=== PATIENT | female | born 1955 | race Caucasian/White ===

== ENCOUNTER 2017-10-11 18:54 | Emergency (ER) | payer MEDICAID, SELFPAY ==
[2017-10-11 18:56] VITALS: BP 154/84; PULSE 72; RESP 18; TEMP 36.9; O2SAT 98; BMI 24.0
[2017-10-11 20:19] VITALS: BP 153/57; PULSE 54; RESP 16; O2SAT 99
[2017-10-11 20:20] VITALS: O2SAT 100
--- NOTE | 2017-10-11 20:36 | EKG12_ITS ---
Test Reason : COUGH Blood Pressure : / mmHG Vent. Rate : 055 BPM Atrial Rate : 055 BPM P-R Int : 180 ms QRS Dur : 072 ms QT Int : 418 ms P-R-T Axes : 082 024 048 degrees QTc Int : 399 ms Sinus bradycardia Otherwise normal ECG Confirmed by PASTOR ROMO, ARNOL ([id number]), material expeditor STACY MUNOZ ([id number] on 10/13/2017 1:36:49 PM Referred By: MINDI Confirmed By:ARNOL BAUMANN MD
[2017-10-11 20:53] LABS: Absolute Neutrophil Count 3.9 X10^3/uL (2.0-7.7); Basophil# 0.07 X10^3/uL; Basophil% 0.8 % (0-1); Eosinophil# 0.36 X10^3/uL; Eosinophils% 4.2 % (0-5); Hematocrit 38.3 % (37-47); Hemoglobin 12.5 g/dl (12.0-15.0); Lymphocyte % 40.1 % (19-41); Mean Corp Hgb Conc 32.6 g/gl (32-36); Mean Corpuscular Hgb 27.8 pg (27.0-32.0); Mean Corpuscular Volume 85.3 fL (81-99); Mean Platelet Vol. 9.2 fl (6.2-12.0); Monocyte# 0.79 X10^3/uL; Monocyte% 9.3 % (0-10); Neutrophil # 3.85 X10^3/uL (2.7-7.7); Neutrophil % 45.5 % (47-70); POSITIVE COUNT NO; POSITIVE DIFFERENTIAL NO; POSITIVE MORPHOLOGY NO; Platelet Count 229 K/mm3 (150-450); RBC Distribution Width CV 12.5 % (11.6-14.6); RBC Distribution Width SD 39.2 fl (35.1-43.9); Red Blood Count 4.49 M/mm3 (4.2-5.4); White Blood Count 8.5 K/mm3 (4.4-11.0)
[2017-10-11 21:10] LABS: Anion Gap 5 (5-15); BUN 22 mg/dL (7-18); BUN/Creat Ratio 16.7 RATIO (10-20); Calcium,Total 8.9 mg/dL (8.5-10.1); Chloride 101 mmol/L (98-107); Creatinine, Serum 1.32 mg/dL (0.55-1.02); EST Glomerular Filtration Rate 43 mL/min (>60); Est Glom Filt Rate - Afr Amer 52 mL/min (>60); Estimated Creatinine Clearance 39.76 ml/min; Glucose 95 mg/dL (74-106); Potassium 4.3 mmol/L (3.5-5.1); Sodium Level 135 mmol/L (136-145)
--- NOTE | 2017-10-11 21:11 | RAD_ITS ---
STUDY: X-RAY CHEST REASON FOR EXAM: Female, 62 years old. Cough, congestion, fever TECHNIQUE: Frontal and lateral views of the chest. COMPARISON: None. FINDINGS: The lungs are clear and hyper expanded. There is no demonstrated pleural abnormality. Normal size heart. Normal mediastinum and pratibha. Normal visualized pulmonary arteries. Normal visualized aortic arch and descending thoracic aorta. Normal visualized thoracic spine. Normal visualized ribs, clavicles, and shoulders. There is no demonstrated abnormality of the visualized soft tissue structures of the upper abdomen. RAD/Chest PA and Lateral IMPRESSION: Hyperinflation. No acute infiltrate. Electronically Signed: Jr Baugh DO at 21:53 EST , Service support ,
[2017-10-11] MEDS: Ketorolac 15 MG/ML Vial IV (21:39)
[2017-10-11 21:40] VITALS: BP 129/64; PULSE 56; RESP 17; O2SAT 99
--- NOTE | 2017-10-11 22:26 | ED.VISSUMM ---
- ER Visit Summary Date of Service: 10/11/17 Chief Complaint: Cough History of Present Illness: The patient is a 62 F with a history of COPD, not on home oxygen. Patient reports cough for the past 2 weeks and states she is bringing up green sputum. She has back pain over the past 5 days and believes she has pneumonia. She has noted a low-grade fever. She has had no nausea or vomiting. Physical Examination: Vital signs are gross unremarkable. Patient is afebrile here 98.4. Patient sitting upright in bed in no acute distress. She is nontoxic appearing. Head neck examination is unremarkable. Heart is regular rate and rhythm. Lung sounds are slightly diminished throughout. Abdomen is soft nontender. Test Results: EKG is sinus bradycardia at 55 bpm with no sign of acute ischemia. Two-view chest x-ray shows hyperinflation with no evidence of infiltrate. CBC is normal. Chemistry studies reveal BUN 22 and creatinine 1.32, which is consistent with her baseline renal function. Emergency Department Course and Treatment: Patient received 15 mg of Toradol for pain. At this time I believe she has a COPD exacerbation. She will be covered with Zithromax, first dose given here. She has aerosols at home to use as needed. Treatment Plan: [] Disposition: Discharge Impression: COPD exacerbation This note was generated with [employer] dictation software. It may contain incorrect words, spelling, and punctuation that were not noted in review of the chart prior to signing ED Disposition - Plan for ED Patient: Disposition: Home or Assisted Living Chief Complaint: Cough Instructions: ED COPD Flare Prescriptions: Azithromycin [Zithromax] 250 mg PO DAILY #4 tablet Referrals: Freedom Modi DO [Primary Care Provider] - 1 Week if not improving
[2017-10-11 22:27] VITALS: BP 123/105; BP 132/105; PULSE 57; RESP 13; O2SAT 98
[2017-10-11 22:42] VITALS: BP 141/68; PULSE 67; RESP 16; O2SAT 97
[2017-10-11] MEDS: Azithromycin 250 MG Tablet 500 MG PO (22:42)
== END 2017-10-11 22:43 | disposition home or self-care (01) ==
PROVIDERS: Emergency Provider Emergency Medicine; Family Provider Family Medicine; PCP Family Medicine
DX: J44.1 Chronic obstructive pulmonary disease with (acute) exacerbation (principal); I10 Essential (primary) hypertension; F41.9 Anxiety disorder, unspecified; Z72.0 Tobacco use
CPT/HCPCS: 71046; 80048; 85025; 93005; 99284; A4216

== ENCOUNTER → 2018-03-14 15:53 | Outpatient (CLI) | payer MEDICAID, SELFPAY | PROVIDERS: Family Provider Family Medicine; PCP Family Medicine; Visit Provider Family Medicine | DX: N39.0 Urinary tract infection, site not specified (principal) | CPT/HCPCS: 87077; 87086; 87088; 87186 ==

== ENCOUNTER 2018-03-24 19:22 | Emergency (ER) | payer MEDICAID, SELFPAY ==
[2018-03-24 19:23] VITALS: BP 143/60; PULSE 71; RESP 15; TEMP 36.7; O2SAT 100; BMI 26.9
[2018-03-24] MEDS: Fluconazole 100 MG Tablet 150 MG PO (20:08)
[2018-03-24 20:15] LABS: Bacteria 0 SEEN /hpf (None Seen); Mucous, Urine 0 SEEN /hpf (<or=2+); Red Blood Cells-Urine 0 SEEN /hpf (0-5); Squamous Epithelial Cells - UA 0 SEEN /hpf (5-10); White Blood Cells 0 SEEN /hpf (0-5)
[2018-03-24 20:16] LABS: Color, Urine Yellow (Yellow); Glucose, Dipstick Normal (Normal); Ketone-Dipstick Negative (Negative); Leukocyte Esterase-Dipstick Negative /ul (Negative); Nitrite-Dipstick Negative (Negative); Occult Blood-Urine Negative /ul (Negative); Protein-Dipstick Negative (Negative); Specific Gravity, Urine 1.015 (1.002-1.030); Urine Bilirubin Dipstick Negative (Negative); Urine Clarity Clear (Clear); Urine Urobilinogen Normal (Normal)
--- NOTE | 2018-03-24 20:18 | ED.DCSUM_ITS ---
- ER Visit Summary Date of Service: 03/24/18 Chief Complaint: Dysuria History of Present Illness: The patient is a 62 F presents to the emergency department with dysuria. Patient states she was diagnosed with urinary tract infection. She states that she finished 3 days of Bactrim on Wednesday. Since then, she has had persistent symptoms. She feels like she is having pain when she urinates. She is also had some vaginal itching. She denies back pain. She denies fevers or chills. She denies any other systemic symptoms. Physical Examination: Vital signs reviewed General: Well-nourished, well-developed Head: Normocephalic, atraumatic Eyes: Pupils equal and reactive, extraocular muscles intact Neck, supple, no lymphadenopathy Heart: Regular rate and rhythm Respiratory: No distress, clear bilaterally Abdomen: Soft, nontender, nondistended, no peritoneal signs Back: Nontender Extremities: Nontender, no edema, no cords Skin: Normal color no rash Neuro: Alert and oriented, no focal or lateralizing deficits Test Results: [] Emergency Department Course and Treatment: The patient does have symptoms of dysuria. External exam was done with female nurse risk prevention engineer. She does have evidence of yeast vaginitis. Patient had a urine obtained. There was no evidence of persistent infection. I do feel that her symptoms are secondary to yeast vaginitis. She will be treated with Diflucan and Pyridium. The patient will be discharged to follow-up with Dr. Modi. Treatment Plan: [] Disposition: To Impression: 1. Yeast vaginitis 2. Dysuria This note was generated with [email or web address] dictation software. It may contain incorrect words, spelling, and punctuation that were not noted in review of the chart prior to signing ED Disposition - Plan for ED Patient: Chief Complaint: Complaint Instructions: ED Urethritis Infec Vs Inflam Fem Prescriptions: Fluconazole [Diflucan] 150 mg PO X1 #1 tab Phenazopyridine HCl [Pyridium] 200 mg PO BID PRN PRN #10 tab PRN Reason: Pain Lactobacillus Acidophilus [Probiotic Acidophilus] 1 ea PO BID #60 tab Referrals: Freedom Modi DO [Primary Care Provider] -
[2018-03-24 20:46] VITALS: PULSE 72; RESP 15; O2SAT 98
== END 2018-03-24 20:47 | disposition home or self-care (01) ==
LOC: ED 19:59
PROVIDERS: Emergency Provider Emergency Medicine; Family Provider Family Medicine; PCP Family Medicine
DX: B37.3 Candidiasis of vulva and vagina (principal); R30.0 Dysuria; Z72.0 Tobacco use
CPT/HCPCS: 81001; 99283

== ENCOUNTER 2018-03-31 12:58 | Emergency (ER) | payer MEDICAID, SELFPAY ==
[2018-03-31 12:58] VITALS: BP 122/81; PULSE 61; RESP 18; TEMP 37; O2SAT 97; BMI 22.6
[2018-03-31 13:31] LABS: Bacteria 0 SEEN /hpf (None Seen); Mucous, Urine 0 SEEN /hpf (<or=2+); Red Blood Cells-Urine 0 SEEN /hpf (0-5)
[2018-03-31 13:34] LABS: Color, Urine Yellow (Yellow); Glucose, Dipstick Normal (Normal); Ketone-Dipstick Negative (Negative); Leukocyte Esterase-Dipstick Negative /ul (Negative); Nitrite-Dipstick Negative (Negative); Occult Blood-Urine Negative /ul (Negative); Protein-Dipstick Negative (Negative); Specific Gravity, Urine 1.005 (1.002-1.030); Urine Bilirubin Dipstick Negative (Negative); Urine Clarity Clear (Clear); Urine Urobilinogen Normal (Normal); Urine pH 6.5 (5.0 - 8.0)
[2018-03-31 13:40] LABS: Squamous Epithelial Cells - UA 0-5 SEEN /hpf (5-10); White Blood Cells 0-5 SEEN /hpf (0-5)
--- NOTE | 2018-03-31 14:25 | ED.VISSUMM ---
- ER Visit Summary Date of Service: 03/31/18 Chief Complaint: [dysuria, vaginal itching] History of Present Illness: The patient is a 62 F [that presents with UTI symptoms. She was seen 5 days ago for the same complaints. Urinalysis at time was not consistent with infection. Pelvic exam at that time was consistent with yeast vaginitis. Patient was treated with Diflucan and Pyridium. She states her symptoms have persisted. She has been referred to a truck technician but does not yet have an appointment. She presents for the same symptoms. She states the symptoms are no worse. She has no other complaints.] Physical Examination: [General: The patient appears well and in no apparent distress. Patient is resting comfortably on cart. Skin: Warm, dry, no pallor noted. No rash. Head: Normocephalic, atraumatic Neck: Supple, nontender. Cardiovascular: Regular Rate and Rhythm, no gallups or rubs Respiratory: Patient is in no distress, no accessory muscle use, lungs are clear to auscultation, no wheezing, rales or rhonchi Musculoskeletal: normal ROM, no deformity, no tenderness, no swelling. GI: No tenderness to palpation, no masses appreciated. No rebound, guarding, or rigidity noted. Neurological: A&O, normal strength and sensation. Psychiatric: Cooperative] Test Results: [UA not consistent with infection.] Emergency Department Course and Treatment: [Repeat urinalysis not consistent with infection. Urine culture will be sent. Patient refuses another pelvic exam as she states she had one several days ago. I will treat her with a topical Monistat type treatment and she will again be referred to FISH DRESSING MACHINE FEEDER for follow-up. She denies any abdominal or pelvic pain. She states her pain is just the itching and discomfort of the vaginal area. She denies any bleeding. Patient understands and is agreeable with this plan of care. Patient was discharged home in stable condition.] Treatment Plan: [See above] Disposition: [Discharged home, stable condition] Impression: [Vaginal pain] This note was generated with [employer] dictation software. It may contain incorrect words, spelling, and punctuation that were not noted in review of the chart prior to signing ED Disposition - Plan for ED Patient: Disposition: Home or Assisted Living Chief Complaint: Complaint Instructions: Vaginal Infection: Yeast (Candidiasis) Prescriptions: Miconazole Nitrate [Monistat 7] 1 applic VAGINAL QHS #1 tube Referrals: Freedom Modi DO [Primary Care Provider] - Reagan Collins MD [STAFF PHYSICIAN] -
--- NOTE | 2018-03-31 14:30 | ED.DCSUM_ITS ---
- ER Visit Summary Date of Service: 03/31/18 Chief Complaint: [dysuria, vaginal itching] History of Present Illness: The patient is a 62 F [that presents with UTI symptoms. She was seen 5 days ago for the same complaints. Urinalysis at time was not consistent with infection. Pelvic exam at that time was consistent with yeast vaginitis. Patient was treated with Diflucan and Pyridium. She states her symptoms have persisted. She has been referred to a legal administrative assistant but does not yet have an appointment. She presents for the same symptoms. She states the symptoms are no worse. She has no other complaints.] Physical Examination: [General: The patient appears well and in no apparent distress. Patient is resting comfortably on cart. Skin: Warm, dry, no pallor noted. No rash. Head: Normocephalic, atraumatic Neck: Supple, nontender. Cardiovascular: Regular Rate and Rhythm, no gallups or rubs Respiratory: Patient is in no distress, no accessory muscle use, lungs are clear to auscultation, no wheezing, rales or rhonchi Musculoskeletal: normal ROM, no deformity, no tenderness, no swelling. GI: No tenderness to palpation, no masses appreciated. No rebound, guarding, or rigidity noted. Neurological: A&O, normal strength and sensation. Psychiatric: Cooperative] Test Results: [UA not consistent with infection.] Emergency Department Course and Treatment: [Repeat urinalysis not consistent with infection. Urine culture will be sent. Patient refuses another pelvic exam as she states she had one several days ago. I will treat her with a topical Monistat type treatment and she will again be referred to PACU RN for follow -up. She denies any abdominal or pelvic pain. She states her pain is just the itching and discomfort of the vaginal area. She denies any bleeding. Patient understands and is agreeable with this plan of care. Patient was discharged home in stable condition.] Treatment Plan: [See above] Disposition: [Discharged home, stable condition] Impression: [Vaginal pain] This note was generated with [employer] dictation software. It may contain incorrect words, spelling, and punctuation that were not noted in review of the chart prior to signing ED Disposition - Plan for ED Patient: Disposition: Home or Assisted Living Chief Complaint: Complaint Instructions: Vaginal Infection: Yeast (Candidiasis) Prescriptions: Miconazole Nitrate [Monistat 7] 1 applic VAGINAL QHS #1 tube Referrals: Freedom Modi DO [Primary Care Provider] - Reagan Collins MD [STAFF PHYSICIAN] -
[2018-03-31] MEDS: Acetaminophen 500 MG Tablet 1000 MG PO (14:45)
== END 2018-03-31 14:49 | disposition home or self-care (01) ==
PROVIDERS: Emergency Provider Emergency Medicine; Family Provider Family Medicine; PCP Family Medicine
DX: R10.2 Pelvic and perineal pain (principal); R30.0 Dysuria; R35.0 Frequency of micturition
CPT/HCPCS: 81001; 87086; 87088; 99283

== ENCOUNTER → 2018-04-22 15:45 | Outpatient (CLI) | payer MEDICAID, SELFPAY | PROVIDERS: Family Provider Family Medicine; PCP Family Medicine; Visit Provider Obstetrics & Gynecology | DX: N39.0 Urinary tract infection, site not specified (principal) | CPT/HCPCS: 87086; 87088 ==

== ENCOUNTER → 2018-05-05 16:20 | Outpatient (CLI) | payer MEDICAID, SELFPAY ==
[2018-05-11 10:55] LABS: HPV Reflexed? NOT INDICATED
== END ==
PROVIDERS: Visit Provider Obstetrics & Gynecology
DX: Z12.4 Encounter for screening for malignant neoplasm of cervix (principal)
CPT/HCPCS: 88175; G0145

== ENCOUNTER → 2018-06-03 10:26 | Outpatient (CLI) | payer MEDICAID, SELFPAY ==
--- NOTE | 2018-06-03 10:28 | BI_ITS ---
MAMMOGRAPHY - BILATERAL SCREENING REASON FOR EXAM: Female, 62 years old. Routine annual screening examination. PERTINENT HISTORY: Mother with breast cancer. TECHNIQUE: Digital bilateral breast amanda (3D mammographic acquisition) in the CC and MLO projections. 2-D mediolateral oblique (MLO) and craniocaudad (CC) views of both breasts were obtained. CAD: Full Field Digital Mammography with Computer Added Detection was performed. COMPARISON: Comparison is made with prior study dated September 24, 2015 and February 28, 2014. FINDINGS: Breast Composition: The breasts are almost entirely fatty. There are no dominant masses or suspicious calcifications. Stable 3.7 mm x 2.7 mm well-defined nodule in the inferior medial retroareolar region of the right breast. This most likely represents a small cyst. Correlation with ultrasound is recommended. No other significant abnormalities are identified. There has been no significant change since the prior study. BI/SCREENING MAMM (CAD), BILAT IMPRESSION: Stable bilateral screening mammogram. 3.7 mm x 2.7 mm well-defined nodule in the inferior medial retroareolar region of the right breast. Correlation with ultrasound is recommended. ASSESSMENT CATEGORY: BIRADS Category 0: Incomplete. Need additional imaging evaluation. A letter regarding these results will be sent to the patient by the facility within 30 days. Approximately 10% of breast cancers are not detected by mammography. A normal mammogram should not delay biopsy of a clinically suspicious abnormality. [id number] Electronically Signed: Trey Chisholm MD at 13:58 EDT Tel [phone], Service support ,
== END ==
PROVIDERS: Family Provider Family Medicine; PCP Family Medicine; Referring Provider Obstetrics & Gynecology; Visit Provider Obstetrics & Gynecology
DX: Z12.31 Encounter for screening mammogram for malignant neoplasm of breast (principal)
CPT/HCPCS: 77063; 77067

== ENCOUNTER → 2018-06-13 12:26 | Outpatient (CLI) | payer MEDICAID, SELFPAY ==
--- NOTE | 2018-06-13 12:29 | US_ITS ---
STUDY: ULTRASOUND BREAST - RIGHT REASON FOR EXAM: Female, 62 years old. Abnormal screening mammogram. TECHNIQUE: Axial and longitudinal images of the RIGHT breast were performed with a high resolution ultrasound transducer. COMPARISON: Comparison is made with prior mammogram dated June 03, 2018. FINDINGS: RIGHT Breast: There is a 3 mm x 3 mm x 2 mm cyst with low level echoes within it. This is at the 6:00 position of the breast in the retroareolar region. US/Breast Limited Unilateral IMPRESSION: The mammographic abnormality corresponds to a 3 mm x 3 mm x 2 mm cyst with low-level echoes within it. This may represent an hemorrhagic cyst. ASSESSMENT CATEGORY: BIRADS Category 2: Benign. A letter regarding these results will be sent to the patient by the facility within 30 days. Electronically Signed: Trey Chisholm MD at 15:38 EDT Tel [phone], Service support ,
== END ==
PROVIDERS: Family Provider Family Medicine; PCP Family Medicine; Referring Provider Obstetrics & Gynecology; Visit Provider Obstetrics & Gynecology
DX: R92.8 Other abnormal and inconclusive findings on diagnostic imaging of breast (principal)
CPT/HCPCS: 76642

== ENCOUNTER → 2018-08-30 10:00 | Outpatient (CLI) | payer MEDICAID, SELFPAY ==
--- NOTE | 2018-08-31 07:26 | PFTCOMP ---
COMPLETE PULMONARY FUNCTION TEST INTERPRETATION Brief HPI: Patient is a 63 year old female, currently under the care of myself, who presents to [facility] for complete pulmonary function tests secondary to diagnosis of COPD. Respiratory therapist reports good effort and reproducible results. Interpretation: Forced expiration spirometry shows a moderate large airways obstructive ventilatory defect with an FEV1 of 71% predicted. There is a significant bronchodilator response in FEV1 by strict ATS criteria. Spirograms are of good quality and plateau slowly, indicating slowly emptying areas of the lungs. The respiratory flow volume loop shows decreased expiratory flow rates at all lung volumes consistent with airway obstruction. Lung volumes by body plethysmography show an elevated total lung capacity at 6 L, 118% predicted. There is a trend towards air trapping, but this does not reach clinical significance by strict ATS criteria. Diffusion capacity by carbon monoxide is normal at 81% predicted. The airway resistance is elevated. Compared to previous pulmonary function tests from 02/20/2016, there has been a significant worsening in FEV1 by 21%. Impression: Partially reversible moderate large airways obstructive ventilatory defect with worsening compared to previous testing, in a pattern consistent with COPD/asthma overlap syndrome.
== END ==
PROVIDERS: Family Provider Family Medicine; PCP Family Medicine; Referring Provider Nurse Practitioner Acute Care; Visit Provider Nurse Practitioner Acute Care
DX: J44.9 Chronic obstructive pulmonary disease, unspecified (principal)
CPT/HCPCS: 94060; 94726; 94729

== ENCOUNTER → 2018-09-01 10:41 | Outpatient (CLI) | payer MEDICAID, SELFPAY ==
[2018-09-01 11:09] VITALS: PULSE 100; PULSE 102; PULSE 105; PULSE 111; PULSE 75; PULSE 81; PULSE 94; O2SAT 97; O2SAT 98
--- NOTE | 2018-09-01 14:10 | WT_ITS ---
PSN 6 Minute Walk Test - 6 Minute Walk Test 6 Minute Walk Test: 6 Minute Walk Test PSN:6-Minute Walk Test Start: 09/01/18 11:09 Freq: Status: Active Protocol: RESP.6MINW Document 09/01/18 11:09 [facility] (Rec: 09/01/18 11:16 [facility] [id number]) 6 Minute Walk Test Date Performed 09/01/18 Time Performed 10:50 Height 5 ft 5 in Weight: 58.967 kg Weight in Pounds 130.[address]: Adrianne Sargent Assistive device used: None Pre-test Oxygen Delivery Method Room Air Pulse Ox (%) 98 Pulse Rate (60-100 beats/min) 75 Dyspnea Mary Beth Scale (0-10) 0.5 Exertion Mary Beth Scale (6-20) 11 1st minute Oxygen Delivery Method Room Air Pulse Ox (%) 97 Pulse Rate (60-100 beats/min) 102 H 2nd minute Oxygen Delivery Method Room Air Pulse Ox (%) 97 Pulse Rate (60-100 beats/min) 100 3rd minute Oxygen Delivery Method Room Air Pulse Ox (%) 98 Pulse Rate (60-100 beats/min) 81 4th minute Oxygen Delivery Method Room Air Pulse Ox (%) 98 Pulse Rate (60-100 beats/min) 105 H 5th minute Oxygen Delivery Method Room Air Pulse Ox (%) 98 Pulse Rate (60-100 beats/min) 105 H 6th minute Oxygen Delivery Method Room Air Pulse Ox (%) 98 Pulse Rate (60-100 beats/min) 111 H Post-test Oxygen Delivery Method Room Air Pulse Ox (%) 98 Pulse Rate (60-100 beats/min) 94 Dyspnea Mary Beth Scale (0-10) 2 Exertion Mary Beth Scale (6-20) 13 Full Laps Walked 22 Partial Lap, Number of Tiles Walked 7 Total Distance Walked (ft) 1305 - Interpretation Interpretation: The patient was able to ambulate 1305 feet over the course of 6 minutes on room air with no assistive devices or breaks. There was no significant desaturation, but mild tachycardia with a peak heart rate of 111 bpm. These findings are consistent with deconditioning. - Recommendations Recommendations: No supplemental oxygen is indicated at this time.
== END ==
PROVIDERS: Family Provider Family Medicine; PCP Family Medicine; Referring Provider Nurse Practitioner Acute Care; Visit Provider Nurse Practitioner Acute Care
DX: J44.9 Chronic obstructive pulmonary disease, unspecified (principal)
CPT/HCPCS: 94618

== ENCOUNTER → 2018-10-03 13:36 | Outpatient (CLI) | payer MEDICAID, SELFPAY ==
[2018-09-07 08:54] VITALS: BMI 21.1
--- NOTE | 2018-10-03 13:38 | CT_ITS ---
STUDY: LOW DOSE CT LUNG CANCER SCREENING REASON FOR EXAM: Female, 63 years old. Smoker x48 years, 2 packs per day RADIATION DOSAGE (If Supplied By Facility): CTDIvol = ( 2.01 ) mGy, DLP = ( 73.49 ) mGycm TECHNIQUE: No contrast was administered. Low dose technique was utilized (average mAS-38 and kVp 120). 1.25 mm axial source images with a slice interval of 1.25-mm were reconstructed in lung windows. 2.5 mm axial source images with a slice interval of 2.5-mm were reconstructed in lung windows. 5.0 mm axial source images with a slice interval of 5.0-mm were reconstructed in soft tissue windows. Nodule measured using lung windows on PACS and/or independent workstation with automated measurement of minimum and maximum diameter. Nodule measurement reported as average diameter rounded to the nearest whole number. Growth is defined as an increase ins size of greater than 1.5 mm. COMPARISON: None. NODULES: Lung windows show underlying emphysema with bleb formation but no superimposed infiltrate, effusion, suspicious noncalcified mass or nodule. No demonstrated axillary or mediastinal adenopathy. Degenerative bony changes with stable compression fracture at L1. CT/Low Dose CT Lung Screening IMPRESSION: Lung-RADS category 2 - Continue annual screening with LDCT in 12 months. IMPORTANT NOTES FOR USE: ACR Lung-RADS Version 1.0 Assessment Categories Release Date: December 18, 2013 Category: Coded 0-4 bases on nodule(s) with highest degree of suspicion. Negative screen is defined as categories 1 and 2; a positive screen is defined as categories 3 and 4. Category 3 and 4A nodules that are unchanged on interval CT should be coded as category 2, and individuals returned to screening in 12 months. Category 4X: Category 3 or 4 nodules with additional imaging findings that increase the suspicion of lung cancer, such as spiculation, GGN that doubles in size in 1 year, enlarged lymph notes, etc. Category Modifiers: S (significant finding unrelated to lung cancer) and C (prior history of treated lung cancer) may be added to the 0-4 Lung-RADS Electronically Signed: Ángel Cline MD at 14:52 EST , Service support ,
== END ==
PROVIDERS: Family Provider Family Medicine; PCP Family Medicine; Referring Provider Family Medicine; Visit Provider Family Medicine
DX: Z12.2 Encounter for screening for malignant neoplasm of respiratory organs (principal); Z72.0 Tobacco use
CPT/HCPCS: G0297

== ENCOUNTER 2018-10-30 23:50 | Emergency (ER) | payer MEDICAID, SELFPAY ==
[2018-09-07 08:54] VITALS: BMI 21.1
[2018-10-30 23:51] VITALS: BP 112/69; PULSE 66; RESP 16; TEMP 36.6; O2SAT 100; BMI 20.7
--- NOTE | 2018-10-31 00:30 | RAD_ITS ---
STUDY: X-RAY - RIGHT HIP REASON FOR EXAM: Female, 63 years old. Trauma TECHNIQUE: 2 views of the hip. COMPARISON: None. FINDINGS: Degenerative changes of the visualized lumbar spine. Degenerative changes of the hips. Evaluation the sacrum is limited due to overlying stool and bowel gas. Clips are noted within the bilateral adnexa. Phleboliths within the pelvis. Fracture involving the right femoral neck. The femoral head remains seated within the acetabulum. There is lucency overlying the left sacrum. RAD/HIP, UNI W/ Pelvis 2-3 Views IMPRESSION: There is a right femoral neck fracture which appears slightly superiorly displaced. Lucency overlies the left sacrum. This could represent bowel gas however nondisplaced fracture cannot be totally excluded. Electronically Signed: Jose Alfredo Soriano, at 1:56 EDT Tel , Service support ,
--- NOTE | 2018-10-31 00:30 | RAD_ITS ---
STUDY: X-RAY CHEST REASON FOR EXAM: Female, 63 years old. Fall TECHNIQUE: Single AP portable view of the chest. COMPARISON: None. FINDINGS: There is hyperinflation of the lungs consistent with chronic obstructive lung disease (COPD). There is no demonstrated pleural abnormality. Normal size heart. Normal mediastinum and pratibha. Normal visualized pulmonary arteries. Normal visualized aortic arch and descending thoracic aorta. Normal visualized thoracic spine. There is an old healed fracture of the left sixth rib. There is no demonstrated abnormality of the visualized soft tissue structures of the upper abdomen. RAD/Chest 1 View (Portable) IMPRESSION: There is hyperinflation of the lungs consistent with chronic obstructive lung disease (COPD). There is no evidence of pneumothorax. Electronically Signed: Fannie Hartley, at 3:28 EDT Tel , Service support ,
--- NOTE | 2018-10-31 00:30 | EKG12_ITS ---
Test Reason : PRE-OP Blood Pressure : / mmHG Vent. Rate : 065 BPM Atrial Rate : 065 BPM P-R Int : 140 ms QRS Dur : 078 ms QT Int : 458 ms P-R-T Axes : 081 024 066 degrees QTc Int : 476 ms Normal sinus rhythm Normal ECG Confirmed by ILIANA ROMO, CHRISTIAN ([id number]), editor in chief newspaper REBECA MORAES ([id number]) on 11/04/2018 9:20:45 AM Referred By: ZAMZAM Confirmed By:CHRISTIAN BARRIENTOS MD
--- NOTE | 2018-10-31 00:33 | ED.DCSUM_ITS ---
- ER Visit Summary Date of Service: 10/31/18 Chief Complaint: Right hip pain History of Present Illness: The patient is a 63 F who presents with right hip pain that began after a fall today. Patient slipped on her floor and fell. Patient landed on her right hip. Patient describes the pain as stabbing. P atient states the pain is worse with movement. Patient denies any paresthesias or weakness. Patient denies any head injury or loss of consciousness. Patient denies any other injuries. Physical Examination: Vital signs are stable. Patient is afebrile. Patient is in no acute distress. Oral mucosa is pink and moist. Heart was regular rate and rhythm. Lungs are clear and equal bilateral. Abdomen is soft nontender. Musculoskeletal exam reveals tenderness over the right hip. There is shortening and external rotation of the right lower extremity. There is pain with internal and external rotation of the right lower extremity. Range of motion of the right hip was limited in all motion secondary to pain. Pedal pulses are equal bilaterally. There are no sensory deficits noted. Cranial nerves II through XII are intact. There are no focal deficits noted. Test Results: X-rays of the right hip show a basicervical fracture. There is a questionable sacral fracture but this may be overlying bowel gas. Chest x-ray does not show any acute cardiopulmonary process. These were interpreted by the radiologist and reviewed by myself. EKG showed normal sinus rhythm. There are no acute ST or T wave changes noted. Emergency Department Course and Treatment: Patient was given 2 doses of morphine here in the emergency department. Since there is no orthopedist quality assurance monitor body for unassigned orthopedic patients, patient will need to be transferred. Patient requested transfer to [facility]. Case was discussed with Dr. Macias. He accepted the patient in transfer. Patient understood and was agreeable with the plan. All questions were answered. Disposition: Transfer to [facility] Impression: Basicervical fracture right hip This note was generated with [employer] dictation software. It may contain incorrect words, spelling, and punctuation that were not noted in review of the chart prior to signing ED Disposition - Plan for ED Patient: Disposition: [facility] Diagnosis: Fracture of hip, right, closed Referrals: Freedom Modi DO [Primary Care Provider] -
[2018-10-31] MEDS: Morphine 4 MG/ML Syringe IV ×3 (00:35→03:22)
[2018-10-31 02:08] VITALS: BP 140/69; PULSE 71; RESP 16; O2SAT 97
[2018-10-31 03:01] VITALS: BP 140/71; PULSE 69; RESP 14; O2SAT 97
== END 2018-10-31 03:31 | disposition short-term general hospital (02) ==
PROVIDERS: Emergency Provider Emergency Medicine; Family Provider Family Medicine; PCP Family Medicine
DX: S72.041A Displaced fracture of base of neck of right femur, initial encounter for closed fracture (principal); W01.0XXA Fall on same level from slipping, tripping and stumbling without subsequent striking against object, initial encounter; Y93.9 Activity, unspecified; Y92.89 Other specified places as the place of occurrence of the external cause; Y99.9 Unspecified external cause status; I10 Essential (primary) hypertension; F17.210 Nicotine dependence, cigarettes, uncomplicated
CPT/HCPCS: 71045; 73502; 93005; 96374; 96376; 99285; A4216

== ENCOUNTER → 2018-12-12 10:37 | Outpatient (CLI) | payer MEDICAID, SELFPAY ==
[2018-11-28 10:50] VITALS: BMI 20.7
[2018-12-12 11:00] VITALS: PULSE 101; PULSE 77; PULSE 79; PULSE 88; PULSE 90; PULSE 93; PULSE 95; PULSE 99; O2SAT 100; O2SAT 97; O2SAT 98; O2SAT 99
--- NOTE | 2018-12-12 13:01 | PCM.PSN.6M ---
PSN 6 Minute Walk Test - 6 Minute Walk Test 6 Minute Walk Test: 6 Minute Walk Test PSN:6-Minute Walk Test Start: 12/12/18 11:27 Freq: Status: Active Protocol: [id number] Document 12/12/18 11:00 JOAQUÍN (Rec: 12/12/18 11:29 JLA [id number]) 6 Minute Walk Test Date Performed 12/12/18 Time Performed 11:00 Height 5 ft 5 in Weight: 122 lb Weight in Pounds 122.[address]: Chauncey Faulkner Assistive device used: Walker Pre-test Oxygen Delivery Method Room Air Pulse Ox (%) 100 Pulse Rate (60-100 beats/min) 79 Dyspnea Mary Beth Scale (0-10) 0 Exertion Mary Beth Scale (6-20) 6 1st minute Oxygen Delivery Method Room Air Pulse Ox (%) 98 Pulse Rate (60-100 beats/min) 77 2nd minute Oxygen Delivery Method Room Air Pulse Ox (%) 99 Pulse Rate (60-100 beats/min) 90 3rd minute Oxygen Delivery Method Room Air Pulse Ox (%) 98 Pulse Rate (60-100 beats/min) 93 4th minute Oxygen Delivery Method Room Air Pulse Ox (%) 97 Pulse Rate (60-100 beats/min) 95 5th minute Oxygen Delivery Method Room Air Pulse Ox (%) 98 Pulse Rate (60-100 beats/min) 99 6th minute Oxygen Delivery Method Room Air Pulse Ox (%) 98 Pulse Rate (60-100 beats/min) 101 H Dyspnea Mary Beth Scale (0-10) 0.5 Exertion Mary Beth Scale (6-20) 13 Post-test Oxygen Delivery Method Room Air Pulse Ox (%) 99 Pulse Rate (60-100 beats/min) 88 Full Laps Walked 16 Partial Lap, Number of Tiles Walked 0 Total Distance Walked (ft) 944 - Interpretation Interpretation: The patient ambulated 944 feet over the course of 6 minutes beginning on room air with the use of a walker. Pretesting oxygen saturation was noted to be 100% on room air. With ambulation, the cem oxygen saturation was 97%. There was no significant exertional oxygen desaturation. - Recommendations Recommendations: There is no indication for the use of supplemental oxygen at this time.
== END ==
PROVIDERS: Family Provider Family Medicine; PCP Family Medicine; Referring Provider Nurse Practitioner Acute Care; Visit Provider Nurse Practitioner Acute Care
DX: J44.9 Chronic obstructive pulmonary disease, unspecified (principal)
CPT/HCPCS: 94618

== ENCOUNTER → 2018-12-13 14:43 | Outpatient (CLI) | payer MEDICAID, SELFPAY ==
[2018-12-13 14:36] VITALS: BMI 20.7
--- NOTE | 2018-12-13 14:45 | RAD_ITS ---
STUDY: X-RAY - PELVIS AND RIGHT HIP REASON FOR EXAM: Postsurgical follow-up. TECHNIQUE: 2 views of the pelvis and hip. COMPARISON: Radiographs 10/31/2018. FINDINGS: There is vascular calcification. There are surgical clips in the pelvis. Normal bilateral iliac wings, sacroiliac joints and visualized sacrum. Normal bilateral superior and inferior pubic rami. Normal pubic symphysis. Normal bilateral ischial tuberosities. There is a right hip arthroplasty without evidence of complication. RAD/HIP, UNI W/ Pelvis 2-3 Views IMPRESSION: Uncomplicated right hip arthroplasty. Electronically Signed: Enrique Martinez MD at 15:41 EDT Tel , Service support ,
== END ==
PROVIDERS: Family Provider Family Medicine; PCP Family Medicine; Referring Provider Orthopaedic Surgery; Visit Provider Orthopaedic Surgery
DX: Z96.641 Presence of right artificial hip joint (principal)
CPT/HCPCS: 73502

== ENCOUNTER → 2018-12-20 12:56 | Outpatient (CLI) | payer MEDICAID, SELFPAY ==
[2018-12-13 14:36] VITALS: BMI 20.7
[2018-12-20 15:27] LABS: Anion Gap 10 (5-15); BUN 9 mg/dL (7-18); BUN/Creat Ratio 9.7 RATIO (10-20); Calcium,Total 9.1 mg/dL (8.5-10.1); Chloride 95 mmol/L (98-107); Creatinine, Serum 0.93 mg/dL (0.55-1.02); EST Glomerular Filtration Rate 65 mL/min (>60); Est Glom Filt Rate - Afr Amer 79 mL/min (>60); Glucose 92 mg/dL (74-106); Potassium 4.2 mmol/L (3.5-5.1); Sodium Level 130 mmol/L (136-145)
[2018-12-24 08:45] LABS: Rubeola IgM Ab < 0.80 AU (0.00-0.79)
== END ==
PROVIDERS: Family Provider Family Medicine; PCP Family Medicine; Visit Provider Family Medicine
DX: N18.9 Chronic kidney disease, unspecified (principal); Z23 Encounter for immunization
CPT/HCPCS: 36415; 80048; 86765

== ENCOUNTER → 2019-02-07 | Outpatient (CLI) | payer MEDICAID, SELFPAY ==
[2018-11-28 10:50] VITALS: BMI 20.7
[2018-12-13 14:36] VITALS: BMI 20.7
--- NOTE | 2019-02-09 07:57 | PFT ---
INTRODUCTION: The patient is a 63-year-old female that presents for pulmonary function studies secondary to a diagnosis of COPD. Respiratory therapy reports good patient effort. Bronchodilators were used during testing. INTERPRETATION: Forced expiration spirometry demonstrates the presence of a moderate large airways obstructive ventilatory defect. There was a significant response to aerosolized bronchodilators noted, based upon change in FEV1. Spirograms are of good quality and do not plateau indicating slow emptying of the lungs. Body plethysmography was performed and reveals an elevated TLC and RV, indicative of underlying hyperinflation and air-trapping. Diffusing capacity by single breath CO is within normal limits. IMPRESSION: Partially reversible moderate large airways obstructive ventilatory defect with associated hyperinflation and air-trapping.
== END | disposition home or self-care (01) ==
LOC: PSN 10:50
PROVIDERS: Family Provider Family Medicine; PCP Family Medicine; Referring Provider Nurse Practitioner Acute Care; Visit Provider Nurse Practitioner Acute Care
DX: J44.9 Chronic obstructive pulmonary disease, unspecified (principal)
CPT/HCPCS: 94060; 94726; 94729

== ENCOUNTER → 2019-06-13 10:53 | Outpatient (CLI) | payer MEDICAID, SELFPAY ==
[2019-03-30 10:33] VITALS: BMI 20.7
[2019-06-13 12:50] LABS: Absolute Lymphocyte Count 1.63 X10^3/uL (0.83-4.51); Absolute Neutrophil Count 3.5 X10^3/uL (2.0-7.7); Basophil# 0.07 X10^3/uL; Basophil% 1.1 % (0-1); Eosinophil# 0.46 X10^3/uL; Eosinophils% 7.3 % (0-5); Hematocrit 38.5 % (37-47); Hemoglobin 12.7 g/dL (12.0-15.0); Lymphocyte # 1.63 X10^3/ul (4.0); Lymphocyte % 25.7 % (19-41); Mean Corpuscular Hgb 28.4 pg (27.0-32.0); Mean Corpuscular Volume 86.1 fL (81-99); Mean Platelet Vol. 9.1 fl (6.2-12.0); Monocyte# 0.71 X10^3/uL; Monocyte% 11.2 % (0-10); NRBC Flagged by Analyzer 0 % (0-5); Neutrophil # 3.46 X10^3/uL (2.7-7.7); Neutrophil % 54.5 % (47-70); Platelet Count 287 K/mm3 (150-450); RBC Distribution Width CV 12.5 % (11.6-14.6); RBC Distribution Width SD 39.3 fl (35.1-43.9); Red Blood Count 4.47 M/mm3 (4.2-5.4); White Blood Count 6.3 K/mm3 (4.4-11.0)
[2019-06-13 15:50] LABS: Vitamin B12 317 pg/mL (211-911)
[2019-06-13 15:57] LABS: ALB/GLOB Ratio 1.2 RATIO (0.9-2.4); AST(SGOT) 27 U/L (15-37); Alanine Aminotransfer ALT/SGPT 26 U/L (13-56); Alkaline Phosphatase 50 U/L (45-117); Anion Gap 9 (5-15); BUN 12 mg/dL (7-18); BUN/Creat Ratio 11.7 RATIO (10-20); Calcium,Total 8.9 mg/dL (8.5-10.1); Chloride 97 mmol/L (98-107); Cholesterol 254 mg/dL (200); Creatinine, Serum 1.03 mg/dL (0.55-1.02); EST Glomerular Filtration Rate 57 mL/min (>60); Est Glom Filt Rate - Afr Amer 69 mL/min (>60); Globulin 3.4 g/dL (2.2-4.2); Glucose 97 mg/dL (74-106); High Density Lipoprotein 142 mg/dL; Potassium 4.1 mmol/L (3.5-5.1); Protein, Total 7.4 g/dL (6.4-8.2); Sodium Level 132 mmol/L (136-145); Triglycerides 64 mg/dL; Very Low Density Lipoprotein 13 mg/dL (5-40)
== END ==
PROVIDERS: Family Provider Family Medicine; PCP Family Medicine; Visit Provider Family Medicine
DX: Z00.00 Encounter for general adult medical examination without abnormal findings (principal); I10 Essential (primary) hypertension; Z72.89 Other problems related to lifestyle
CPT/HCPCS: 36415; 80053; 80061; 82607; 85025

== ENCOUNTER → 2019-10-09 14:07 | Outpatient (CLI) | payer MEDICAID, SELFPAY ==
[2019-09-28 12:39] VITALS: BMI 20.7
--- NOTE | 2019-10-09 14:08 | CT_ITS ---
STUDY: LOW DOSE CT LUNG CANCER SCREENING REASON FOR EXAM: Female, 64 years old. FORMER SMOKER 2 PPD X 50 YEARS QUIT 1 YEAR AGO. RADIATION DOSAGE (If Supplied By Facility): CTDIvol = ( 1.70 ) mGy, DLP = ( 62.31 ) mGycm TECHNIQUE: No contrast was administered. Low dose technique was utilized (average mAS-38 and kVp 120). 1.25 mm axial source images with a slice interval of 1.25-mm were reconstructed in lung windows. 2.5 mm axial source images with a slice interval of 2.5-mm were reconstructed in lung windows. 5.0 mm axial source images with a slice interval of 5.0-mm were reconstructed in soft tissue windows. Nodule measured using lung windows on PACS and/or independent workstation with automated measurement of minimum and maximum diameter. Nodule measurement reported as average diameter rounded to the nearest whole number. Growth is defined as an increase ins size of greater than 1.5 mm. COMPARISON: Comparison is made with prior examination dated October 03, 2018. NODULES: No suspicious nodules are seen. Emphysema: Emphysematous changes with small cystic spaces more prominent in the upper lobes. Minimal increased markings in the usual aspect of the right middle lobe as well as the lingular segment of the left upper lobe suggestive of a scarring. This is unchanged. Aorta: Atherosclerotic calcification. Coronary arteries: Coronary artery calcification. Mediastinal nodes: Small benign-appearing mediastinal lymph nodes. Other chest and abdominal findings: Stable 50% compression fracture of the L1 vertebrae. CT/Low Dose CT Lung Screening IMPRESSION: Lung-RADS category 2 - Continue annual screening with LDCT in 12 months. IMPORTANT NOTES FOR USE: ACR Lung-RADS Version 1.0 Assessment Categories Release Date: December 18, 2013 Category: Coded 0-4 bases on nodule(s) with highest degree of suspicion. Negative screen is defined as categories 1 and 2; a positive screen is defined as categories 3 and 4. Category 3 and 4A nodules that are unchanged on interval CT should be coded as category 2, and individuals returned to screening in 12 months. Category 4X: Category 3 or 4 nodules with additional imaging findings that increase the suspicion of lung cancer, such as spiculation, GGN that doubles in size in 1 year, enlarged lymph notes, etc. Category Modifiers: S (significant finding unrelated to lung cancer) and C (prior history of treated lung cancer) may be added to the 0-4 Lung-RADS Electronically Signed: Trey Chisholm, at 12:14 EST , Service support ,
== END ==
PROVIDERS: PCP Family Medicine; Referring Provider Nurse Practitioner Acute Care; Visit Provider Nurse Practitioner Acute Care
DX: F17.210 Nicotine dependence, cigarettes, uncomplicated (principal)
CPT/HCPCS: G0297

== ENCOUNTER 2020-09-12 06:03 | Inpatient (IN) | payer MEDICARE, MEDICAID, SELFPAY ==
[2020-09-12] VITALS (8 sets, daily range): BP systolic 123–160; BP diastolic 64–87; PULSE 67–97; RESP 15–20; TEMP 36.1–37.2; O2SAT 95–99; BMI 20.7; BMI 22.6; BMI 21.3
--- NOTE | 2020-09-12 06:13 | CT_ITS ---
HISTORY: Fell yesterday from standing onto bottom. Complains of back pain, prior lumbar fracture (1978). Hx hypertension, COPD. ADDITIONAL HISTORY: None provided COMPARISON: Lumbar radiographs 06/22/2017 TECHNIQUE: Axial, coronal and sagittal noncontrast CT images of the lumbar spine. 2D reconstructions were reviewed to aid in evaluation of the lumbar spine. A radiation dose optimization technique was utilized for this scan. Number of images including paperwork: 376 FINDINGS: BONES: No acute fracture of the lumbar spine. Chronic appearing compression deformity of L1 with moderate loss of height, similar to previous. Nondisplaced to minimally displaced U-shaped fracture of the sacrum involving the sacral ala bilaterally and extending across the midline in the inferior aspect of the S2 vertebral body. No suspicious bone lesion. Mineralization appears decreased. VERTEBRAL ALIGNMENT: No traumatic subluxation. DISCS AND JOINTS: Mild multilevel discogenic degenerative changes with disc bulging most pronounced at L4-5 and L5-S1. Facet and ligamentous hypertrophy. SPINAL CANAL AND FORAMINA: Moderate central canal stenosis L4-5. SOFT TISSUES: No paraspinous soft tissue swelling. Vascular calcifications. VISUALIZED ABDOMEN: Unremarkable. CT/Spine Lumbar without Contrast IMPRESSION: No acute osseous abnormality of the lumbar spine. Chronic L1 compression deformity. Sacral fracture. Lumbar spondylosis. Individualized dose optimization techniques were used for this CT. at 0701 Reported and signed by: Bethany Parks MD Electronically Signed: Bethany Parks MD at 7:01 EST Tel , Service support ,
--- NOTE | 2020-09-12 06:14 | ED.DCSUM_ITS ---
History of Present Illness Chief Complaint: Fall Informant: Patient Onset: Yesterday Current Severity: Moderate Maximum Severity: Moderate Narrative: Patient present secondary low back pain after a fall. She states was in her kitchen last evening when her legs gave out on her and she fell landing on her buttocks. She was able to get herself up and go to bed but this morning had too much pain when she tried to move to get a bed. She was brought in by EMS. On arrival she did have to urinate and was able to lift her hips to get onto the bedpan. Patient denies paresthesias. Patient does report a history of an L4 fracture in the late 1970s. She denies any history of surgeries or injections in her back. - Past Medical History (1) Anxiety Status: Chronic (2) Asthma with COPD (chronic obstructive pulmonary disease) Status: Chronic Comment: FEV1 62% (3) CKD (chronic kidney disease) stage 3, GFR 30-59 ml/min Status: Chronic (4) DDD (degenerative disc disease), cervical Status: Chronic (5) DDD (degenerative disc disease), lumbar Status: Chronic (6) GERD (gastroesophageal reflux disease) Status: Chronic (7) HTN (hypertension) Status: Chronic (8) Osteoarthritis Status: Chronic (9) Osteoporosis Status: Chronic Past Medical History - Allergies and Home Meds Allergies/Adverse Reactions: Allergies nicotine [From Nicoderm CQ] Allergy (Unknown, Verified 09/12/20 06:07) Rash Penicillins Allergy (Verified 09/12/20 06:07) Angioedema Primary Care Physician: Freedom Modi DO [Primary Care Provider] - Prior records reviewed: Yes Surgical History: - Smoking Status: Former smoker Review of Systems General: Denies: Chills, Fever Eyes: Denies: Visual changes - bilaterally ENT: Denies: Bilateral ear pain Cardiovascular: Denies: Chest pain Respiratory: Denies: Dyspnea, Cough Gastrointestinal: Denies: Abdominal pain, Vomiting, Diarrhea Musculoskeletal: Reports: Back pain Neurological: Denies: Parasthesia Hematologic: Denies: Easy bruising, Easy bleeding Allergy: Denies: Uticaria Physical Exam Vital Signs/Narrative: Vital Signs Temp Pulse Resp BP Pulse Ox 09/12/20 06:03 97 F L 78 18 145/87 H 97 Inital Vital Signs reviewed: Yes General: Well nourished, Well developed Head: Normocephalic Neck: Supple Cardiovascular: Regular rate, Regular rhythm Respiratory: No distress, CTA bilaterally Abdomen: Soft, Nontender, Normal bowel sounds Back: - - Midline tenderness in the lower lumbar region. Skin: - - Psoriasis to anterior right tib-fib. Neurological: Alert, Oriented x3, Normal Strength, Normal Sensation, - - 1+ bilateral patellar reflexes. Straight leg raise negative. Psychological: Normal affect Diagnostic/Tx/Re-eval Impressions Lumbar Spine CT 09/12/20 06:13 IMPRESSION: No acute osseous abnormality of the lumbar spine. Chronic L1 compression deformity. Sacral fracture. Lumbar spondylosis. Individualized dose optimization techniques were used for this CT. at 0701 Reported and signed by: Bethany Parks MD Electronically Signed: Bethany Parks MD at 7:01 EST Tel , Service support , 09/12/20 06:13 CT Lumbar [Spine Lumbar without Contrast] [CT] Stat - Medical Decision Making Patient was given oxycodone and Flexeril. CT scan of the lumbar spine is obtai patsy. There is an old L1 compression fracture. There is a U-shaped nondisplaced sacral fracture. I did discuss the case with Jeffery uDran, orthopedics operator receptionist. He discussed the case with Dr. Alexander and reassured that there was nothing else to do emergently. Patient can follow-up in the office to ensure appropriate healing. Patient at this time does not feel she is able to go home and care for herself, she believes she will need to be placed in a long-term. We will attempt to have physical therapy come evaluate her in the emergency room and have social services technician place her directly from the ER as she did present early in the morning. Patient has been updated with this plan and is in agreement. ED Disposition - Plan for ED Patient: Referrals: Freedom Modi DO [Primary Care Provider] -
[2020-09-12] MEDS: cycloBENZAPRine HCl 10 MG Tablet PO (06:18)
[2020-09-12] MEDS: oxyCODONE 5 MG Tablet PO ×2 (06:18→10:31)
--- NOTE | 2020-09-12 10:30 | CM.ED ---
Addendum entered by Iesha Cortes 09/12/20 12:30: [facility] Treatment Navigator updated on patient's admission to [facility]. Original Note: SOCIAL WORK Informant: Nursing Reason for Consult: Discharge Planning Notified by nursing patient needing fdc placement due to frequent falls at home and unable to stand. Met with patient in room. Introduced role and reason for referral. Patient reports lives home with . Patient states does not currently use an assistive device for assistance with ambulation. Patient states is in pain and has a hard time standing. Patient admits to frequent falls in the home. Patient admits to depression due to the pandemic and not having transportation. Patient admits to daily alcohol use. Patient reports drinks 6-9 beers/day. Patient states drinks to cope. While discussing alcohol use patient verbalized concerns for DT's and desire to stop drinking. Emotional support and encouragement provided. Patient states will need fdc placement after detox and requests [facility] as first choice and [facility] as second choice. Dr. Barragan updated on the above. Hospitalist to be paged to discuss admission to [facility]. SW to follow and assist with fdc placement after detox. Plan: Admit to [facility] DAREN Bruce, YENI
[2020-09-12 11:15] LABS: Absolute Neutrophil Count 6.1 X10^3/uL (2.0-7.7); Basophil# 0.04 X10^3/uL; Basophil% 0.5 % (0-1); Eosinophil# 0.04 X10^3/uL; Eosinophils% 0.5 % (0-5); Hematocrit 38.2 % (37-47); Hemoglobin 12.9 g/dL (12.0-15.0); Lymphocyte % 11.5 % (19-41); Mean Corp Hgb Conc 33.8 g/dL (32-36); Mean Corpuscular Hgb 28.4 pg (27.0-32.0); Mean Platelet Vol. 8.1 fl (6.2-12.0); Monocyte# 0.69 X10^3/uL; Monocyte% 8.8 % (0-10); NRBC Flagged by Analyzer 0 % (0-5); Neutrophil # 6.13 X10^3/uL (2.7-7.7); Neutrophil % 78.2 % (47-70); Platelet Count 283 K/mm3 (150-450); RBC Distribution Width CV 12.5 % (11.6-14.6); RBC Distribution Width SD 38.1 fl (35.1-43.9); Red Blood Count 4.55 M/mm3 (4.2-5.4); White Blood Count 7.8 K/mm3 (4.4-11.0)
[2020-09-12 11:27] LABS: Anion Gap 6 (5-15); BUN 6 mg/dL (7-18); BUN/Creat Ratio 6.6 RATIO (10-20); Chloride 97 mmol/L (98-107); Creatinine, Serum 0.91 mg/dL (0.55-1.02); EST Glomerular Filtration Rate 66 mL/min (>60); Est Glom Filt Rate - Afr Amer 79 mL/min (>60); Estimated Creatinine Clearance 53.22 ml/min; Glucose 96 mg/dL (74-106); Potassium 4.1 mmol/L (3.5-5.1); Sodium Level 129 mmol/L (136-145)
[2020-09-12 11:49] LABS: Lipase 112 U/L (73-393)
--- NOTE | 2020-09-12 11:58 | PCM.HP.STD ---
Problem List (1) Sacral fracture Status: Acute (2) Acute alcohol withdrawal Status: Acute (3) Depression Status: Chronic (4) Gastric ulcer Status: Chronic (5) GERD (gastroesophageal reflux disease) Status: Chronic (6) Stage 1 mild COPD by GOLD classification Status: Chronic (7) HTN (hypertension) Status: Chronic (8) Anxiety Status: Chronic (9) Alcohol abuse Status: Chronic History of Present Illness Date of Admission: 09/12/20 Chief Complaint: Fall. The patient is a 65 year old F with past medical history as mentioned above presented to the emergency room because of fall. This happened last night around 10:30 PM, her legs gave out and she fell landing on her buttocks. Few hours later, she started having pain on both buttocks, sharp pain, aggravated by movement and without aggravating or relieving factors. She denied any prodromal symptoms such as chest pain, shortness of breath, dizziness or lightheadedness. She mentioned that she has been drinking every day, last drink was last night around 10 PM and when she had that fall, she was drunk. Today in the emergency department, initial plan was to have patient go to residential facility because of intractable pelvic pain and difficulty ambulating. Patient history of alcohol abuse, has been drinking every day, last drink was last night and there was a concern that patient may go into acute alcohol withdrawal at the SNF. She will history of hypertension which has been under control with lisinopril. She will history of COPD and she has been on albuterol and mometasone/formoterol inhaler, not on home oxygen. In the emergency department, her vital signs were stable. Her routine blood work was remarkable for sodium of 129, otherwise normal. LFT is pending at this time. Lipase was normal. Blood alcohol level was 3. CT scan lumbar spine revealed sacral fracture and chronic L1 compression deformity. She is being admitted for acute alcohol withdrawal, acute traumatic bilateral nondisplaced sacral fractures and patient will need placement to residential facility. Past Medical History Past Medical History (Chronic Problems): Chronic Problems Depression (Chronic) Allergic rhinitis (Chronic) Osteoporosis (Chronic) Gastric ulcer (Chronic) Overactive bladder (Chronic) GERD (gastroesophageal reflux disease) (Chronic) Osteoarthritis (Chronic) CKD (chronic kidney disease) stage 3, GFR 30-59 ml/min (Chronic) Stage 1 mild COPD by GOLD classification (Chronic) HTN (hypertension) (Chronic) Anxiety (Chronic) Alcohol abuse (Chronic) Medical History: Medical History (Last Updated 09/12/20 @ 11:[address] Marie Alba MD) Depression (Chronic) F32.9 Allergic rhinitis (Chronic) J30.9 Osteoporosis (Chronic) M81.0 Gastric ulcer (Chronic) K25.9 Overactive bladder (Chronic) N32.81 GERD (gastroesophageal reflux disease) (Chronic) K21.9 Osteoarthritis (Chronic) M19.90 CKD (chronic kidney disease) stage 3, GFR 30-59 ml/min (Chronic) N18.3 Stage 1 mild COPD by GOLD classification (Chronic) J44.9 HTN (hypertension) (Chronic) I10 Anxiety (Chronic) F41.9 Alcohol abuse (Chronic) F10.10 DDD (degenerative disc disease), cervical (Inactive) M50.30 DDD (degenerative disc disease), lumbar (Inactive) M51.36 Duodenal perforation (Inactive) K63.1 Tobacco abuse (Inactive) Z72.0 Quit November 30, 2018 [facility] Allergy (Unknown, Verified 09/12/20 06:07) Rash Penicillins Allergy (Verified 09/12/20 06:07) Angioedema Home Medications: Ambulatory Orders Medication Instructions Recorded Alendronate Sodium [Fosamax] 70 mg PO QWEEK 07/08/14 Calcium Carb/Vitamin D 1 tab PO DAILY@0800 07/08/14 [Caltrate-600 With Vit D Tab] Loratadine [Claritin] 10 mg PO DAILY PRN 07/08/14 traZODone [Desyrel] 100 mg PO QHS 07/08/14 traMADol [Ultram (G)] 50 mg PO Q6H PRN PRN 10/04/16 Docusate Sodium [Colace] 100 mg PO DAILY PRN PRN 10/11/17 Lisinopril 10 mg PO DAILY 10/11/17 Oxybutynin Chloride [Ditropan Xl] 5 mg PO QHS 10/11/17 hydrocodone 5 mg-acetaminophen 325 1 tab PO Q4H PRN tab 11/28/18 mg tablet albuterol sulfate 90 mcg/actuation 2 puff INHALATION Q4H PRN #18 g 07/19/19 aerosol inhaler vitamin B complex 1 tab PO DAILY 09/28/19 mometasone-formoterol HFA 200 2 puff INHALATION BID #13 g 01/10/20 mcg-5 mcg/actuation aerosol inhaler Surgical History: Surgical History (Last Updated 09/12/20 @ 11:[address] Marie Alba MD) H/O right knee surgery (Inactive) Z98.890 History of appendectomy (Inactive) Z90.49 cataract surgery (Inactive) Surgical History: cataract, total hip arthroplasty, tonsillectomy, - Psychiatric History: Depression T[employer] MECH[employer]IC History: No pertinent TANK [employer] MECH[employer]IC history Lives: Spouse/ Significant Other Smoking Status: Former smoker Alcohol: Heavy Drugs: None - *Family History Maternal Family History: Family History (Last Reviewed 09/28/19 @ 12:50 by Adrianne Sargent CATEGORY DEVELOPMENT ANALYST, CATEGORY DEVELOPMENT ANALYST-C) Mother Cancer Hypertension Heart disease Alcohol abuse Anxiety Father Arthritis Kidney disease Cancer Aunt Alcohol abuse COPD (chronic obstructive pulmonary disease) Uncle Alcohol abuse Colon cancer Grandfather Cancer Grandmother Breast cancer Review of Systems Constitutional: Denies: Anorexia, Chills, Fever, Weakness, Fatigue Eyes: Denies: Blurred vision, Double vision, Drainage, Redness HEENT: Denies: Difficulty Hearing, Dysphasia, Ear Pain, Eye Pain, Nasal Congestion, Sore Throat Cardiovascular: Denies: Chest Pain, Chest Pressure, Chest Tightness, Edema, Palpitations, Syncope Respiratory: Denies: Cough, Hemoptysis, Pleuritic Pain, Shortness of Breath, Sputum production, Wheezing Gastrointestinal: Denies: Abdominal Pain, Constipation, Diarrhea, Nausea, Vomiting Genitourinary: Denies: Dysuria, Frequency, Hematuria Musculoskeletal: Reports: Back Pain. Denies: Arm Pain, Foot Pain Skin: Denies: Dryness, Rash Neurological: Denies: Balance problems, Blurred vision, Double vision, Change in Speech, Slurred speech, Headaches, Incoordination, Numbness Psychiatric: Reports: Depression. Denies: Anxiety Endocrine: Denies: Change in Body Habitus, Polydipsia, Polyuria VTE Information - Inpt Only VTE Present on Admission: No VTE Mechan Device Prophylaxis: None VTE Pharm Prophylaxis ordered?: Yes - Physical Exam Vitals/I&O's: Vital Signs Temp Pulse Resp BP Pulse Ox 97.8 F 82 17 141/76 H 96 09/12/20 11:10 09/12/20 11:10 09/12/20 11:10 09/12/20 11:10 09/12/20 11:10 Oxygen Delivery Method Room Air Weight: 132 lb 0.91 oz Body Mass Index (BMI) 22.6 General: Alert, Oriented x3, Cooperative, No apparent distress HEENT: Atraumatic, PERRLA, EOMI, Normocephalic Oral: Moist Mucosa, No Gingival or Mucosal Lesions/ Ulcerations Neck: Supple, No JVD, Negative Carotid Bruits, Trachea Midline, Thyroid Normal Size and Texture Lungs: Clear to auscultation, Normal air movement, No rhonchi, No wheeze, No rales Cardiovascular: Regular rate, Regular Rhythm, Normal S1, Normal S2, PMI Normal Abdomen: Bowel Sounds Present, Soft, Non Tender, Non-Distended, No Hepato-splenomegaly, - - Umbilical hernia. Extremities: No clubbing, No cyanosis, No edema Skin: No breakdown, Rash Present - Psoriatic plaque on the lateral aspect of the right leg extending from the just below right knee down to the right ankle. Lymphatic: No Cervical, Supraclavicular, or Inguinal Adenopathy Neurological: Cranial nerves II-XII grossly intact, Motor Exam 5/5 strength throughout Psych/Mental Status: Normal Affect, Appropriate, Alert and oriented to time, place, person, mood and affect Laboratory Results 09/12/20 11:05: WBC 7.8, RBC 4.55, Hgb 12.9, Hct 38.2, MCV 84.0, MCH 28.4, MCHC 33.8, RDW Std Deviation 38.1, RDW Coeff of Beatriz 12.5, Plt Count 283, MPV 8.1, Immature Gran % (Auto) 0.500, Neut % (Auto) 78.2 H, Lymph % (Auto) 11.5 L, Turner % (Auto) 8.8, Eos % (Auto) 0.5, Baso % (Auto) 0.5, Absolute Neuts (auto) 6.1, Absolute Lymphs (auto) 0.90, Nucleated RBC % 0 09/12/20 11:05: Sodium 129 L, Potassium 4.1, Chloride 97 L, Carbon Dioxide 26.0, Anion Gap 6, BUN 6 L, Creatinine 0.91, Estim Creat Clear Calc 53.22, Est GFR (MDRD) Af Amer 79, Est GFR (MDRD) Non-Af 66, BUN/Creatinine Ratio 6.6 L, Glucose 96, Calcium 9.0 09/12/20 11:05: Ethyl Alcohol 3.0 09/12/20 11:05: Lipase 112 09/12/20 11:05: Total Bilirubin Pending, Direct Bilirubin Pending, AST Pending, ALT Pending, Alkaline Phosphatase Pending, Total Protein Pending, Albumin Pending Clinical Impression(s) from Imaging Studies Lumbar Spine CT 09/12/20 06:13 IMPRESSION: No acute osseous abnormality of the lumbar spine. Chronic L1 compression deformity. Sacral fracture. Lumbar spondylosis. Individualized dose optimization techniques were used for this CT. at 0701 Reported and signed by: Bethany Parks MD Electronically Signed: Bethany Parks MD at 7:01 EST Tel , Service support , Current Medications Acetaminophen (Acetaminophen 500 Mg Tablet) 500 mg PO Q4H PRN PRN PRN Reason: Temp > 100.4 F Hydrocodone Bitart/Acetaminophen (Hydrocodone Bitartrate/Apap 5/325 Tablet) tablet PO Q4H PRN PRN Reason: Pain 1-10 or Fever Albuterol Sulfate (Albuterol 2.5 Mg/3 Ml Vial.Neb.) 2.5 mg INHALATION Q4H PRN PRN PRN Reason: Shortness of breath, wheezing Albuterol/Ipratropium (Ipratropium/Albuterol Sulfate 3 Ml Ampul.Neb) 3 ml INHALATION Q6H.RT KATIA Dicyclomine HCl (Dicyclomine 10 Mg Capsule) 20 mg PO Q6H PRN PRN PRN Reason: abdominal discomfort Docusate Sodium (Docusate Sodium 100 Mg Capsule) 100 mg PO DAILY PRN PRN PRN Reason: COSTIPATION Enoxaparin Sodium (Enoxaparin 40 Mg/0.4 Ml Syringe) 40 mg SC DAILY KATIA Folic Acid (Folic Acid 1 Mg Tablet) 1 mg PO DAILY@0800 KATIA Gabapentin (Gabapentin 300 Mg Capsule) 300 mg PO Q8H PRN PRN PRN Reason: moderate to severe anxiety Hydroxyzine Pamoate (Hydroxyzine Sheila 25 Mg Capsule) 50 mg PO Q4H PRN PRN PRN Reason: mild anxiety Lisinopril (Lisinopril 20 Mg Tablet) 10 mg PO DAILY KATIA Loperamide HCl (Loperamide 2 Mg Capsule) 2 mg PO Q4H PRN PRN PRN Reason: LOOSE STOOLS Loratadine (Loratadine 10 Mg Tablet) 10 mg PO DAILY PRN PRN Reason: SINUSES Non-Formulary Medication (Oxybutynin Chloride [Ditropan Xl]) 5 mg PO QHS KATIA Ondansetron HCl (Ondansetron 8 Mg Tablet) 8 mg PO Q8H PRN PRN PRN Reason: NAUSEA Phenobarbital (Phenobarbital 32.4 Mg Tablet) 0 mg PO UD KATIA; Taper Stop: 09/16/20 19:37 Sodium Chloride (0.9% Saline Lock 10 Ml Syringe) 10 - 40 ml IV UD PRN PRN Reason: SALINE FLUSH Thiamine HCl (Thiamine Hydrochloride 100 Mg Tablet) 100 mg PO DAILYCM KATIA Tramadol HCl (Tramadol 50 Mg Tablet) 50 mg PO Q6H PRN PRN PRN Reason: Pain Score 1-10 Trazodone HCl (Trazodone 100 Mg Tablet) 100 mg PO QHS PRN PRN Reason: INSOMNIA Trazodone HCl (Trazodone 50 Mg Tablet) 100 mg PO QHS KATIA Assessment/Plan All Active Problems (Last Updated 09/12/20 @ 11:[address] Marie Alba MD) Sacral fracture (Acute) Acute alcohol withdrawal (Acute) This is a 65 years old female patient presented to the emergency room because of fall and buttock pain, found to have acute bilateral nondisplaced sacral fractures, complaint of alcohol abuse and she expressed desire for medical stabilization. #1 acute alcohol withdrawal: Patient has been drinking alcohol every day for long time, she drinks at least 6 beers daily. Last drink was last night. She expressed desire for detox and quitting drinking alcohol. Blood alcohol level is 3. Lipase was normal. Currently, her vital signs are stable. Plan: Admit to [facility] floor, check LFT, start alcohol withdrawal protocol with tapering phenobarbital, thiamine and folic acid supplements, as needed Bentyl, Neurontin, Vistaril, Imodium, Zofran, trazodone, consult 180 program. #2 acute traumatic nondisplaced bilateral sacral fracture: With intractable pain and difficulty ambulating. CT scan lumbar spine reviewed, revealed chronic L1 compression deformity, bilateral sacral fractures, nondisplaced. No indication for surgical repair. Plan for pain control, continue [place] that she has been taking at home, tramadol as needed, PT OT evaluation and treatment. #3 COPD: Stable, on room air. Plan for DuoNeb every 6 hours, albuterol as needed.. #4 hypertension: Blood pressure stable, continue lisinopril. #5 GERD/history of perforated duodenal ulcer: Stable, currently, she is not on PPI. #6 depression: Continue trazodone. #7 DVT prophylaxis: Subcu Lovenox. This note was generated with [employer] dictation software. It may contain incorrect words, spelling, and punctuation that were not noted in checking the note before signing. Inpatient E&M: 78542 Init Hosp L2
[2020-09-12 12:27] LABS: AST(SGOT) 34 U/L (15-37); Alanine Aminotransfer ALT/SGPT 33 U/L (13-56); Alkaline Phosphatase 59 U/L (45-117); Bilirubin, Direct 0.19 mg/dL (0.00-0.30); Globulin 3.7 g/dL (2.2-4.2); Protein, Total 7.7 g/dL (6.4-8.2)
[2020-09-12] MEDS: Ipratropium/Albuterol Sulfate 3 ML AMPUL.NEB INHALATION (13:41)
[2020-09-12] MEDS: Phenobarbital 32.4 MG Tablet PO ×3 (14:19→21:16)
[2020-09-12 15:31] LABS: Amphetamine Urine VISTA NEGATIVE (<1000 ng/mL); Barbiturate Urine VISTA NEGATIVE (< 200 ng/mL); Benzodiazepine Urine VISTA NEGATIVE (< 200 ng/mL); Cocaine Urine VISTA NEGATIVE (< 300 ng/mL); Ecstacy Urine VISTA NEGATIVE (< 500 ng/mL); Methadone Urine VISTA NEGATIVE (< 300 ng/mL); PCP Urine VISTA NEGATIVE (< 25 ng/mL); THC Urine VISTA NEGATIVE (< 50 ng/mL); Vista UDS pH Range 6
[2020-09-12] MEDS: Dicyclomine 10 MG Capsule 20 MG PO (17:53)
[2020-09-12] MEDS: HYDROcodone Bitartrate/Apap 5/325 Tablet PO (17:54)
[2020-09-12] MEDS: Tolterodine Tartrate 2 MG CAP.SA PO (21:16)
[2020-09-12] MEDS: traZODone 100 MG Tablet PO (21:16)
[2020-09-12] MEDS: 0.9% Saline Lock 10 ML Syringe IV (21:17)
[2020-09-12] MEDS: traMADol 50 MG Tablet PO (21:21)
[2020-09-13 00:33] VITALS: BP 143/71; PULSE 87; RESP 18; TEMP 37.1; O2SAT 92
[2020-09-13] MEDS: Phenobarbital 32.4 MG Tablet PO ×6 (00:36→21:26)
[2020-09-13] MEDS: HYDROcodone Bitartrate/Apap 5/325 Tablet PO ×4 (00:40→19:55)
[2020-09-13] MEDS: traMADol 50 MG Tablet PO ×2 (05:08→11:00)
[2020-09-13 05:11] VITALS: BP 148/73; PULSE 90; RESP 18; TEMP 36.8; O2SAT 92
[2020-09-13] MEDS: Lisinopril 10 MG Tablet PO (08:13)
[2020-09-13] MEDS: Folic Acid 1 MG Tablet PO (08:13)
[2020-09-13] MEDS: Thiamine Hydrochloride 100 MG Tablet PO (08:13)
[2020-09-13] MEDS: Enoxaparin 40 MG/0.4 ML Syringe SC (08:13)
--- NOTE | 2020-09-13 08:17 | PN_ITS ---
Patient Problems: Active and Suspected Problems (Last Updated 09/12/20 @ 11:[address] Marie Alba MD) Sacral fracture (Acute) Acute alcohol withdrawal (Acute) Subjective: Chief complaint: Follow-up after admission for acute alcohol withdrawal and sacral fracture. Patient seen and examined. No acute events overnight. She still complaining of pelvic pain intermittently, manageable. Denies any significant withdrawal symptoms at this time. Her vital signs are stable. - Physical Exam Vitals/I&O's: Vital Signs Temp Pulse Resp BP Pulse Ox 98.3 F 90 18 148/73 H 92 09/13/20 05:11 09/13/20 05:11 09/13/20 05:11 09/13/20 05:11 09/13/20 05:11 Oxygen Delivery Method Room Air Weight: 124 lb 6.016 oz Body Mass Index (BMI) 21.3 Intake and Output for Last 24 Hours 09/11/20 09/12/20 09/13/20 23:59 23:59 23:59 Intake Total 420 / 620 300 / 300 Output Total 600 / 750 350 / 350 Balance -180 / -130 -50 / -50 General: Alert, Oriented x3, Cooperative, No apparent distress HEENT: Atraumatic, PERRLA, EOMI, Normocephalic Oral: Moist Mucosa, No Gingival or Mucosal Lesions/ Ulcerations Neck: Supple, No JVD, Negative Carotid Bruits, Trachea Midline, Thyroid Normal Size and Texture Lungs: Clear to auscultation, Normal air movement, No rhonchi, No wheeze, No rales, Diminished Cardiovascular: Regular rate, Regular Rhythm, Normal S1, Normal S2, PMI Normal Abdomen: Bowel Sounds Present, Soft, Non Tender, Non-Distended, No Hepato- splenomegaly Extremities: No clubbing, No cyanosis, No edema Skin: No rashes, No breakdown Lymphatic: No Cervical, Supraclavicular, or Inguinal Adenopathy Neurological: Cranial nerves II-XII grossly intact, Motor Exam 5/5 strength throughout Psych/Mental Status: Normal Affect, Appropriate Laboratory Results 09/12/20 11:05: WBC 7.8, RBC 4.55, Hgb 12.9, Hct 38.2, MCV 84.0, MCH 28.4, MCHC 33.8, RDW Std Deviation 38.1, RDW Coeff of Beatriz 12.5, Plt Count 283, MPV 8.1, Immature Gran % (Auto) 0.500, Neut % (Auto) 78.2 H, Lymph % (Auto) 11.5 L, [place] % (Auto) 8.8, Eos % (Auto) 0.5, Baso % (Auto) 0.5, Absolute Neuts (auto) 6.1, Absolute Lymphs (auto) 0.90, Nucleated RBC % 0 09/12/20 11:05: Sodium 129 L, Potassium 4.1, Chloride 97 L, Carbon Dioxide 26.0, Anion Gap 6, BUN 6 L, Creatinine 0.91, Estim Creat Clear Calc 53.22, Est GFR (MDRD) Af Amer 79, Est GFR (MDRD) Non-Af 66, BUN/Creatinine Ratio 6.6 L, Glucose 96, Calcium 9.0 09/12/20 11:05: Ethyl Alcohol 3.0 09/12/20 11:05: Lipase 112 09/12/20 11:05: Total Bilirubin 0.70, Direct Bilirubin 0.19, AST 34, ALT 33, Alkaline Phosphatase 59, Total Protein 7.7, Albumin 4.0, Globulin 3.7 09/12/20 15:09: Urine Opiates Screen NEGATIVE, Urine Methadone Screen NEGATIVE, Ur Barbiturates Screen NEGATIVE, Ur Phencyclidine Scrn NEGATIVE, Ur Amphetamines Screen NEGATIVE, U Methamphetamin-MDMA NEGATIVE, U Benzodiazepines Scrn NEGATIVE, Urine Cocaine Screen NEGATIVE, U Cannabinoids Screen NEGATIVE, Ur Drug Screen Comment Current Medications Acetaminophen (Acetaminophen 500 Mg Tablet) 500 mg PO Q4H PRN PRN PRN Reason: Temp > 100.4 F Hydrocodone Bitart/Acetaminophen (Hydrocodone Bitartrate/Apap 5/325 Tablet) 1 tablet PO Q4H PRN PRN Reason: Pain 4-10 or Fever Last Admin: 09/13/20 00:40 Dose: 1 tablet Documented by: Albuterol Sulfate (Albuterol 2.5 Mg/3 Ml Vial.Neb.) 2.5 mg INHALATION Q4H PRN PRN PRN Reason: Shortness of breath, wheezing Albuterol/Ipratropium (Ipratropium/Albuterol Sulfate 3 Ml Ampul.Neb) 3 ml INHALATION Q6H.RT KATIA Last Admin: 09/12/20 13:41 Dose: 3 ml Documented by: Dicyclomine HCl (Dicyclomine 10 Mg Capsule) 20 mg PO Q6H PRN PRN PRN Reason: abdominal discomfort Last Admin: 09/12/20 17:53 Dose: 20 mg Documented by: Docusate Sodium (Docusate Sodium 100 Mg Capsule) 100 mg PO DAILY PRN PRN PRN Reason: COSTIPATION Enoxaparin Sodium (Enoxaparin 40 Mg/0.4 Ml Syringe) 40 mg SC DAILY [facility] Last Admin: 09/13/20 08:13 Dose: 40 mg Documented by: Folic Acid (Folic Acid 1 Mg Tablet) 1 mg PO DAILY@0800 [facility] Last Admin: 09/13/20 08:13 Dose: 1 mg Documented by: Gabapentin (Gabapentin 300 Mg Capsule) 300 mg PO Q8H PRN PRN PRN Reason: moderate to severe anxiety Hydroxyzine Pamoate (Hydroxyzine Sheila 25 Mg Capsule) 50 mg PO Q4H PRN PRN PRN Reason: mild anxiety Lisinopril (Lisinopril 10 Mg Tablet) 10 mg PO DAILY [facility] Last Admin: 09/13/20 08:13 Dose: 10 mg Documented by: Loperamide HCl (Loperamide 2 Mg Capsule) 2 mg PO Q4H PRN PRN PRN Reason: LOOSE STOOLS Loratadine (Loratadine 10 Mg Tablet) 10 mg PO DAILY PRN PRN PRN Reason: SINUSES Ondansetron HCl (Ondansetron 8 Mg Tablet) 8 mg PO Q8H PRN PRN PRN Reason: NAUSEA Phenobarbital (Phenobarbital 32.4 Mg Tablet) 97.2 mg PO Q4H [facility]; Taper Stop: 09/16/20 20:29 Last Admin: 09/13/20 08:15 Dose: 97.2 mg Documented by: Sodium Chloride (0.9% Saline Lock 10 Ml Syringe) 10 - 40 ml IV UD PRN PRN Reason: SALINE FLUSH Last Admin: 09/12/20 21:17 Dose: 10 ml Documented by: Thiamine HCl ([facility] Hydrochloride 100 Mg Tablet) [facility] Last Admin: 09/13/20 08:13 Dose: 100 mg Documented by: Tolterodine Tartrate (Tolterodine Tartrate 2 Mg Cap.Sa) 2 mg PO QHS [facility] Last Admin: 09/12/20 21:16 Dose: 2 mg Documented by: Tramadol HCl (Tramadol 50 Mg Tablet) 50 mg PO Q6H PRN PRN PRN Reason: Pain Score 1-3 Last Admin: 09/13/20 05:08 Dose: 50 mg Documented by: Trazodone HCl (Trazodone 100 Mg Tablet) 100 mg PO QHS KATIA Last Admin: 09/12/20 21:16 Dose: 100 mg Documented by: Medical Necessity - Tobacco Use Smoking Status: Former smoker Assessment/Plan All Active Problems (Last Updated 09/12/20 @ 11:[address] Marie Alba MD) Sacral fracture (Acute) Acute alcohol withdrawal (Acute) This is a 65 years old female patient presented to the emergency room because of fall and buttock pain, found to have acute bilateral nondisplaced sacral fractures, complaint of alcohol abuse and she expressed desire for medical stabilization. #1 acute alcohol withdrawal: She is on tapering phenobarbital, thiamine and folic acid supplement, as needed Bentyl, Neurontin, Vistaril, Imodium, Zofran, trazodone. Currently, her vital signs are stable, no significant withdrawal symptoms. LFT was unremarkable. Urine drug screen was negative. Blood alcohol level was 3. Plan to continue same treatment, consult 180 program. #2 acute traumatic nondisplaced bilateral sacral fracture: With intractable pain and difficulty ambulating. CT scan lumbar spine reviewed, revealed chronic L1 compression deformity, bilateral sacral fractures, nondisplaced. No indication for surgical repair. She is on OxyIR as needed for pain. Pain is manageable at this time. Plan for PT OT evaluation and treatment, patient will need placement to nursing home facility. 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 #4 COPD: Stable, on room air. Continue DuoNeb every 6 hours, albuterol as needed.. #5 hypertension: Blood pressure stable, continue lisinopril. #6 GERD/history of perforated duodenal ulcer: Stable, currently, she is not on PPI. #7 depression: Continue trazodone. #8 DVT prophylaxis: Subcu Lovenox. This note was generated with [employer] dictation software. It may contain incorrect words, spelling, and punctuation that were not noted in checking the note before signing. Inpatient E&M: 21101 Subs Hosp L2
--- NOTE | 2020-09-13 09:31 | CASEMGMT ---
Addendum entered by Karlee Julian 09/13/20 11:37: SW spoke w/pt at the bedside, let her know a referral was made to [facility], and is waiting for a call back in regard to whether or not they can take pt, SW explained will let her know as soon as this SW knows. Pt states understanding. JAMIL Taylor Original Note: SW sent initial referral to [facility]. SW called Albina at [facility] and left a message. JAMIL Taylor
[2020-09-13 11:00] VITALS: BP 107/56; PULSE 61; RESP 18; TEMP 36.5; O2SAT 93
--- NOTE | 2020-09-13 11:02 | ADDICTION ---
This ad copy writer met with PT in her room to complete ASAM, AUDIT, MSE assessments and to provide d/c planning. PT was A/Ox4 and participated actively. PT plans to d/c to a nursing facility as she has a broken tail bone. She declined coordination for ongoing AoD related services but was willing to accept this ad copy writer's direct contact information to utilize if she changes her mind. All completed documentation faxed to [facility] and placed in PT chart. [facility] notified of plan.
--- NOTE | 2020-09-13 14:01 | CASEMGMT ---
Addendum entered by Karlee Julian 09/13/20 14:23: SW spoke w/Albina from [facility], they can take pt on the weekend if she is ready. SW completed the hospital exemption and put it on the chart along with the COVID transfer form, transportation forms, and green sheet for staff to follow should pt be ready for discharge prior to Wednesday. JAMIL Taylor Original Note: SW spoke w/Albina from [facility], she states they can take pt. SW did fax PT/OT to [facility]. SW spoke w/pt, let her know that [facility] can take pt when ready. As per physician, pt will not be ready until Wednesday. ISMAEL did call [facility] back to inquire should pt be ready prior to Wednesday can they take her. Message left, awaiting call back. JAMIL Taylor
[2020-09-13 15:00] VITALS: BP 100/53; PULSE 85; RESP 18; TEMP 37.2; O2SAT 97
--- NOTE | 2020-09-13 15:09 | NURSING ---
PT HAD ONLY APPROX 25ML OUT IN [employer] CANISTER, HOWEVER PT ATTEND SATURATED. BLADDER SCAN = 318ML. ASSISTED PT UP TO BSC, PT UNABLE TO VOID. DENIES ANY DISCOMFORT, PRESSURE @ THIS TIME. PT ASSISTED BACK INTO BED. ENCOURAGED TO INCREASE ORAL INTAKE. WILL CONTINUE TO MONITOR.
[2020-09-13 19:27] VITALS: PULSE 81; RESP 18; O2SAT 96
[2020-09-13] MEDS: Ipratropium/Albuterol Sulfate 3 ML AMPUL.NEB INHALATION (19:27)
[2020-09-13 20:40] VITALS: BP 102/46; PULSE 86; RESP 18; TEMP 37.2; O2SAT 98
[2020-09-13] MEDS: Tolterodine Tartrate 2 MG CAP.SA PO (20:54)
[2020-09-13] MEDS: traZODone 100 MG Tablet PO (20:54)
[2020-09-14] VITALS (9 sets, daily range): BP systolic 96–124; BP diastolic 46–67; PULSE 79–100; RESP 16–20; TEMP 36.7–37.1; O2SAT 93–97
[2020-09-14] MEDS: traMADol 50 MG Tablet PO ×3 (00:58→20:48)
[2020-09-14] MEDS: Phenobarbital 32.4 MG Tablet PO ×6 (00:59→20:49)
[2020-09-14] MEDS: Ipratropium/Albuterol Sulfate 3 ML AMPUL.NEB INHALATION ×3 (07:15→20:18)
--- NOTE | 2020-09-14 08:03 | PN_ITS ---
Patient Problems: Active and Suspected Problems (Last Updated 09/12/20 @ 11:[address] Marie Alba MD) Sacral fracture (Acute) Acute alcohol withdrawal (Acute) Subjective: Chief complaint: Follow-up after admission for acute alcohol withdrawal and sacral fracture. Patient seen and examined. No acute events overnight. Pelvic pain still there but pain medicine has been working. No significant withdrawal symptoms. Her vital signs are stable. - Physical Exam Vitals/I&O's: Vital Signs Temp Pulse Resp BP Pulse Ox 98.7 F 81 20 H 124/67 H 93 09/14/20 04:55 09/14/20 07:17 09/14/20 07:17 09/14/20 04:55 09/14/20 07:17 Oxygen Delivery Method Room Air Weight: 124 lb 6.016 oz Body Mass Index (BMI) 21.3 Intake and Output for Last 24 Hours 09/12/20 09/13/20 09/14/20 23:59 23:59 23:59 Intake Total 420 / 620 1170 / 1170 Output Total 600 / 750 575 / 775 425 / 425 Balance -180 / -130 595 / 395 -425 / -425 General: Alert, Oriented x3, Cooperative, No apparent distress HEENT: Atraumatic, PERRLA, EOMI, Normocephalic Oral: Moist Mucosa, No Gingival or Mucosal Lesions/ Ulcerations Neck: Supple, No JVD, Negative Carotid Bruits, Trachea Midline, Thyroid Normal Size and Texture Lungs: Clear to auscultation, Normal air movement, No rhonchi, No wheeze, No rales Cardiovascular: Regular rate, Regular Rhythm, Normal S1, Normal S2, PMI Normal Abdomen: Bowel Sounds Present, Soft, Non Tender, Non-Distended, No Hepato- splenomegaly Extremities: No clubbing, No cyanosis, No edema Skin: No rashes, No breakdown Lymphatic: No Cervical, Supraclavicular, or Inguinal Adenopathy Neurological: Cranial nerves II-XII grossly intact, Neuro grossly intact Psych/Mental Status: Normal Affect, Appropriate, Alert and oriented to time, place, person, mood and affect Current Medications Acetaminophen (Acetaminophen 500 Mg Tablet) 500 mg PO Q4H PRN PRN PRN Reason: Temp > 100.4 F Hydrocodone Bitart/Acetaminophen (Hydrocodone Bitartrate/Apap 5/325 Tablet) 1 tablet PO Q4H PRN PRN Reason: Pain 4-10 or Fever Last Admin: 09/13/20 19:55 Dose: 1 tablet Documented by: Albuterol Sulfate (Albuterol 2.5 Mg/3 Ml Vial.Neb.) 2.5 mg INHALATION Q4H PRN PRN PRN Reason: Shortness of breath, wheezing Albuterol/Ipratropium (Ipratropium/Albuterol Sulfate 3 Ml Ampul.Neb) 3 ml INHALATION Q6H.RT [facility] Last Admin: 09/14/20 07:15 Dose: 3 ml Documented by: Dicyclomine HCl (Dicyclomine 10 Mg Capsule) 20 mg PO Q6H PRN PRN PRN Reason: abdominal discomfort Last Admin: 09/12/20 17:53 Dose: 20 mg Documented by: Docusate Sodium (Docusate Sodium 100 Mg Capsule) 100 mg PO DAILY PRN PRN PRN Reason: COSTIPATION Enoxaparin Sodium (Enoxaparin 40 Mg/0.4 Ml Syringe) 40 mg SC DAILY [facility] Last Admin: 09/13/20 08:13 Dose: 40 mg Documented by: Folic Acid (Folic Acid 1 Mg Tablet) 1 mg PO DAILY@0800 [facility] Last Admin: 09/13/20 08:13 Dose: 1 mg Documented by: Gabapentin (Gabapentin 300 Mg Capsule) 300 mg PO Q8H PRN PRN PRN Reason: moderate to severe anxiety Hydroxyzine Pamoate (Hydroxyzine Sheila 25 Mg Capsule) 50 mg PO Q4H PRN PRN PRN Reason: mild anxiety Lisinopril (Lisinopril 10 Mg Tablet) 10 mg PO DAILY [facility] Last Admin: 09/13/20 08:13 Dose: 10 mg Documented by: Loperamide HCl (Loperamide 2 Mg Capsule) 2 mg PO Q4H PRN PRN PRN Reason: LOOSE STOOLS Loratadine (Loratadine 10 Mg Tablet) 10 mg PO DAILY PRN PRN PRN Reason: SINUSES Ondansetron HCl (Ondansetron 8 Mg Tablet) 8 mg PO Q8H PRN PRN PRN Reason: NAUSEA Phenobarbital (Phenobarbital 32.4 Mg Tablet) 64.8 mg PO Q4H [facility]; Taper Stop: 09/16/20 20:29 Last Admin: 09/14/20 04:50 Dose: 64.8 mg Documented by: Sodium Chloride (0.9% Saline Lock 10 Ml Syringe) 10 - 40 ml IV UD PRN PRN Reason: SALINE FLUSH Last Admin: 09/12/20 21:17 Dose: 10 ml Documented by: Thiamine HCl ([facility] Mg Tablet) [facility] Last Admin: 09/13/20 08:13 Dose: 100 mg Documented by: Tolterodine Tartrate (Tolterodine Tartrate 2 Mg Cap.Sa) 2 mg PO QHS [facility] Last Admin: 09/13/20 20:54 Dose: 2 mg Documented by: Tramadol HCl (Tramadol 50 Mg Tablet) 50 mg PO Q6H PRN PRN PRN Reason: Pain Score 1-3 Last Admin: 09/14/20 00:58 Dose: 50 mg Documented by: Trazodone HCl (Trazodone 100 Mg Tablet) 100 mg PO QHS [facility] Last Admin: 09/13/20 20:54 Dose: 100 mg Documented by: Medical Necessity - Tobacco Use Smoking Status: Former smoker Assessment/Plan All Active Problems (Last Updated 09/12/20 @ 11:[address] Marie Alba MD) Sacral fracture (Acute) Acute alcohol withdrawal (Acute) This is a 65 years old female patient presented to the emergency room because of fall and buttock pain, found to have acute bilateral nondisplaced sacral fractures, complaint of alcohol abuse and she expressed desire for medical stabilization. #1 acute alcohol withdrawal: Remained on tapering phenobarbital, thiamine and folic acid supplement, as needed Bentyl, Neurontin, Vistaril, Imodium, Zofran, trazodone. Her vital signs are stable, no significant withdrawal symptoms. LFT was unremarkable. Urine drug screen was negative. Blood alcohol level was 3. Plan to continue same treatment, need placement to a group home facility, to be seen by [facility]. #2 acute traumatic nondisplaced bilateral sacral fracture: She is on Toradol and Tylenol as needed. Pain is manageable. CT scan lumbar spine reviewed, revealed chronic L1 compression deformity, bilateral sacral fractures, nondisplaced. No indication for surgical repair. Plan for placement to group home facility. 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 #4 COPD: Stable, on room air. Continue DuoNeb every 6 hours, albuterol as needed.. #5 hypertension: Blood pressure stable, continue lisinopril. #6 GERD/history of perforated duodenal ulcer: Stable, currently, she is not on PPI. #7 depression: Continue trazodone. #8 DVT prophylaxis: Subcu Lovenox. This note was generated with [employer] dictation software. It may contain incorrect words, spelling, and punctuation that were not noted in checking the note before signing. Inpatient E&M: 64232 Subs Hosp L2
[2020-09-14] MEDS: HYDROcodone Bitartrate/Apap 5/325 Tablet PO ×2 (09:03→16:12)
[2020-09-14] MEDS: Lisinopril 10 MG Tablet PO (09:04)
[2020-09-14] MEDS: Folic Acid 1 MG Tablet PO (09:04)
[2020-09-14] MEDS: Thiamine Hydrochloride 100 MG Tablet PO (09:04)
[2020-09-14] MEDS: Enoxaparin 40 MG/0.4 ML Syringe SC (09:05)
[2020-09-14] MEDS: Docusate Sodium 100 MG Capsule PO (16:14)
[2020-09-14] MEDS: traZODone 100 MG Tablet PO (21:30)
[2020-09-14] MEDS: Tolterodine Tartrate 2 MG CAP.SA PO (21:30)
[2020-09-15] VITALS (9 sets, daily range): BP systolic 104–156; BP diastolic 54–79; PULSE 73–100; RESP 16–18; TEMP 36.6–36.9; O2SAT 95–99
[2020-09-15] MEDS: Phenobarbital 32.4 MG Tablet PO ×4 (02:37→20:29)
[2020-09-15] MEDS: HYDROcodone Bitartrate/Apap 5/325 Tablet PO ×5 (02:37→22:28)
[2020-09-15] MEDS: Ipratropium/Albuterol Sulfate 3 ML AMPUL.NEB INHALATION ×3 (07:15→20:12)
--- NOTE | 2020-09-15 07:30 | PCM.PROGNOTE ---
Patient Problems: Active and Suspected Problems (Last Updated 09/12/20 @ 11:[address] Marie Alba MD) Sacral fracture (Acute) Acute alcohol withdrawal (Acute) Subjective: Chief complaint: Follow-up after admission for acute alcohol withdrawal and sacral fracture. Patient seen and examined. No acute events overnight. She is still complaining of pelvic pain upon ambulation, pain medication is effective. No other complaints. Her vital signs are stable. - Physical Exam Vitals/I&O's: Vital Signs Temp Pulse Resp BP Pulse Ox 98.1 F 92 18 156/79 H 97 09/15/20 02:32 09/15/20 02:32 09/15/20 02:32 09/15/20 02:32 09/15/20 02:32 Oxygen Delivery Method Room Air Weight: 124 lb 6.016 oz Body Mass Index (BMI) 21.3 Intake and Output for Last 24 Hours 09/13/20 09/14/20 09/15/20 23:59 23:59 23:59 Intake Total 1170 / 1170 900 / 900 500 / 500 Output Total 575 / 775 425 / 425 Balance 595 / 395 475 / 475 500 / 500 General: Alert, Oriented x3, Cooperative, No apparent distress HEENT: Atraumatic, PERRLA, EOMI, Normocephalic Oral: Moist Mucosa, No Gingival or Mucosal Lesions/ Ulcerations Neck: Supple, No JVD, Negative Carotid Bruits, Trachea Midline, Thyroid Normal Size and Texture Lungs: Clear to auscultation, Normal air movement, No rhonchi, No wheeze, No rales Cardiovascular: Regular rate, Regular Rhythm, Normal S1, Normal S2, PMI Normal Abdomen: Bowel Sounds Present, Soft, Non Tender, Non-Distended, No Hepato-splenomegaly Extremities: No clubbing, No cyanosis, No edema Skin: No rashes, No breakdown Lymphatic: No Cervical, Supraclavicular, or Inguinal Adenopathy Neurological: Cranial nerves II-XII grossly intact, Neuro grossly intact Psych/Mental Status: Normal Affect, Appropriate, Alert and oriented to time, place, person, mood and affect Current Medications Acetaminophen (Acetaminophen 500 Mg Tablet) 500 mg PO Q4H PRN PRN PRN Reason: Temp > 100.4 F Hydrocodone Bitart/Acetaminophen (Hydrocodone Bitartrate/Apap 5/325 Tablet) 1 tablet PO Q4H PRN PRN Reason: Pain 4-10 or Fever Last Admin: 09/15/20 02:37 Dose: 1 tablet Documented by: Albuterol Sulfate (Albuterol 2.5 Mg/3 Ml Vial.Neb.) 2.5 mg INHALATION Q4H PRN PRN PRN Reason: Shortness of breath, wheezing Albuterol/Ipratropium (Ipratropium/Albuterol Sulfate 3 Ml Ampul.Neb) 3 ml INHALATION Q6H.RT [facility] Last Admin: 09/15/20 07:15 Dose: 3 ml Documented by: Dicyclomine HCl (Dicyclomine 10 Mg Capsule) 20 mg PO Q6H PRN PRN PRN Reason: abdominal discomfort Last Admin: 09/12/20 17:53 Dose: 20 mg Documented by: Docusate Sodium (Docusate Sodium 100 Mg Capsule) 100 mg PO DAILY PRN PRN PRN Reason: COSTIPATION Last Admin: 09/14/20 16:14 Dose: 100 mg Documented by: Enoxaparin Sodium (Enoxaparin 40 Mg/0.4 Ml Syringe) 40 mg SC DAILY [facility] Last Admin: 09/14/20 09:05 Dose: 40 mg Documented by: Folic Acid (Folic Acid 1 Mg Tablet) 1 mg PO DAILY@0800 [facility] Last Admin: 09/14/20 09:04 Dose: 1 mg Documented by: Gabapentin (Gabapentin 300 Mg Capsule) 300 mg PO Q8H PRN PRN PRN Reason: moderate to severe anxiety Hydroxyzine Pamoate (Hydroxyzine Sheila 25 Mg Capsule) 50 mg PO Q4H PRN PRN PRN Reason: mild anxiety Lisinopril (Lisinopril 10 Mg Tablet) 10 mg PO DAILY [facility] Last Admin: 09/14/20 09:04 Dose: 10 mg Documented by: Loperamide HCl (Loperamide 2 Mg Capsule) 2 mg PO Q4H PRN PRN PRN Reason: LOOSE STOOLS Loratadine (Loratadine 10 Mg Tablet) 10 mg PO DAILY PRN PRN PRN Reason: SINUSES Ondansetron HCl (Ondansetron 8 Mg Tablet) 8 mg PO Q8H PRN PRN PRN Reason: NAUSEA Phenobarbital (Phenobarbital 32.4 Mg Tablet) 64.8 mg PO Q6H [facility]; Taper Stop: 09/16/20 20:29 Last Admin: 09/15/20 02:37 Dose: 64.8 mg Documented by: Sodium Chloride (0.9% Saline Lock 10 Ml Syringe) 10 - 40 ml IV UD PRN PRN Reason: SALINE FLUSH Last Admin: 09/12/20 21:17 Dose: 10 ml Documented by: Thiamine HCl ([facility]amine Hydrochloride 100 Mg Tablet) [facility] Admin: 09/14/20 09:04 Dose: 100 mg Documented by: Tolterodine Tartrate (Tolterodine Tartrate 2 Mg Cap.Sa) 2 mg PO QHS [facility] Last Admin: 09/14/20 21:30 Dose: 2 mg Documented by: Tramadol HCl (Tramadol 50 Mg Tablet) 50 mg PO Q6H PRN PRN PRN Reason: Pain Score 1-3 Last Admin: 09/14/20 20:48 Dose: 50 mg Documented by: Trazodone HCl (Trazodone 100 Mg Tablet) 100 mg PO QHS [facility] Last Admin: 09/14/20 21:30 Dose: 100 mg Documented by: Medical Necessity - Tobacco Use Smoking Status: Former smoker Assessment/Plan All Active Problems (Last Updated 09/12/20 @ 11:[address] Marie Alba MD) Sacral fracture (Acute) Acute alcohol withdrawal (Acute) This is a 65 years old female patient presented to the emergency room because of fall and buttock pain, found to have acute bilateral nondisplaced sacral fractures, complaint of alcohol abuse and she expressed desire for medical stabilization. #1 acute alcohol withdrawal: Remained on tapering phenobarbital, thiamine and folic acid supplement, as needed Bentyl, Neurontin, Vistaril, Imodium, Zofran, trazodone. Withdrawal symptoms are very well controlled. Her vital signs are stable. LFT was unremarkable. Urine drug screen was negative. Blood alcohol level was 3. Plan to continue same treatment, [facility]. #2 acute traumatic nondisplaced bilateral sacral fracture: She is on Toradol and Tylenol as needed. Pain is manageable. CT scan lumbar spine reviewed, revealed chronic L1 compression deformity, bilateral sacral fractures, nondisplaced. No indication for surgical repair. Plan as above. 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 #4 COPD: Stable, on room air. Continue DuoNeb every 6 hours, albuterol as needed.. #5 hypertension: Blood pressure stable, continue lisinopril. #6 GERD/history of perforated duodenal ulcer: Stable, currently, she is not on PPI. #7 depression: Continue trazodone. #8 DVT prophylaxis: Subcu Lovenox. This note was generated with [employer] dictation software. It may contain incorrect words, spelling, and punctuation that were not noted in checking the note before signing. Inpatient E&M: 13319 Subs Hosp L2
[2020-09-15] MEDS: Thiamine Hydrochloride 100 MG Tablet PO (08:25)
[2020-09-15] MEDS: traMADol 50 MG Tablet PO (08:25)
[2020-09-15] MEDS: Folic Acid 1 MG Tablet PO (08:25)
[2020-09-15] MEDS: Docusate Sodium 100 MG Capsule PO (10:20)
[2020-09-15] MEDS: Enoxaparin 40 MG/0.4 ML Syringe SC (10:20)
[2020-09-15] MEDS: Lisinopril 10 MG Tablet PO (10:20)
[2020-09-15] MEDS: Gabapentin 300 MG Capsule PO ×2 (10:20→18:15)
[2020-09-15] MEDS: traZODone 100 MG Tablet PO (22:28)
[2020-09-15] MEDS: Tolterodine Tartrate 2 MG CAP.SA PO (22:28)
[2020-09-16 02:25] VITALS: BP 128/60; PULSE 60; RESP 18; TEMP 36.8; O2SAT 95
[2020-09-16] MEDS: Phenobarbital 32.4 MG Tablet PO ×3 (02:29→15:53)
[2020-09-16] MEDS: traMADol 50 MG Tablet PO (02:29)
[2020-09-16 06:54] VITALS: PULSE 80; RESP 16; O2SAT 97
[2020-09-16] MEDS: Ipratropium/Albuterol Sulfate 3 ML AMPUL.NEB INHALATION ×2 (06:54→13:34)
--- NOTE | 2020-09-16 07:49 | PCM.PN.HOSP ---
Patient Problems: Active and Suspected Problems (Last Updated 09/12/20 @ 11:[address] Marie Alba MD) Sacral fracture (Acute) Acute alcohol withdrawal (Acute) Reason for Visit: Alcohol withdrawal Subjective: Pain is a 65-year-old lady admitted following a fall found to have acute bilateral nondisplaced sacral fractures. Patient was also found to be intoxicated admitted to regular nursing floor for further management Objective: GENERAL: cooperative HEENT: Atraumatic; EYES; Anicteric, Normal Conjunctiva NECK; supple, normal thyroid, RESPIRATORY: Diminished to auscultation CARDIOVASCULAR: Regular S1 S2, GI: soft, normoactive bowel sounds, : No Renal angle tenderness; EXTREMITIES: No edema, no clubbing, MUSCULOSKELETAL: no muscle waisting NEURO: Awake; no lateralizing signs. SKIN: No Rash PSYCH; Flat affect Vitals/I&O's: Vital Signs Temp Pulse Resp BP Pulse Ox 98.2 F 80 16 128/60 H 97 09/16/20 02:25 09/16/20 06:54 09/16/20 06:54 09/16/20 02:25 09/16/20 06:54 Oxygen Delivery Method Room Air Weight: 56.416 kg Body Mass Index (BMI) 21.3 Intake and Output for Last 24 Hours 09/14/20 09/15/20 09/16/20 23:59 23:59 23:59 Intake Total 900 / 900 1950 / 1950 200 / 200 Output Total 425 / 425 Balance 475 / 475 1950 / 1950 200 / 200 Current Medications Acetaminophen (Acetaminophen 500 Mg Tablet) 500 mg PO Q4H PRN PRN PRN Reason: Temp > 100.4 F Hydrocodone Bitart/Acetaminophen (Hydrocodone Bitartrate/Apap 5/325 Tablet) 1 tablet PO Q4H PRN PRN Reason: Pain 4-10 or Fever Last Admin: 09/15/20 22:28 Dose: 1 tablet Documented by: Albuterol Sulfate (Albuterol 2.5 Mg/3 Ml Vial.Neb.) 2.5 mg INHALATION Q4H PRN PRN PRN Reason: Shortness of breath, wheezing Albuterol/Ipratropium (Ipratropium/Albuterol Sulfate 3 Ml Ampul.Neb) 3 ml INHALATION Q6H.RT [facility] Last Admin: 09/16/20 06:54 Dose: 3 ml Documented by: Dicyclomine HCl (Dicyclomine 10 Mg Capsule) 20 mg PO Q6H PRN PRN PRN Reason: abdominal discomfort Last Admin: 09/12/20 17:53 Dose: 20 mg Documented by: Docusate Sodium (Docusate Sodium 100 Mg Capsule) 100 mg PO DAILY PRN PRN PRN Reason: COSTIPATION Last Admin: 09/15/20 10:20 Dose: 100 mg Documented by: Enoxaparin Sodium (Enoxaparin 40 Mg/0.4 Ml Syringe) 40 mg SC DAILY [facility] Last Admin: 09/15/20 10:20 Dose: 40 mg Documented by: Folic Acid (Folic Acid 1 Mg Tablet) 1 mg PO DAILY@0800 [facility] Last Admin: 09/15/20 08:25 Dose: 1 mg Documented by: Gabapentin (Gabapentin 300 Mg Capsule) 300 mg PO Q8H PRN PRN PRN Reason: moderate to severe anxiety Last Admin: 09/15/20 18:15 Dose: 300 mg Documented by: Hydroxyzine Pamoate (Hydroxyzine Sheila 25 Mg Capsule) 50 mg PO Q4H PRN PRN PRN Reason: mild anxiety Lisinopril (Lisinopril 10 Mg Tablet) 10 mg PO DAILY [facility] Last Admin: 09/15/20 10:20 Dose: 10 mg Documented by: Loperamide HCl (Loperamide 2 Mg Capsule) 2 mg PO Q4H PRN PRN PRN Reason: LOOSE STOOLS Loratadine (Loratadine 10 Mg Tablet) 10 mg PO DAILY PRN PRN PRN Reason: SINUSES Ondansetron HCl (Ondansetron 8 Mg Tablet) 8 mg PO Q8H PRN PRN PRN Reason: NAUSEA Phenobarbital (Phenobarbital 32.4 Mg Tablet) 32.4 mg PO Q6H [facility]; Taper Stop: 09/16/20 20:29 Last Admin: 09/16/20 02:29 Dose: 32.4 mg Documented by: Sodium Chloride (0.9% Saline Lock 10 Ml Syringe) 10 - 40 ml IV UD PRN PRN Reason: SALINE FLUSH Last Admin: 09/12/20 21:17 Dose: 10 ml Documented by: Thiamine HCl ([facility]amine Hydrochloride 100 Mg Tablet) [facility] Last Admin: 09/15/20 08:25 Dose: 100 mg Documented by: Tolterodine Tartrate (Tolterodine Tartrate 2 Mg Cap.Sa) 2 mg PO QHS [facility] Last Admin: 09/15/20 22:28 Dose: 2 mg Documented by: Tramadol HCl (Tramadol 50 Mg Tablet) 50 mg PO Q6H PRN PRN PRN Reason: Pain Score 1-3 Last Admin: 09/16/20 02:29 Dose: 50 mg Documented by: Trazodone HCl (Trazodone 100 Mg Tablet) 100 mg PO QHS [facility] Last Admin: 09/15/20 22:28 Dose: 100 mg Documented by: STROKE Vital Signs/Narrative: Vital Signs Pulse Resp Pulse Ox 09/16/20 06:54 80 16 97 Medical Necessity - Tobacco Use Smoking Status: Former smoker Assessment/Plan All Active Problems (Last Updated 09/12/20 @ 11:[address] Marie Alba MD) Sacral fracture (Acute) Acute alcohol withdrawal (Acute) Pain is a 65-year-old lady admitted following a fall found to have acute bilateral nondisplaced sacral fractures. Patient was also found to be intoxicated admitted to regular nursing floor for further management 1. Acute alcohol withdrawal ?Admitted to regular nursing floor where patient is currently being managed with phenobarb taper for medical stabilization 2. fall ?Imaging studies obtained on admission nondisplaced bilateral sacral fractures. CT of the lumbar spine revealed L1 compression fracture. Patient currently being managed conservatively. 3. Physical deconditioning - Requested for PT OT eval and social studies department chair to assist with discharge planning 4. Hyponatremia ?Secondary to beer portal wang 5. COPD ?Aerosol treatment as needed 6. Hypertension - Blood pressure controlled, home medications continued with dose adjustment as needed 7. GERD ?Currently not on PPI 8. History of perforated duodenal ulcer 9. Depression ?Patient is on trazodone 10. DVT prophylaxis -[place] Lovenox Inpatient E&M: 30146 Subs Hosp L2
[2020-09-16] MEDS: HYDROcodone Bitartrate/Apap 5/325 Tablet PO ×2 (08:12→15:53)
[2020-09-16] MEDS: Folic Acid 1 MG Tablet PO (08:51)
[2020-09-16] MEDS: Thiamine Hydrochloride 100 MG Tablet PO (08:51)
[2020-09-16] MEDS: Enoxaparin 40 MG/0.4 ML Syringe SC (08:55)
[2020-09-16] MEDS: Lisinopril 10 MG Tablet PO (08:55)
--- NOTE | 2020-09-16 09:31 | PCM.TXEXTCAR ---
- Diet 09/12/20 14:23 Diet: Regular - No Added Salt Is pt able to select menu?: Yes Diet Comments: chocolate milkshake w/ dinner made w/ ice cream & whole milk - Routine Orders/Code Status Code Status: Full Code - Therapies Physical Therapy: Eval and Treat Occupational Therapy: Eval and Treat - Allergies/Procedures Done in Hospital Allergies/Adverse Reactions: Allergies nicotine [From Nicoderm CQ] Allergy (Unknown, Verified 09/12/20 06:07) Rash Penicillins Allergy (Verified 09/12/20 06:07) Angioedema - Type of Care/Length of Stay Estimated LOS: Convalescent Care Less Than 30 days Type of Care Needed: Skilled Rehab Potential: Good Prognosis: Good - Additional Orders/Day of Discharge H&P will serve as current which was dated: 09/16/20 Day of Discharge: 09/16/20 - Dietary and Speech Recommendations Dietitian Recommendations/Changes: Will change diet to regular, no added salt d/t risk of malnutrition. Will provide milkshake w/ dinner for additional protein/calories if consumed. Declines other ONS at this time. - Follow Up Care Primary Care Physician: Freedom Modi DO [Primary Care Provider] - Please follow up with your Primary Care Physician in: in 2-4 weeks
--- NOTE | 2020-09-16 09:33 | PCM.DC.SUM ---
Discharge Date and Diagnosis - Problem List Patient Problems: Active and Suspected Problems (Last Updated 09/12/20 @ 11:[address] Marie Alba MD) Sacral fracture (Acute) Acute alcohol withdrawal (Acute) Date of Admission: 09/12/20 Date of Discharge: 09/16/20 - Primary Discharge Diagnosis Acute Problems: Active Problems (Last Updated 09/12/20 @ 11:[address] Marie Alba MD) Sacral fracture (Acute) Acute alcohol withdrawal (Acute) - Secondary Discharge Diagnosis Chronic Problems: Chronic Problems Depression (Chronic) Allergic rhinitis (Chronic) Osteoporosis (Chronic) Gastric ulcer (Chronic) Overactive bladder (Chronic) GERD (gastroesophageal reflux disease) (Chronic) Osteoarthritis (Chronic) CKD (chronic kidney disease) stage 3, GFR 30-59 ml/min (Chronic) Stage 1 mild COPD by GOLD classification (Chronic) HTN (hypertension) (Chronic) Anxiety (Chronic) Alcohol abuse (Chronic) Hospital Course and Treatment Operations: - Summary of Care Provided: Patient is a 65-year-old lady admitted following a fall found to have acute bilateral nondisplaced sacral fractures. Patient was also found to be intoxicated admitted to regular nursing floor for further management 1. Acute alcohol withdrawal ?Admitted to regular nursing floor where patient is currently being managed with phenobarb taper for medical stabilization 2. fall ?Imaging studies obtained on admission nondisplaced bilateral sacral fractures. CT of the lumbar spine revealed L1 compression fracture. Patient currently being managed conservatively. 3. Physical deconditioning - Requested for PT OT eval and administrator social welfare to assist with discharge planning 4. Hyponatremia ?Secondary to beer portal wang 5. COPD ?Aerosol treatment as needed 6. Hypertension - Blood pressure controlled, home medications continued with dose adjustment as needed 7. GERD ?Currently not on PPI 8. History of perforated duodenal ulcer 9. Depression ?Patient is on trazodone 10. DVT prophylaxis -SC Lovenox Patient Problems: Active and Suspected Problems (Last Updated 09/12/20 @ 11:[address] Marie Alba MD) Sacral fracture (Acute) Acute alcohol withdrawal (Acute) - Physical Exam Vitals/I&O's: Vital Signs Temp Pulse Resp BP Pulse Ox 98.2 F 80 16 128/60 H 97 09/16/20 02:25 09/16/20 06:54 09/16/20 06:54 09/16/20 02:25 09/16/20 06:54 Oxygen Delivery Method Room Air Weight: 56.416 kg Body Mass Index (BMI) 21.3 Intake and Output for Last 24 Hours 09/14/20 09/15/20 09/16/20 23:59 23:59 23:59 Intake Total 900 / 900 1949 / 1949 200 / 200 Output Total 425 / 425 Balance 475 / 475 1949 / 1949 200 / 200 General: Alert HEENT: Atraumatic Cardiovascular: Regular rate, Regular Rhythm Current Medications Acetaminophen (Acetaminophen 500 Mg Tablet) 500 mg PO Q4H PRN PRN PRN Reason: Temp > 100.4 F Hydrocodone Bitart/Acetaminophen (Hydrocodone Bitartrate/Apap 5/325 Tablet) 1 tablet PO Q4H PRN PRN Reason: Pain 4-10 or Fever Last Admin: 09/16/20 08:12 Dose: 1 tablet Documented by: Albuterol Sulfate (Albuterol 2.5 Mg/3 Ml Vial.Neb.) 2.5 mg INHALATION Q4H PRN PRN PRN Reason: Shortness of breath, wheezing Albuterol/Ipratropium (Ipratropium/Albuterol Sulfate 3 Ml Ampul.Neb) 3 ml INHALATION Q6H.RT [facility] Last Admin: 09/16/20 06:54 Dose: 3 ml Documented by: Dicyclomine HCl (Dicyclomine 10 Mg Capsule) 20 mg PO Q6H PRN PRN PRN Reason: abdominal discomfort Last Admin: 09/12/20 17:53 Dose: 20 mg Documented by: Docusate Sodium (Docusate Sodium 100 Mg Capsule) 100 mg PO DAILY PRN PRN PRN Reason: COSTIPATION Last Admin: 09/15/20 10:20 Dose: 100 mg Documented by: Enoxaparin Sodium (Enoxaparin 40 Mg/0.4 Ml Syringe) 40 mg SC DAILY [facility] Last Admin: 09/16/20 08:55 Dose: 40 mg Documented by: Folic Acid (Folic Acid 1 Mg Tablet) 1 mg PO DAILY@0800 [facility] Last Admin: 09/16/20 08:51 Dose: 1 mg Documented by: Gabapentin (Gabapentin 300 Mg Capsule) 300 mg PO Q8H PRN PRN PRN Reason: moderate to severe anxiety Last Admin: 09/15/20 18:15 Dose: 300 mg Documented by: Hydroxyzine Pamoate (Hydroxyzine Sheila 25 Mg Capsule) 50 mg PO Q4H PRN PRN PRN Reason: mild anxiety Lisinopril (Lisinopril 10 Mg Tablet) 10 mg PO DAILY [facility] Last Admin: 09/16/20 08:55 Dose: 10 mg Documented by: Loperamide HCl (Loperamide 2 Mg Capsule) 2 mg PO Q4H PRN PRN PRN Reason: LOOSE STOOLS Loratadine (Loratadine 10 Mg Tablet) 10 mg PO DAILY PRN PRN PRN Reason: SINUSES Ondansetron HCl (Ondansetron 8 Mg Tablet) 8 mg PO Q8H PRN PRN PRN Reason: NAUSEA Phenobarbital (Phenobarbital 32.4 Mg Tablet) 32.4 mg PO Q6H [facility]; Taper Stop: 09/16/20 20:29 Last Admin: 09/16/20 08:53 Dose: 32.4 mg Documented by: Sodium Chloride (0.9% Saline Lock 10 Ml Syringe) 10 - 40 ml IV UD PRN PRN Reason: SALINE FLUSH Last Admin: 09/12/20 21:17 Dose: 10 ml Documented by: Thiamine HCl ([facility] Hydrochloride 100 Mg Tablet) [facility] Last Admin: 09/16/20 08:51 Dose: 100 mg Documented by: Tolterodine Tartrate (Tolterodine Tartrate 2 Mg Cap.Sa) [facility] Last Admin: 09/15/20 22:28 Dose: 2 mg Documented by: Tramadol HCl (Tramadol 50 Mg Tablet) 50 mg PO Q6H PRN PRN PRN Reason: Pain Score 1-3 Last Admin: 09/16/20 02:29 Dose: 50 mg Documented by: Trazodone HCl (Trazodone 100 Mg Tablet) 100 mg PO QHS [facility] Last Admin: 09/15/20 22:28 Dose: 100 mg Documented by: Discharge Diet: No Restrictions Discharge Activity: May not drive while taking narcotic pain medications. Home Medications: Medications to take at Discharge Alendronate Sodium [Fosamax] 70 mg PO QWEEK 07/08/14 Calcium Carb/Vitamin D [Caltrate-600 With Vit D Tab] 1 tab PO DAILY@0800 07/08/14 Loratadine [Claritin] 10 mg PO DAILY PRN 07/08/14 traZODone [Desyrel] 100 mg PO QHS 07/08/14 Docusate Sodium [Colace] 100 mg PO DAILY PRN PRN 10/11/17 Lisinopril 10 mg PO DAILY 10/11/17 Oxybutynin Chloride [Ditropan Xl] 5 mg PO QHS 10/11/17 albuterol sulfate 90 mcg/actuation aerosol inhaler 2 puff INHALATION Q4H PRN #18 g 07/19/19 vitamin B complex 1 tab PO DAILY 09/28/19 mometasone-formoterol HFA 200 mcg-5 mcg/actuation aerosol inhaler 2 puff INHALATION BID #13 g 01/10/20 Acetaminophen [Tylenol] 500 mg PO Q4H PRN PRN tablet 09/16/20 Folic Acid 1 mg PO DAILY@0800 tablet 09/16/20 Hydrocodone/Acetaminophen [Hydrocodone-Acetamin 5-325 mg] 1 tab PO Q4H PRN 3 Days #14 tab 09/16/20 Thiamine Hydrochloride [Vitamin B1] 100 mg PO DAILYCM tablet 09/16/20 hydrOXYzine pamoate capsule [Vistaril pamoate capsule] 50 mg PO Q4H PRN PRN capsule 09/16/20 Following Prescriptions Were Given to Patient: Hydrocodone/Acetaminophen [Hydrocodone-Acetamin 5-325 mg] 1 tab PO Q4H PRN 3 Days #14 tab PRN Reason: Pain 1-10 Or Fever Prescription Printed Primary Care Physician: Freedom Modi DO [Primary Care Provider] - Please follow up with your Primary Care Physician in: in 2-4 weeks Disposition: Care Home facility Minutes spent on discharge:: 35 Patient Condition:: Stable Medical Necessity - Tobacco Use Smoking Status: Former smoker Meaningful Use Info Meaningful Use Diagnoses (Choose all that apply): None applicable Inpatient E&M: 83630 Disch Hosp
[2020-09-16 10:00] VITALS: BP 130/88; PULSE 74; RESP 18; TEMP 37.2; O2SAT 95
--- NOTE | 2020-09-16 10:18 | PHA.DC.MR ---
Pharmacy Service has performed discharge medication reconciliation for this patient upon transfer to [facility]. Home Medications Alendronate Sodium [Fosamax] 70 mg PO QWEEK 07/08/14 Calcium Carb/Vitamin D [Caltrate-600 With Vit D Tab] 1 tab PO DAILY@0800 07/08/14 Loratadine [Claritin] 10 mg PO DAILY PRN 07/08/14 traZODone [Desyrel] 100 mg PO QHS 07/08/14 Docusate Sodium [Colace] 100 mg PO DAILY PRN PRN 10/11/17 Lisinopril 10 mg PO DAILY 10/11/17 Oxybutynin Chloride [Ditropan Xl] 5 mg PO QHS 10/11/17 albuterol sulfate 90 mcg/actuation aerosol inhaler 2 puff INHALATION Q4H PRN #18 g 07/19/19 vitamin B complex 1 tab PO DAILY 09/28/19 mometasone-formoterol HFA 200 mcg-5 mcg/actuation aerosol inhaler 2 puff INHALATION BID #13 g 01/10/20 Acetaminophen [Tylenol] 500 mg PO Q4H PRN PRN tab 09/16/20 Folic Acid 1 mg PO DAILY@0800 tab 09/16/20 Hydrocodone/Acetaminophen [Hydrocodone-Acetamin 5-325 mg] 1 tab PO Q4H PRN 3 Days #14 tab 09/16/20 Thiamine Hydrochloride [Vitamin B1] 100 mg PO DAILYCM tab 09/16/20 hydrOXYzine pamoate capsule [Vistaril pamoate capsule] 50 mg PO Q4H PRN PRN cap 09/16/20 The patient's discharge medication list was reviewed for discrepancies and discrepancies were resolved.
--- NOTE | 2020-09-16 13:15 | CASEMGMT ---
Social Work Note Pt is discharging to [facility] today. COVID test is needed. Charge Nurse aware, ordered test. ISMAEL faxed discharge paperwork to [facility] including transfer to extended care facility, signed medication list, any scripts, negative COVID test, COVID screening tool. Original in SNF folder and copy on pt's chart. SW spoke with, Pt can transport via cot. SW accessed trip assist and earliest physician's can transport pt is 3:30pm. Transportation form completed and placed on SNF folder and copy on pt's chart. [facility] was completed, original in SNF folder and copy on pt's chart. SW in to speak with pt. SW introduced self and role at [facility]. Pt is alert and orientated. SW updated pt that pt will be discharged to [facility] today at 3:30pm. Pt states understanding, agreeable to plan. SW updated RN on transportation time. ISMAEL placed a call to Albina at [facility] and updated her on discharge and transportation time. Plan: [facility] skilled today with physician's ambulance transporting pt at 3:30pm Linn Villagran MSW, [employer]
[2020-09-16 13:34] VITALS: PULSE 71; RESP 16; O2SAT 98
[2020-09-16 15:00] VITALS: BP 122/58; PULSE 80; RESP 18; TEMP 37.2; O2SAT 95
== END 2020-09-16 15:45 | disposition skilled nursing facility (03) | DRG 897 ==
LOC: ED 06:35 → MS3 11:10
PROVIDERS: Student in an Organized Health Care Education/Training Program; Admitting Provider Hospitalist; Emergency Provider Emergency Medicine; PCP Family Medicine; Visit Provider Internal Medicine
DX: F10.239 Alcohol dependence with withdrawal, unspecified (principal); S32.10XA Unspecified fracture of sacrum, initial encounter for closed fracture; E87.1 Hypo-osmolality and hyponatremia; W19.XXXA Unspecified fall, initial encounter; Y92.000 Kitchen of unspecified non-institutional (private) residence as the place of occurrence of the external cause; F41.9 Anxiety disorder, unspecified; I12.9 Hypertensive chronic kidney disease with stage 1 through stage 4 chronic kidney disease, or unspecified chronic kidney disease; N18.30 Chronic kidney disease, stage 3 unspecified; K21.9 Gastro-esophageal reflux disease without esophagitis; M81.0 Age-related osteoporosis without current pathological fracture; Z87.891 Personal history of nicotine dependence; F32.9 Major depressive disorder, single episode, unspecified; J44.9 Chronic obstructive pulmonary disease, unspecified; Y90.0 Blood alcohol level of less than 20 mg/100 ml; Z79.83 Long term (current) use of bisphosphonates; Z79.899 Other long term (current) drug therapy; Z80.0 Family history of malignant neoplasm of digestive organs; Z80.3 Family history of malignant neoplasm of breast; Z82.49 Family history of ischemic heart disease and other diseases of the circulatory system; Z82.5 Family history of asthma and other chronic lower respiratory diseases; Z87.11 Personal history of peptic ulcer disease; Z96.649 Presence of unspecified artificial hip joint; N32.81 Overactive bladder; J30.9 Allergic rhinitis, unspecified; M19.90 Unspecified osteoarthritis, unspecified site
CPT/HCPCS: 72131; 80048; 80076; 80307; 82077; 83690; 85025; 87426; 94640; 97110; 97116; 97162; 97166; 97530; 97535; 97802; 99285; A4216

== ENCOUNTER 2022-06-20 09:12 | Inpatient (IN) | payer MEDICARE, MEDICAID, SELFPAY ==
[2022-06-20] VITALS (14 sets, daily range): BP systolic 126–170; BP diastolic 16–89; PULSE 67–97; RESP 14–18; TEMP 36.5–37.2; O2SAT 94–100; BMI 25.7; BMI 25.9
--- NOTE | 2022-06-20 09:32 | CT_ITS ---
INDICATION: Left lower quadrant pain, rectal bleeding, nausea and vomiting. EXAMINATION: CT ABDOMEN AND PELVIS WITH CONTRAST - CT Abdomen And Pelvis W/ Contrast Injection TECHNIQUE: Helically acquired images were obtained of the abdomen and pelvis following IV contrast. A radiation dose optimization technique was used for this scan. IV Contrast dosage and agent: Oral contrast: None. COMPARISON: 07/08/2014 FINDINGS: LOWER CHEST: Lung bases are clear. No cardiomegaly or pericardial effusion. LIVER: Homogeneous. No focal mass. GALLBLADDER AND BILIARY TREE: No calcified gallstones. No gallbladder distension or wall edema. No intra- or extrahepatic biliary ductal dilation. PANCREAS: No focal cystic or solid mass. SPLEEN: Normal size without focal cystic or solid mass. ADRENAL GLANDS: No nodules. KIDNEYS AND URETERS: Normal renal size and position. No hydronephrosis. PERITONEUM: No ascites or free air. No other fluid collection. BOWEL: Normal caliber small bowel loops. Diverticulosis sigmoid colon. Thickening of the distal descending and proximal sigmoid colon with pericolonic stranding. Thickening of the descending colon as well. No evidence of drainable abscess. The appendix is not identified. LYMPH NODES: No enlarged mesenteric or retroperitoneal lymph nodes. VESSELS: Atherosclerotic excretion of the abdominal aorta without evidence of aneurysm. URINARY BLADDER: The bladder is not well distended and is somewhat obscured by artifacts from hip prosthesis. REPRODUCTIVE ORGANS: No pelvic masses. ABDOMINAL WALL: Moderate size ventral hernia containing fat. BONES: Moderately severe compression fracture of L1 vertebra with retropulsion unchanged since prior exam. Degenerative changes. CT/Abdomen/Pelvis W IV Cont ONLY IMPRESSION: Diverticulosis of sigmoid colon with thickening of the proximal sigmoid and distal descending colon consistent with acute diverticulitis. Possible colitis extending to the descending colon. Electronically Signed: Julio Fernando MD at 11:03 EDT ,
--- NOTE | 2022-06-20 09:34 | EDS_ITS ---
HPI HPI - GI History of Present Illness Chief Complaint: GI Bleed Informant: patient and EMS Abdominal Pain/Flank Pain Onset: Yesterday Context: Gradual Onset Timing: Continuous Quality: Aching Location: - (lower abd) Current Severity: Severe Maximum Severity: Severe Worsened by: Nothing Relieved by: Nothing Nausea/Vomiting/Emesis GI Symptom: Positive for Nausea and Vomiting Onset: Yesterday Quality: Positive for Blood streaks (pink) Episodes: 1 Diarrhea/Melena/Hematochezia GI Symptom: Positive for Hematochezia Onset: Today (overnight multiple times) Stool Quality: Positive for - (unsure; I didn't check, but blood when I wiped, and in the toilet) Associated Symptoms Associated Symptoms: Negative for Dysuria, Frequency, Hematuria or Urgency Narrative Narrative: 66-year-old female had lower abdominal pain and rectal bleeding that started last night, she had multiple episodes overnight and presents this morning with EMS. She states she noticed some stools that were dark within the past week or 2. She has a history of a stomach ulcer that she required surgery for. This was remote. She only vomited once yesterday, she states it was pink. She takes no antiplatelet or anticoagulant medications. Her medication list does not appear to include any GERD medications. [facility] Medical History Alcohol abuse Allergic rhinitis Anxiety CKD (chronic kidney disease) stage 3, GFR 30-59 ml/min DDD (degenerative disc disease), cervical DDD (degenerative disc disease), lumbar Depression Duodenal perforation Gastric ulcer GERD (gastroesophageal reflux disease) HTN (hypertension) Osteoarthritis Osteoporosis Overactive bladder Stage 1 mild COPD by GOLD classification Tobacco abuse Home Medications alendronate 5 mg tablet 70 mg PO QWEEK 07/08/14 [History Last Taken 10/10/17 09:00] calcium carbonate 600 mg-vitamin D3 20 mcg (800 unit) tablet 1 tab PO DAILY@0800 07/08/14 [History Last Taken Unknown] loratadine 10 mg tablet 10 mg PO DAILY PRN SINUSES 07/08/14 [History Last Taken Unknown] trazodone 50 mg tablet 100 mg PO QHS 07/08/14 [History Last Taken Unknown] docusate sodium 100 mg capsule 100 mg PO DAILY PRN PRN COSTIPATION 10/11/17 [History Last Taken Unknown] lisinopril 20 mg tablet 10 mg PO DAILY 10/11/17 [History Last Taken Unknown] oxybutynin chloride 5 mg tablet,extended release 24 hr 5 mg PO QHS 10/11/17 [History Last Taken Unknown] albuterol sulfate 90 mcg/actuation aerosol inhaler (Ventolin HFA) 2 puff inhalation Q4H PRN shortness of breath or wheezing #18 grams 07/19/19 [Rx Last Taken Unknown] vitamin B complex (B Complex-Vitamin B12 tablet) 1 tab PO DAILY 09/28/19 [History Last Taken Unknown] mometasone-formoterol HFA 200 mcg-5 mcg/actuation aerosol inhaler (Dulera) 2 puff inhalation BID #13 grams 01/10/20 [Rx Last Taken Unknown] acetaminophen 500 mg tablet 500 mg PO Q4H PRN PRN Temp > 100.4 F 09/16/20 [Rx Last Taken Unknown] folic acid 1 mg tablet 1 mg PO DAILY@0800 09/16/20 [Rx Last Taken Unknown] hydrocodone-acetaminophen 5-325mg 5mg-325mg 1 tab PO Q4H PRN Pain 1-10 Or Fever 3 days #14 tabs 09/16/20 [Rx Last Taken Unknown] hydroxyzine pamoate 25 mg capsule 50 mg PO Q4H PRN PRN mild anxiety 09/16/20 [Rx Last Taken Unknown] thiamine HCl (vitamin B1) 100 mg tablet 100 mg PO DAILYCM 09/16/20 [Rx Last Taken Unknown] Allergy/AdvReac Type Severity Reaction Status Date / Time nicotine [From [facility]] Allergy Unknown Rash Verified 06/20/22 09:14 Penicillins Allergy Angioedema Verified 06/20/22 09:14 Family History Mother Cancer lung Hypertension Heart disease Alcohol abuse Anxiety Father Arthritis Kidney disease Cancer skin Aunt Alcohol abuse COPD (chronic obstructive pulmonary disease) Uncle Alcohol abuse Colon cancer Grandfather Cancer skin Grandmother Breast cancer Surgical History (Updated 09/12/20 @ 11:[address] Marie Alba MD) cataract surgery H/O right knee surgery History of appendectomy Social History Smoking Status: Former smoker second hand exposure: Yes alcohol intake: current alcohol intake frequency: 0-2 drinks per day Alcohol type: beer substance use type: does not use ROS ROS ED Constitutional Constitutional ED: Reports weakness; Denies chills or fever(s) Eyes Eyes: Denies change in vision or diplopia ENT ENT ED: Denies rhinorrhea or sore throat Cardiovascular Cardiovascular: Denies chest pain, lightheadedness, palpitations or syncope Respiratory/Chest Respiratory/Chest: Denies cough or dyspnea Gastrointestinal Gastrointestinal: Reports as per HPI, abdominal pain, diarrhea, hematochezia, nausea and vomiting; Denies hemorrhoids Genitourinary Genitourinary ED: Denies dysuria or hematuria Musculoskeletal Musculoskeletal: Denies back pain or neck pain Integumentary Denies abscess or rash Neurologic Neurologic: Denies headache(s), paresthesias or weakness Psychiatric Psychiatric: Denies anxiety or suicidal thoughts EXAM Physical Exam Const Vital Signs: 06/20/22 09:12 06/20/22 10:05 06/20/22 11:20 Temperature 97.7 F L Temperature Source Temporal Pulse Rate 94 93 Pulse Rate [Lying] 93 Pulse Rate [Sitting (for 1 minute prior to obtaining)] 97 Respiratory Rate 14 18 Blood Pressure 159/89 H 126/62 H Blood Pressure [Lying] 163/88 H Blood Pressure [Sitting (for 1 minute prior to obtaining)] 170/16 H Blood Pressure [Standing (for 1 minute prior to obtaining)] 139/68 H Blood Pressure Mean 112 83 Blood Pressure Mean [Lying] 113 Blood Pressure Mean [Sitting (for 1 minute prior to obtaining)] 67 Blood Pressure Mean [Standing (for 1 minute prior to obtaining)] 91 Pulse Ox 99 97 Oxygen Delivery Method Room Air Room Air Positive well nourished and well developed General Appearance ED: well developed and NAD HEENT Reports moist mucous membranes normocephalic and atraumatic Eyes PERRL and EOMs intact bilaterally Neck full ROM and supple Resp normal respiratory effort and clear to auscultation bilaterally Cardio regular rate, regular rhythm and no murmurs Rate: Negative for tachycardic GI non-distended GI Narrative: Left lower quadrant tenderness, no guarding or rebound. No pulsatile mass. No other areas of tenderness. On rectal exam, there is a trace amount of blood on JOLANTA, but no tenderness, no pooling or actively bleeding. No visible or palpable hemorrhoids. Auscultation: normoactive bowel sounds Palpation: soft Back/Spine no CVA tenderness General Back: other FROM Extremity normal to inspection General Extremety ED: Negative for edema, pulses abnormal or tenderness General Extremity: Negative for edema or pulses abnormal Neuro oriented x3, CN's II-XII intact bilaterally and no sensory deficits noted Sensorium / Orientation: awake and alert Motor Exam: strength 5/5 throughout Skin no rashes or lesions noted and no wounds MDM MDM MDM Narrative Medical decision making narrative: Orthostatics are borderline positive so she was given a liter of fluid while awaiting work-up, which is consistent with acute diverticulitis. Given the bleeding she has been having along with positive orthostatics, I think treating her with antibiotics and observing her in the hospital is most reasonable. Her blood counts are stable right now. She does have newly elevated BUN and creatinine, however her last labs were almost 2 years ago that I have to compare with, and her symptoms are more consistent with lower GI bleeding than upper, although I am not able to rule that out so I did give her Protonix 80 mg IV. No one from gastroenterology available today, discussed with surgery Dr. Marquez, who will be available to consult if needed on this patient while in the hospital this weekend. Lab Data Attestation: I reviewed the patient's lab results. Labs: Laboratory Results - last 24 hr 06/20/22 06/20/22 09:20 09:20 WBC 17.1 H RBC 4.93 Hgb 13.7 Hct 41.4 MCV 84.0 MCH 27.8 MCHC 33.1 RDW Std Deviation 39.0 RDW Coeff of Beatriz 12.8 Plt Count 355 MPV 9.6 Immature Gran % (Auto) 0.300 Neut % (Auto) 83.8 H Lymph % (Auto) 7.9 L [place] % (Auto) 7.7 Eos % (Auto) 0.1 Baso % (Auto) 0.2 Absolute Neuts (auto) 14.3 H Absolute Lymphs (auto) 1.36 Nucleated RBC % 0 Sodium 136 Potassium 4.3 Chloride 104 Carbon Dioxide 24.0 Anion Gap 8 BUN 28 H Creatinine 1.49 H Estim Creat Clear Calc 33.42 Est GFR (MDRD) Af Amer 45 L Est GFR (MDRD) Non-Af 37 L BUN/Creatinine Ratio 18.8 Glucose 129 H Calcium 8.9 Radiography Diagnostic Testing: Clinical Impression(s) from Imaging Studies Abdomen/Pelvis CT 06/20/22 09:32 IMPRESSION: Diverticulosis of sigmoid colon with thickening of the proximal sigmoid and distal descending colon consistent with acute diverticulitis. Possible colitis extending to the descending colon. Electronically Signed: Julio Fernando MD at 11:03 EDT , Discharge Plan Dx/Rx/DC Orders Clinical Impression: Acute diverticulitis, Acute lower gastrointestinal bleeding, Orthostasis, ASHLEY (acute kidney injury) Disposition Disposition: Acute Care Hospital [facility]
[2022-06-20 09:54] LABS: Absolute Lymphocyte Count 1.36 X10^3/uL (0.83-4.51); Absolute Neutrophil Count 14.3 X10^3/uL (2.0-7.7); Basophil# 0.04 X10^3/uL; Basophil% 0.2 % (0-1); Eosinophil# 0.02 X10^3/uL; Eosinophils% 0.1 % (0-5); Hematocrit 41.4 % (37-47); Hemoglobin 13.7 g/dL (12.0-15.0); Lymphocyte # 1.36 X10^3/ul (0.83-4.51); Lymphocyte % 7.9 % (19-41); Mean Corp Hgb Conc 33.1 g/dL (32-36); Mean Corpuscular Hgb 27.8 pg (27.0-32.0); Mean Platelet Vol. 9.6 fl (6.2-12.0); Monocyte# 1.32 X10^3/uL; Monocyte% 7.7 % (0-10); NRBC Flagged by Analyzer 0 % (0-5); Neutrophil # 14.33 X10^3/uL (2.7-7.7); Neutrophil % 83.8 % (47-70); Platelet Count 355 K/mm3 (150-450); RBC Distribution Width CV 12.8 % (11.6-14.6); Red Blood Count 4.93 M/mm3 (4.2-5.4); White Blood Count 17.1 K/mm3 (4.4-11.0)
[2022-06-20 09:58] LABS: Anion Gap 8 (5-15); BUN 28 mg/dL (7-18); BUN/Creat Ratio 18.8 RATIO (10-20); Calcium,Total 8.9 mg/dL (8.5-10.1); Chloride 104 mmol/L (98-107); Creatinine, Serum 1.49 mg/dL (0.55-1.02); EST Glomerular Filtration Rate 37 mL/min (>60); Est Glom Filt Rate - Afr Amer 45 mL/min (>60); Estimated Creatinine Clearance 33.42 ml/min; Glucose 129 mg/dL (74-106); Potassium 4.3 mmol/L (3.5-5.1); Sodium Level 136 mmol/L (136-145)
[2022-06-20] MEDS: Morphine 4 MG/ML Syringe IV (10:24)
[2022-06-20] MEDS: Ondansetron 4 MG/2 ML Vial IV (10:24)
[2022-06-20] MEDS: 0.9% Normal Saline 1,000 ML 999 ML IV (10:29)
[2022-06-20] MEDS: Ciprofloxacin 400 MG/200 ML BAG 200 MG IV (11:38)
--- NOTE | 2022-06-20 12:18 | PCM.HP.STD ---
HPI - General General Date of Admission: 06/20/22 Date of Service: 06/20/22 Chief Complaint: Bloody stools - 1 day HPI Narrative JOSE MIGUEL STEVEN, is a 66 F who presents with the above that started at 11:30pm the night prior to her morning admission. Patient is a chronic smoker, denies any history of GI bleed, not on blood thinners who comes in with abdominal discomfort, it is mostly left-sided, crampy. She has had several episodes of bloody bowel movement. She describes the bowel movements as bright red, completely mixed with stool. She has associated dizziness but no palpitations or chest pain. She denies any fever or chills or recent travel or recent new food. She had an episode of hematemesis that was pink in color. Vitals in the ED showed blood pressure 159/89, heart rate 94, respiratory 14, temperature 97.7 F. Patient BC count is 17.1, hemoglobin 13.7, platelet count 355, sodium 136, potassium 4.3, chloride 104, bicarbonate 24, BUN 28, creatinine 1.49, previous level a year ago was 0.91. CT of the abdomen and pelvis shows diverticulosis of the sigmoid colon, thickening of the distal descending and proximal sigmoid colon with pericolic stranding. Thickening of the ascending colon as well no evidence of drainable abscess. [facility] Medical History Alcohol abuse Allergic rhinitis Anxiety CKD (chronic kidney disease) stage 3, GFR 30-59 ml/min DDD (degenerative disc disease), cervical DDD (degenerative disc disease), lumbar Depression Duodenal perforation Gastric ulcer GERD (gastroesophageal reflux disease) HTN (hypertension) Osteoarthritis Osteoporosis Overactive bladder Stage 1 mild COPD by GOLD classification Tobacco abuse Home Medications alendronate 5 mg tablet 70 mg PO QWEEK 07/08/14 [History Last Taken 06/15/22] calcium carbonate 600 mg-vitamin D3 20 mcg (800 unit) tablet 1 tab PO DAILY@0800 07/08/14 [History Last Taken Unknown] loratadine 10 mg tablet 10 mg PO DAILY PRN SINUSES 07/08/14 [History Last Taken Unknown] trazodone 50 mg tablet 100 mg PO QHS 07/08/14 [History Last Taken Unknown] lisinopril 20 mg tablet 10 mg PO DAILY 10/11/17 [History Last Taken Unknown] oxybutynin chloride 5 mg tablet,extended release 24 hr 5 mg PO QHS 10/11/17 [History Last Taken Unknown] vitamin B complex (B Complex-Vitamin B12 tablet) 1 tab PO DAILY 09/28/19 [History Last Taken Unknown] thiamine HCl (vitamin B1) 100 mg tablet 100 mg PO DAILYCM 09/16/20 [Rx Last Taken Unknown] fluticasone propionate 230 mcg-salmeterol 21 mcg/actuation HFA inhaler (Advair HFA) 2 puff inhalation BID 06/20/22 [History Last Taken Unknown] tramadol 50 mg tablet 100 mg PO DAILY 06/20/22 [History Last Taken Unknown] Allergy/AdvReac Type Severity Reaction Status Date / Time [facility] Allergy Unknown Rash Verified 06/20/22 09:14 Penicillins Allergy Angioedema Verified 06/20/22 09:14 Family History Mother Cancer lung Hypertension Heart disease Alcohol abuse Anxiety Father Arthritis Kidney disease Cancer skin Aunt Alcohol abuse COPD (chronic obstructive pulmonary disease) Uncle Alcohol abuse Colon cancer Grandfather Cancer skin Grandmother Breast cancer Surgical History cataract surgery H/O right knee surgery History of appendectomy Social History Smoking Status: Former smoker second hand exposure: Yes alcohol intake: current alcohol intake frequency: 0-2 drinks per day Alcohol type: beer substance use type: does not use ROS ROS Narrative Constitutional: Denies: Anorexia, Chills, Fever, Night Sweats, Weight Change Eyes: Denies: Blurred vision, Cataracts, Conjunctivae Inflammation, Pain, Redness, Vision Change HEENT: Denies: Difficulty Hearing, Difficulty Swallowing, Head Aches, Hearing Changes, Sinus Congestion, Sinus Drainage Cardiovascular: Denies: Chest Pain, Orthopnea, Palpitations Respiratory: Denies: Cough, Shortness of breath at rest, Sputum production Gastrointestinal: See HPI Genitourinary: Denies: Dysuria Musculoskeletal: Denies: Joint Pain, Joint stiffness, Joint swelling, Joint Tenderness Skin: Denies: Rash, Wounds Neurological: Denies: Numbness, Tingling, Focal weakness Vital Signs Vital Signs Vital Signs: 06/20/22 09:12 06/20/22 10:05 06/20/22 11:20 Temperature 97.7 F L Temperature Source Temporal Pulse Rate 94 93 Pulse Rate [Lying] 93 Pulse Rate [Sitting (for 1 minute prior to obtaining)] 97 Respiratory Rate 14 18 Blood Pressure 159/89 H 126/62 H Blood Pressure [Lying] 163/88 H Blood Pressure [Sitting (for 1 minute prior to obtaining)] 170/16 H Blood Pressure [Standing (for 1 minute prior to obtaining)] 139/68 H Blood Pressure Mean 112 83 Blood Pressure Mean [Lying] 113 Blood Pressure Mean [Sitting (for 1 minute prior to obtaining)] 67 Blood Pressure Mean [Standing (for 1 minute prior to obtaining)] 91 Pulse Ox 99 97 Oxygen Delivery Method Room Air Room Air 06/20/22 11:59 Temperature 98.6 F Temperature Source Temporal Pulse Rate 90 Pulse Rate [Lying] Pulse Rate [Sitting (for 1 minute prior to obtaining)] Respiratory Rate 16 Blood Pressure 161/54 H Blood Pressure [Lying] Blood Pressure [Sitting (for 1 minute prior to obtaining)] Blood Pressure [Standing (for 1 minute prior to obtaining)] Blood Pressure Mean 89 Blood Pressure Mean [Lying] Blood Pressure Mean [Sitting (for 1 minute prior to obtaining)] Blood Pressure Mean [Standing (for 1 minute prior to obtaining)] Pulse Ox 97 Oxygen Delivery Method Room Air Weight Weight: 70.2 kg Body Mass Index (BMI) 25.7 Physical Exam Narrative Physical exam: Alert oriented x3, pale looking especially on her face HEENT: Atraumatic Oral: Moist Mucosa Neck: Supple Lungs: Clear to auscultation Cardiovascular: HS I+II, regular, no murmurs Abdomen: Bowel Sounds Present, Soft, Non Tender Extremities: No edema Skin: No rashes, No breakdown Neurological: Grossly intact Psych/Mental Status: Appropriate Results Lab / Micro Data Result Diagrams: 06/20/22 09:20 06/20/22 09:20 Labs: Laboratory Results - last 24 hr 06/20/22 09:20: WBC 17.1 H, RBC 4.93, Hgb 13.7, Hct 41.4, MCV 84.0, MCH 27.8, MCHC 33.1, RDW Std Deviation 39.0, RDW Coeff of Beatriz 12.8, Plt Count 355, MPV 9.6, Immature Gran % (Auto) 0.300, Neut % (Auto) 83.8 H, Lymph % (Auto) 7.9 L, [place] % (Auto) 7.7, Eos % (Auto) 0.1, Baso % (Auto) 0.2, Absolute Neuts (auto) 14.3 H, Absolute Lymphs (auto) 1.36, Nucleated RBC % 0 06/20/22 09:20: Sodium 136, Potassium 4.3, Chloride 104, Carbon Dioxide 24.0, Anion Gap 8, BUN 28 H, Creatinine 1.49 H, Estim Creat Clear Calc 33.42, Est GFR (MDRD) Af Amer 45 L, Est GFR (MDRD) Non-Af 37 L, BUN/Creatinine Ratio 18.8, Glucose 129 H, Calcium 8.9 Radiology Impression Abdomen/Pelvis CT 06/20/22 09:32 IMPRESSION: Diverticulosis of sigmoid colon with thickening of the proximal sigmoid and distal descending colon consistent with acute diverticulitis. Possible colitis extending to the descending colon. Electronically Signed: Julio Fernando MD at 11:03 EDT , Assessment & Plan Assessment/Plan (1) Acute lower gastrointestinal bleeding: PLAN: Plan 1. Acute GI bleed, likely secondary to ischemic colitis/diverticulosis Patient is a chronic smoker, presents with left-sided abdominal discomfort Rectal exam done in the ED showed blood on the examining finger Hemoglobin however appears stable at 13.7 CT of the abdomen/pelvis shows yung colitis, more in the ascending colon, descending colon Diverticulosis seen in the sigmoid, diverticulitis also seen Continue on IV Flagyl and metronidazole General surgery consult, trend H&H, IV PPI twice daily 2. Leukocytosis, likely reactive, will trend 3. ASHLEY, prerenal likely secondary to #1, Hold lisinopril, continue IV fluid Repeat blood work in a.m. 4. Hypertension, fairly uncontrolled for now, lisinopril on hold on account of #3 We will continue on hydralazine as needed for now 5. Osteoporosis with recurrent fractures, continue on weekly alendronate, calcium/vitamin D 6. COPD/allergies, not on oxygen, continue Advair, loratadine 7. Depression, continue on trazodone 8. Nicotine dependence, continue replacement 9. DVT prophylaxis?SCDs Charges/Coding Visit Charges Inpatient E&M: 86968 Init Hosp L3
--- NOTE | 2022-06-20 12:32 | EKG12_ITS ---
Test Reason : Blood Pressure : / mmHG Vent. Rate : 084 BPM Atrial Rate : 084 BPM P-R Int : 162 ms QRS Dur : 070 ms QT Int : 356 ms P-R-T Axes : 081 009 038 degrees QTc Int : 420 ms Sinus rhythm with Premature atrial complexes Low voltage QRS (Limb Leads) Confirmed by PASTOR ROMO, ARNOL ([id number]), non linear editor REBECA MORAES ([id number]) on 06/24/2022 9:42:55 AM Referred By: ANGEL Confirmed By:ARNOL BAUMANN MD
[2022-06-20] MEDS: 0.9% Normal Saline 1,000 ML 100 ML IV (12:45)
[2022-06-20 12:54] LABS: Hemoglobin 12.7 g/dL (12.0-15.0)
[2022-06-20] MEDS: Albuterol 2.5 MG/3 ML VIAL.NEB. INHALATION ×2 (13:33→19:33)
[2022-06-20] MEDS: Morphine 2 MG/ML Syringe 1 MG IV ×2 (13:58→18:49)
[2022-06-20] MEDS: metroNIDAZOLE 500 MG/100 ML BAG 100 MG IV ×2 (13:58→22:18)
--- NOTE | 2022-06-20 14:32 | EX.PCM.CON.S ---
Assessment & Plan Assessment/Plan (1) Acute diverticulitis: (2) Acute lower gastrointestinal bleeding: PLAN: Plan Personally reviewed the CT of the pelvis agree with acute sigmoid diverticulitis. Discussed with patient plan to treat conservatively with Cipro and Flagyl IV. Would expect patient's bleeding to improve, if it does not would plan to do a colonoscopy sooner. Current hemoglobin 12.7 from 13.7 however patient was likely dehydrated when she came into the ER. Discussed with patient that the plan would be to have a colonoscopy in the future ideally when the inflammation has resolved. Patient expressed understanding and no further question at this time. Aimee Marquez M.D. Pager: [phone] [facility] [address] [place] [address], [facility], [address] [place] [address] Office: [phone] HPI Consult Data Date of Consult: 06/20/22 HPI Narrative HPI Narrative: JOSE MIGUEL STEVEN, is a 66 F who presents to the ER due to blood per rectum and abdominal pain. Patient states this started about 1130 last night she had an increase lower abdominal pain and then had bright red blood per rectum with stool multiple times. Patient states that the pain is more in the left lower quadrant currently states she did have a 1 episode of vomiting vomiting due to the pain. Patient states about 2 weeks ago she did have diarrhea which was dark brown denies any blood at that time. Patient denies any history of blood per rectum. Patient's never had a previous scope. denies any immediate family history of colon cancer, inflammatory bowel disease?patient's paternal uncle did have colon cancer in his late 50s. Patient states normally she had bowel moods about every 2 days and she states she has issues with constipation due to her tramadol she will occasionally take a laxative. Patient denies any chronic abdominal pain/nausea/vomiting/reflux. CT abdomen pelvis was done in the ER which showed sigmoid diverticulitis. Patient white blood count was 17. Patient did get Cipro/Flagyl in the ER and is on scheduled antibiotics on the floor. [facility] Medical History Alcohol abuse Allergic rhinitis Anxiety CKD (chronic kidney disease) stage 3, GFR 30-59 ml/min DDD (degenerative disc disease), cervical DDD (degenerative disc disease), lumbar Depression Duodenal perforation Gastric ulcer GERD (gastroesophageal reflux disease) HTN (hypertension) Osteoarthritis Osteoporosis Overactive bladder Stage 1 mild COPD by GOLD classification Tobacco abuse Home Medications alendronate 5 mg tablet 70 mg PO QWEEK 07/08/14 [History Last Taken 06/15/22] calcium carbonate 600 mg-vitamin D3 20 mcg (800 unit) tablet 1 tab PO DAILY@0800 07/08/14 [History Last Taken Unknown] loratadine 10 mg tablet 10 mg PO DAILY PRN SINUSES 07/08/14 [History Last Taken Unknown] trazodone 50 mg tablet 100 mg PO QHS 07/08/14 [History Last Taken Unknown] lisinopril 20 mg tablet 10 mg PO DAILY 10/11/17 [History Last Taken Unknown] oxybutynin chloride 5 mg tablet,extended release 24 hr 5 mg PO QHS 10/11/17 [History Last Taken Unknown] vitamin B complex (B Complex-Vitamin B12 tablet) 1 tab PO DAILY 09/28/19 [History Last Taken Unknown] thiamine HCl (vitamin B1) 100 mg tablet 100 mg PO DAILYCM 09/16/20 [Rx Last Taken Unknown] fluticasone propionate 230 mcg-salmeterol 21 mcg/actuation HFA inhaler (Advair HFA) 2 puff inhalation BID 06/20/22 [History Last Taken Unknown] tramadol 50 mg tablet 100 mg PO DAILY 06/20/22 [History Last Taken Unknown] Allergy/AdvReac Type Severity Reaction Status Date / Time nicotine [From Nicoderm CQ] Allergy Unknown Rash Verified 06/20/22 09:14 Penicillins Allergy Angioedema Verified 06/20/22 09:14 Family History Mother Cancer lung Hypertension Heart disease Alcohol abuse Anxiety Father Arthritis Kidney disease Cancer skin Aunt Alcohol abuse COPD (chronic obstructive pulmonary disease) Uncle Alcohol abuse Colon cancer Grandfather Cancer skin Grandmother Breast cancer Surgical History (Updated 06/20/22 @ 14:[address] Aimee Marquez MD) cataract surgery H/O right knee surgery History of appendectomy S/P exploratory laparotomy Social History Smoking Status: Current some day smoker tobacco type: cigarettes second hand exposure: Yes alcohol intake: current alcohol intake frequency: 0-2 drinks per day Alcohol type: beer substance use type: does not use ROS Constitutional Constitutional: Denies anorexia or chills ENT HEENT: Denies dizziness Cardiovascular Cardiovascular: Denies chest pain Respiratory/Chest Respiratory/Chest: Denies shortness of breath at rest Gastrointestinal Gastrointestinal: Reports abdominal pain, constipation, hematochezia, rectal bleeding and vomiting; Denies diarrhea, heartburn, hematemesis or melena Genitourinary Genitourinary: Denies burning urination Musculoskeletal Musculoskeletal: Denies joint pain Integumentary Integumentary: Denies rash Neurologic Neurologic: Denies focal weakness or sensory deficit Endocrine Endocrinology: Denies palpitations Hematologic/Lymphatic Hematologic/Lymphatic: Denies easy bleeding Physical Exam Const alert, oriented x3 and no apparent distress HEENT normocephalic and head/scalp atraumatic Resp normal respiratory effort Cardio regular rate GI soft to palpation; Negative for non-distended Palpation: tender LLQ and hernia other (Incisional near umbilicus, reducible); Negative for guarding Extremity no clubbing, cyanosis or edema Neuro CN's II-XII intact bilaterally Psych mental status grossly normal Lab / Micro Data Result Diagrams: 06/20/22 12:43 06/20/22 09:20 Labs: Laboratory Results - last 24 hr 06/20/22 09:20: WBC 17.1 H, RBC 4.93, Hgb 13.7, Hct 41.4, MCV 84.0, MCH 27.8, MCHC 33.1, RDW Std Deviation 39.0, RDW Coeff of Beatriz 12.8, Plt Count 355, MPV 9.6, Immature Gran % (Auto) 0.300, Neut % (Auto) 83.8 H, Lymph % (Auto) 7.9 L, [place] % (Auto) 7.7, Eos % (Auto) 0.1, Baso % (Auto) 0.2, Absolute Neuts (auto) 14.3 H, Absolute Lymphs (auto) 1.36, Nucleated RBC % 0 06/20/22 09:20: Sodium 136, Potassium 4.3, Chloride 104, Carbon Dioxide 24.0, Anion Gap 8, BUN 28 H, Creatinine 1.49 H, Estim Creat Clear Calc 33.42, Est GFR (MDRD) Af Amer 45 L, Est GFR (MDRD) Non-Af 37 L, BUN/Creatinine Ratio 18.8, Glucose 129 H, Calcium 8.9 06/20/22 12:22: Blood Type O POSITIVE, Antibody Screen NEGATIVE 06/20/22 12:43: Hgb 12.7, Hct 39.0 Radiology Impression Abdomen/Pelvis CT 06/20/22 09:32 IMPRESSION: Diverticulosis of sigmoid colon with thickening of the proximal sigmoid and distal descending colon consistent with acute diverticulitis. Possible colitis extending to the descending colon. Electronically Signed: Julio Fernando MD at 11:03 EDT , Charges/Coding Visit Charges Inpatient E&M: 84182 Init Hosp L3
[2022-06-20 16:37] LABS: Hematocrit 36.5 % (37-47); Hemoglobin 11.9 g/dL (12.0-15.0)
[2022-06-20] MEDS: 0.9% Saline Lock 10 ML Syringe IV (18:49)
[2022-06-20] MEDS: Budesonide Respules 0.5 MG/2 ML AMPUL.NEB. INHALATION (19:33)
[2022-06-20 20:10] LABS: Hematocrit 35.9 % (37-47); Hemoglobin 11.6 g/dL (12.0-15.0)
[2022-06-20] MEDS: Oxybutynin 5 MG Tablet PO (21:48)
[2022-06-20] MEDS: traZODone 100 MG Tablet PO (21:48)
[2022-06-21] VITALS (15 sets, daily range): BP systolic 118–148; BP diastolic 54–75; PULSE 72–108; RESP 18–20; TEMP 36.8–37.2; O2SAT 93–98
[2022-06-21] MEDS: 0.9% Normal Saline 1,000 ML 100 ML IV ×2 (00:30→13:39)
[2022-06-21] MEDS: Ciprofloxacin 400 MG/200 ML BAG 200 MG IV ×3 (00:30→21:58)
[2022-06-21] MEDS: Morphine 2 MG/ML Syringe 1 MG IV ×4 (02:07→18:45)
[2022-06-21 05:16] LABS: Absolute Lymphocyte Count 1.51 X10^3/uL (0.83-4.51); Absolute Neutrophil Count 10.3 X10^3/uL (2.0-7.7); Basophil# 0.04 X10^3/uL; Basophil% 0.3 % (0-1); Eosinophil# 0.08 X10^3/uL; Eosinophils% 0.6 % (0-5); Hematocrit 35.5 % (37-47); Hemoglobin 11.5 g/dL (12.0-15.0); Lymphocyte # 1.51 X10^3/ul (0.83-4.51); Lymphocyte % 11.5 % (19-41); Mean Corp Hgb Conc 32.4 g/dL (32-36); Mean Corpuscular Volume 86.4 fL (81-99); Mean Platelet Vol. 9.3 fl (6.2-12.0); Monocyte# 1.19 X10^3/uL; Monocyte% 9.1 % (0-10); NRBC Flagged by Analyzer 0 % (0-5); Neutrophil # 10.25 X10^3/uL (2.7-7.7); Neutrophil % 78.1 % (47-70); Platelet Count 260 K/mm3 (150-450); RBC Distribution Width CV 13.2 % (11.6-14.6); Red Blood Count 4.11 M/mm3 (4.2-5.4); White Blood Count 13.1 K/mm3 (4.4-11.0)
[2022-06-21 05:36] LABS: ALB/GLOB Ratio 0.9 RATIO (0.9-2.4); AST(SGOT) 16 U/L (15-37); Alanine Aminotransfer ALT/SGPT 16 U/L (13-56); Albumin, Serum 2.8 g/dL (3.2-5.0); Alkaline Phosphatase 49 U/L (45-117); Anion Gap 5 (5-15); BUN 10 mg/dL (7-18); BUN/Creat Ratio 10.1 RATIO (10-20); Calcium,Total 8.1 mg/dL (8.5-10.1); Chloride 112 mmol/L (98-107); Creatinine, Serum 0.99 mg/dL (0.55-1.02); EST Glomerular Filtration Rate 59 mL/min (>60); Est Glom Filt Rate - Afr Amer 72 mL/min (>60); Globulin 3.2 g/dL (2.2-4.2); Glucose 125 mg/dL (74-106); Potassium 4.5 mmol/L (3.5-5.1); Sodium Level 139 mmol/L (136-145)
[2022-06-21] MEDS: metroNIDAZOLE 500 MG/100 ML BAG 100 MG IV ×3 (06:34→23:09)
[2022-06-21] MEDS: Budesonide Respules 0.5 MG/2 ML AMPUL.NEB. INHALATION ×2 (07:11→19:25)
[2022-06-21] MEDS: Albuterol 2.5 MG/3 ML VIAL.NEB. INHALATION ×3 (07:11→19:25)
[2022-06-21] MEDS: 0.9% Saline Lock 10 ML Syringe IV ×2 (07:39→15:54)
[2022-06-21] MEDS: Ondansetron 4 MG/2 ML Vial IV ×2 (07:39→15:54)
--- NOTE | 2022-06-21 09:05 | PCM.PN.SRG ---
Subjective Subjective Patient tolerating clears, left lower quadrant pain slightly improved per patient. No further bloody bowel movements only flatus. Hemoglobin slightly down at 11.5 Objective Data Objective Data Vital Signs: Vital Signs Temp Pulse Resp BP Pulse Ox O2 Del Method 98.9 F 108 H 20 H 147/55 H 93 Room Air 06/21/22 03:40 06/21/22 07:11 06/21/22 07:11 06/21/22 03:40 06/21/22 03:40 06/21/22 07:32 Oxygen Delivery Method Room Air Weight: 155 lb 13.869 oz Body Mass Index (BMI) 25.9 Intake & Output: Intake and Output for Last 24 Hours 06/19/22 06/20/22 06/21/22 23:59 23:59 23:59 Intake Total 2700 / 2700 400 / 400 Balance 2700 / 2700 400 / 400 Lab / Micro Data Result Diagrams: 06/21/22 05:00 06/21/22 05:00 Labs: Laboratory Results - last 24 hr 06/20/22 09:20: WBC 17.1 H, RBC 4.93, Hgb 13.7, Hct 41.4, MCV 84.0, MCH 27.8, MCHC 33.1, RDW Std Deviation 39.0, RDW Coeff of Beatriz 12.8, Plt Count 355, MPV 9.6, Immature Gran % (Auto) 0.300, Neut % (Auto) 83.8 H, Lymph % (Auto) 7.9 L, [place] % (Auto) 7.7, Eos % (Auto) 0.1, Baso % (Auto) 0.2, Absolute Neuts (auto) 14.3 H, Absolute Lymphs (auto) 1.36, Nucleated RBC % 0 06/20/22 09:20: Sodium 136, Potassium 4.3, Chloride 104, Carbon Dioxide 24.0, Anion Gap 8, BUN 28 H, Creatinine 1.49 H, Estim Creat Clear Calc 33.42, Est GFR (MDRD) Af Amer 45 L, Est GFR (MDRD) Non-Af 37 L, BUN/Creatinine Ratio 18.8, Glucose 129 H, Calcium 8.9 06/20/22 12:22: Blood Type O POSITIVE, Antibody Screen NEGATIVE 06/20/22 12:43: Hgb 12.7, Hct 39.0 06/20/22 16:25: Hgb 11.9 L, Hct 36.5 L 06/20/22 20:05: Hgb 11.6 L, Hct 35.9 L 06/21/22 05:00: WBC 13.1 H, RBC 4.11 L, Hgb 11.5 L, Hct 35.5 L, MCV 86.4, MCH 28.0, MCHC 32.4, RDW Std Deviation 41.0, RDW Coeff of Beatriz 13.2, Plt Count 260, MPV 9.3, Immature Gran % (Auto) 0.400, Neut % (Auto) 78.1 H, Lymph % (Auto) 11.5 L, [place] % (Auto) 9.1, Eos % (Auto) 0.6, Baso % (Auto) 0.3, Absolute Neuts (auto) 10.3 H, Absolute Lymphs (auto) 1.51, Nucleated RBC % 0 06/21/22 05:00: Sodium 139, Potassium 4.5, Chloride 112 H, Carbon Dioxide 22.0, Anion Gap 5, BUN 10, Creatinine 0.99, Estim Creat Clear Calc 50.30, Est GFR (MDRD) Af Amer 72, Est GFR (MDRD) Non-Af 59 L, BUN/Creatinine Ratio 10.1, Glucose 125 H, Calcium 8.1 L, Total Bilirubin 0.40, AST 16, ALT 16, Alkaline Phosphatase 49, Total Protein 6.0 L, Albumin 2.8 L, Globulin 3.2, Albumin/Globulin Ratio 0.9 Radiography Diagnostic Testing: Radiology Impression Abdomen/Pelvis CT 06/20/22 09:32 IMPRESSION: Diverticulosis of sigmoid colon with thickening of the proximal sigmoid and distal descending colon consistent with acute diverticulitis. Possible colitis extending to the descending colon. Electronically Signed: Julio Fernando MD at 11:03 EDT , Physical Exam Const alert, oriented x3 and no apparent distress GI soft to palpation; Negative for non-distended Palpation: tender LLQ and hernia other (Incisional near umbilicus, reducible); Negative for guarding Assessment & Plan Assessment/Plan (1) Acute diverticulitis: (2) Acute lower gastrointestinal bleeding: PLAN: Plan Patient has had no further bloody bowel movements while she is here only flatus. Patient states her left lower quadrant. Slightly better. Continue conservative management with IV antibiotics. Patient is currently on clears do not advance until pain has resolved. Aimee Marquez M.D. Pager: [phone] [facility] [address] [place] [address], [facility], [address] [place] [address] Office: [phone]
[2022-06-21] MEDS: Thiamine Hydrochloride 100 MG Tablet PO (09:24)
[2022-06-21] MEDS: traMADol 50 MG Tablet 100 MG PO (09:29)
[2022-06-21] MEDS: FLU VACC QS2022-23(6MOS UP)/PF 60 MCG/0.5 ML SYRINGE IM (09:30)
--- NOTE | 2022-06-21 12:56 | PCM.PN.HOSP ---
Subjective Subjective Follow-up on Acute GI bleed/ASHLEY: Patient seen and examined. She feels slightly improved. Still has abdominal discomfort. No hematochezia or melena. She is able to tolerate clear liquid diet. Objective Data Objective Data Vital Signs: Vital Signs Temp Pulse Resp BP Pulse Ox O2 Del Method 98.3 F 98 18 148/75 H 94 Room Air 06/21/22 09:22 06/21/22 09:22 06/21/22 09:22 06/21/22 09:22 06/21/22 09:22 06/21/22 09:22 Oxygen Delivery Method Room Air Weight: 70.7 kg Body Mass Index (BMI) 25.9 Intake & Output: Intake and Output for Last 24 Hours 06/19/22 06/20/22 06/21/22 23:59 23:59 23:59 Intake Total 2700 / 2700 1616.67 / 1616.67 Balance 2700 / 2700 1616.67 / 1616.67 Lab / Micro Data Result Diagrams: 06/21/22 05:00 06/21/22 05:00 Labs: Laboratory Results - last 24 hr 06/20/22 12:22: Blood Type O POSITIVE, Antibody Screen NEGATIVE 06/20/22 16:25: Hgb 11.9 L, Hct 36.5 L 06/20/22 20:05: Hgb 11.6 L, Hct 35.9 L 06/21/22 05:00: WBC 13.1 H, RBC 4.11 L, Hgb 11.5 L, Hct 35.5 L, MCV 86.4, MCH 28.0, MCHC 32.4, RDW Std Deviation 41.0, RDW Coeff of Beatriz 13.2, Plt Count 260, MPV 9.3, Immature Gran % (Auto) 0.400, Neut % (Auto) 78.1 H, Lymph % (Auto) 11.5 L, [place] % (Auto) 9.1, Eos % (Auto) 0.6, Baso % (Auto) 0.3, Absolute Neuts (auto) 10.3 H, Absolute Lymphs (auto) 1.51, Nucleated RBC % 0 06/21/22 05:00: Sodium 139, Potassium 4.5, Chloride 112 H, Carbon Dioxide 22.0, Anion Gap 5, BUN 10, Creatinine 0.99, Estim Creat Clear Calc 50.30, Est GFR (MDRD) Af Amer 72, Est GFR (MDRD) Non-Af 59 L, BUN/Creatinine Ratio 10.1, Glucose 125 H, Calcium 8.1 L, Total Bilirubin 0.40, AST 16, ALT 16, Alkaline Phosphatase 49, Total Protein 6.0 L, Albumin 2.8 L, Globulin 3.2, Albumin/Globulin Ratio 0.9 Physical Exam Narrative Physical exam: Alert oriented x3, not pale, not jaundiced HEENT: Atraumatic Oral: Moist Mucosa Neck: Supple Lungs: Clear to auscultation Cardiovascular: HS I+II, regular, no murmurs Abdomen: Bowel Sounds Present, Soft, slight left-sided tenderness, especially in the left lower quadrant with guarding, no rebound tenderness Extremities: No edema Skin: No rashes, No breakdown Neurological: Grossly intact Psych/Mental Status: Appropriate Assessment & Plan Assessment/Plan (1) Acute lower gastrointestinal bleeding: PLAN: Plan 1. Acute diverticulitis/colitis, seen on CT of the abdomen/pelvis CT of the abdomen/pelvis shows yung colitis, more in the ascending colon, descending colon as well as diverticulosis Patient with slight improvement in abdominal pain Will continue on IV Cipro and Flagyl, PPI twice daily General surgery following We will advance diet and monitor for exacerbation of abdominal pain 2. Acute GI bleed likely secondary to ischemic colitis/diverticulosis No more bleeding seen here Hemoglobin is remained stable at 11.5 3. ASHLEY, prerenal likely secondary to #1, improved Cr is 0.99 from 1.49 Continue to hold Lisinopril Continue IV fluid Repeat blood work in a.m. 4. Hypertension, fairly uncontrolled for now, Continue to hold lisinopril on hold on account of #3 Continue on hydralazine prn 5. Osteoporosis with recurrent fractures, continue on weekly alendronate, calcium/vitamin D 6. COPD/allergies, not on oxygen, continue Advair, loratadine 7. Depression, continue on trazodone 8. Nicotine dependence, continue replacement 9. DVT prophylaxis?SCDs Charges/Coding Visit Charges Inpatient E&M: 36740 Subs Hosp L2
[2022-06-21] MEDS: Oxybutynin 5 MG Tablet PO (21:36)
[2022-06-21] MEDS: traZODone 100 MG Tablet PO (21:36)
[2022-06-22] MEDS: Morphine 2 MG/ML Syringe 1 MG IV ×2 (01:20→08:25)
[2022-06-22] MEDS: 0.9% Normal Saline 1,000 ML 100 ML IV (01:21)
[2022-06-22 02:30] VITALS: BP 128/63; PULSE 77; RESP 16; TEMP 36.5; O2SAT 98
[2022-06-22 03:13] VITALS: PULSE 98
[2022-06-22] MEDS: metroNIDAZOLE 500 MG/100 ML BAG 100 MG IV (05:44)
[2022-06-22 06:17] LABS: Absolute Lymphocyte Count 1.31 X10^3/uL (0.83-4.51); Absolute Neutrophil Count 10.3 X10^3/uL (2.0-7.7); Basophil# 0.06 X10^3/uL; Basophil% 0.5 % (0-1); Eosinophil# 0.14 X10^3/uL; Eosinophils% 1.1 % (0-5); Hematocrit 33.6 % (37-47); Hemoglobin 10.8 g/dL (12.0-15.0); Lymphocyte # 1.31 X10^3/ul (0.83-4.51); Lymphocyte % 9.9 % (19-41); Mean Corp Hgb Conc 32.1 g/dL (32-36); Mean Corpuscular Hgb 28.1 pg (27.0-32.0); Mean Corpuscular Volume 87.5 fL (81-99); Mean Platelet Vol. 9.3 fl (6.2-12.0); Monocyte# 1.33 X10^3/uL; NRBC Flagged by Analyzer 0 % (0-5); Neutrophil # 10.34 X10^3/uL (2.7-7.7); Platelet Count 247 K/mm3 (150-450); RBC Distribution Width CV 13.2 % (11.6-14.6); RBC Distribution Width SD 42.3 fl (35.1-43.9); Red Blood Count 3.84 M/mm3 (4.2-5.4); White Blood Count 13.2 K/mm3 (4.4-11.0)
[2022-06-22 06:29] LABS: ALB/GLOB Ratio 0.8 RATIO (0.9-2.4); AST(SGOT) 21 U/L (15-37); Alanine Aminotransfer ALT/SGPT 18 U/L (13-56); Albumin, Serum 2.7 g/dL (3.2-5.0); Alkaline Phosphatase 47 U/L (45-117); Anion Gap 3 (5-15); BUN 5 mg/dL (7-18); BUN/Creat Ratio 5.5 RATIO (10-20); Calcium,Total 8.1 mg/dL (8.5-10.1); Chloride 112 mmol/L (98-107); Creatinine, Serum 0.91 mg/dL (0.55-1.02); EST Glomerular Filtration Rate 66 mL/min (>60); Est Glom Filt Rate - Afr Amer 79 mL/min (>60); Estimated Creatinine Clearance 54.72 ml/min; Globulin 3.2 g/dL (2.2-4.2); Glucose 133 mg/dL (74-106); Potassium 4.9 mmol/L (3.5-5.1); Protein, Total 5.9 g/dL (6.4-8.2); Sodium Level 141 mmol/L (136-145)
[2022-06-22 07:30] VITALS: PULSE 97
[2022-06-22 08:14] VITALS: BP 127/87; PULSE 94; RESP 18; TEMP 37.4; O2SAT 92
[2022-06-22 09:00] VITALS: BP 127/87; PULSE 94; RESP 18; TEMP 37.4; O2SAT 92
--- NOTE | 2022-06-22 09:25 | DS.PCM_ITS ---
Providers Date of Admission: 06/20/22 Date of Discharge: 06/22/22 Primary Care Physician: Dr. Freedom Modi, DO Consultations 06/20/22 12:32 Consult: General Surgery Routine Consulting Provider: Aimee Marquez Reason for Consult: GI bleed EMERGENT Consult: No MD Notified: Yes Date Notified: 06/20/22 Time Notified: 13:28 Method of Notification: Text Method of Consult:: In-Person Reason For Visit: ACUTE GI BLEED Diagnosis Discharge Diagnosis (1) Acute lower gastrointestinal bleeding: Status: Acute Code(s): K92.2 - Gastrointestinal hemorrhage, unspecified Plan Patient is a 66-year-old lady who presented with bloody diarrhea and assessment of acute diverticulitis/colitis made admitted to monitored bed for further management 1. Acute diverticulitis with colitis ? Patient admitted to a monitored bed CT of the abdomen did show pancolitis involving the ascending descending as well as diverticulosis. Consult was placed to general surgery General surgery recommended conservative management with Flagyl and Cipro 2. Acute lower GI bleed ? Secondary to ischemic colitis management as discussed above 3. Anemia ? Secondary to acute blood loss anemia from #2 ? Did monitor H&H patient did not meet criteria for blood transfusion 4. Acute kidney injury ? From prerenal ? Managed with IV fluid patient was on lisinopril discontinued 5. Hypertension - Blood pressure controlled, home medications continued with dose adjustment as needed 6. COPD ? Currently not in exacerbation did continue patient bronchodilator regimen 7. Allergic rhinitis ? Patient is on loratadine did continue 8. Osteoporosis ? Patient is on weekly alendronate as well as calcium with vitamin D did continue 9. Tobacco dependence - Counseled on cessation, offered nicotine patch for tobacco cravings 10. Depression ? Patient is on trazodone 11. History of gastric ulcer ? Patient is on PPI did continue 12. DVT prophylaxis ? Bilateral SCDs Medications at Discharge Home Medications alendronate 5 mg tablet 70 mg PO QWEEK 07/08/14 calcium carbonate 600 mg-vitamin D3 20 mcg (800 unit) tablet 1 tab PO DAILY@0800 07/08/14 loratadine 10 mg tablet 10 mg PO DAILY PRN SINUSES 07/08/14 trazodone 50 mg tablet 100 mg PO QHS 07/08/14 oxybutynin chloride 5 mg tablet,extended release 24 hr 5 mg PO QHS 10/11/17 vitamin B complex (B Complex-Vitamin B12 tablet) 1 tab PO DAILY 09/28/19 thiamine HCl (vitamin B1) 100 mg tablet 100 mg PO DAILYCM 09/16/20 fluticasone propionate 230 mcg-salmeterol 21 mcg/actuation HFA inhaler (Advair HFA) 2 puff inhalation BID 06/20/22 tramadol 50 mg tablet 100 mg PO DAILY 06/20/22 ciprofloxacin HCl 500 mg tablet (Cipro) 500 mg PO BID #14 tabs 06/22/22 metronidazole 500 mg tablet 500 mg PO TID #21 tabs 06/22/22 Hospital Course Summary of Care Provided Minutes Spent on Discharge: 35 Physical Exam Narrative GENERAL: cooperative HEENT: Atraumatic; normocephalic EYES; Anicteric, Normal Conjunctiva NECK; supple, normal thyroid, RESPIRATORY: Diminished to auscultation CARDIOVASCULAR: Regular S1 S2, GI: soft, normoactive bowel sounds, : No Renal angle tenderness; EXTREMITIES: No edema, no clubbing, MUSCULOSKELETAL: no muscle wasting NEURO: Awake; no lateralizing signs. SKIN: No Rash PSYCH; Flat affect Weight / BMI Weight Weight: 70.7 kg Body Mass Index (BMI) 25.9 ABG / Lab / Microbiology Data Result Diagrams: 06/22/22 05:17 06/22/22 05:17 Laboratory: Laboratory Results - last 24 hr 06/22/22 05:17: WBC 13.2 H, RBC 3.84 L, Hgb 10.8 L, Hct 33.6 L, MCV 87.5, MCH 28.1, MCHC 32.1, RDW Std Deviation 42.3, RDW Coeff of Beatriz 13.2, Plt Count 247, MPV 9.3, Immature Gran % (Auto) 0.500, Neut % (Auto) 78.0 H, Lymph % (Auto) 9.9 L, [place] % (Auto) 10.0, Eos % (Auto) 1.1, Baso % (Auto) 0.5, Absolute Neuts (auto) 10.3 H, Absolute Lymphs (auto) 1.31, Nucleated RBC % 0 06/22/22 05:17: Sodium 141, Potassium 4.9, Chloride 112 H, Carbon Dioxide 26.0, Anion Gap 3 L, BUN 5 L, Creatinine 0.91, Estim Creat Clear Calc 54.72, Est GFR (MDRD) Af Amer 79, Est GFR (MDRD) Non-Af 66, BUN/Creatinine Ratio 5.5 L, Glucose 133 H, Calcium 8.1 L, Total Bilirubin 0.40, AST 21, ALT 18, Alkaline Phosphatase 47, Total Protein 5.9 L, Albumin 2.7 L, Globulin 3.2, Albumin/Globulin Ratio 0.8 L D/C Instructions Discharge Diet: No restrictions Discharge Activity: Return to Normal Activity Call your doctor if you observe: Fever of 101 or Higher, Shortness of breath, Fainting spells and Chest pain Meaningful Use Info Meaningful Use Diagnoses (Choose all that apply): None applicable Discharge Plan Admission Admit Date/Time: 06/20/22 11:42 Attending Provider: Reagan Anton Primary Care Provider: Freedom Modi Consulting Providers: Aimee Marquez ; Machelle Biswas Discharge Orders/Prescriptions Prescriptions: New metronidazole 500 mg tablet 500 mg PO TID Qty: 21 0RF ciprofloxacin HCl [Cipro] 500 mg tablet 500 mg PO BID Qty: 14 0RF Continued vitamin B complex [B Complex-Vitamin B12] Tablet 1 tab PO DAILY trazodone 50 MG tablet 100 mg PO QHS Label Comments: depression/sleep alendronate 5 MG tablet 70 mg PO QWEEK Label Comments: osteoporosis Rx Instructions: Take ever wednesday loratadine 10 MG tablet 10 mg PO DAILY PRN (Reason: SINUSES) Label Comments: allergies calcium carbonate-vitamin D3 1 TAB tablet 1 tab PO DAILY@0800 Label Comments: supplement oxybutynin chloride 5 MG tablet 5 mg PO QHS thiamine HCl (vitamin B1) 100 MG tablet 100 mg PO DAILYCM 0RF tramadol 50 mg tablet 100 mg PO DAILY Label Comments: TAKE 1 TO 2 TABLETS BY MOUTH DAILY NEEDED FOR PAIN Advair HFA 230-21 mcg/actuation HFA aerosol inhaler 2 puff INHALATION BID Label Comments: INHALE 2 (TWO) puffs orally every 12 hours] Discontinued lisinopril 20 MG tablet 10 mg PO DAILY Referrals / Follow Up: Freedom Modi DO [Primary Care Provider] - Within 1 Week Aimee Marquez MD [Med Staff - Active Staff] - Within 2 Weeks Disposition Disposition (needs filled in before D/C Order can be placed): Home, Self Care Charges/Coding Visit Charges Inpatient E&M: 50712 Disch Hosp
--- NOTE | 2022-06-22 09:50 | CASEMGMT ---
RN PACO Face to Face with patient for initial transition planning/care coordination assessment. RN CM introduced self and role at [facility]. Patient lying in bed, alert and oriented. Patient willing to participate in assessment and is able to answer all questions appropriately. Care providers, pharmacy, and demographics verified. Patient wishes to discharge home, denies need for home health at this time. Patient states he has no further needs or concerns at this time. CM to follow for discharge planning needs that may arise. PCP: Rian Specialists: Kaushik scoreboard operator Preferred Pharmacy: [facility] Insurance: [facility] Prescription Benefit: yes Living Will/HPOA: none LNOK: Living Arrangements: Patient lives with in a 4th floor apartment with elevator to enter. Patient states she is independent at home. Transportation: neighbor DME/HHC: Patient states she has shower chair, walker, rollator at home. Patient has had [facility] in the past. Patient has previously been to [facility]. Disposition Plan: Patient to discharge home with family support and follow-up plans in place. Linn GARCIA, RN, CM
[2022-06-22] MEDS: Thiamine Hydrochloride 100 MG Tablet PO (09:57)
[2022-06-22] MEDS: traMADol 50 MG Tablet 100 MG PO (10:23)
[2022-06-22] MEDS: Ciprofloxacin 400 MG/200 ML BAG 200 MG IV (10:27)
[2022-06-22 11:18] VITALS: PULSE 90; RESP 18; O2SAT 93
--- NOTE | 2022-06-22 11:22 | PCM.PN.SRG ---
Subjective Subjective Patient states her pain is improved to 4/10 patient is tolerating a full diet. Objective Data Objective Data Vital Signs: Vital Signs Temp Pulse Resp BP Pulse Ox O2 Del Method 99.4 F H 94 18 127/87 H 92 Room Air 06/22/22 09:00 06/22/22 09:00 06/22/22 09:00 06/22/22 09:00 06/22/22 09:00 06/22/22 09:00 Oxygen Delivery Method Room Air Weight: 155 lb 13.869 oz Body Mass Index (BMI) 25.9 Intake & Output: Intake and Output for Last 24 Hours 06/20/22 06/21/22 06/22/22 23:59 23:59 23:59 Intake Total 2700 / 2700 3816.67 / 3816.67 1223.33 / 1223.33 Balance 2700 / 2700 3816.67 / 3816.67 1223.33 / 1223.33 Lab / Micro Data Result Diagrams: 06/22/22 05:17 06/22/22 05:17 Labs: Laboratory Results - last 24 hr 06/22/22 05:17: WBC 13.2 H, RBC 3.84 L, Hgb 10.8 L, Hct 33.6 L, MCV 87.5, MCH 28.1, MCHC 32.1, RDW Std Deviation 42.3, RDW Coeff of Beatriz 13.2, Plt Count 247, MPV 9.3, Immature Gran % (Auto) 0.500, Neut % (Auto) 78.0 H, Lymph % (Auto) 9.9 L, [place] % (Auto) 10.0, Eos % (Auto) 1.1, Baso % (Auto) 0.5, Absolute Neuts (auto) 10.3 H, Absolute Lymphs (auto) 1.31, Nucleated RBC % 0 06/22/22 05:17: Sodium 141, Potassium 4.9, Chloride 112 H, Carbon Dioxide 26.0, Anion Gap 3 L, BUN 5 L, Creatinine 0.91, Estim Creat Clear Calc 54.72, Est GFR (MDRD) Af Amer 79, Est GFR (MDRD) Non-Af 66, BUN/Creatinine Ratio 5.5 L, Glucose 133 H, Calcium 8.1 L, Total Bilirubin 0.40, AST 21, ALT 18, Alkaline Phosphatase 47, Total Protein 5.9 L, Albumin 2.7 L, Globulin 3.2, Albumin/Globulin Ratio 0.8 L Physical Exam Const alert, oriented x3 and no apparent distress GI soft to palpation; Negative for non-distended Palpation: tender LLQ (mild, no PS) and hernia other (Incisional near umbilicus, reducible); Negative for guarding Assessment & Plan Assessment/Plan (1) Acute diverticulitis: (2) Acute lower gastrointestinal bleeding: PLAN: Plan Patient has had no further bloody bowel movements. Will stay on full liquid diet until pain completely resolves. Also get CBC tomorrow morning. Patient will be discharged on Cipro/Flagyl p.o. antibiotics. Patient was also agreeable that if she has increased pain she will come back to the ER. Aimee Marquez M.D. Pager: [phone] [facility] [address] [place] [address], [facility], [address] [place] [address] Office: [phone] Charges/Coding Visit Charges Inpatient E&M: 48991 Subs Hosp L2
--- NOTE | 2022-06-22 12:23 | PN.HOSP_ITS ---
Subjective Subjective Patient is a 66-year-old lady who presented with bloody diarrhea and assessment of acute diverticulitis/colitis made admitted to monitored bed for further management Objective Data Objective Data Vital Signs: Vital Signs Temp Pulse Resp BP Pulse Ox O2 Del Method 99.4 F H 90 18 127/87 H 93 Room Air 06/22/22 09:00 06/22/22 11:18 06/22/22 11:18 06/22/22 09:00 06/22/22 11:18 06/22/22 11:18 Oxygen Delivery Method Room Air Weight: 70.7 kg Body Mass Index (BMI) 25.9 Intake & Output: Intake and Output for Last 24 Hours 06/20/22 06/21/22 06/22/22 23:59 23:59 23:59 Intake Total 2700 / 2700 3816.67 / 3816.67 1423.33 / 1423.33 Balance 2700 / 2700 3816.67 / 3816.67 1423.33 / 1423.33 Lab / Micro Data Result Diagrams: 06/22/22 05:17 06/22/22 05:17 Labs: Laboratory Results - last 24 hr 06/22/22 05:17: WBC 13.2 H, RBC 3.84 L, Hgb 10.8 L, Hct 33.6 L, MCV 87.5, MCH 28.1, MCHC 32.1, RDW Std Deviation 42.3, RDW Coeff of Beatriz 13.2, Plt Count 247, MPV 9.3, Immature Gran % (Auto) 0.500, Neut % (Auto) 78.0 H, Lymph % (Auto) 9.9 L, [place] % (Auto) 10.0, Eos % (Auto) 1.1, Baso % (Auto) 0.5, Absolute Neuts (auto) 10.3 H, Absolute Lymphs (auto) 1.31, Nucleated RBC % 0 06/22/22 05:17: Sodium 141, Potassium 4.9, Chloride 112 H, Carbon Dioxide 26.0, Anion Gap 3 L, BUN 5 L, Creatinine 0.91, Estim Creat Clear Calc 54.72, Est GFR (MDRD) Af Amer 79, Est GFR (MDRD) Non-Af 66, BUN/Creatinine Ratio 5.5 L, Glucose 133 H, Calcium 8.1 L, Total Bilirubin 0.40, AST 21, ALT 18, Alkaline Phosphatase 47, Total Protein 5.9 L, Albumin 2.7 L, Globulin 3.2, Albumin/Globulin Ratio 0.8 L Physical Exam Narrative GENERAL: cooperative HEENT: Atraumatic; normocephalic EYES; Anicteric, Normal Conjunctiva NECK; supple, normal thyroid, RESPIRATORY: Diminished to auscultation CARDIOVASCULAR: Regular S1 S2, GI: soft, normoactive bowel sounds, : No Renal angle tenderness; EXTREMITIES: No edema, no clubbing, MUSCULOSKELETAL: no muscle wasting NEURO: Awake; no lateralizing signs. SKIN: No Rash PSYCH; Flat affect Assessment & Plan Assessment/Plan (1) Acute lower gastrointestinal bleeding: PLAN: Plan Patient is a 66-year-old lady who presented with bloody diarrhea and assessment of acute diverticulitis/colitis made admitted to monitored bed for further management 1. Acute diverticulitis with colitis ? Patient admitted to a monitored bed CT of the abdomen did show pancolitis involving the ascending descending as well as diverticulosis. Consult was placed to general surgery General surgery recommended conservative management with Flagyl and Cipro 2. Acute lower GI bleed ? Secondary to ischemic colitis management as discussed above 3. Anemia ? Secondary to acute blood loss anemia from #2 ? Did monitor H&H patient did not meet criteria for blood transfusion 4. Acute kidney injury ? From prerenal ? Managed with IV fluid patient was on lisinopril discontinued 5. Hypertension - Blood pressure controlled, home medications continued with dose adjustment as needed 6. COPD ? Currently not in exacerbation did continue patient bronchodilator regimen 7. Allergic rhinitis ? Patient is on loratadine did continue 8. Osteoporosis ? Patient is on weekly alendronate as well as calcium with vitamin D did continue 9. Tobacco dependence - Counseled on cessation, offered nicotine patch for tobacco cravings 10. Depression ? Patient is on trazodone 11. History of gastric ulcer ? Patient is on PPI did continue 12. DVT prophylaxis ? Bilateral SCDs Charges/Coding Visit Charges Inpatient E&M: 60707 Subs Hosp L2
== END 2022-06-22 12:39 | disposition home or self-care (01) | DRG 391 ==
LOC: ED 11:26 → PCU 12:01
PROVIDERS: Admitting Provider Internal Medicine; Emergency Provider Emergency Medicine; PCP Family Medicine; Visit Provider Internal Medicine
DX: K57.92 Diverticulitis of intestine, part unspecified, without perforation or abscess without bleeding (principal); K57.91 Diverticulosis of intestine, part unspecified, without perforation or abscess with bleeding; K55.9 Vascular disorder of intestine, unspecified; N17.9 Acute kidney failure, unspecified; D62 Acute posthemorrhagic anemia; K51.00 Ulcerative (chronic) pancolitis without complications; J44.9 Chronic obstructive pulmonary disease, unspecified; N18.30 Chronic kidney disease, stage 3 unspecified; K21.9 Gastro-esophageal reflux disease without esophagitis; I12.9 Hypertensive chronic kidney disease with stage 1 through stage 4 chronic kidney disease, or unspecified chronic kidney disease; J30.9 Allergic rhinitis, unspecified; K52.9 Noninfective gastroenteritis and colitis, unspecified; Z80.0 Family history of malignant neoplasm of digestive organs; Z77.22 Contact with and (suspected) exposure to environmental tobacco smoke (acute) (chronic); M81.0 Age-related osteoporosis without current pathological fracture; Z87.891 Personal history of nicotine dependence; F32.A Depression, unspecified; Z23 Encounter for immunization
CPT/HCPCS: 36415; 74177; 80048; 80053; 85014; 85018; 85025; 86850; 86900; 86901; 93005; 94640; 99285; G0008; J7030; Q9967; 90686; A4216; J0744; J2405; J3490

== ENCOUNTER → 2022-06-23 | Outpatient (CLI) | payer MEDICARE, MEDICAID, SELFPAY ==
[2022-06-23 15:12] LABS: Absolute Lymphocyte Count 1.47 X10^3/uL (0.83-4.51); Absolute Neutrophil Count 8.6 X10^3/uL (2.0-7.7); Basophil# 0.07 X10^3/uL; Basophil% 0.6 % (0-1); Eosinophil# 0.28 X10^3/uL; Eosinophils% 2.4 % (0-5); Lymphocyte # 1.47 X10^3/ul (0.83-4.51); Lymphocyte % 12.5 % (19-41); Mean Corp Hgb Conc 32.4 g/dL (32-36); Mean Corpuscular Hgb 27.9 pg (27.0-32.0); Mean Platelet Vol. 9.6 fl (6.2-12.0); Monocyte# 1.39 X10^3/uL; Monocyte% 11.8 % (0-10); NRBC Flagged by Analyzer 0 % (0-5); Neutrophil # 8.55 X10^3/uL (2.7-7.7); Neutrophil % 72.4 % (47-70); Platelet Count 280 K/mm3 (150-450); RBC Distribution Width SD 40.3 fl (35.1-43.9); White Blood Count 11.8 K/mm3 (4.4-11.0)
== END | disposition home or self-care (01) ==
LOC: LAB 13:44
PROVIDERS: PCP Family Medicine; Referring Provider Surgery; Visit Provider Surgery
DX: K57.92 Diverticulitis of intestine, part unspecified, without perforation or abscess without bleeding (principal)
CPT/HCPCS: 36415; 85025

== ENCOUNTER 2022-07-23 13:01 | Emergency (ER) | payer MEDICARE, MEDICAID, SELFPAY ==
[2022-07-23 13:02] VITALS: BP 139/86; PULSE 91; RESP 14; TEMP 37.1; O2SAT 95; BMI 25.0
--- NOTE | 2022-07-23 13:45 | RAD_ITS ---
INDICATION: COUGH EXAMINATION/TECHNIQUE: X-RAY - XR Chest 1 View COMPARISON: October 31, 2018 FINDINGS: LINES/DEVICES: None. LUNGS: No consolidation, edema or effusion. No pneumothorax. MEDIASTINUM AND CARDIOVASCULAR STRUCTURES: Cardiac silhouette not enlarged. Central airways and mediastinal contour are unremarkable. BONES AND SOFT TISSUES: Unremarkable. RAD/Chest 1 View (Portable) IMPRESSION: No radiographic evidence of acute cardiopulmonary disease. Electronically Signed: Haleigh Estrada MD at 14:24 EST ,
[2022-07-23 15:01] VITALS: BP 178/85; PULSE 76; RESP 22; TEMP 37.1; O2SAT 100
[2022-07-23] MEDS: Ipratropium/Albuterol Sulfate 3 ML AMPUL.NEB INHALATION (16:01)
[2022-07-23 16:03] VITALS: O2SAT 96
[2022-07-23 16:12] VITALS: PULSE 78; RESP 22
[2022-07-23] MEDS: Albuterol 2.5 MG/3 ML VIAL.NEB. INHALATION ×3 (16:12)
[2022-07-23] MEDS: predniSONE 20 MG Tablet 60 MG PO (16:29)
--- NOTE | 2022-07-23 16:39 | EDS_ITS ---
HPI HPI - URI History of Present Illness Chief Complaint: Cold Sx Detail of Chief Complaint: Congestion, cough and wheezing. Informant: patient Onset/Context/Timing Onset: Days Context: Gradual Onset Timing: Continuous and Waxes and wanes Quality: Upper respiratory symptoms with productive light brown sputum Location: Respiratory Current Severity: Mild Maximum Severity: Moderate Worsened by: - (Activity); Not Worsened By Swallowing, Eating Solids or Drinking Liquids Relieved by: Not Relieved By Tylenol or NSAIDs Associated Symptoms Associated Symptoms: Positive for Nasal Congestion, Shortness of Breath and Productive Cough; Negative for Headache, Sinus Pressure, Myalgias, Nausea, Vomiting, Diarrhea, Chest Pain, Nonproductive cough or Hemoptysis Narrative Narrative: Patient is 66-year-old woman with history of COPD stage I by Gold classification who presents with mild congestion, wheezing productive cough of light brown sputum for the past couple of days. She stopped smoking 2 to 3 years ago. She denies history of VTE. Denies leg pain, swelling discoloration. She denies fever, chills night sweats. She denies headache, visual, ocular auditory symptoms. She denies GI or symptoms. She is not hypoxic. Prior similar symptoms: Yes Recent Illness/Hospitalization: No ROS ROS ED Constitutional Constitutional ED: Denies chills, fever(s), subjective, sweats or weight loss Eyes Eyes: Denies blurry vision, change in vision or diplopia ENT ENT ED: Denies ear pain, rhinorrhea or sore throat Cardiovascular Cardiovascular: Denies chest pain, orthopnea, palpitations, paroxysmal nocturnal dyspnea or racing heartbeat Respiratory/Chest Respiratory/Chest: Reports cough, dyspnea and dyspnea on exertion; Denies orthopnea or paroxysmal nocturnal dyspnea Gastrointestinal Gastrointestinal: Denies abdominal pain, constipation, diarrhea, melena, nausea or vomiting Genitourinary Genitourinary ED: Denies dysuria, hematuria or urinary frequency Musculoskeletal Musculoskeletal: Denies arthralgias, back pain or myalgias Integumentary Denies abscess, Abrasions or rash Neurologic Neurologic: Denies headache(s), paresthesias or weakness Hematologic/Lymphatic Hematologic/Lymphatic: Denies easy bleeding or easy bruising [facility] Medical History Alcohol abuse Allergic rhinitis Anxiety CKD (chronic kidney disease) stage 3, GFR 30-59 ml/min DDD (degenerative disc disease), cervical DDD (degenerative disc disease), lumbar Depression Duodenal perforation Gastric ulcer GERD (gastroesophageal reflux disease) HTN (hypertension) Osteoarthritis Osteoporosis Overactive bladder Stage 1 mild COPD by GOLD classification Tobacco abuse Home Medications alendronate 5 mg tablet 70 mg PO QWEEK bone health 07/08/14 [History Last Taken 06/15/22] calcium carbonate 600 mg-vitamin D3 20 mcg (800 unit) tablet 1 tab PO DAILY@0800 supplement 07/08/14 [History Last Taken Unknown] loratadine 10 mg tablet 10 mg PO DAILY PRN SINUSES 07/08/14 [History Last Taken Unknown] trazodone 50 mg tablet 100 mg PO QHS sleep 07/08/14 [History Last Taken Unknown] oxybutynin chloride 5 mg tablet,extended release 24 hr 5 mg PO QHS bladder 10/11/17 [History Last Taken Unknown] vitamin B complex (B Complex-Vitamin B12 tablet) 1 tab PO DAILY vitamin 09/28/19 [History Last Taken Unknown] thiamine HCl (vitamin B1) 100 mg tablet 100 mg PO DAILYCM 09/16/20 [Rx Last Taken Unknown] fluticasone propionate 230 mcg-salmeterol 21 mcg/actuation HFA inhaler (Advair HFA) 2 puff inhalation BID breathing 06/20/22 [History Last Taken Unknown] tramadol 50 mg tablet 100 mg PO DAILY pain 06/20/22 [History Last Taken Unknown] doxycycline monohydrate 100 mg capsule 100 mg PO BID #14 CAPSULES 07/23/22 [Rx Last Taken Unknown] prednisone 20 mg tablet 60 mg PO DAILY #15 TABLETS 07/23/22 [Rx Last Taken Unknown] Allergy/AdvReac Type Severity Reaction Status Date / Time nicotine [From [facility]] Allergy Unknown Rash Verified 07/23/22 13:03 Penicillins Allergy Angioedema Verified 07/23/22 13:03 Family History Mother Cancer lung Hypertension Heart disease Alcohol abuse Anxiety Father Arthritis Kidney disease Cancer skin Aunt Alcohol abuse COPD (chronic obstructive pulmonary disease) Uncle Alcohol abuse Colon cancer Grandfather Cancer skin Grandmother Breast cancer Surgical History cataract surgery H/O right knee surgery History of appendectomy S/P exploratory laparotomy Social History (Updated 07/23/22 @ 16:[address] Jason Tellez MD) household members: none Smoking Status: Former smoker second hand exposure: Yes alcohol intake: current alcohol intake frequency: 0-2 drinks per day Alcohol type: beer substance use type: does not use EXAM Physical Exam Const Vital Signs: 07/23/22 13:02 07/23/22 16:03 07/23/22 15:01 Temperature 98.8 F 98.7 F Temperature Source Temporal Temporal Pulse Rate 91 76 Respiratory Rate 14 22 H Respiratory Effort Short of Breath Labored Accessory Muscle Use Respiratory Depth Normal Respiratory Pattern Tachypnea Blood Pressure 139/86 H 178/85 H Blood Pressure Mean 103 116 Pulse Ox 95 100 Oxygen Delivery Method Room Air Room Air Room Air 07/23/22 16:12 Temperature Temperature Source Pulse Rate 78 Respiratory Rate 22 H Respiratory Effort Respiratory Depth Respiratory Pattern Tachypnea Blood Pressure Blood Pressure Mean Pulse Ox Oxygen Delivery Method Positive well nourished and well developed General Appearance ED: well developed and NAD; Negative for cyanotic, diaphoretic or pallor HEENT Reports moist mucous membranes normocephalic and atraumatic Face and Sinus: Negative for sinus tenderness or maxillary instability Throat: posterior oropharynx normal Eyes PERRL and EOMs intact bilaterally General Eye ED: Negative for pale conjunctiva or scleral icterus Neck no lymphadenopathy, supple and no meningeal signs Resp normal respiratory effort Auscultation: wheezes expiratory wheezes and throughout (Expiratory phase is increased.) Cardio S1 normal heart sound, S2 normal heart sound and no murmurs Rate: regular rate Rhythm: regular rhythm GI non-tender, non-distended and no masses Back/Spine no CVA tenderness Extremity normal to inspection and full ROM General Extremety ED: Negative for cyanosis or other findings General Extremity: Negative for cyanosis or other findings Neuro oriented x3, CN's II-XII intact bilaterally and no sensory deficits noted Sensorium / Orientation: alert Motor Exam: strength 5/5 throughout Psych mental status grossly normal Skin General Skin Exam: Negative for jaundice or pallor Lesions: no lesions Rashes: no rashes MDM MDM MDM Narrative Medical decision making narrative: Concern patient may have exacerbated COPD versus pneumonia. Chest x-ray was ordered appropriate laboratory studies. Patient was treated with DuoNeb, albuterol and prednisone. She was reexamined at 1635. She has slight wheezing. Will discharge with burst of prednisone and since she has brown-colored sputum will discharge with prescription for doxycycline. She received her first dose in the emergency department. Lab Data Attestation: I reviewed the patient's lab results. Lab results narrative: Rapid test for COVID and influenza were both negative. Radiography Diagnostic Testing: Clinical Impression(s) from Imaging Studies Chest X-Ray 07/23/22 13:45 IMPRESSION: No radiographic evidence of acute cardiopulmonary disease. Electronically Signed: Haleigh Estrada MD at 14:24 EST , Reviewed dust x-ray per nurse protocol reveals no acute pulmonary disease. There is mild chronic changes. Cardiac silhouette and size unremarkable. Perihilar region unremarkable. Osseous trucks unremarkable. Treatment and Re-Evaluation Narrative: Improved with treatment. Discharge Plan Triage Chief Complaint: Cold Sx ED Provider: Jason Tellez Dx/Rx/DC Orders Clinical Impression: Acute exacerbation of chronic bronchitis, Acute exacerbation of COPD with asthma Instructions: ED Bronchitis with Wheezing (Adult) Prescriptions: New prednisone 20 mg tablet 60 mg PO DAILY Qty: 15 0RF doxycycline monohydrate 100 mg capsule 100 mg PO BID Qty: 14 0RF No Action vitamin B complex [B Complex-Vitamin B12] Tablet 1 tab PO DAILY trazodone 50 MG tablet 100 mg PO QHS Label Comments: depression/sleep alendronate 5 MG tablet 70 mg PO QWEEK Label Comments: osteoporosis Rx Instructions: Take ever wednesday loratadine 10 MG tablet 10 mg PO DAILY PRN (Reason: SINUSES) Label Comments: allergies calcium carbonate-vitamin D3 1 TAB tablet 1 tab PO DAILY@0800 Label Comments: supplement oxybutynin chloride 5 MG tablet 5 mg PO QHS thiamine HCl (vitamin B1) 100 MG tablet 100 mg PO DAILYCM 0RF tramadol 50 mg tablet 100 mg PO DAILY Label Comments: TAKE 1 TO 2 TABLETS BY MOUTH DAILY NEEDED FOR PAIN Advair HFA 230-21 mcg/actuation HFA aerosol inhaler 2 puff INHALATION BID Label Comments: INHALE 2 (TWO) puffs orally every 12 hours] Primary Care Provider: Freedom Modi Referrals: Freedom Modi, [Primary Care Provider] - Disposition Disposition: Home, Self Care
[2022-07-23] MEDS: Doxycycline 100 MG CAPSULE PO (17:01)
== END 2022-07-23 17:04 | disposition home or self-care (01) ==
PROVIDERS: Emergency Provider Emergency Medicine; PCP Family Medicine; Visit Provider Emergency Medicine
DX: J44.1 Chronic obstructive pulmonary disease with (acute) exacerbation (principal); N18.30 Chronic kidney disease, stage 3 unspecified; R09.3 Abnormal sputum; I12.9 Hypertensive chronic kidney disease with stage 1 through stage 4 chronic kidney disease, or unspecified chronic kidney disease; Z79.52 Long term (current) use of systemic steroids; Z87.891 Personal history of nicotine dependence
CPT/HCPCS: 71045; 87804; 94640; 99283

== ENCOUNTER 2022-09-21 07:56 | Day surgery (SDC) | payer MEDICARE, MEDICAID, SELFPAY ==
[2022-09-21] VITALS (7 sets, daily range): BP systolic 120–150; BP diastolic 46–66; PULSE 75–97; RESP 16; TEMP 36.1–37.4; O2SAT 98–100; BMI 25.7
--- NOTE | 2022-09-21 08:20 | HP.PCM.SX_ITS ---
HPI - General General Date of Admission: 09/21/22 HPI Narrative JOSE MIGUEL STEVEN, is a 67 F who presents for colonoscopy. Patient was previously diagnosed with diverticulitis back in May. Patient denies any recent episodes with abdominal pain or blood per rectum. Patient's never had previous colonoscopy. Denies any family history of colon cancer. from 06/20/22- hosp consult note JOSE MIGUEL STEVEN, is a 66 F who presents to the ER due to blood per rectum and abdominal pain.? Patient states this started about 1130 last night she had an increase lower abdominal pain and then had bright red blood per rectum with stool multiple times.? Patient states that the pain is more in the left lower quadrant currently states she did have a 1 episode of vomiting vomiting due to the pain.? Patient states about 2 weeks ago she did have diarrhea which was dark brown denies any blood at that time.? Patient denies any history of blood per rectum.? Patient's never had a previous scope. denies any immediate family history of colon cancer, inflammatory bowel disease?patient's paternal uncle did have colon cancer in his late 50s.? Patient states normally she had bowel moods about every 2 days and she states she has issues with constipation due to her tramadol she will occasionally take a laxative.? Patient denies any chronic abdominal pain/nausea/vomiting/reflux.? CT abdomen pelvis was done in the ER which showed sigmoid diverticulitis.? Patient white blood count was 17.? Patient did get Cipro/Flagyl in the ER and is on scheduled antibiotics on the floor. [facility] Medical History (Updated 09/16/22 @ 13:46 by Shelley Duarte) Alcohol abuse Allergic rhinitis Anxiety Arthritis Asthma Chronic cough CKD (chronic kidney disease) stage 3, GFR 30-59 ml/min COPD (chronic obstructive pulmonary disease) DDD (degenerative disc disease), cervical DDD (degenerative disc disease), lumbar Depression Duodenal perforation Former smoker Gastric ulcer GERD (gastroesophageal reflux disease) History of irregular heartbeat History of steroid therapy History of ulceration HTN (hypertension) Osteoarthritis Osteoporosis Overactive bladder Shortness of breath on exertion Stage 1 mild COPD by GOLD classification Tobacco abuse Walker as ambulation aid Wears dentures Wears glasses Home Medications alendronate 5 mg tablet 70 mg PO QWEEK bone health 07/08/14 [History Last Taken 06/15/22] calcium carbonate 600 mg-vitamin D3 20 mcg (800 unit) tablet 1 tab PO DAILY@0800 supplement 07/08/14 [History Last Taken Unknown] trazodone 50 mg tablet 100 mg PO QHS sleep 07/08/14 [History Last Taken Unknown] oxybutynin chloride 5 mg tablet,extended release 24 hr 5 mg PO QHS bladder 10/11/17 [History Last Taken Unknown] vitamin B complex (B Complex-Vitamin B12 tablet) 1 tab PO DAILY vitamin 09/28/19 [History Last Taken Unknown] thiamine HCl (vitamin B1) 100 mg tablet 100 mg PO DAILYCM 09/16/20 [Rx Last Taken Unknown] fluticasone propionate 230 mcg-salmeterol 21 mcg/actuation HFA inhaler (Advair HFA) 2 puff inhalation BID breathing 06/20/22 [History Last Taken Unknown] tramadol 50 mg tablet 100 mg PO DAILY pain 06/20/22 [History Last Taken Unknown] lisinopril 10 mg tablet 10 mg PO DAILY 09/16/22 [History Last Taken 09/21/22] Allergy/AdvReac Type Severity Reaction Status Date / Time nicotine [From [facility]] Allergy Unknown Rash Verified 09/21/22 08:30 Penicillins Allergy Angioedema Verified 09/21/22 08:30 Family History Mother Cancer lung Hypertension Heart disease Alcohol abuse Anxiety Father Arthritis Kidney disease Cancer skin Aunt Alcohol abuse COPD (chronic obstructive pulmonary disease) Uncle Alcohol abuse Colon cancer Grandfather Cancer skin Grandmother Breast cancer Surgical History (Updated 09/16/22 @ 13:46 by Shelley Duarte) cataract surgery H/O right knee surgery History of appendectomy History of hip replacement S/P exploratory laparotomy Social History (Updated 07/23/22 @ 16:[address] Jason Tellez MD) household members: none Smoking Status: Former smoker second hand exposure: Yes alcohol intake: current alcohol intake frequency: 0-2 drinks per day Alcohol type: beer substance use type: does not use Physical Exam Const alert, oriented x3 and no apparent distress HEENT normocephalic and head/scalp atraumatic Resp normal respiratory effort Cardio regular rate GI soft to palpation and non-tender; Negative for non-distended Palpation: Negative for guarding Extremity no clubbing, cyanosis or edema Neuro CN's II-XII intact bilaterally Psych mental status grossly normal Assessment & Plan Assessment/Plan (1) Acute diverticulitis: PLAN: I have discussed the above with the patient. I have offered the patient colonoscopy for evaluation. I have explained the risks/benefits of the procedure and described the procedure. I have discussed the risks with the patient, including but not limited to: infection, bleeding, perforation of the GI tract requiring emergency surgery, inability to complete the procedure, injury to any internal organs, complications of anesthesia, etc. - the patient understands and agrees to proceed. I have answered all the patient's questions to the patient's satisfaction and the patient has no further questions. Aimee Marquez M.D. Pager: [phone] [facility] [address] [place] [address] [address] [place] [address] Office: [phone]
[2022-09-21] MEDS: Lactated Ringers 1,000 ML 15 ML IV (08:41)
--- NOTE | 2022-09-21 10:57 | OP.COLON_ITS ---
Patient Name: Claudette Espitia Procedure Date: 09/21/2022 10:12 AM Date of : 1955 Age: 67 Procedure: Colonoscopy Indications: Follow-up of diverticulitis Providers: Aimee Marquez MD Referring MD: Aimee Marquez MD Medicines: Monitored Anesthesia Care Patient Profile: This is a 67 year old female. Last Colonoscopy: none. The patient's first colonoscopy is today. Complications: No immediate complications. Procedure: Pre-Anesthesia Assessment: - Prior to the procedure, a History and Physical was performed, and patient medications and allergies were reviewed. The patient's tolerance of previous anesthesia was also reviewed. The risks and benefits of the procedure and the sedation options and risks were discussed with the patient. All questions were answered, and informed consent was obtained. Prior Anticoagulants: The patient has taken no previous anticoagulant or antiplatelet agents. ASA Grade Assessment: Per anesthesia. After reviewing the risks and benefits, the patient was deemed in satisfactory condition to undergo the procedure. After I obtained informed consent, the scope was passed under direct vision. Throughout the procedure, the patient's blood pressure, pulse, and oxygen saturations were monitored continuously. The Colonoscope was introduced through the anus and advanced to the cecum, identified by the appendiceal orifice, ileocecal valve and palpation. The colonoscopy was somewhat difficult due to a tortuous colon. Successful completion of the procedure was aided by applying abdominal pressure. The patient tolerated the procedure well. The quality of the bowel preparation was good. Scope In: 10:23:21 AM Scope Withdrawal Time 0 hours 10 minutes 10 seconds Scope Out: 10:50:52 AM Total Procedure Duration Time 0 hours 27 minutes 31 seconds Findings: The perianal and digital rectal examinations were normal. Many diverticula were found in the entire colon. The exam was otherwise without abnormality on direct and retroflexion views. Impression: - Diverticulosis in the entire examined colon. - The examination was otherwise normal on direct and retroflexion views. - No specimens collected. Recommendation: - Discharge patient to home. - High fiber diet. - Continue present medications. - Repeat colonoscopy in 10 years for screening purposes. Procedure Code(s): --- Professional --- 19201, Colonoscopy, flexible; diagnostic, including collection of specimen(s) by brushing or washing, when performed (separate procedure) Diagnosis Code(s): --- Professional --- K57.32, Diverticulitis of large intestine without perforation or abscess without bleeding K57.30, Diverticulosis of large intestine without perforation or abscess without bleeding CPT copyright 2017 [employer]. All rights reserved. The codes documented in this report are preliminary and upon milling operator review may be revised to meet current compliance requirements. MD Aimee Motta MD 09/21/2022 10:56:38 AM This report has been signed electronically. Number of Addenda: 0 Note Initiated On: 09/21/2022 10:12 AM
--- NOTE | 2022-09-21 10:58 | OP.CCLET_ITS ---
09/21/2022 Freedom Modi [address] [place] [address] Re : Colonoscopy procedure for Claudette Espitia Dear Dr. Modi This procedure was performed on Wednesday, September 21, 2022. My impressions and recommendations are as follows: Impressions : - Diverticulosis in the entire examined colon. - The examination was otherwise normal on direct and retroflexion views. - No specimens collected. Recommendations : - Discharge patient to home. - High fiber diet. - Continue present medications. - Repeat colonoscopy in 10 years for screening purposes. My findings are described in the full procedure note, which is enclosed. If I can be of further assistance, please feel free to contact me at Doctor phone number(s): , Work: . Sincerely, MD Aimee Motta MD 09/21/2022 10:56:38 AM This report has been signed electronically.
== END 2022-09-21 11:55 | disposition home or self-care (01) ==
LOC: EN 07:57 → AC 07:58
PROVIDERS: PCP Family Medicine; Referring Provider Surgery; Visit Provider Surgery
PROC: 0DJD8ZZ Inspection of Lower Intestinal Tract, Via Natural or Artificial Opening Endoscopic (ICD-10-PCS; CPT 45378; principal; 2022-09-21 08:55)
DX: K57.32 Diverticulitis of large intestine without perforation or abscess without bleeding (principal); J44.9 Chronic obstructive pulmonary disease, unspecified; N18.30 Chronic kidney disease, stage 3 unspecified; Z79.83 Long term (current) use of bisphosphonates; K57.30 Diverticulosis of large intestine without perforation or abscess without bleeding; I12.9 Hypertensive chronic kidney disease with stage 1 through stage 4 chronic kidney disease, or unspecified chronic kidney disease; Z80.0 Family history of malignant neoplasm of digestive organs; Z87.891 Personal history of nicotine dependence
CPT/HCPCS: 45378; J7120; J2405

== ENCOUNTER → 2023-06-24 | Outpatient (CLI) | payer MEDICARE, MEDICAID, SELFPAY ==
--- NOTE | 2023-06-24 | TISS_PTH ---
PATIENT: JOSE MIGUEL STEVEN LOC: [facility] U#:[id number] AGE/SX: 67/F ROOM: RE06/24/[address]: Dr. Gui Fung MD : 1955 BED: DIS: 06/24/2023 SPEC #: [id number] RECD: 06/24/23 02:30 STATUS: TYREE RIVERAJannet #: [id number] JAYLEN: 06/24/23 00:[address]: Gui Fung DEPT: SURGICAL PATHOLOGY RECD BY: Fabiana Lay ENTERED: 06/25/23 08:12 SP TYPE: Tissue Bx OTHR DR: Dr. 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 See comment. SJ: 06/29/23 COMMENT Immunohistochemistry ([id number]) for surrogate HPV marker (p16) is performed and results will be reported separately. Correlation with clinical findings and appropriate follow up are necessary. MICROSCOPIC DESCRIPTION Slides are reviewed. GROSS DESCRIPTION Received in fixative is one container labeled with the patient's name and designated sublingual mass. The specimen consists of a piece of castillo soft tissue measuring 0.5 x 0.5 x 0.2 cm. The specimen is totally submitted in one cassette. / JONAS:khalif 06/25/2023 TC:0 CPT: 84748 ADDENDUM ADDENDUM ADDENDUM ADDENDUM ADDENDUM ADDENDUM ADDENDUM ADDENDUM ADDENDUM ADDENDUM 10/29/2023 09:22 ADDENDUM 10/29/2023 09:22 ADDENDUM 10/29/2023 09:22 ADDENDUM 10/29/2023 09:22 ADDENDUM 10/29/2023 09:22 This addendum is added to incorporate an outside pathology consultation report. The case was examined at [facility] (#[id number]) and the following diagnosis was rendered. 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 Please see complete above mentioned consultation report in EMR
--- NOTE | 2023-06-24 | IMM_PTH ---
PATIENT: JOSE MIGUEL STEVEN LOC: [facility] U#:[id number] AGE/SX: 67/F ROOM: RE06/24/[address]: Dr. Gui Fung MD : 1955 BED: DIS: 06/24/2023 SPEC #: [id number] RECD: 06/28/23 10:40 STATUS: TYREE REQ #: [id number] JAYLEN: 06/24/23 00:[address]: Gui Fung DEPT: IMMUNOHISTOCHEMISTRY RECD BY: Celia Shepherd ENTERED: 06/28/23 10:41 SP TYPE: IMMUNO OTHR DR: Dr. Freedom Modi DO Tissues: Sublingual gland, NOS Procedures: p16 (initial) KI-67 (add) PHYSICIAN & INSTITUTION [place] [id number] SPECIMEN INFORMATION: Tissue Source: Sublingual mass Clinical Info: Sublingual mass Specimen Number: [id number] CPT code: 52732, 35391 METHODOLOGY: Deparaffinized sections of prefer/formalin-fixed tissue or PAP/DQ stained slides are incubated with monoclonal/polyclonal antibodies/oligonucleotide probes. Localization is made via biotin free immunoperoxidase method. Appropriate controls are performed and reacted as expected. Results on target cell population are indicated in the following table: RESULTS: ANTIBODY / CLONE RESULT P16 (E6H4) negative * Ki-67 (30-9) positive, low to moderate * Focal patchy staining in the uninvolved epithelium These tests were developed and their performance characteristics determined by [facility]. They may not have been cleared or approved by the U.S. Food and Drug Administration. The FDA has determined that such clearance or approval is not necessary. The above immunohistochemical/dualISH markers are ordered and reviewed by the Pathologist. INTERPRETATION: Sublingual mass, biopsy: Squamous cell carcinoma in situ with focal area of invasive carcinoma SJ:gerardo 06/29/23
== END | disposition home or self-care (01) ==
LOC: LABSPEC 15:08
PROVIDERS: PCP Family Medicine; Referring Provider Otolaryngology; Visit Provider Otolaryngology
DX: R22.0 Localized swelling, mass and lump, head (principal)
CPT/HCPCS: 88305; 88341; 88342

== ENCOUNTER → 2023-07-01 | Outpatient (CLI) | payer MEDICARE, SELFPAY ==
--- NOTE | 2023-07-01 13:01 | CT_ITS ---
STUDY: CT SOFT TISSUE NECK WITH CONTRAST REASON FOR EXAM: Female, 67 years old. R NECK MASS RADIATION DOSAGE (If Supplied By Facility): CTDIvol = ( 14.85 ) mGy, DLP = ( 467.55 ) mGycm TECHNIQUE: The patient was scanned in a multi-detector CT scanner. High resolution transaxial imaging was performed following intravenous administration of IV 75mL Isovue-370. Sagittal and coronal images were reconstructed. Individualized dose optimization techniques were used for this CT. COMPARISON: None. FINDINGS: Normal bilateral parotid glands. Normal bilateral sky cap spaces. Normal bilateral parapharyngeal spaces. Normal bilateral carotid spaces. Normal bilateral sublingual and submandibular glands and spaces. Normal visualized nasopharynx. Normal retropharyngeal space. Normal perivertebral space. Normal visualized bilateral faucial tonsils. The visualized tongue, tongue base and oropharynx are normal. The visualized cervical lymph nodes (levels I-) are within normal size limits, and maintain normal morphology. There is no demonstrated solid or cystic mass lesion. There is no abnormal contrast enhancement. Normal epiglottis, bilateral vallecula and hypopharynx. The pre-epiglottic and paraglottic adipose spaces are normal. Normal visualized bilateral piriform sinuses, aryepiglottic folds, vocal cords, and arytenoid-cricoid articulations. Normal subglottic trachea. Thyroid gland is of normal size, there are low-density nodules within both lobes of the thyroid. Consider a dedicated thyroid ultrasound for more thorough evaluation. Pulmonary apices show significant underlying emphysema. Normal visualized paranasal sinuses. There is multilevel degenerative changes of the cervical spine. CT/Soft Tissue Neck WITH Contrast IMPRESSION: No suspicious enhancing lesion, no airway narrowing or deviation. No suspicious bulky adenopathy, there are scattered physiologic subcentimeter in short axis dimension jugular chain lymph nodes. Degenerative bony changes Emphysematous changes in the lung apices Electronically Signed: Ángel Cline MD at 15:29 EST ,
== END | disposition home or self-care (01) ==
PROVIDERS: PCP Family Medicine; Referring Provider Family Medicine; Visit Provider Family Medicine
DX: R59.0 Localized enlarged lymph nodes (principal); K13.79 Other lesions of oral mucosa
CPT/HCPCS: 70491; Q9967

== ENCOUNTER → 2023-07-27 | Outpatient (CLI) | payer MEDICARE, SELFPAY ==
--- NOTE | 2023-07-27 09:00 | PET_ITS ---
EXAMINATION: FDG PET/CT ? INDICATIONS: 67-year-old female with a history of cutaneous squamous cell carcinoma, presenting for presumed restaging examination. ? COMPARISON EXAMINATION: None available. ? INDEX LESION SIZE SUV INTERPRETATION Right anterior neck, level IV and 12.3 mm 16.8 Fulfills quantitative criteria for viable neoplasm ? Right upper lung field, right upper lobe 9.9 mm 8.0 Fulfills quantitative criteria for viable neoplasm ? TECHNIQUE: Following the intravenous administration of 13.02 mCi of F-18 deoxyglucose via the right antecubital fossa, multiplanar image acquisitions of the head, neck, chest, abdomen and pelvis to the level of the midthigh, obtained at one-hour post radiopharmaceutical administration contemporaneously interpreted with the current CT of the chest, abdomen and pelvis dated 07/27/2023 via coregistration reveal: SERUM GLUCOSE LEVEL:? 79 mg/dL? HEIGHT:?? 65 inches WEIGHT:?? 150 pounds ? FINDINGS: ? HEAD/NECK:? Facilitated uptake is noted in both the right anterior neck involving level IV and . The calculated maximum standard uptake value is 16.8. The maximum axial diameter of the metabolic, morphologic abnormality is 12.3 mm.? ? The visualized portion of the cerebral cortical-subcortical structures demonstrate symmetric and preserved glucose metabolism. ? CHEST:? Facilitated uptake is noted in the right upper anterior lung zone, right upper lobe, generating a calculated standard uptake value of 8.0. The maximum axial diameter of the parenchyma density is 9.9 mm. There is visualized radiopharmaceutical concentration noted in the left ventricular myocardium, consistent with the [place]. ? CT of the chest demonstrates the following anatomic characteristics: Atherosclerotic calcification is defined in the thoracic aorta without evidence of dilatation, aneurysm formation. Coronary arterial calcification is observed. Bilateral axillary soft tissue densities with fatty hilus are ametabolic. Scattered mediastinal soft tissue reveals no evidence of increased tracer uptake. There are no parenchymal densities-nodules defined in the right and left hemithorax with quantitatively significant increased FDG concentration. ? ABDOMEN/PELVIS:? Normal physiologic distribution of the radiopharmaceutical is identified in the hepatic (3.7) and splenic parenchyma, both renal units, urinary bladder, and visualized intestinal tract. Diffuse intestinal tract is identified in all four quadrants of the abdomen and pelvis. ? CT of the abdomen and pelvis is remarkable for the following: Atherosclerotic calcification is defined in the abdominal aorta without evidence of dilatation, aneurysm formation. Pelvic arterial calcification is observed. Colonic diverticulosis is encountered without evidence of diverticulitis. Beam-hardening artifact, attributed to a right hip arthroplasty, produces compromise of interpretation in the lower pelvic CT acquisitions. Right and left inguinal soft tissue densities are ametabolic. Post-surgical changes are defined in the right posterior pelvic mesentery. Calcified phlebolith formation is demonstrated throughout the pelvic mesentery. ? SKELETAL:? A compression deformity is noted in the first lumbar vertebra. ? Degenerative changes defined in the thoracic and lumbar spine demonstrate no evidence of increased glucose metabolism. There are no sclerotic, mixed sclerotic-lytic, or primarily lytic changes defined in the axial skeletal structures with evidence of increased FDG uptake. ? PET/PET/CT Tumor Base -Thigh Init IMPRESSION: 1. ABNORMAL EXAMINATION INDICATIVE OF MALIGNANT-VIABLE NEOPLASM. 2. Enhanced radiopharmaceutical concentration defined in the right anterior neck fulfill quantitative criteria for malignant transformation. 3. The increase in labelled glucose metabolism noted in the right upper lung field, right upper lobe, fulfills quantitative criteria for viable neoplasia. Histopathologic analysis is recommended. Electronic Signature Palomo Lockett D.O. Accurate Quantification of SUVs for this report are calculated using the exclusive [employer]. ([place].S. Patent No. [phone] [phone] B2 [phone] [place] patent [phone]). Standardization and correction of the FDG SUV metric via [employer] technology allow for vendor non-specific objective quantitative examination comparison and optimization of the sensitivity and specificity of the FDG PET-CT examination. . [email or web address] Electronically Signed: Palomo Lockett DO at 8:40 EST ,
== END | disposition home or self-care (01) ==
PROVIDERS: PCP Family Medicine; Referring Provider Otolaryngology; Visit Provider Otolaryngology
DX: C06.9 Malignant neoplasm of mouth, unspecified (principal); C44.399 Other specified malignant neoplasm of skin of other parts of face
CPT/HCPCS: 78815; A9552

== ENCOUNTER → 2023-10-13 | Outpatient (CLI) | payer MEDICARE, SELFPAY ==
[2023-10-13 09:55] LABS: Hematocrit 37.6 % (37-47); Hemoglobin 11.6 g/dL (12.0-15.0); Mean Corp Hgb Conc 30.9 g/dL (32-36); Mean Corpuscular Hgb 26.1 pg (27.0-32.0); Mean Corpuscular Volume 84.5 fL (81-99); Platelet Count 407 K/mm3 (150-450); RBC Distribution Width CV 13.9 % (11.6-14.6); RBC Distribution Width SD 42.8 fl (35.1-43.9); Red Blood Count 4.45 M/mm3 (4.2-5.4); White Blood Count 9.1 K/mm3 (4.4-11.0)
[2023-10-13 10:09] LABS: Partial Thromboplast Time 29.1 Seconds (24.1-36.2); Prothrombin Time (Protime)PT. 13.6 SECONDS (11.7-14.9)
--- OUTSIDE RECORDS SUMMARY | 2023-10-13 10:19 | XMS RPT_ITS | CCD ---
Author Name Unknown Address [address] [place] [address] Organization [facility] Care Team Providers Care Nature Photographer Name Role Phone Danielle Arevalo Unavailable Unavailable Danielle Arevalo Unavailable Unavailable CASS MODI Primary Care Unavailable JOURDAN LOMELI Admitting Unavailab JOURDAN Taylor Attending Unavailab MARGO Howe Consulting Unavailable BHANU JACQUES Consulting Unavailable KALYAN DAMON Consulting Unavailable MARGO SCHWARTZ Attending Unavailable CASS MODI Primary Care Unavailable Cass Modi DO Unavailable [phone] Gui Fung MD Unavailable [phone] Francisco Javier Jackson MD Unavailable Cass Modi DO Primary Care Provider Martha Ware RN Unavailable Unavailable Allergies Allergy Classification Reported Allergen(s) Allergy Type Date of Onset Reaction(s) Facility (7 sources) Nicotine Drug Allergy 09-16-2020 [facility] (2 sources) Penicillin Drug Allergy 09-16-2020 [facility] Work Phone: (6 sources) Penicillins Drug Allergy 09-28-2019 [facility] Medications Current Medications Medication Drug Class(es) Dates Sig (Normalized) Sig (Original) Acetaminophen (1 source) Start: 09-20-2023 acetaminophen (Tylenol) tablet 975 mg albuterol 0.833 mg/ml / ipratropium bromide 0.167 mg/ml inhalation solution (1 source) Anticholinergic, beta2-Adrenergic Agonist Start: 09-21-2023 take 3 mL by inhalation every six hours as needed ipratropium-albute roL (Duo-Neb) 0.5-2.5 mg/3 mL nebulizer solution 3 mL chlorhexidine gluconate 1.2 mg/ml mouthwash (3 sources) Start: 09-20-2023 End: 10-22-2023 take 15 mL by mouth three times daily after mealtime chlorhexidine (Peridex) 0.12 % solution Indications: Cancer of oral cavity (CMS/HCC) Swish and spit 15 mL in the mouth or throat 3 times a day after meals. 1275 mL 0 09/22/2023 10/22/2023 Active clindamycin 150 mg oral capsule (3 sources) Lincosamide Antibacterial Start: 09-23-2023 End: 10-01-2023 take 4 capsules by mouth every eight hours clindamycin (Cleocin) 150 mg capsule Indications: Cancer of oral cavity (CMS/HCC) Take 4 capsules (600 mg) by mouth every 8 hours for 8 days. 96 capsule 0 09/23/2023 10/01/2023 Active Completed/Discontinued Medications Medication Drug Class(es) Dates Sig (Normalized) Sig (Original) acetaminophen 325 mg / HYDROcodone bitartrate 5 mg oral tablet (6 sources) Opioid Agonist Start: 07-15-2015 End: 01-22-2016 HYDROCODONE-ACETAMI NOPHEN 5-325 MG TABS One tablet every six hours as needed for pain HYDROCODONE-ACETAMI NOPHEN [id number] Cass Modi DO Problems Active Problems Problem Classification Problem Date Documented Date Episodic/Chronic Alcohol-related disorders (2 sources) Alcohol abuse; Translations: [Alcohol abuse, uncomplicated] Onset: 03-18-2015 03-18-2015 Chronic Anxiety disorders (9 sources) Mixed anxiety and depressive disorder; Translations: [Other specified anxiety disorders] Onset: 08-23-2009 02-26-2014 Chronic Cancer of head and neck (13 sources) Malignant tumor of oral cavity ; Translations: [Malignant neoplasm of mouth, unspecified] Onset: 09-03-2023 09-03-2023 Chronic Cancer; other and unspecified primary (1 source) Carcinoma in situ; Translations: [Carcinoma in situ of other specified sites] 01-12-2024 Chronic Chronic kidney disease (7 sources) Chronic kidney disease stage 3; Translations: [Stage 3 chronic kidney disease] Onset: 03-20-2016 03-20-2016 Chronic Chronic obstructive pulmonary disease and bronchiectasis (11 sources) Chronic obstructive lung disease; Translations: [Mild chronic obstructive pulmonary disease] Onset: 08-23-2009 02-26-2014 Chronic Diverticulosis and diverticulitis (5 sources) Diverticulitis of intestine; Translations: [Diverticulitis of intestine, part unspecified, without perforation or abscess without bleeding] Onset: 10-20-2022 09-14-2023 Chronic Esophageal disorders (7 sources) Gastroesophageal reflux disease; Translations: [Gastro-esophageal reflux disease without esophagitis] Onset: 02-19-2016 02-19-2016 Chronic Essential hypertension (11 sources) Hypertensive disorder; Translations: [Essential (primary) hypertension] Onset: 08-23-2009 02-12-2014 Chronic Fracture of neck of femur (hip) (2 sources) Fracture of unspecified part of neck of unspecified femur, initial encounter for closed fracture; Translations: [Fracture of unspecified part of neck of unspecified femur, initial encounter for closed fracture] Onset: 10-31-2018 Episodic Gastroduodenal ulcer (except hemorrhage) (2 sources) Gastric ulcer; Translations: [Gastric ulcer, unspecified as acute or chronic, without hemorrhage or perforation] Onset: 10-17-2014 10-17-2014 Chronic Osteoarthritis (11 sources) Osteoarthritis; Translations: [Osteoarthritis of knee] Onset: 08-23-1959 02-12-2014 Chronic Osteoporosis (7 sources) Osteoporosis; Translations: [Age-related osteoporosis without current pathological fracture] Onset: 04-04-2014 04-04-2014 Chronic Other diseases of bladder and urethra (2 sources) Bladder muscle dysfunction - overactive; Translations: [Overactive bladder] Onset: 07-15-2015 07-15-2015 Chronic Other diseases of bladder and urethra (5 sources) Overactive bladder; Translations: [Overactive bladder] Onset: 09-14-2023 09-14-2023 Chronic Other lower respiratory disease (11 sources) Nodule of lung; Translations: [Solitary pulmonary nodule] Onset: 09-03-2023 09-03-2023 Episodic Other upper respiratory disease (9 sources) Allergic rhinitis; Translations: [Allergic rhinitis, unspecified] Onset: 02-12-2014 02-26-2014 Chronic Screening and history of mental health and substance abuse codes (1 source) Ex-smoker; Translations: [Personal history of nicotine dependence] 09-15-2023 Episodic Spondylosis; intervertebral disc disorders; other back problems (4 sources) Degeneration of lumbar intervertebral disc; Translations: [Degeneration of cervical intervertebral disc] Onset: 10-15-2015 10-15-2015 Chronic Substance-related disorders (6 sources) Tobacco dependence syndrome; Translations: [Nicotine dependence, unspecified, uncomplicated] Onset: 02-26-2014 Resolved: 03-18-2015 02-26-2014 Chronic Unclassified (2 sources) Screening mammography ; Translations: [Encounter for screening mammogram for malignant neoplasm of breast] Onset: 02-12-2014 02-26-2014 Unclassified (2 sources) General examination of patient ; Translations: [Encounter for other general examination] Onset: 02-12-2014 02-12-2014 Past or Other Problems Problem Classification Problem Date Documented Date Episodic/Chronic Acute bronchitis (2 sources) Acute bronchitis, unspecified; Translations: [Acute bronchitis, unspecified] Onset: 01-22-2016 Resolved: 02-21-2016 01-22-2016 Episodic Neoplasms of unspecified nature or uncertain behavior (6 sources) Neoplasm of uncertain behavior of skin; Translations: [Neoplasm of uncertain behavior of skin] Onset: 04-04-2014 Resolved: 10-17-2014 04-04-2014 Episodic Other connective tissue disease (2 sources) Trochanteric bursitis; Translations: [Trochanteric bursitis, left hip] Onset: 06-17-2015 Resolved: 07-02-2015 06-17-2015 Episodic Other non-traumatic joint disorders (2 sources) Hip pain; Translations: [Pain in left hip] Onset: 10-15-2015 10-15-2015 Episodic Other skin disorders (4 sources) Disorder of skin; Translations: [Disorder of the skin and subcutaneous tissue, unspecified] Onset: 05-25-2014 Resolved: 10-17-2014 10-17-2014 Episodic Other upper respiratory infections (4 sources) Acute sinusitis; Translations: [Acute sinusitis, unspecified] Onset: 10-17-2014 Resolved: 03-18-2015 10-17-2014 Episodic Pneumonia (except that caused by tuberculosis or sexually transmitted disease) (2 sources) Pneumonia; Translations: [Pneumonia, unspecified organism] Onset: 02-12-2016 02-12-2016 Episodic Residual codes; unclassified (3 sources) Insomnia; Translations: [Postmenopausal state] Onset: 02-26-2014 04-19-2014 Episodic Residual codes; unclassified (1 source) Postmenopausal state; Translations: [Asymptomatic menopausal state] Onset: 02-26-2014 02-26-2014 Episodic Spondylosis; intervertebral disc disorders; other back problems (2 sources) Thoracic back pain; Translations: [Pain in thoracic spine] Onset: 02-19-2016 02-19-2016 Episodic Unclassified (4 sources) Procedure needed; Translations: [Need for prophylactic vaccination against Streptococcus pneumoniae [pneumococcus]] Onset: 02-26-2014 Resolved: 03-18-2015 03-18-2015 Unclassified (2 sources) Screening for malignant neoplasm of colon ; Translations: [Encounter for screening for malignant neoplasm of colon] Onset: 02-26-2014 Resolved: 03-18-2015 02-26-2014 Unclassified (7 sources) Onset: 09-03-2023 Resolved: 10-01-2023 09-03-2023 Results Test Name Value Interpretation Reference Range Facil ity Vital Signs Date Time Vital Sign Value Performing Clinician Facility 10-01-2023 11:14-0500 Body height 165.1 cm Shan Rojo MD Work Phone: [facility] 10-01-2023 11:14-0500 Body mass index (BMI) [Ratio] 23.73 kg/m2 Shan Rojo MD Work Phone: [facility] 10-01-2023 11:14-0500 Body temperature 97.5 [degF] Shan Rojo MD Work Phone: [facility] 10-01-2023 11:14-0500 Body weight 64.67 kg Shan Rojo MD Work Phone: [facility] 09-23-2023 13:19-0500 Body temperature 98.01 [degF] Shan Rojo MD Work Phone: [facility] 09-23-2023 13:19-0500 Diastolic blood pressure 68 mm[Hg] Shan Rojo MD Work Phone: [facility] 09-23-2023 13:19-0500 Heart rate 85 /min Shan Rojo MD Work Phone: [facility] 09-23-2023 13:19-0500 Respiratory rate 16 /min Shan Rojo MD Work Phone: [facility] 09-23-2023 13:19-0500 SaO2% (BldA) [Mass fraction] 93 % Shan Rojo MD Work Phone: [facility] 09-23-2023 13:19-0500 Systolic blood pressure 133 mm[Hg] Shan Rojo MD Work Phone: [facility] 09-20-2023 10:29-0500 Body height 165.1 cm Shan Rojo MD Work Phone: [facility] 09-20-2023 10:29-0500 Body mass index (BMI) [Ratio] 24.51 kg/m2 Shan Rojo MD Work Phone: [facility] 09-20-2023 10:29-0500 Body weight 66.8 kg Shan Rojo MD Work Phone: [facility] 09-14-2023 14:08-0500 Body height 165.1 cm Francisco Javier Jackson MD Work Phone: [facility] 09-14-2023 14:08-0500 Body mass index (BMI) [Ratio] 24.46 kg/m2 Francisco Javier Jackson MD Work Phone: [facility] 09-14-2023 14:08-0500 Body weight 66.68 kg Francisco Javier Jackson MD Work Phone: [facility] 09-14-2023 14:08-0500 Diastolic blood pressure 50 mm[Hg] Francisco Javier Jackson MD Work Phone: [facility] 09-14-2023 14:08-0500 Heart rate 68 /min Francisco Javier Jackson MD Work Phone: [facility] 09-14-2023 14:08-0500 SaO2% (BldA) [Mass fraction] 97 % Francisco Javier Jackson MD Work Phone: [facility] 09-14-2023 14:08-0500 Systolic blood pressure 132 mm[Hg] Francisco Javier Jackson MD Work Phone: [facility] 09-03-2023 08:49-0500 Body height 165.1 cm Shan Rojo MD Work Phone: [facility] 09-03-2023 08:49-0500 Body mass index (BMI) [Ratio] 24.58 kg/m2 Shan Rojo MD Work Phone: [facility] 09-03-2023 08:49-0500 Body temperature 97.3 [degF] Shan Rojo MD Work Phone: [facility] 09-03-2023 08:49-0500 Body weight 67 kg Shan Rojo MD Work Phone: [facility] 06-14-2017 07:02-0400 BMI (Body Mass Index) 23.96 kg/m2 Danielle Arevalo [facility] Work Phone: 06-14-2017 07:02-0400 Body Temperature 97.5 [degF] Danielle Arevalo [facility] Work Phone: 06-14-2017 07:02-0400 BP Diastolic 84 mm[Hg] Danielle Arevalo [facility] Work Phone: 06-14-2017 07:02-0400 BP Systolic 140 mm[Hg] Danielle Arevalo [facility] Work Phone: 06-14-2017 07:02-0400 Height 165.1 cm Danielle Arevalo [facility] Work Phone: 06-14-2017 07:02-0400 Pulse (Heart Rate) 60 /min [facility]le [facility] Work Phone: 06-14-2017 07:02-0400 Respiratory Rate 18 /min Danielle Mickey [facility] Work Phone: 06-14-2017 07:02-0400 Weight 65.32 kg Danielle [facility] [place] Work Phone: 05-18-2016 09:12-0400 Body Temperature 96.26 [degF] Danielle [facility] Work Phone: 05-18-2016 09:12-0400 BSA (Body Surface Area) 1.71 m2 [facility] Work Phone: 05-18-2016 09:12-0400 Height 165.1 cm Danielle [facility] [place] Work Phone: 05-18-2016 09:12-0400 Weight 64.09 kg Danielle [facility] [place] Work Phone: 02-07-2016 19:43-0400 Body surface area Derived from formula 33.74 mL/min Danielle [facility] Work Phone: 11-16-2014 13:56-0400 BP Diastolic 74 mm[Hg] Danielle Mickey [facility] Work Phone: 11-16-2014 13:56-0400 BP Systolic 128 mm[Hg] [facility] [place] Work Phone: Encounters Encounter Date Encounter Type Care Provider Facility Start: 10-01-2023 End: 10-01-2023 Postop follow up visit related to original px Shan Rojo MD Work Phone: [facility] Procedures Date Procedure Procedure Detail Performing Clinician Start: 09-23-2023 Renal function panel Cris Galindo MD Work Phone: Start: 09-22-2023 Renal function panel Cris Galindo MD Work Phone: Start: 09-21-2023 Renal function panel Cris Galindo MD Work Phone: Start: 09-20-2023 Glucose quantitative blood xcpt reagent strip Shan Rojo MD Work Phone: Start: 09-20-2023 Radiologic exam abdomen 1 view Cris Galindo MD Work Phone: Start: 09-20-2023 PULSE OXIMETRY, CONTINUOUS Corey rivera MD Work Phone: Start: 09-20-2023 End: 09-20-2023 Bronchoscopy Flexible Shan Rojo MD Work Phone: Start: 09-20-2023 End: 09-20-2023 Cervical lymphadec modified radical neck dsj Shan Rojo MD Work Phone: Start: 09-20-2023 End: 09-20-2023 Esophagogastroduodenoscopy Shan yoon MD Work Phone: Start: 09-20-2023 End: 09-20-2023 Exc lesion mucosa & sbmcsl vestibule cplx rpr Shan Rojo MD Work Phone: Start: 09-20-2023 End: 09-20-2023 Split agrft f/s/n/h/f/g/m/d gt 1st 100 cm/1 % Shan Rojo MD Work Phone: Start: 09-14-2023 History of appendectomy History of appendectomy [facility] Start: 09-14-2023 Ecg routine ecg w/least 12 lds trcg only w/o i&r Love Saravia [employer]SP[employer] CLERK[employer] Work Phone: Start: 09-13-2023 Ct thorax w/o contrast material Shan godoy MD Work Phone: Start: 09-21-2022 Colonoscopy Shan Rojo MD Work Phone: Start: 06-14-2017 End: 06-14-2017 Cciiv4 vaccine preservative free 0.5 ml im use Chauncey Faulkner Work Phone: Start: 11-12-2016 End: 11-12-2016 Demo&/eval of pt utiliz aersl gen/neb/inhlr/ip Adrianne Sargent CNP Work Phone: Start: 05-18-2016 End: 05-18-2016 Demo&/eval of pt utiliz aersl gen/neb/inhlr/ip Chauncey Faulkner Work Phone: Start: 04-23-2016 End: 11-09-2016 Ct thorax w/o contrast material Chauncey Faulkner Work Phone: Start: 02-12-2016 End: 11-09-2016 Follow Up Appt 3 months Chauncey Faulkner Work Phone: Start: 02-12-2016 End: 11-09-2016 Pulmonary Function Test - complete Chauncey Faulkner Work Phone: Start: 02-12-2016 End: 11-09-2016 Pulmonary stress test/simple Chauncey pretty Work Phone: Start: 04-12-2014 End: 07-09-2014 Exc b9 lesion mrgn xcp sk tg t/a/l 0.6-1.0 cm Nilsa Shafer MD Start: 02-26-2014 End: 03-19-2014 Bone density scan Nilsa Shafer MD Start: 02-26-2014 End: 03-18-2015 Screening for malignant neoplasm of colon Screening for malignant neoplasm, colon Danielle Arevalo Start: 02-26-2014 End: 04-13-2014 Surgery Referral Nilsa Shafer MD Start: 02-12-2014 End: 02-20-2014 *CMP Complete Metabolic Panel Nilsa torres MD Start: 02-12-2014 End: 02-20-2014 *UA - Urinalysis w/o Micro Nilsa Shafer MD Start: 02-12-2014 End: 02-20-2014 C reactive protein [Mass/volume] in Serum or Plasma by High sensitivity method Nilsa Shafer MD Start: 02-12-2014 End: 02-20-2014 CBC W Auto Differential panel - Blood Nilsa Shafer MD Start: 02-12-2014 End: 02-26-2014 Cyclic citrullinated peptide IgG Ab [Units/volume] in Serum or Plasma Nilsa Shafer MD Start: 02-12-2014 End: 02-20-2014 Erythrocyte sedimentation rate Nilsa Shafer MD Start: 02-12-2014 General examination of patient Health maintenance exam Danielle Arevalo Start: 02-12-2014 End: 03-05-2014 Mammogram, Screening, both breasts Jesus Shafer MD Start: 02-12-2014 End: 02-20-2014 Rheumatoid factor qualitative Nilsa torres MD Start: 02-12-2014 Screening mammography Screening mammogram [facility] Danielle Arevalo Start: 02-12-2014 End: 02-20-2014 Lipid 1996 panel - Serum or Plasma Jesus Shafer MD H/O: surgery Other specified procedure converted to open procedure Shan Rojo MD Work Phone: Plan of Treatment Date Care Activity Detail Author Start: 09-21-2032 Screening for malignant neoplasm of colon [facility] Start: 11-19-2023 End: 11-19-2023 Patient encounter procedure 11/19/2023 10:30 AM EDT Office Visit [facility] [address] [place] [address] [place] [address] [place] [address] [facility] Start: 10-01-2023 End: 10-01-2023 Patient encounter procedure 10/01/2023 11:15 AM EST Office Visit [facility] [address] [place] [id number] [place] [address] [place] [address] [facility] Start: 09-20-2023 End: 09-20-2023 Admission to same day surgery center 09/20/2023 12:45 PM EST - 09/20/2023 6:45 PM EST Surgery [facility] [place] [address] [place] [phone] [place] [address] [place], [place] [id number] Dissection Neck [20708 (CPT )] [facility] [place] Immunizations Immunization Date Immunization Notes Care Provider Fa cility 06-21-2022 influenza virus vacc ine, unspecified formulation Shan Rojo MD Work Phone: [facility] Work Phone: 06-14-2017 [id number] Danielle [facility]valo [facility] Work Phone: 02-26-2014 pneumococcal polysaccharide vaccine, 23 valent Danielle rAevalo [facility] Work Phone: Payers Date Payer Category Payer Medicare [employer] MEDICARE A ETNA MEDICARE VALUE PLAN [id number] 2022-Present [address] [place] [address] [id number] 2021 Medicaid MEDICAID MEDICAI D [id number] 2021-Present [address] [place] [address] [id number] 2018 Self-pay 2018 Unknown [id number] 1955 Unknown [id number] 1955 Unknown [id number] Social History Date Type Detail Facility Start: 09-03-2023 End: 09-13-2023 Tobacco smoking status NHIS Ex-smoker [facility] Work Phone: End: 08-23-2022 History of tobacco use Current smoker [facility] Work Phone: End: 08-23-2022 History of tobacco use Cigarette Smoker [facility] Work Phone: Start: 09-03-2023 End: 09-21-2023 Cigarettes smoked current (pack per day) - Reported 2 [facility] Work Phone: Start: 09-03-2023 End: 09-13-2023 Tobacco use and exposure Smokeless tobacco non-user [facility] Work Phone: Start: 09-03-2023 End: 09-21-2023 Tobacco use panel [facility] Work Phone: Start: 1955 Sex Assigned At Not on file [facility] Work Phone: Start: 08-24-2023 End: 10-01-2023 Exposure to SARS-CoV-2 (event) Not sure [facility] Start: 09-13-2023 End: 10-01-2023 Alcohol intake Lifetime non-drinker (finding) [facility] Work Phone: Start: 1955 Sex Assigned At Female [facility] Start: 09-03-2023 Gender identity Identifies as female gender (finding) [facility] Work Phone: How often to you hav e a drink containing alcohol? Never [facility] How many standard drinks containing alcohol do you have on a typical day? Patient does not drink [facility] Work Phone: In the past 12 month s, was there a time when you were not able to pay the mortgage or rent on time? No [facility] Work Phone: Clinical Notes 09-03-2023 to 10-01-2023 Shan Rojo MD - 10/01/2023 11:15 AM Amira Bashir RN - 09/23/2023 1:53 PM Amira Bashir RN - 09/23/2023 1:53 PM Day Moreno RN - 09/21/2023 6:00 PM ESTPatient Instructions Note Date & Type Note Facility 10-01-2023 History of Present illness Narrative History of Present Illness Claudette Espitia was seen in August 2023 at the request of a local colleague. The patient had noticed something in her mouth. She could not move her tongue as well as previously. 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 She had a CT scan that showed this lesion and also showed at least 1 suspicious node on the right side. This was completed by a PET scan which showed this lesion as well as 2 areas of uptake in the right neck as well as an uptake in the right upper lung. This uptake in the lung corresponds to a somewhat spiculated mass that we see on the lower aspect of the CT of the neck. On September 20, 2023 she underwent surgery. The pathology report is not available. The patient seems to be fairly comfortable. She has been able to swallow by mouth. She still has a bolster in place and she still has a drain. Physical Exam Examination of the oral cavity shows the bolster which is about 2 follow out. This was removed with small instruments. Approximately 80% of the skin graft has taken. The Dobbhoff for feeding tube is also removed. The drain from the right neck was also removed. A small dressing was applied. Assessment and Plan Status post surgery for an oral cavity cancer. The final pathology report is not available. She may require further management. She has that she be referred closer to home. The patient is to start eating by mouth. She also needed some refill on her oxycodone. Right pulmonary nodule which is spiculated on CT scan and uptakes on the PET scan. A CT scan of her chest will be obtained. This will most likely need to be biopsied or removed at some point. I will see her in 1 month. documented in this encounter [facility] Work Phone: 09-23-2023 Nurse Note Patient was educated on Draining the WALTER drain and to monitor output. A handout was given to her with regards to tube feeding. For her and her to use as a reference. I sat with patient at length to explain tube feeds and management. I also wrote notes on her discharge papers for reminders catered to her needs. I offered to video phone patients but the patient refused. Patient felt confident and had no further questions. [facility] 09-23-2023 Nurse Note Patient was educated on Draining the WALTER drain and to monitor output. A handout was given to her with regards to tube feeding. For her and her to use as a reference. I sat with patient at length to explain tube feeds and management. I also wrote notes on her discharge papers for reminders catered to her needs. I offered to video phone patients but the patient refused. Patient felt confident and had no further questions. [employer]osource increased to 20ml/hr at this time. Pt goal rate is 50ml/hr. Denies pain, nausea. Resting in bed. documented in this encounter [facility] Work Phone: 09-23-2023 Hospital course Narrative Discharge Diagnosis Cancer of oral cavity (CMS/HCC) Issues Requiring Follow-Up Post op visit with drain and bolster removal Test Results Pending At Discharge Pending Labs Order Current Status Surgical Pathology Exam In process Hospital Course Claudette Espitia is a 68 y.o. female with floor of mouth squamous cell carcinoma, who presented for resection of FOM cancer by Dr Rojo on 09/20. Patient had an uncomplicated surgical course. Patient recovered in PACU and was transferred to [facility] for post-operative care. Patient post-operative course was uncomplicated. On day of discharge, one drain was removed and one drain remained in place. The patient will also be going home with a nasogastric feeding tube. post-operative pain was well controlled with enteral pain medication, breathing on room air, voiding spontaneously ambulating well, and was tolerating a clear liquid diet and bolus feeds. Follow-up arranged. Pertinent Physical Exam At Time of Discharge Physical Exam Vitals reviewed in EMR Gen: NAD, AOx3, resting comfortably in bed Eyes: EOMI, sclera clear, PERRL Ears: Normal external ears bilaterally Nose: No rhinorrhea; anterior nares clear Oral Cavity: Moist mucus membranes, Bolster in place with red rubber catheters sutured in place Head: normocephalic, atraumatic Neck: Incisions well approximated, C/D/I/, no active bleeding or oozing, no signs of fluid collection or hematoma. Resp: Non-labored breathing on room air Cards: Well perfused; No clubbing/Cyanosis/Edema in hands Gastro: Soft, non-distended, DHT in place : Voiding MSK: Moves all extremities Psych: Appropriate mood and affect Drains: All drains in place and holding suction with serosanguinous drainage (stripped) Home Medications Medication List START taking these medications chlorhexidine 0.12 % solution; Commonly known as: Peridex; Swish and spit 15 mL in the mouth or throat 3 times a day after meals. clindamycin 150 mg capsule; Commonly known as: Cleocin; Take 4 capsules (600 mg) by mouth every 8 hours for 8 days. white petrolatum 41 % ointment ointment; Commonly known as: Aquaphor; Apply 1 Application topically 3 times a day. CONTINUE taking these medications Advair HFA 230-21 mcg/actuation inhaler; Generic drug: fluticasone propion-salmeteroL alendronate 70 mg tablet; Commonly known as: Fosamax cyanocobalamin 1,000 mcg tablet; Commonly known as: Vitamin B-12 lisinopril 10 mg tablet oxybutynin 5 mg tablet; Commonly known as: Ditropan traMADol 50 mg tablet; Commonly known as: Ultram traZODone 100 mg tablet; Commonly known as: Desyrel Outpatient Follow-Up Future Appointments Date Time Provider Department Center 10/01/2023 11:15 AM Shan Rojo MD [id number] Academic Olivia Bocanegra APRN, CNP Certified Family Nurse Practitioner Nurse Practitioner III Department of Otolaryngology: Head & Neck Surgery Personal Pager [phone] ENT Team Head and Neck Phone: [phone] documented in this encounter [facility] Work Phone: 09-23-2023 History of Present illness Narrative Claudette Espitia is a 68 y.o. female on day 3 of admission presenting with Cancer of oral cavity (CMS/HCC). SW met with pt to check in. Pt reported that at discharge, she will need assistance with transport home. SW let pt know that SW would continue to stop by and see if she had any other needs; pt denies SW needs at this time. SW will follow and assist as needed. YENI Davies. 09/23/2023 0750 Pt is discharging today. SW met with pt briefly to check in and to discuss transport home. Pt will discharge with a drain and the Dobhoff. SW requested transport for 1300. SW will notify and pt when transport time is confirmed. SW will follow and assist as needed. YENI Davies. Claudette Espitia is a 68 y.o. female on day 2 of admission presenting with Cancer of oral cavity (CMS/HCC). SW met with pt to check in. Pt reported that at discharge, she will need assistance with transport home. SW let pt know that SW would continue to stop by and see if she had any other needs; pt denies SW needs at this time. SW will follow and assist as needed. YENI Davies. Claudette Espitia is a 68 y.o. female on day 2 of admission presenting with Cancer of oral cavity (CMS/HCC). Subjective Patient did well overnight. Pain is being well controlled on current regimen. Objective Physical Exam Vitals reviewed in EMR Gen: NAD, AOx3, resting comfortably in bed Eyes: EOMI, sclera clear, PERRL Ears: Normal external ears bilaterally Nose: No rhinorrhea; anterior nares clear Oral Cavity: Moist mucus membranes, Bolster in place with red rubber catheters sutured in place Head: normocephalic, atraumatic Neck: Incisions well approximated, C/D/I/, no active bleeding or oozing, no signs of fluid collection or hematoma. Resp: Non-labored breathing on room air Cards: Well perfused; No clubbing/Cyanosis/Edema in hands Gastro: Soft, non-distended, DHT in place : Voiding MSK: Moves all extremities Psych: Appropriate mood and affect Drains: All drains in place and holding suction with serosanguinous drainage (stripped) Last Recorded Vitals Blood pressure 152/64, pulse 91, temperature 37.7 C (99.9 F), temperature source Temporal, resp. rate 15, height 1.651 m (5' 5 ), weight 66.8 kg (147 lb 4.3 oz), SpO2 94 %. Intake/Output last 3 Shifts: I/O last 3 completed shifts: In: 2477.2 (37.1 mL/kg) [P.O.:75; I.V.:1919.2 (28.7 mL/kg); NG/GT:433; IV Piggyback:50] Out: 1167.5 (17.5 mL/kg) [Urine:950 (0.4 mL/kg/hr); Drains:217.5] Weight: 66.8 kg Relevant Results No results found for this or any previous visit (from the past 24 hour(s)). Scheduled medications acetaminophen, 975 mg, nasogastric tube, q8h KATIA Or acetaminophen, 1,000 mg, nasogastric tube, q8h KATIA Or acetaminophen, 1,000 mg, nasogastric tube, q8h KATIA bacitracin, , Topical, TID chlorhexidine, 15 mL, Mouth/Throat, TID after meals clindamycin, 600 mg, intravenous, q8h enoxaparin, 40 mg, subcutaneous, q24h esomeprazole, 40 mg, nasogastric tube, Daily before breakfast hydrogen peroxide, 1 Application, Topical, TID polyethylene glycol, 17 g, nasogastric tube, Daily white petrolatum, 1 Application, Topical, TID Continuous medications sodium chloride 0.9%, 75 mL/hr, Last Rate: 75 mL/hr (09/21/23 180) PRN medications PRN medications: ipratropium-albuteroL, naloxone, ondansetron ODT OR ondansetron, oxybutynin, oxyCODONE OR oxyCODONE OR oxyCODONE, oxyCODONE, oxygen, traZODone Assessment/Plan Principal Problem: Cancer of oral cavity (CMS/HCC) Active Problems: Pulmonary nodule Assessment: 68 year old female with a 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 Rojo. 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 OA Asthma CKD stage III (Cr 1.17) COPD Degenerative Disc disease of the lumbar and cervical region Depression GERD HTN Osteoporosis managed on alendronate Pulmonary nodule Acute Blood Loss Anemia Plan: -Drains: Monitor output -Analgesia: PRN Oxycodone Scheduled Acetaminophen -FEN: mIVFs, CLD, bolus TF when at goal; monitor and replete electrolytes as needed -Pulm: wean oxygen to room air, Incentive Spirometer 10x/hr while awake -ID: Clindamycin 600mg IV Q8hrs while bolster in place -Cardiac: Vitals Q4hr -Endo: No Current Intervention -GI: Bowel regimen, PPI, and PRN anti-emetic -: voiding; continue home Oxybutynin -Steroids/Special: Incision and oral care per ENT order set -Embolic PPx: SQH, SCDs while in bed -Dispo: Discharge planning for POD 2 vs 3 home with home care vs [facility] facility. Patient to follow up with Dr. Rojo to remove bolster. All plans discussed with attendings after morning rounds. Pierre Land MD - PGY1 Otolaryngology - Head & Neck Surgery [facility] ENT Consult pager: [phone] ENT Peds pager: [phone] ENT Head & Neck Surgery Phone: [phone] ENT subspecialty team: Rickie individual resident who wrote today's note ENT Outpatient scheduling number: [phone] 09/21/23 1100 Discharge Planning Living Arrangements Spouse/significant other Support Systems Spouse/significant other Assistance Needed walker prn Type of Residence Private residence Number of Stairs to Enter Residence 0 (elevator) Number of Stairs Within Residence 0 Do you have animals or pets at home? No Who is requesting discharge planning? Provider Home or Post Acute Services Other (Comment) (pending pt/ot recs) Patient expects to be discharged to: home Does the patient need discharge transport arranged? Yes RoundTrip coordination needed? Yes Has discharge transport been arranged? No What day is the transport expected? 09/23/23 Financial Resource Strain How hard is it for you to pay for the very basics like food, housing, medical care, and heating? Not hard Housing Stability In the last 12 months, was there a time when you were not able to pay the mortgage or rent on time? N In the last 12 months, how many places have you lived? 1 In the last 12 months, was there a time when you did not have a steady place to sleep or slept in a halfway (including now)? N Transportation Needs In the past 12 months, has lack of transportation kept you from medical appointments or from getting medications? no In the past 12 months, has lack of transportation kept you from meetings, work, or from getting things needed for daily living? 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 Rojo. Status: inpatient Payor Source: [employer] Medicare Discharge disposition: pending Pt/Ot recs Expected date of discharge: 09/24 Barriers: none at this time PCP: Dr. Cass Modi TCC met with patient bedside to discuss anticipated discharge needs. Demographics and insurance verifed with patient. Patient states she was independent with ADLs prior to admission. Patient states her support person is her Kyle Espitia. Patient states she uses [facility] [id number] [id number] and that the pharmacy delivers to patients home. Patient states she does not have transportation and will need help getting a ride home. Will continue to follow patient for any discharge needs. 09/21/23 at 11:25 AM - MICHELLE AC RN Claudette Espitia is a 68 y.o. female on day 1 of admission presenting with Cancer of oral cavity (CMS/HCC). Subjective Patient did well overnight. Pain is being well controlled on current regimen. Objective Physical Exam Vitals reviewed in EMR Gen: NAD, AOx3, resting comfortably in bed Eyes: EOMI, sclera clear, PERRL Ears: Normal external ears bilaterally Nose: No rhinorrhea; anterior nares clear Oral Cavity: Moist mucus membranes, Bolster in place with red rubber catheters sutured in place Head: normocephalic, atraumatic Neck: Incisions well approximated, C/D/I/, no active bleeding or oozing, no signs of fluid collection or hematoma. Resp: Non-labored breathing on room air Cards: Well perfused; No clubbing/Cyanosis/Edema in hands Gastro: Soft, non-distended, DHT in place : Voiding MSK: Moves all extremities Psych: Appropriate mood and affect Drains: All drains in place and holding suction with serosanguinous drainage (stripped) Last Recorded Vitals Blood pressure (!) 92/47, pulse 72, temperature 36.8 C (98.2 F), temperature source Temporal, resp. rate 16, height 1.651 m (5' 5 ), weight 66.8 kg (147 lb 4.3 oz), SpO2 93 %. Intake/Output last 3 Shifts: I/O last 3 completed shifts: In: 2417.9 (36.2 mL/kg) [I.V.:2237.9 (33.5 mL/kg); NG/GT:180] Out: 720 (10.8 mL/kg) [Urine:565 (0.2 mL/kg/hr); Drains:145; Blood:10] Weight: 66.8 kg Relevant Results Results for orders placed or performed during the hospital encounter of 09/20/23 (from the past 24 hour(s)) POCT GLUCOSE Result Value Ref Range POCT Glucose 145 (H) 74 - 99 mg/dL Renal Function Panel Result Value Ref Range Glucose 126 (H) 74 - 99 mg/dL Sodium 134 (L) 136 - 145 mmol/L Potassium 4.5 3.5 - 5.3 mmol/L Chloride 100 98 - 107 mmol/L Bicarbonate 26 21 - 32 mmol/L Anion Gap 13 10 - 20 mmol/L Urea Nitrogen 20 6 - 23 mg/dL Creatinine 1.00 0.50 - 1.05 mg/dL eGFR 61 >60 mL/min/1.73m*2 Calcium 8.7 8.6 - 10.6 mg/dL Phosphorus 3.1 2.5 - 4.9 mg/dL Albumin 3.3 (L) 3.4 - 5.0 g/dL CBC Result Value Ref Range WBC 12.0 (H) 4.4 - 11.3 x10*3/uL nRBC 0.0 0.0 - 0.0 /100 WBCs RBC 4.34 4.00 - 5.20 x10*6/uL Hemoglobin 11.6 (L) 12.0 - 16.0 g/dL Hematocrit 36.0 36.0 - 46.0 % MCV 83 80 - 100 fL MCH 26.7 26.0 - 34.0 pg MCHC 32.2 32.0 - 36.0 g/dL RDW 12.6 11.5 - 14.5 % Platelets 343 150 - 450 x10*3/uL Magnesium Result Value Ref Range Magnesium 2.08 1.60 - 2.40 mg/dL Scheduled medications acetaminophen, 975 mg, nasogastric tube, q8h KATIA Or acetaminophen, 1,000 mg, nasogastric tube, q8h KATIA Or acetaminophen, 1,000 mg, nasogastric tube, q8h KATIA bacitracin, , Topical, TID chlorhexidine, 15 mL, Mouth/Throat, TID after meals clindamycin, 600 mg, intravenous, q8h enoxaparin, 40 mg, subcutaneous, q24h esomeprazole, 40 mg, nasogastric tube, Daily before breakfast hydrogen peroxide, 1 Application, Topical, TID ipratropium-albuteroL, 3 mL, nebulization, q6h polyethylene glycol, 17 g, nasogastric tube, Daily [START ON 09/22/2023] white petrolatum, 1 Application, Topical, TID Continuous medications sodium chloride 0.9%, 75 mL/hr, Last Rate: 75 mL/hr (09/21/23 0928) PRN medications PRN medications: naloxone, ondansetron ODT OR ondansetron, oxybutynin, oxyCODONE OR oxyCODONE OR oxyCODONE, oxyCODONE, oxygen, traZODone Assessment/Plan Principal Problem: Cancer of oral cavity (CMS/HCC) Active Problems: Pulmonary nodule Assessment: 68 year old female with a 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 Rojo. 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 OA Asthma CKD stage III (Cr 1.17) COPD Degenerative Disc disease of the lumbar and cervical region Depression GERD HTN Osteoporosis managed on alendronate Pulmonary nodule Acute Blood Loss Anemia Plan: -Drains: Monitor output -Analgesia: PRN Oxycodone Scheduled Acetaminophen -FEN: mIVFs, may have sips of water, trickle TF; monitor and replete electrolytes as needed -Pulm: wean oxygen to room air, Incentive Spirometer 10x/hr while awake -ID: Clindamycin 600mg IV Q8hrs while bolster in place -Cardiac: Vitals Q4hr -Endo: No Current Intervention -GI: Bowel regimen, PPI, and PRN anti-emetic -: voiding; continue home Oxybutynin -Steroids/Special: Incision and oral care per ENT order set -Embolic PPx: SQH, SCDs while in bed -Dispo: Discharge planning for POD 2 vs 3 home with home care vs [facility] facility All plans discussed with attendings after morning rounds. I spent 35 minutes in the professional and overall care of this patient. Olivia Bocanegra APRN, TRAVEL PT Certified Family Nurse Practitioner Nurse Practitioner III Department of Otolaryngology: Head & Neck Surgery Personal Pager [phone] ENT Team Head and Neck Phone: [phone] Pharmacy Medication History Review Claudette Espitia is a 68 y.o. female admitted for No Principal Problem: There is no principal problem currently on the Problem List. Please update the Problem List and refresh.. Pharmacy reviewed the patient's [id number] medications and allergies for accuracy. The list below reflects the updated BMET list. Comments regarding how patient may be taking medications differently can be found in the Admit Orders Activity Prior to Admission Medications Prescriptions Last Dose Informant Patient Reported? Advair HFA 230-21 mcg/actuation inhaler 09/20/2023 at 0800 Self Yes Sig: INHALE TWO PUFFS BY MOUTH EVERY TWELVE HOURS alendronate (Fosamax) 70 mg tablet Past Month Self Yes Sig: Take 1 tablet (70 mg) by mouth 1 (one) time per week. cyanocobalamin (Vitamin B-12) 1,000 mcg tablet Not Taking Self Yes Sig: Take 1 tablet (1,000 mcg) by mouth once daily. lisinopril 10 mg tablet 09/20/2023 at 0800 Self Yes Sig: Take 1 tablet (10 mg) by mouth once daily. oxybutynin (Ditropan) 5 mg tablet Past Week Self Yes Sig: Take 1 tablet (5 mg) by mouth as needed at bedtime. traMADol (Ultram) 50 mg tablet 09/19/2023 Self Yes Sig: TAKE 1 OR 2 TABLETS BY MOUTH EVERY DAY NEEDED FOR PAIN traZODone (Desyrel) 100 mg tablet 09/19/2023 Self Yes Sig: TAKE ONE TABLET BY MOUTH AT BEDTIME FOR insomnia Facility-Administered Medications: None The list below reflects the updated allergy list. Please review each documented allergy for additional clarification and justification. Allergies Reviewed by Fabiana Moreno RN on 09/20/2023 Severity Reactions Comments Penicillins Medium Swelling Nicotine Low Rash From nicotine patch Patient declines M2B at discharge. Sources used to complete the med history include out patient fill history, OARRS, and patient interview along with pre admission testing note from 09/13/23. Below are additional concerns with the patient's BMET list. Aureliano Wilson [facility] Transitions of Care Clinical Pharmacist Please reach out via [employer]pp[employer] Chat for questions, if no response call [facility] or [facility] documented in this encounter [facility] Work Phone: 09-22-2023 Hospital Note Formatting of t his note might be different from the original. Claudette Espitia is a 68 y.o. female with floor of mouth squamous cell carcinoma, who presented for resection of FOM cancer by Dr Rojo on 09/20. Patient had an uncomplicated surgical course. Patient recovered in PACU and was transferred to [facility] for post-operative care. Patient post-operative course was uncomplicated. On day of discharge, one drain was removed and one drain remained in place. The patient will also be going home with a nasogastric feeding tube. post-operative pain was well controlled with enteral pain medication, breathing on room air, voiding spontaneously ambulating well, and was tolerating a clear liquid diet and bolus feeds. Follow-up arranged. [facility] Work Phone: 09-22-2023 Miscellaneous Notes Claudette Espitia is a 68 y.o. female with floor of mouth squamous cell carcinoma, who presented for resection of FOM cancer by Dr Rojo on 09/20. Patient had an uncomplicated surgical course. Patient recovered in PACU and was transferred to [facility] for post-operative care. Patient post-operative course was uncomplicated. On day of discharge, one drain was removed and one drain remained in place. The patient will also be going home with a nasogastric feeding tube. post-operative pain was well controlled with enteral pain medication, breathing on room air, voiding spontaneously ambulating well, and was tolerating a clear liquid diet and bolus feeds. Follow-up arranged. The patient's goals for the shift include The clinical goals for the shift include pt will tolerate the advancement of tube feed. r/t nausea. Problem: Pain Goal: My pain/discomfort is manageable Outcome: Progressing Problem: Daily Care Goal: Daily care needs are met Outcome: Progressing Problem: Psychosocial Needs Goal: Demonstrates ability to cope with hospitalization/illness Outcome: Progressing The patient's goals for the shift include start TPN The clinical goals for the shift include Pain managed during shift Over the shift, the patient did not make progress toward the following goals. Barriers to progression include incisional pain. Recommendations to address these barriers include administer pain medication per order, reposition, rest. [facility] - Operative Report Name: Claudette Espitia Date of Procedure: 09/20/23 Location: [facility] Attending Surgeon: Shan Rojo MD Resident/Fellow: Venita Galindo Preoperative Diagnosis: Anterior floor of mouth cancer, neck metastasis, dysphagia Postoperative Diagnosis: Same Operative indications: This is a patient presents with a fairly small lesion of the anterior floor of the mouth. At the same time she does have bilateral a positive PET scan in her right neck in 2 separate areas. She is here today to have this addressed surgically. She understands the surgery and the possible complications and wishes to proceed. Procedure: Direct laryngoscopy, flexible bronchoscopy, flexible esophagoscopy, excision of a floor of mouth lesion, right selective neck dissection (levels 1A through 4), left sialodochoplasty of submandibular duct, and insertion of a Dobbhoff feeding tube. Operative procedure: Under general anesthesia the patient was properly positioned. The Dedo laryngoscope was introduced. Careful examination of the oral cavity oropharynx hypopharynx and larynx is carried out. Besides the known lesion in the anterior floor the mouth no other lesion could be identified. The laryngoscope was then suspended over the larynx. The bronchoscope was inserted through the laryngoscope into the tracheobronchial tree. All the different bronchial segments are visualized and are felt to be within normal limits. The bronchoscope was then pulled. The gastroscope was introduced all the way down into the stomach. The esophagus is visualized on the way out and found to be normal. The patient was then prepped and draped in the usual sterile fashion. Working intraorally the area of interest on the floor the mouth more so on the right than the left was excised with margin of approximately 5 mm. The submandibular duct on the right was sacrificed. The 1 on the right was tagged and opened up for future repair. The specimen was then sent to pathology for frozen section. In the meantime a right selective neck dissection was carried out. Levels 1A between the anterior bellies of the digastric, level 1B in the submandibular area, level 2 through 4 were dissected. The limits of the dissection were superiorly the posterior belly of the digastric and inferiorly the supraclavicular area. The anterior margin was the carotid sheath, of the posterior limit was the junction between the cervical plexus and the sternocleidomastoid muscle, and the deep was the prevertebral fascia. The spinal accessory nerve was dissected and preserved and level 2B was also dissected. The frozen section showed a positive margin submucosally on the right side. This area was reexcised and turned out to be negative. The submandibular duct on the left side was then again opened up and sutured to the adjacent mucosa with 4-0 Vicryl. A skin graft was obtained from the neck. The patient had a lot of redundant tissue and therefore another incision was outlined below the incision that are bigger than used for the dissection and a skin graft full-thickness was harvested. The soft tissue were discarded. The skin graft was then applied to the defect in the floor of the mouth it was sutured in place with 4-0 Vicryl sutures. A bolster dressing was applied over the area with Xeroform. This was maintained in place with 2-0 silk. 210 mm drains were placed in the neck and sutured to the skin with 2-0 Prolene. The wound was closed in 2 planes a subcutaneous plane with inverting 3-0 Vicryl suture and the skin with a running 5-0 fast. Antibiotic ointment was applied to the incision. A Dobbhoff feeding tube was placed through the left nostril the position was verified with the Dedo laryngoscope. It was felt to be adequate. The procedure was terminated. The estimated blood loss was 80 cc. The patient was sent back to recovery room in fair condition. This is dictated on September 20, 2023. I was present for the entire procedure Shan Rojo MD Date: 09/20/2023 OR Location: [facility] OR Name: Claudette Espitia, : 1955, Age: 68 y.o., , Sex: female Diagnosis Pre-op Diagnosis * Cancer of oral cavity (CMS/HCC) [C06.9] * Pulmonary nodule [R91.1] Post-op Diagnosis * Cancer of oral cavity (CMS/HCC) [C06.9] * Pulmonary nodule [R91.1] Procedures Dissection Neck 27498 - AK CERVICAL LYMPHADEC MODIFIED RADICAL NECK DSJ Removal oral cavity cancer 16998 - AK EXC LESION MUCOSA & SBMCSL VESTIBULE CPLX RPR right neck skin graft to floor of mouth 14295 - AK SPLIT AGRFT F/S/N/H/F/G/M/D GT 1ST 100 CM/</1 % Bronchoscopy Flexible Esophagogastroduodenoscopy AK LARYNGOSCOPY W/WO TRACHEOSCOPY DX EXCEPT [64868] AK BRNCHSC INCL FLUOR GDNCE DX W/CELL WASHG SPX [00374] AK ESOPHAGOSCOPY FLEXIBLE TRANSORAL DIAGNOSTIC [66966] AK NASO/GALINA-GASTRIC TUBE PLMT REQ PHYS&FLUOR GDNCE [76926] Surgeons * Shan Rojo - Primary Resident/Fellow/Other Casino Floor Walker: Surgeon(s) and Role: * Cris Galindo MD - Resident - Assisting Procedure Summary Anesthesia: General ASA: III Anesthesia Staff: Anesthesiologist: Corey Lopez MD EVENT COORDINATOR: Augustina Valencia APRN-EVENT COORDINATOR C-AA: MYLES Greenwood Estimated Blood Loss: 10mL Intra-op Medications: Administrations occurring from 1200 to 1800 on 09/20/23: Medication Name Total Dose bacitracin ointment 1 Application sodium chloride 0.9 % irrigation solution 1,000 mL HYDROmorphone (Dilaudid) injection 0.4 mg 2.4 mg Anesthesia Record Intraprocedure I/O Totals Intake Phenylephrine Drip 0.00 mL The total shown is the total volume documented since Anesthesia Start was filed. lactated Ringer's 1000.00 mL Total Intake 1000 mL Output Urine 165 mL Est. Blood Loss 10 mL Total Output 175 mL Net Net Volume 825 mL Specimen: ID Type Source Tests Collected by Time 1 : FLOOR OF MOUTH LESION (STITCH AT POSTERIOR MIDLINE) Tissue FLOOR OF MOUTH ANTERIOR RESECTION SURGICAL PATHOLOGY EXAM Shan Rojo MD 09/20/2023 1310 2 : LEVEL 3 Tissue LYMPH NODE BIOPSY SURGICAL PATHOLOGY EXAM Shan Rojo MD 09/20/2023 1353 3 : RIGHT NECK DISSECTION LEVELS 1-4 (LONG STITCH ON 2 AND SHORT STITCH ON 4) Tissue NECK DISSECTION RIGHT (SPECIFY LEVELS) SURGICAL PATHOLOGY EXAM Shan Rojo MD 09/20/2023 1413 4 : RIGHT FLOOR OF MOUTH Tissue FLOOR OF MOUTH RIGHT BIOPSY SURGICAL PATHOLOGY EXAM Shan Rojo MD 09/20/2023 1423 Staff: Veterinary Technology Instructor: Sindhu Nichols RN Relief Scrub: Mel Ortiz RN; Talon Coto Scrub Person: Fina Ly; Perry Box Findings: Right floor of mouth lesion, crossing over to the left, Left homer's duct sialodochoplasty. Right selective neck dissection (levels 1-4). Full thickness skin graft from right neck bolstered in place in floor of mouth with red rubber catheters. DHT placed under direct visualization. Complications: None; patient tolerated the procedure well. Disposition: PACU - hemodynamically stable. Condition: stable Specimens Collected: ID Type Source Tests Collected by Time 1 : FLOOR OF MOUTH LESION (STITCH AT POSTERIOR MIDLINE) Tissue FLOOR OF MOUTH ANTERIOR RESECTION SURGICAL PATHOLOGY EXAM Shan Rojo MD 09/20/2023 1310 2 : LEVEL 3 Tissue LYMPH NODE BIOPSY SURGICAL PATHOLOGY EXAM Shan Rojo MD 09/20/2023 1353 3 : RIGHT NECK DISSECTION LEVELS 1-4 (LONG STITCH ON 2 AND SHORT STITCH ON 4) Tissue NECK DISSECTION RIGHT (SPECIFY LEVELS) SURGICAL PATHOLOGY EXAM Shan Rojo MD 09/20/2023 1413 4 : RIGHT FLOOR OF MOUTH Tissue FLOOR OF MOUTH RIGHT BIOPSY SURGICAL PATHOLOGY EXAM Shan Rojo MD 09/20/2023 1423 documented in this encounter [facility] Work Phone: 09-22-2023 Plan of care note The patient's goals for the shift include The clinical goals for the shift include pt will tolerate the advancement of tube feed. r/t nausea. Problem: Pain Goal: My pain/discomfort is manageable Outcome: Progressing Problem: Daily Care Goal: Daily care needs are met Outcome: Progressing Problem: Psychosocial Needs Goal: Demonstrates ability to cope with hospitalization/illness Outcome: Progressing [facility] 09-21-2023 Nurse Note Isosource increased to 20ml/hr at this time. Pt goal rate is 50ml/hr. Denies pain, nausea. Resting in bed. 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 Taken to OR (09/20) now s/p triple endoscopy, DHT placement, resection of floor of mouth, dental extractions, reconstruction with a full thickness skin graft, and right neck dissection levels I-IV. Trickle feeds of Isosource 1.5 ordered @ 10mL/hr by team this AM. Pt denies any intolerance at time of visit. Nutrition History: Energy Intake: Good > 75 % Food and Nutrient History: Pt resting in bed at time of visit w/ Isosource 1.5 running @ 10mL/hr. Reports that prior to admission she continued to consume her usual 3 meals/day at home. Breakfast is typically something small like toast & lunch/dinner are larger. Pt reports good appetite & no decline in portions at meals. Denies use of oral nutritional supplements. RDN briefly dicussed plan for gradual TF advancement w/ need to purchase Boost VHC over the counter at discharge. Pt denies questions at this time. Vitamin/Herbal Supplement Use: Vitamin B12 Food Allergies/Intolerances: None GI Symptoms: Constipation and Reflux Oral Problems: Chewing difficulty (notes bad teeth ) Anthropometrics: Height: 165.1 cm (5' 5 ) Weight: 66.8 kg (147 lb 4.3 oz) BMI (Calculated): 24.51 IBW/kg (Dietitian Calculated): 56.8 kg Percent of IBW: 118 % Weight History: Wt Readings from Last 30 Encounters: 09/20/23 66.8 kg (147 lb 4.3 oz) --> Admit wt 09/14/23 66.7 kg (147 lb) 09/13/23 67.2 kg (148 lb 3.2 oz) 09/03/23 67 kg (147 lb 11.2 oz) Pt notes weight has been stable w/ no notable changes. Weight Change %: Weight History / % Weight Change: Pt with stable weight over the past year. Significant Weight Loss: No Nutrition Focused Physical Exam Findings: Subcutaneous Fat Loss: Orbital Fat Pads: Mild-Moderate (slight dark circles and slight hollowing) Buccal Fat Pads: Mild-Moderate (flat cheeks, minimal bounce) Triceps: Well nourished (ample fat tissue) Muscle Wasting: Temporalis: Well nourished (well-defined muscle) Pectoralis (Clavicular Region): Well nourished (clavicle not visible) Deltoid/Trapezius: Well nourished (rounded appearance at arm, shoulder, neck) Interosseous: Mild-Moderate (slightly depressed area between thumb and forefinger) Gastrocnemius: Mild-Moderate (not well developed muscle) Edema: Edema: none Physical Findings: Hair: Negative Eyes: Negative Mouth: Negative Nails: Negative Skin: Positive (Mouth & R throat incisions) Nutrition Significant Labs: BMP Trend: Results from last 7 days Lab Units 09/21/23 0648 GLUCOSE mg/dL 126* CALCIUM mg/dL 8.7 SODIUM mmol/L 134* POTASSIUM mmol/L 4.5 CO2 mmol/L 26 CHLORIDE mmol/L 100 BUN mg/dL 20 CREATININE mg/dL 1.00 Nutrition Specific Medications: Scheduled medications clindamycin, 600 mg, intravenous, q8h esomeprazole, 40 mg, nasogastric tube, Daily before breakfast polyethylene glycol, 17 g, nasogastric tube, Daily Continuous medications sodium chloride 0.9%, 75 mL/hr, Last Rate: 75 mL/hr (09/21/23 1249) I/O: No recorded BM since admission. Dietary Orders (From admission, onward) Start Ordered 09/21/23 0825 Enteral feeding with NPO Isosource 1.5; 10 Diet effective now Comments: May have sips of Water Question Answer Comment Tube feeding formula: Isosource 1.5 Tube feeding continuous rate (mL/hr): 10 09/21/23 0824 Estimated Needs: Total Energy Estimated Needs (kCal): 8421-5076 kCal Method for Estimating Needs: MSJ (REE: 1204) x 1.3-1.5 Total Protein Estimated Needs (g): 75-85 g Method for Estimating Needs: 1.3-1.5 g/kg x IBW Total Fluid Estimated Needs (mL): 4284-9291 mL Method for Estimating Needs: 1mL/kcal or per team Nutrition Diagnosis Malnutrition Diagnosis Patient has Malnutrition Diagnosis: No Nutrition Diagnosis Patient has Nutrition Diagnosis: Yes Diagnosis Status (1): New Nutrition Diagnosis 1: Increased nutrient needs Related to (1): increased metabolic demand As Evidenced by (1): oral cavity SCC now s/p surgical intervention Nutrition Interventions/Recommendations Nutrition Prescription: Continue Isosource 1.5 @ 10mL/hr. When ready, advance by 10mL q 6-8hrs to goal rate of 50mL/hr FWF: 200mL 4x/day or per MD Provides: 1800 kcals, 82g protein, 1717mL water After pt tolerates continuous goal volume, transition to bolus feeds Isosource 1.5 bolus @ 285mL 4x/day FWF: 60mL pre/post feed with additional 175mL BID Prior to discharge, transition to homegoing boluses Boost VHC bolus @ 200mL 4x/day (~3.5 cans per day) FWF: 60mL pre/post feed with additional 230mL TID Provides: 800mL, 1784 kcals, 74g pro, 1706mL free water Time Spent/Follow-up Reminder: Time Spent (min): 90 minutes Last Date of Nutrition Visit: 09/21/23 Nutrition Follow-Up Needed?: Dietitian to reassess per policy [facility] 09-21-2023 Consult note Associated Order (s): IP CONSULT TO NUTRITION SERVICES Nutrition Initial Assessment: Nutrition Assessment Reason for Assessment: Tube feeding recommendations 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 Taken to OR (09/20) now s/p triple endoscopy, DHT placement, resection of floor of mouth, dental extractions, reconstruction with a full thickness skin graft, and right neck dissection levels I-IV. Trickle feeds of Isosource 1.5 ordered @ 10mL/hr by team this AM. Pt denies any intolerance at time of visit. Nutrition History: Energy Intake: Good > 75 % Food and Nutrient History: Pt resting in bed at time of visit w/ Isosource 1.5 running @ 10mL/hr. Reports that prior to admission she continued to consume her usual 3 meals/day at home. Breakfast is typically something small like toast & lunch/dinner are larger. Pt reports good appetite & no decline in portions at meals. Denies use of oral nutritional supplements. RDN briefly dicussed plan for gradual TF advancement w/ need to purchase Boost VHC over the counter at discharge. Pt denies questions at this time. Vitamin/Herbal Supplement Use: Vitamin B12 Food Allergies/Intolerances: None GI Symptoms: Constipation and Reflux Oral Problems: Chewing difficulty (notes bad teeth ) Anthropometrics: Height: 165.1 cm (5' 5 ) Weight: 66.8 kg (147 lb 4.3 oz) BMI (Calculated): 24.51 IBW/kg (Dietitian Calculated): 56.8 kg Percent of IBW: 118 % Weight History: Wt Readings from Last 30 Encounters: 09/20/23 66.8 kg (147 lb 4.3 oz) --> Admit wt 09/14/23 66.7 kg (147 lb) 09/13/23 67.2 kg (148 lb 3.2 oz) 09/03/23 67 kg (147 lb 11.2 oz) Pt notes weight has been stable w/ no notable changes. Weight Change %: Weight History / % Weight Change: Pt with stable weight over the past year. Significant Weight Loss: No Nutrition Focused Physical Exam Findings: Subcutaneous Fat Loss: Orbital Fat Pads: Mild-Moderate (slight dark circles and slight hollowing) Buccal Fat Pads: Mild-Moderate (flat cheeks, minimal bounce) Triceps: Well nourished (ample fat tissue) Muscle Wasting: Temporalis: Well nourished (well-defined muscle) Pectoralis (Clavicular Region): Well nourished (clavicle not visible) Deltoid/Trapezius: Well nourished (rounded appearance at arm, shoulder, neck) Interosseous: Mild-Moderate (slightly depressed area between thumb and forefinger) Gastrocnemius: Mild-Moderate (not well developed muscle) Edema: Edema: none Physical Findings: Hair: Negative Eyes: Negative Mouth: Negative Nails: Negative Skin: Positive (Mouth & R throat incisions) Nutrition Significant Labs: BMP Trend: Results from last 7 days Lab Units 09/21/23 0648 GLUCOSE mg/dL 126* CALCIUM mg/dL 8.7 SODIUM mmol/L 134* POTASSIUM mmol/L 4.5 CO2 mmol/L 26 CHLORIDE mmol/L 100 BUN mg/dL 20 CREATININE mg/dL 1.00 Nutrition Specific Medications: Scheduled medications clindamycin, 600 mg, intravenous, q8h esomeprazole, 40 mg, nasogastric tube, Daily before breakfast polyethylene glycol, 17 g, nasogastric tube, Daily Continuous medications sodium chloride 0.9%, 75 mL/hr, Last Rate: 75 mL/hr (09/21/23 1249) I/O: No recorded BM since admission. Dietary Orders (From admission, onward) Start Ordered 09/21/23 0825 Enteral feeding with NPO Isosource 1.5; 10 Diet effective now Comments: May have sips of Water Question Answer Comment Tube feeding formula: Isosource 1.5 Tube feeding continuous rate (mL/hr): 10 09/21/23 0824 Estimated Needs: Total Energy Estimated Needs (kCal): 7306-7462 kCal Method for Estimating Needs: MSJ (REE: 1204) x 1.3-1.5 Total Protein Estimated Needs (g): 75-85 g Method for Estimating Needs: 1.3-1.5 g/kg x IBW Total Fluid Estimated Needs (mL): 3771-2513 mL Method for Estimating Needs: 1mL/kcal or per team Nutrition Diagnosis Malnutrition Diagnosis Patient has Malnutrition Diagnosis: No Nutrition Diagnosis Patient has Nutrition Diagnosis: Yes Diagnosis Status (1): New Nutrition Diagnosis 1: Increased nutrient needs Related to (1): increased metabolic demand As Evidenced by (1): oral cavity SCC now s/p surgical intervention Nutrition Interventions/Recommendations Nutrition Prescription: Continue Isosource 1.5 @ 10mL/hr. When ready, advance by 10mL q 6-8hrs to goal rate of 50mL/hr FWF: 200mL 4x/day or per MD Provides: 1800 kcals, 82g protein, 1717mL water After pt tolerates continuous goal volume, transition to bolus feeds Isosource 1.5 bolus @ 285mL 4x/day FWF: 60mL pre/post feed with additional 175mL BID Prior to discharge, transition to homegoing boluses Boost VHC bolus @ 200mL 4x/day (~3.5 cans per day) FWF: 60mL pre/post feed with additional 230mL TID Provides: 800mL, 1784 kcals, 74g pro, 1706mL free water Time Spent/Follow-up Reminder: Time Spent (min): 90 minutes Last Date of Nutrition Visit: 09/21/23 Nutrition Follow-Up Needed?: Dietitian to reassess per policy documented in this encounter [facility] Work Phone: 09-21-2023 Plan of care note The patient's goals for the shift include start TPN The clinical goals for the shift include Pain managed during shift Over the shift, the patient did not make progress toward the following goals. Barriers to progression include incisional pain. Recommendations to address these barriers include administer pain medication per order, reposition, rest. [facility] Work Phone: 09-20-2023 Note Formatting of this n ote might be different from the original. 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 At the same time she does have bilateral a positive PET scan in her right neck in 2 separate areas. She is here today to have this addressed surgically. She understands the surgery and the possible complications and wishes to proceed. Procedure: Direct laryngoscopy, flexible bronchoscopy, flexible esophagoscopy, excision of a floor of mouth lesion, right selective neck dissection (levels 1A through 4), left sialodochoplasty of submandibular duct, and insertion of a Dobbhoff feeding tube. Operative procedure: Under general anesthesia the patient was properly positioned. The Dedo laryngoscope was introduced. Careful examination of the oral cavity oropharynx hypopharynx and larynx is carried out. Besides the known lesion in the anterior floor the mouth no other lesion could be identified. The laryngoscope was then suspended over the larynx. The bronchoscope was inserted through the laryngoscope into the tracheobronchial tree. All the different bronchial segments are visualized and are felt to be within normal limits. The bronchoscope was then pulled. The gastroscope was introduced all the way down into the stomach. The esophagus is visualized on the way out and found to be normal. The patient was then prepped and draped in the usual sterile fashion. Working intraorally the area of interest on the floor the mouth more so on the right than the left was excised with margin of approximately 5 mm. The submandibular duct on the right was sacrificed. The 1 on the right was tagged and opened up for future repair. The specimen was then sent to pathology for frozen section. In the meantime a right selective neck dissection was carried out. Levels 1A between the anterior bellies of the digastric, level 1B in the submandibular area, level 2 through 4 were dissected. The limits of the dissection were superiorly the posterior belly of the digastric and inferiorly the supraclavicular area. The anterior margin was the carotid sheath, of the posterior limit was the junction between the cervical plexus and the sternocleidomastoid muscle, and the deep was the prevertebral fascia. The spinal accessory nerve was dissected and preserved and level 2B was also dissected. The frozen section showed a positive margin submucosally on the right side. This area was reexcised and turned out to be negative. The submandibular duct on the left side was then again opened up and sutured to the adjacent mucosa with 4-0 Vicryl. A skin graft was obtained from the neck. The patient had a lot of redundant tissue and therefore another incision was outlined below the incision that are bigger than used for the dissection and a skin graft full-thickness was harvested. The soft tissue were discarded. The skin graft was then applied to the defect in the floor of the mouth it was sutured in place with 4-0 Vicryl sutures. A bolster dressing was applied over the area with Xeroform. This was maintained in place with 2-0 silk. 210 mm drains were placed in the neck and sutured to the skin with 2-0 Prolene. The wound was closed in 2 planes a subcutaneous plane with inverting 3-0 Vicryl suture and the skin with a running 5-0 fast. Antibiotic ointment was applied to the incision. A Dobbhoff feeding tube was placed through the left nostril the position was verified with the Dedo laryngoscope. It was felt to be adequate. The procedure was terminated. The estimated blood loss was 80 cc. The patient was sent back to recovery room in fair condition. This is dictated on September 20, 2023. I was present for the entire procedure Shan Rojo MD [facility] Work Phone: 09-20-2023 Note Formatting of this n ote is different from the original. Date: 09/20/2023 OR Location: [facility] OR Name: Claudette Espitia, : 1955, Age: 68 y.o., , Sex: female Diagnosis Pre-op Diagnosis * Cancer of oral cavity (CMS/HCC) [C06.9] * Pulmonary nodule [R91.1] Post-op Diagnosis * Cancer of oral cavity (CMS/HCC) [C06.9] * Pulmonary nodule [R91.1] Procedures Dissection Neck 22659 - AK CERVICAL LYMPHADEC MODIFIED RADICAL NECK DSJ Removal oral cavity cancer 94865 - AK EXC LESION MUCOSA & SBMCSL VESTIBULE CPLX RPR right neck skin graft to floor of mouth 37275 - AK SPLIT AGRFT F/S/N/H/F/G/M/D GT 1ST 100 CM/ Bronchoscopy Flexible Esophagogastroduodenoscopy AK LARYNGOSCOPY W/WO TRACHEOSCOPY DX EXCEPT [21014] AK BRNCHSC INCL FLUOR GDNCE DX W/CELL WASHG SPX [91202] AK ESOPHAGOSCOPY FLEXIBLE TRANSORAL DIAGNOSTIC [71941] AK NASO/GALINA-GASTRIC TUBE PLMT REQ PHYS&FLUOR GDNCE [39113] Surgeons * Shan Rojo - Primary Resident/Fellow/Other Casino Floor Walker: Surgeon(s) and Role: * Cris Galindo MD - Resident - Assisting Procedure Summary Anesthesia: General ASA: III Anesthesia Staff: Anesthesiologist: Corey Lopez MD EVENT COORDINATOR: Augustina Valencia APRN-EVENT COORDINATOR C-AA: MYLES Greenwood Estimated Blood Loss: 10mL Intra-op Medications: Administrations occurring from 1200 to 1800 on 09/20/23: Medication Name Total Dose bacitracin ointment 1 Application sodium chloride 0.9 % irrigation solution 1,000 mL HYDROmorphone (Dilaudid) injection 0.4 mg 2.4 mg Anesthesia Record Intraprocedure I/O Totals Intake Phenylephrine Drip 0.00 mL The total shown is the total volume documented since Anesthesia Start was filed. lactated Ringer's 1000.00 mL Total Intake 1000 mL Output Urine 165 mL Est. Blood Loss 10 mL Total Output 175 mL Net Net Volume 825 mL Specimen: ID Type Source Tests Collected by Time 1 : FLOOR OF MOUTH LESION (STITCH AT POSTERIOR MIDLINE) Tissue FLOOR OF MOUTH ANTERIOR RESECTION SURGICAL PATHOLOGY EXAM Shan Rojo MD 09/20/2023 1310 2 : LEVEL 3 Tissue LYMPH NODE BIOPSY SURGICAL PATHOLOGY EXAM Shan Rojo MD 09/20/2023 1353 3 : RIGHT NECK DISSECTION LEVELS 1-4 (LONG STITCH ON 2 AND SHORT STITCH ON 4) Tissue NECK DISSECTION RIGHT (SPECIFY LEVELS) SURGICAL PATHOLOGY EXAM Shan Rojo MD 09/20/2023 1413 4 : RIGHT FLOOR OF MOUTH Tissue FLOOR OF MOUTH RIGHT BIOPSY SURGICAL PATHOLOGY EXAM Shan Rojo MD 09/20/2023 1423 Staff: Veterinary Technology Instructor: Sindhu Nichols RN Relief Scrub: Mel Ortiz RN; Talon Coto Scrub Person: Fina Ly; Perry Box Findings: Right floor of mouth lesion, crossing over to the left, Left homer's duct sialodochoplasty. Right selective neck dissection (levels 1-4). Full thickness skin graft from right neck bolstered in place in floor of mouth with red rubber catheters. DHT placed under direct visualization. Complications: None; patient tolerated the procedure well. Disposition: PACU - hemodynamically stable. Condition: stable Specimens Collected: ID Type Source Tests Collected by Time 1 : FLOOR OF MOUTH LESION (STITCH AT POSTERIOR MIDLINE) Tissue FLOOR OF MOUTH ANTERIOR RESECTION SURGICAL PATHOLOGY EXAM Shan Rojo MD 09/20/2023 1310 2 : LEVEL 3 Tissue LYMPH NODE BIOPSY SURGICAL PATHOLOGY EXAM Shan Rojo MD 09/20/2023 1353 3 : RIGHT NECK DISSECTION LEVELS 1-4 (LONG STITCH ON 2 AND SHORT STITCH ON 4) Tissue NECK DISSECTION RIGHT (SPECIFY LEVELS) SURGICAL PATHOLOGY EXAM Shan Rojo MD 09/20/2023 1413 4 : RIGHT FLOOR OF MOUTH Tissue FLOOR OF MOUTH RIGHT BIOPSY SURGICAL PATHOLOGY EXAM Shan Rojo MD 09/20/2023 1423 [facility] Work Phone: 09-20-2023 Attending History and physical note H&P reviewed. The patient was examined and there are no changes to the H&P. Source Note - Shan Rojo MD - 09/03/2023 9:00 AM EST History of Present Illness Claudette Espitia is a 68 y.o. female who is seen at the request of a local colleague. The patient had noticed something in her mouth. She could not move her tongue as well as previously. 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 She had a CT scan that shows this lesion and also shows at least 1 suspicious node on the right side. This was completed by a PET scan which shows this lesion as well as 2 areas of uptake in the right neck as well as an uptake in the right upper lung. This uptake in the lung corresponds to a somewhat spiculated mass that we see on the lower aspect of the CT of the neck. Past Medical History The past medical history and review of the systems does show COPD, high blood pressure, cardiovascular issues. Her medications are documented in the chart. She does have allergy to penicillin. She is a former smoker. She stopped smoking back in 2022 when she was diagnosed with a COPD. She is here today with her . Physical Exam The patient is alert and oriented. Examination of the external ears, ear canals, and eardrums, is within normal limits. Examination of the anterior and external nose is negative. Examination of the oral cavity and oropharynx is negative except for this exophytic lesion involving the anterior floor the mouth more so on the right but overlapping on the left. There is good mobility of the tongue and palate. There is good mandibular excursion. Palpation of the parotid, neck, and thyroid field fails to show any worrisome masses or adenopathies. More specifically I cannot appreciate what we see on the scans. A flexible laryngoscopy was carried out. Under topical Xylocaine and Jason-Synephrine the scope was introduced through the nostril. The nasopharynx, base of tongue, hypopharynx, and larynx are visualized. The vocal cords are normally mobile. There is no pooling of secretions in the piriform sinuses. There is no evidence of any mucosal lesions. Assessment and Plan Oral cavity cancer with neck metastasis. The patient will be set up for surgical excision. She will have a transoral approach to the oral cavity cancer in the area will most likely be reconstructed with a skin graft. She will also undergo a right neck dissection. I will also proceed to a panendoscopy. Right pulmonary nodule which is spiculated on CT scan and uptakes on the PET scan. A CT scan of her chest will be obtained. This will most likely need to be biopsied or removed at some point. I will see her at the time of the surgery. [facility] Work Phone: 09-20-2023 History and physical note H&P reviewed. The patient was examined and there are no changes to the H&P. Source Note - Shan Rojo MD - 09/03/2023 9:00 AM EST History of Present Illness Claudette Espitia is a 68 y.o. female who is seen at the request of a local colleague. The patient had noticed something in her mouth. She could not move her tongue as well as previously. 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 She had a CT scan that shows this lesion and also shows at least 1 suspicious node on the right side. This was completed by a PET scan which shows this lesion as well as 2 areas of uptake in the right neck as well as an uptake in the right upper lung. This uptake in the lung corresponds to a somewhat spiculated mass that we see on the lower aspect of the CT of the neck. Past Medical History The past medical history and review of the systems does show COPD, high blood pressure, cardiovascular issues. Her medications are documented in the chart. She does have allergy to penicillin. She is a former smoker. She stopped smoking back in 2022 when she was diagnosed with a COPD. She is here today with her . Physical Exam The patient is alert and oriented. Examination of the external ears, ear canals, and eardrums, is within normal limits. Examination of the anterior and external nose is negative. Examination of the oral cavity and oropharynx is negative except for this exophytic lesion involving the anterior floor the mouth more so on the right but overlapping on the left. There is good mobility of the tongue and palate. There is good mandibular excursion. Palpation of the parotid, neck, and thyroid field fails to show any worrisome masses or adenopathies. More specifically I cannot appreciate what we see on the scans. A flexible laryngoscopy was carried out. Under topical Xylocaine and Jason-Synephrine the scope was introduced through the nostril. The nasopharynx, base of tongue, hypopharynx, and larynx are visualized. The vocal cords are normally mobile. There is no pooling of secretions in the piriform sinuses. There is no evidence of any mucosal lesions. Assessment and Plan Oral cavity cancer with neck metastasis. The patient will be set up for surgical excision. She will have a transoral approach to the oral cavity cancer in the area will most likely be reconstructed with a skin graft. She will also undergo a right neck dissection. I will also proceed to a panendoscopy. Right pulmonary nodule which is spiculated on CT scan and uptakes on the PET scan. A CT scan of her chest will be obtained. This will most likely need to be biopsied or removed at some point. I will see her at the time of the surgery. documented in this encounter [facility] Work Phone: 09-14-2023 History of Present illness Narrative Cardiology New Patient History and Physical Reason for referral: pre-op evaluation prior to oral cancer resection + neck dissection HPI: Claudette Espitia is a 68 y.o. female who presents today for pre-operative evaluation for neck dissection for oral cancer. 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 Patient is scheduled to undergo resection and neck dissection on 09/20/[address] Rojo. Patient was referred to cardiology for pre-operative evaluation. Claudette presented to cardiology clinic on 09/14/2023. Patient is asymptomatic from a cardiovascular perspective. Patient denies any chest pain, dyspnea, orthopnea, PND, syncope, presyncope, fever/chills, nausea/vomiting, or pedal edema. Patient can perform greater than 4 METS without active cardiac complaints. Patient's cardiac risk factors include hypertension, former smoker. Past Medical History: - As above Surgical History: She has a past surgical history that includes Appendectomy; CT lung screening low dose (10/09/2019); Colonoscopy (09/21/2022); NM PET CT bone skull base TO MID thigh (07/27/2023); CT soft tissue neck w IV contrast (07/01/2023); Knee surgery (Right, 1979); Hip Arthroplasty (Right, 2019); XR chest 1 view (10/31/2018); Esophagogastroduodenoscopy (12/26/2015); Other surgical history (07/08/2014); Cataract extraction (2000); and ORIF ankle fracture (1979). Family History: Family History Problem Relation Name Age of Onset Lung cancer Mother Breast cancer Mother Kidney failure Father Prostate cancer Brother Half-brother- in remission Brain cancer Other first cousin- paternal Allergies: Penicillins and Nicotine Social History: - Former smoker (Quit 2022- Smoke 2 PPD since ~ age 15); no illicit drug use Prior Cardiovascular Testing (personally reviewed): ECG (09/13/2023)- normal sinus rhythm; normal ECG Review of Systems: Review of Systems Constitutional: Negative. HENT: Negative. Right neck mass; mouth mass Eyes: Negative. Cardiovascular: Negative for chest pain, dyspnea on exertion, near-syncope, orthopnea, palpitations, paroxysmal nocturnal dyspnea and syncope. Respiratory: Negative. Endocrine: Negative. Hematologic/Lymphatic: Negative. Skin: Negative. Musculoskeletal: Negative. Gastrointestinal: Negative. Genitourinary: Negative. Neurological: Negative. Psychiatric/Behavioral: Negative. Allergic/Immunologic: Negative. Objective Outpatient Medications: Current Outpatient Medications: Advair HFA 230-21 mcg/actuation inhaler, INHALE TWO PUFFS BY MOUTH EVERY TWELVE HOURS, Disp: , Rfl: alendronate (Fosamax) 70 mg tablet, Take 1 tablet (70 mg) by mouth 1 (one) time per week., Disp: , Rfl: lisinopril 10 mg tablet, Take 1 tablet (10 mg) by mouth once daily., Disp: , Rfl: oxybutynin (Ditropan) 5 mg tablet, Take 1 tablet (5 mg) by mouth as needed at bedtime., Disp: , Rfl: traMADol (Ultram) 50 mg tablet, TAKE 1 OR 2 TABLETS BY MOUTH EVERY DAY NEEDED FOR PAIN, Disp: , Rfl: traZODone (Desyrel) 100 mg tablet, TAKE ONE TABLET BY MOUTH AT BEDTIME FOR insomnia, Disp: , Rfl: cyanocobalamin (Vitamin B-12) 1,000 mcg tablet, Take 1 tablet (1,000 mcg) by mouth once daily., Disp: , Rfl: Last Recorded Vitals BP 132/50 (BP Location: Left arm, Patient Position: Sitting, BP Cuff Size: Adult) Pulse 68 Ht 1.651 m (5' 5 ) Wt 66.7 kg (147 lb) SpO2 97% BMI 24.46 kg/m Physical Exam: Physical Exam Constitutional: General: She is not in acute distress. HENT: Head: Normocephalic. Mouth/Throat: Mouth: Mucous membranes are moist. Eyes: Extraocular Movements: Extraocular movements intact. Conjunctiva/sclera: Conjunctivae normal. Neck: Vascular: No carotid bruit or JVD. Comments: + right neck mass Cardiovascular: Rate and Rhythm: Normal rate and regular rhythm. Pulses: Normal pulses. Heart sounds: No murmur heard. Pulmonary: Effort: Pulmonary effort is normal. No respiratory distress. Breath sounds: Normal breath sounds. Abdominal: General: Bowel sounds are normal. There is no distension. Palpations: Abdomen is soft. Musculoskeletal: General: No swelling. Skin: General: Skin is warm and dry. Neurological: General: No focal deficit present. Mental Status: She is alert. Cranial Nerves: No cranial nerve deficit. Motor: No weakness. Psychiatric: Mood and Affect: Mood normal. Behavior: Behavior normal. Lab Review: Lab Results Component Value Date GLUCOSE 97 09/13/2023 CALCIUM 9.6 09/13/2023 NA 135 (L) 09/13/2023 K 4.9 09/13/2023 CO2 24 09/13/2023 CL 98 09/13/2023 BUN 24 (H) 09/13/2023 CREATININE 1.17 (H) 09/13/2023 Lab Results Component Value Date WBC 7.4 09/13/2023 HGB 12.2 09/13/2023 HCT 37.8 09/13/2023 MCV 83 09/13/2023 PLT 340 09/13/2023 Lab Results Component Value Date TSH 2.42 09/13/2023 Assessment: 68 y.o. female who presents today for pre-operative evaluation for neck dissection for oral cancer. 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 Patient is currently asymptomatic from cardiac perspective and can perform greater than 4 METS without active cardiac complaints. The patient's revised cardiac risk index score is 1 (type of surgery), which carries a 6% risk of any perioperative major adverse cardiac events. Much of the patient's risk is nonmodifiable. As patient is asymptomatic and surgery is time sensitive recommend proceeding with proposed surgery without additional cardiovascular testing. If patient were planned to have chemotherapy and/or radiation therapy in the future would then recommend baseline transthoracic echocardiogram with global longitudinal strain imaging. Overall Plan: 1. Preoperative evaluation - Recommend proceeding with proposed surgery as above - Hold lisinopril on morning of surgery 2. Hypertension - Currently well-controlled - Continue lisinopril 10 mg daily 3. Squamous cell cancer of the mouth - Follow-up as per ENT and oncology - If patient were to have chemotherapy or radiation would then recommend baseline transthoracic echocardiogram with global longitudinal strain imaging 4. Former tobacco smoker - Encouraged continued tobacco abstinence, congratulated patient on quitting Disposition: Return to cardiology clinic as needed Francisco Javier Jackson MD documented in this encounter [facility] Work Phone: 09-14-2023 Instructions Francisco Javier Jackson MD - 09/14/2023 2:00 PM EST Ok to go ahead with surgery for mouth / neck cancer. Your heart ECG was normal. Follow-up as needed in heart clinic. If you have any questions, please call my nurse Karine; her contact information is below. Thank you for your visit today. Please contact our office (via [employer] or phone) with any additional questions. [facility] [place] ANAID [place]/Clinic Nurse for: Dr. Manuel Gomez [address] [place] [address] Press Option 5 then Option 3 to speak with the Clinic Nurse (Karine) To Reach: Billing Questions - [phone] Scheduling / Rescheduling - Option 1 Refills / Medication Requests - Option 3 General Office / [place] - Option 4 Results - Option 6 Medical Records - Option 7 Repeat Options - Option 9 documented in this encounter [facility] Work Phone: 09-03-2023 History of Present illness Narrative History of Present Illness Claudette Espitia is a 68 y.o. female who is seen at the request of a local colleague. The patient had noticed something in her mouth. She could not move her tongue as well as previously. 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 She had a CT scan that shows this lesion and also shows at least 1 suspicious node on the right side. This was completed by a PET scan which shows this lesion as well as 2 areas of uptake in the right neck as well as an uptake in the right upper lung. This uptake in the lung corresponds to a somewhat spiculated mass that we see on the lower aspect of the CT of the neck. Past Medical History The past medical history and review of the systems does show COPD, high blood pressure, cardiovascular issues. Her medications are documented in the chart. She does have allergy to penicillin. She is a former smoker. She stopped smoking back in 2022 when she was diagnosed with a COPD. She is here today with her . Physical Exam The patient is alert and oriented. Examination of the external ears, ear canals, and eardrums, is within normal limits. Examination of the anterior and external nose is negative. Examination of the oral cavity and oropharynx is negative except for this exophytic lesion involving the anterior floor the mouth more so on the right but overlapping on the left. There is good mobility of the tongue and palate. There is good mandibular excursion. Palpation of the parotid, neck, and thyroid field fails to show any worrisome masses or adenopathies. More specifically I cannot appreciate what we see on the scans. A flexible laryngoscopy was carried out. Under topical Xylocaine and Jason-Synephrine the scope was introduced through the nostril. The nasopharynx, base of tongue, hypopharynx, and larynx are visualized. The vocal cords are normally mobile. There is no pooling of secretions in the piriform sinuses. There is no evidence of any mucosal lesions. Assessment and Plan Oral cavity cancer with neck metastasis. The patient will be set up for surgical excision. She will have a transoral approach to the oral cavity cancer in the area will most likely be reconstructed with a skin graft. She will also undergo a right neck dissection. I will also proceed to a panendoscopy. Right pulmonary nodule which is spiculated on CT scan and uptakes on the PET scan. A CT scan of her chest will be obtained. This will most likely need to be biopsied or removed at some point. I will see her at the time of the surgery. documented in this encounter [facility] Work Phone: documented in this encounter [facility] Work Phone: Evaluation note* Diagnosis Cancer of oral cavity (CMS/HCC) Malignant neoplasm of mouth, unspecified site Pulmonary nodule Other diseases of lung, not elsewhere classified Cancer of oral cavity (CMS/HCC) Malignant neoplasm of mouth, unspecified site Pulmonary nodule Other diseases of lung, not elsewhere classified Cancer of oral cavity (CMS/HCC) Malignant neoplasm of mouth, unspecified site Pulmonary nodule Other diseases of lung, not elsewhere classified documented in this encounter [facility] Work Phone: Evaluation note* Diagnosis Cancer of oral cavity (CMS/HCC) Malignant neoplasm of mouth, unspecified site Pulmonary nodule Other diseases of lung, not elsewhere classified Cancer of oral cavity (CMS/HCC) Malignant neoplasm of mouth, unspecified site Pulmonary nodule Other diseases of lung, not elsewhere classified Cancer of oral cavity (CMS/HCC) Malignant neoplasm of mouth, unspecified site Pulmonary nodule Other diseases of lung, not elsewhere classified documented in this encounter [facility] Work Phone: Evaluation note* Diagnosis Cancer of oral cavity (CMS/HCC) Malignant neoplasm of mouth, unspecified site Pulmonary nodule Other diseases of lung, not elsewhere classified Pre-operative clearance- Primary Unspecified pre-operative examination Cancer of oral cavity (CMS/HCC) Malignant neoplasm of mouth, unspecified site Primary hypertension Unspecified essential hypertension Former smoker Personal history of tobacco use, presenting hazards to health Cancer of oral cavity (CMS/HCC) Malignant neoplasm of mouth, unspecified site Pulmonary nodule Other diseases of lung, not elsewhere classified documented in this encounter [facility] Work Phone: Evaluation note* Diagnosis Cancer of oral cavity (CMS/HCC) Malignant neoplasm of mouth, unspecified site Pulmonary nodule Other diseases of lung, not elsewhere classified Hypertension, unspecified type Preoperative examination Unspecified pre-operative examination Cancer of oral cavity (CMS/HCC) Malignant neoplasm of mouth, unspecified site Pulmonary nodule Other diseases of lung, not elsewhere classified documented in this encounter [facility] Work Phone: Evaluation note* Diagnosis Cancer of oral cavity (CMS/HCC)- Primary Malignant neoplasm of mouth, unspecified site Pulmonary nodule Other diseases of lung, not elsewhere classified documented in this encounter [facility] Work Phone: Evaluation note* Diagnosis Cancer of oral cavity (CMS/HCC)- Primary Malignant neoplasm of mouth, unspecified site documented in this encounter [facility] Work Phone: Summary Purpose Family History No Family History Records FoundNo Family History Records Found Advance Directives Latest Code Status on File Code Status Date Activated Date Inactivated Comments Full Code 09/20/2023 6:43 PM Question Answer Comments Plan of Care: Code Status Discussion Completed Decision Maker: Patient Latest Code Status on File Code Status Date Activated Date Inactivated Comments Full Code 09/20/2023 6:43 PM Question Answer Comments Plan of Care: Code Status Discussion Completed Decision Maker: Patient Reason for Referral Specialty Diagnoses / Procedures Referred By Contac t Referred To Contact Radiology Diagnoses Cancer of oral cavity (CMS/HCC) Pulmonary nodule Procedures [place] [address] [place] [address] Referral ID Status Reason Start Date Expiration Date Visits Requested Visits Authorized [id number] Pending Review Perform Procedure 09/03/2023 09/02/2024 1 1 Referral ID Status Reason Start Date Expiration Date Visits Requested Visits Authorized [id number] Authorized Perform Procedure 09/03/2023 09/02/2024 1 1 Specialty Diagnoses / Procedures Referred By Contac t Referred To Contact Diagnoses Hypertension, unspecified type Preoperative examination Procedures ECG [address], [place] [address] [place] [address] Referral ID Status Reason Start Date Expiration Date V isits Requested Visits Authorized [id number] Authorized 09/13/2023 09/12/2024 1 1 Additional Source Comments INFORMATION SOURCE (unrecogn ized section and content) DATE CREATED AUTHOR AUTHOR'S ORGANIZ ATION 09/15/2023 [facility] Reason for Visit (unrecogniz ed section and content) Specialty Diagnoses / Procedures Referred By Emily t Referred To Contact Radiology Diagnoses Cancer of oral cavity (CMS/HCC) Pulmonary nodule Procedures [place] [address] [place] [address] Referral ID Status Reason Start Date Expiration Date Visits Requested Visits Authorized [id number] Authorized Perform Procedure 09/03/2023 09/02/2024 1 1 Reason Comments Pre-op Clearance Specialty Diagnoses / Procedures Referred By Emily t Referred To Contact Diagnoses Hypertension, unspecified type Preoperative examination Procedures ECG [address], [place] [address] [place] [address] Referral ID Status Reason Start Date Expiration Date V isits Requested Visits Authorized [id number] Authorized 09/13/2023 09/12/2024 1 1 Specialty Diagnoses / Procedures Referred By Emily t Referred To Contact Diagnoses Cancer of oral cavity (CMS/HCC) Pulmonary nodule Cancer of oral cavity (CMS/HCC) [C06.9] Pulmonary nodule [R91.1] Procedures AK CERVICAL LYMPHADEC MODIFIED RADICAL NECK DSJ AK EXC LESION MUCOSA & SBMCSL VESTIBULE CPLX RPR AK SPLIT AGRFT F/S/N/H/F/G/M/D GT 1ST 100 CM/</1 % AK LARYNGOSCOPY W/WO TRACHEOSCOPY DX EXCEPT AK BRNCHSC INCL FLUOR GDNCE DX W/CELL WASHG SPX AK ESOPHAGOSCOPY FLEXIBLE TRANSORAL DIAGNOSTIC AK NASO/GALINA-GASTRIC TUBE PLMT REQ PHYS&FLUOR GDNCE Dissection Neck Removal oral cavity cancer [id number] [address] [place] [address] [facility] Raymond Herman [address] [place] [address] Referral ID Status Reason Start Date Expiration Date Visits Re quested Visits Authorized Reason Comments Post-op Oral cavity Care Teams (unrecognized sec tion and content) Nature Photographer Relationship Specialty Start Date End Date Cass Modi [address] [place], [place] [id number] PCP - [employer]age PCP 09/23/22 Gui Fung MD [address] [place], [place] [phone] Referring Physician Otolaryngology 08/09/23 Nature Photographer Relationship Specialty Start Date End Date Cass ModiDO [address] [place], [place] [id number] PCP - [employer]age PCP 09/23/22 Gui Fung MD [address] [place], [place] [phone] Referring Physician Otolaryngology 08/09/23 Nature Photographer Relationship Specialty Start Date End Date Cass ModiDO [address] [place] [address] PCP - [employer]vantage PCP 09/23/22 Gui Fung MD [address] [place], [place] [phone] Referring Physician Otolaryngology 08/09/23 Francisco Javier Jackson MD [address] [place] [address] [place] [id number] Consulting Physician Cardiology 09/14/23 Nature Photographer Relationship Specialty Start Date End Date Cass Modi DO [address] [place] [address] PCP - [employer] Advantage PCP 09/23/22 RianCass juanDO [address] [place] [address] PCP - General Family Medicine 09/20/23 Gui Fung MD [address] [place] [address] Referring Physician Otolaryngology 08/09/23 Francisco Javier Jackson MD [address] [place] [address] Consulting Physician Cardiology 09/14/23 Nature Photographer Relationship Specialty Start Date End Date Cass ModiDO [address] [address] PCP - [employer] Advantage PCP 09/23/22 RianCass DO [address] [place] [address] PCP - General Family Medicine 09/20/23 Gui Fung MD [address] [place], [place] [phone] Referring Physician Otolaryngology 08/09/23 Francisco Javier Jackson MD [address] [place] [address] [place] [address] Consulting Physician Cardiology 09/14/23 Martha Ware, finish menderTrack Inspecting Supervisor 09/24/23 Scheduled Active and Recently Administ ered Medications (unrecognized section and content) Continuous Medication Order 09/21/2023 09/22/2023 09/23/2023 sodium chloride 0.9% infusion 75 mL/hr, intravenous, Continuous, Starting on Wed09/20/23 at 1845, Phase II/On Unit 0643 (New Bag - Provider: Indigo Chandler, ANAID)0928 (Rate/Dose Verify - Provider: Fabiana Moreno RN)1249 (Rate/Dose Verify - Provider: Fabiana Moreno RN)1514 (Rate/Dose Verify - Provider: Fabiana Moreno RN)1809 (Rate/Dose Verify - Provider: Fabiana Moreno RN) 1408 (New Bag - Provider: Noé Caruso RN)2220 (Rate/Dose Verify - Provider: Noé Caruso RN) PRN Medication Order 09/21/2023 09/22/2023 09/23/2023 ipratropium-albuteroL (Duo-Neb) 0.5-2.5 mg/3 mL nebulizer solution 3 mL 3 mL, nebulization, Every 6 hours PRN, wheezing, Starting on Wed09/21/23 at 1045, Phase II/On Unit naloxone (Narcan) injection 0.2 mg 0.2 mg, intravenous, Every 5 min PRN, respiratory depression, Starting on Wed09/20/23 at 1842, Phase II/On Unit, If respiratory rate is less than 8 breaths/minute or patient is difficult to arouse stop any narcotics and contact physician. Administer slow IV push. Repeat as ordered until patient's respiratory rate is greater than 12 breaths/minute. ondansetron (Zofran) injection 4 mg(Linked Group 2) 4 mg, intravenous, Every 8 hours PRN, nausea/vomiting, first line, Starting on Wed09/20/23 at 1842, Phase II/On Unit, 1st Line. Give IV if patient is unable to take orally. If inadequate response within 60 minutes, proceed to next-line agent for same PRN reason or contact provider if no further options ordered. When administering via IV Push, administer over 3-5 minutes. ondansetron ODT (Zofran-ODT) disintegrating tablet 4 mg(Linked Group 2) 4 mg, oral, Every 8 hours PRN, nausea/vomiting, first line, Starting on Wed09/20/23 at 1842, Phase II/On Unit, 1st Line. Patient should allow tablet to dissolve on tongue. Do not remove from blister pack until just before administering. If inadequate response within 60 minutes, proceed to next-line agent for same PRN reason or contact provider if no further options ordered. oxybutynin (Ditropan) tablet 5 mg 5 mg, nasogastric tube, Nightly PRN, overactive bladder, Starting on Wed09/20/23 at 1938, Phase II/On Unit oxyCODONE (Roxicodone) immediate release tablet 5 mg(Linked Group 3) 5 mg, nasogastric tube, Every 4 hours PRN, pain moderate (4-6), first line, Starting on Wed09/20/23 at 1938, Phase II/On Unit, If ordered PRN for pain, nurse is permitted to administer this medication for higher pain scores based on patient preference? Yes oxyCODONE (Roxicodone) solution 10 mg (CANCELED) 10 mg, nasogastric tube, Every 6 hours PRN, pain severe (7-10), first line, Starting on Wed09/20/23 at 1939, Phase II/On Unit, If ordered PRN for pain, nurse is permitted to administer this medication for higher pain scores based on patient preference? Yes 0038 (Not Given - Provider: Indigo Chandler RN - Reason: Other - Comment: pulled too early, med returned, Paged team about Q6 vs [id number] for PRN Oxy)0231 (Given - Provider: Indigo Chandler RN) oxyCODONE (Roxicodone) solution 10 mg 10 mg, nasogastric tube, Every 4 hours PRN, pain severe (7-10), first line, Starting on Wed09/21/23 at 0515, Phase II/On Unit, If ordered PRN for pain, nurse is permitted to administer this medication for higher pain scores based on patient preference? Yes 0631 (Given - Provider: Indigo Chandler RN)1045 (Given - Provider: Fabiana Morneo, ANAID)1817 (Given - Provider: Fabiana Moreno, RN) 0507 (Given - Provider: Sera Briggs, RN)1247 (Given - Provider: Noé Caruso, RN)1720 (Given - Provider: Noé Caruso RN) 0038 (Given - Provider: Sarah Cai, ANAID)0507 (Given - Provider: Sarah Cai, ANAID)1304 (Given - Provider: Ritchie Bashir RN) oxyCODONE (Roxicodone) solution 5 mg(Linked Group 3) 5 mg, nasogastric tube, Every 4 hours PRN, pain moderate (4-6), first line, Starting on Wed09/20/23 at 1938, Phase II/On Unit, If unable to take tablets., If ordered PRN for pain, nurse is permitted to administer this medication for higher pain scores based on patient preference? Yes oxyCODONE (Roxicodone) solution 5 mg(Linked Group 3) 5 mg, nasogastric tube, Every 4 hours PRN, pain moderate (4-6), first line, Starting on Wed09/20/23 at 1938, Phase II/On Unit, If NPO, If ordered PRN for pain, nurse is permitted to administer this medication for higher pain scores based on patient preference? Yes oxygen (O2) therapy inhalation, Continuous PRN - O2/gases, other, Starting on Wed09/20/23 at 1842, Phase II/On Unit, Wean to room air., Device: Nasal Cannula, Rate in liters per minute: 2 LPM, Keep O2 Sat Above: 92% traZODone (Desyrel) tablet 150 mg 150 mg, nasogastric tube, Nightly PRN, sleep, Starting on Wed09/20/23 at 1939, Phase II/On Unit 2114 (Given - Provider: Sera Briggs RN) Linked Groups Order Group 1: acetaminophen (Tylenol) tablet 975 mgJump to med 975 mg, nasogastric tube, Every 8 hours scheduled, First dose (after last modification) on Wed09/20/23 at 2200, Phase II/On Unit
If ordered PRN for pain, nurse is permitted to administer this medication for higher pain scores based on patient preference? Yes Or acetaminophen (Tylenol) oral liquid 1,000 mgJump to med 1,000 mg, nasogastric tube, Every 8 hours scheduled, First dose (after last modification) on Wed09/20/23 at 2200, Phase II/On Unit
If unable to take tablets
Or acetaminophen (Tylenol) oral liquid 1,000 mgJump to med 1,000 mg, nasogastric tube, Every 8 hours scheduled, First dose (after last modification) on Wed09/20/23 at 2200, Phase II/On Unit
If NPO
Group 2: ondansetron ODT (Zofran-ODT) disintegrating tablet 4 mgJump to med 4 mg, oral, Every 8 hours PRN, nausea/vomiting, first line, Starting on Wed09/20/23 at 1842, Phase II/On Unit
1st Line. Patient should allow tablet to dissolve on tongue. Do not remove from blister pack until just before administering. If inadequate response within 60 minutes, proceed to next-line agent for same PRN reason or contact provider if no further options ordered.
Or ondansetron (Zofran) injection 4 mgJump to med 4 mg, intravenous, Every 8 hours PRN, nausea/vomiting, first line, Starting on Wed09/20/23 at 1842, Phase II/On Unit
1st Line. Give IV if patient is unable to take orally. If inadequate response within 60 minutes, proceed to next-line agent for same PRN reason or contact provider if no further options ordered. When administering via IV Push, administer over 3-5 minutes.
Group 3: oxyCODONE (Roxicodone) immediate release tablet 5 mgJump to med 5 mg, nasogastric tube, Every 4 hours PRN, pain moderate (4-6), first line, Starting on Wed09/20/23 at 1938, Phase II/On Unit
If ordered PRN for pain, nurse is permitted to administer this medication for higher pain scores based on patient preference? Yes Or oxyCODONE (Roxicodone) solution 5 mgJump to med 5 mg, nasogastric tube, Every 4 hours PRN, pain moderate (4-6), first line, Starting on Wed09/20/23 at 1938, Phase II/On Unit
If unable to take tablets.
If ordered PRN for pain, nurse is permitted to administer this medication for higher pain scores based on patient preference? Yes Or oxyCODONE (Roxicodone) solution 5 mgJump to med 5 mg, nasogastric tube, Every 4 hours PRN, pain moderate (4-6), first line, Starting on Wed09/20/23 at 1938, Phase II/On Unit
If NPO
If ordered PRN for pain, nurse is permitted to administer this medication for higher pain scores based on patient preference? Yes FOR RECORDS PERTAINING TO PATIENTS WHO ARE OR HAVE BEEN ENROLLED IN A CHEMICAL DEPENDENCY/SUBSTANCEABUSE PROGRAM, SOME INFORMATION MAY BE OMITTED. This clinical summary was aggregated from multiple sources. Caution should be exercised in using it in the provision of clinical care. This summary normalizes information from multiple sources, and as a consequence, information in this document may materially change the coding, format and clinical context of patient data. In addition, data may be omitted in some cases. CLINICAL DECISIONS SHOULD BE BASED ON THE PRIMARY CLINICAL RECORDS. [employer] [facility]. provides no warranty or guarantee of the accuracy or completeness of information in this document.
== END | disposition home or self-care (01) ==
LOC: PAVLAB 09:39
PROVIDERS: PCP Family Medicine; Referring Provider Internal Medicine Critical Care Medicine; Visit Provider Internal Medicine Critical Care Medicine
DX: F10.10 Alcohol abuse, uncomplicated (principal); R91.1 Solitary pulmonary nodule; K25.9 Gastric ulcer, unspecified as acute or chronic, without hemorrhage or perforation
CPT/HCPCS: 36415; 85027; 85610; 85730

== ENCOUNTER 2023-10-29 09:36 | Day surgery (SDC) | payer MEDICARE, SELFPAY ==
[2023-10-29] VITALS (7 sets, daily range): BP systolic 136–153; BP diastolic 57–80; PULSE 58–111; RESP 16; TEMP 36–36.9; O2SAT 97–98; BMI 24.3
[2023-10-29] MEDS: Lactated Ringers 1,000 ML 15 ML IV (10:20)
--- NOTE | 2023-10-29 10:26 | HP.PCM_ITS ---
History and Physical Date of Admission: 10/29/23 Date of Service: 10/26/23 MR#: [id number] Acct: [id number] Name: JOSE MIGUEL STEVEN Rep #: [id number] : 1955 Provider: Dr. Aimee Marquez MD Age/Sex: 68/F Location: [facility] Status: Signed Intake Vital Signs 10/19/2413:17 10/25/2408:34 Height 5 ft 5 in 5 ft 5 in Weight: 148 lb 2 oz BMI 24.6 BP 153/82 H Blood Pressure Location Rt brachial Position Sitting Respiration 17 Pulse 64 Pulse Source Monitor Pulse Oximetry (%) 96 Oxygen Delivery Method room air Intake Visit Reasons: PEG TUBE Chief Complaint: peg tube Is patient in pain?: No [facility]ies [facility] Allergy (Unknown, Verified 10/26/23 09:35) Rash Penicillins Allergy (Verified 10/26/23 09:35) Angioedema Medications alendronate 5 mg tablet 70 mg PO QWEEK bone health 07/08/14 [History Confirmed 10/26/23] oxybutynin chloride 5 mg tablet,extended release 24 hr 5 mg PO QHS bladder 10/11/17 [History Confirmed 10/26/23] vitamin B complex (B Complex-Vitamin B12 tablet) 1 tab PO DAILY vitamin 09/28/19 [History Confirmed 10/26/23] fluticasone propionate 230 mcg-salmeterol 21 mcg/actuation HFA inhaler (Advair HFA) 2 puff inhalation BID breathing 06/20/22 [History Confirmed 10/26/23] lisinopril 10 mg tablet 10 mg PO DAILY 09/16/22 [History Confirmed 10/26/23] chlorhexidine gluconate 0.12 % mouthwash 15 ml buccal TID 10/11/23 [History Confirmed 10/26/23] oxycodone 5 mg tablet 5 mg PO Q6H PRN 10/11/23 [History Confirmed 10/26/23] tramadol 50 mg tablet 100 mg PO DAILY PRN pain 10/11/23 [History Confirmed 10/26/23] trazodone 100 mg tablet mg PO QHS 10/12/23 [History Confirmed 10/26/23] [facility] Medical History (Updated 10/26/23 @ 11:[address] Og Pederson, DO) Alcohol abuse Allergic rhinitis Anxiety Arthritis Asthma Cancer of oral cavity Chronic cough CKD (chronic kidney disease) stage 3, GFR 30-59 ml/min COPD (chronic obstructive pulmonary disease) DDD (degenerative disc disease), cervical DDD (degenerative disc disease), lumbar Depression Duodenal perforation Former smoker Gastric ulcer GERD (gastroesophageal reflux disease) History of irregular heartbeat History of steroid therapy History of ulceration HTN (hypertension) Osteoarthritis Osteoporosis Overactive bladder Pulmonary nodule Shortness of breath on exertion Stage 1 mild COPD by GOLD classification Tobacco abuse Walker as ambulation aid Wears dentures Wears glasses Surgical History cataract surgery H/O right knee surgery History of appendectomy History of hip replacement S/P exploratory laparotomy Family History (Updated 10/26/23 @ 09:34 by Millie Gomez) Mother Cancer lung Hypertension Heart disease Alcohol abuse Anxiety Breast cancerFather Arthritis Kidney disease Cancer skinAunt Alcohol abuse COPD (chronic obstructive pulmonary disease)Uncle Alcohol abuse Colon cancerGrandfather Cancer skinGrandmother Breast cancer Social History household members: none Smoking Status: Former smoker quit date: 08/23/21 Tobacco: How many years used: 45 second hand exposure: Yes alcohol intake: former substance use type: does not use HPI HPI HPI: 68-year-old female presents for PEG tube placement. Patient recently underwent right lateral neck dissection as well as reconstruction of the the floor oral cavity in late August. Patient had a Dobbhoff placed perioperatively during this time. Patient does have a history in 2013 of a perforated gastric ulcer appears to be anterior a couple centimeters away from the pylorus which was treated with exploratory laparotomy/Jasbir patch. Unable to get the reports if she has had a repeat EGD since then. ROS General General: No weight change, appetite, fatigue, colon cancer or breast cancer HEENT HEENT: Yes eye surgery; No difficulty swallowing, eye injury, swollen glands or hoarseness Endo Endocrine: No thyroid disease, diabetes mellitus, thyroid cancer, Hair loss, heat intolerance or cold intolerance Skin Skin: No rash or changing moles Musc Musculoskeletal: Yes back problems, arthritis and rheumatoid arthritis; No gout or joint pain Cardio Cardiovascular: Yes murmur and high blood pressure; No pacemaker, heart disease, atrial fibrillation, heart attack, heart stent, palpitations, shortness of breat with exertion or chest pain Psych Psychiatric: No depression, anxiety or hearing voices Resp Respiratory: No shortness of breath, No sleep apnea, No cough, Yes COPD, No asthma, Yes emphysema and No wheezing Gastro Gastrointestinal: No abdominal pain, No nausea or vomiting, No diarrhea, No constipation, No blood in stool, No acid reflux, No hemorrhoids, No ulcers, No gallbladder problem and No black,tarry stools Demetrio Hematologic: No blood thinners, No blood disorders, No bleeding, No anemia and No blood clots Neuro Neurologic: Yes numbness and Yes tingling Exam Const General: cooperative, healthy appearing, comfortable and no acute distress HENMT Head: normocephalic Other: Floor of oral cavity and inferior tongue incisions healing Neck Other: Well-healed right neck incision Resp Effort & Inspection: normal respiratory effort Cardio Rate: regular rate GI Inspection: non-distended Palpation: soft and nontender Other: Midline incision well-healed. Patient does have an inferior reducible hernia as well. Skin General: no rashes or lesions noted Neuro General: CN's II-XI intact bilaterally Extrem General: normal to inspection Psych Mental Status: mental status grossly normal Attitude: cooperative Assessment and Plan Assessment and Plan (1) Encounter for PEG (percutaneous endoscopic gastrostomy): Status: Acute (2) Oral cavity carcinoma: Status: Acute Comment: S/p resection of the R anterior floor of mouth with graft, R neck dissection, Pathology shows tumor size 2cm, LN 3/21 positive, level II and III involved, no CORRIE. LVI/NI negative. Stage III disease. Had a long discussion about adjuvant RT vs adjuvant chemoradiation therapy. She does decided not to do chemotherapy. Plan Discussed with patient plan for an EGD placement of PEG tube. Did discuss with patient due to her previous exploratory laparotomy/Jasbir patch if I do not see a good light reflex I will not be placing the PEG tube patient may need to go to IR at another facility for placement. Looking at previous CT abdomen pelvis appears that the colon is inferior so that should not be an issue and the ulcer was near the pylorus so hopefully I will be able to get the stomach to blow up well with a good light reflex. Patient was agreeable with plan. I have discussed the above with the patient. I have offered the patient esophagogastroduodenoscopy for PEG tube placement I have explained the risks/benefits of the procedure and described the procedure. I have discussed the risks with the patient, including but not limited to: infection, bleeding, perforation of the GI tract requiring emergency surgery, inability to complete the procedure, injury to any internal organs, complications of anesthesia, etc. - the patient understands and agrees to proceed. I have answered all the patient's questions to the patient's satisfaction and the patient has no further questions. Aimee Marquez M.D. Pager: [phone] [facility] [address] [place] [address] [address] [place] [address] Office: [phone] Coding Level of Care Code Off vis,est,level 4 Diagnoses Encounter for PEG (percutaneous endoscopic gastrostomy) Z43.1 Oral cavity carcinoma C06.9 10/26/23 1337 <Electronically signed by Aimee Marquez MD> Date Aimee Marquez MD
[2023-10-29] MEDS: Clindamycin 900 MG/50 ML BAG 75 MG IV (10:53)
--- NOTE | 2023-10-29 11:22 | OP.EGD_ITS ---
Patient Name: Claudette Espitia Procedure Date: 10/29/2023 10:42 AM Date of : 1955 Age: 68 Procedure: Upper GI endoscopy Indications: Place PEG due to feeding difficulties secondary to oropharyngeal tumor, Personal history of malignant neoplasm of the GI tract Providers: Aimee Marquez MD Referring MD: Freedom Modi Medicines: Monitored Anesthesia Care Patient Profile: This is a 68 year old female. Complications: No immediate complications. Procedure: Pre-Anesthesia Assessment: - Prior to the procedure, a History and Physical was performed, and patient medications and allergies were reviewed. The patient's tolerance of previous anesthesia was also reviewed. The risks and benefits of the procedure and the sedation options and risks were discussed with the patient. All questions were answered, and informed consent was obtained. Prior Anticoagulants: The patient has taken no anticoagulant or antiplatelet agents. ASA Grade Assessment: Per anesthesia. After reviewing the risks and benefits, the patient was deemed in satisfactory condition to undergo the procedure. After obtaining informed consent, the endoscope was passed under direct vision. Throughout the procedure, the patient's blood pressure, pulse, and oxygen saturations were monitored continuously. The gastroscope was introduced through the mouth, and advanced to the second part of duodenum. The upper GI endoscopy was accomplished without difficulty. The patient tolerated the procedure well. Scope In: 10:57:05 AM Scope Out: 11:08:34 AM Total Procedure Duration Time 0 hours 11 minutes 29 seconds Findings: The Z-line was variable. The cardia and gastric fundus were normal on retroflexion. The examined duodenum was normal. No gross lesions were noted in the entire examined stomach. The patient was placed in the supine position for PEG placement. The stomach was insufflated to appose gastric and abdominal merrill. A site was located in the body of the stomach with excellent transillumination for placement. The abdominal wall was marked and prepped in a sterile manner. The area was anesthetized with 5 mL of 0.5% lidocaine. The trocar needle was introduced through the abdominal wall and into the stomach under direct endoscopic view. A snare was introduced through the endoscope and opened in the gastric lumen. The guide wire was passed through the trocar and into the open snare. The snare was closed around the guide wire. The endoscope and snare were removed, pulling the wire out through the mouth. A skin incision was made at the site of needle insertion. The externally removable 20 Fr EndoVive Safety gastrostomy tube was lubricated. The G-tube was tied to the guide wire and pulled through the mouth and into the stomach. The trocar needle was removed, and the gastrostomy tube was pulled out from the stomach through the skin. The external bumper was attached to the gastrostomy tube, and the tube was cut to remove the guide wire. The final position of the gastrostomy tube was confirmed by relook endoscopy, and skin marking noted to be 3.5 cm at the external bumper. The final tension and compression of the abdominal wall by the PEG tube and external bumper were checked and revealed that the bumper was loose and lightly touching the skin. The feeding tube was capped, and the tube site cleaned and dressed. Impression: - Z-line variable. - Normal examined duodenum. - No gross lesions in the entire stomach. - An externally removable PEG placement was successfully completed. - No specimens collected. Recommendation: - Please follow the post-PEG recommendations including: flush PEG daily with 60 ml water and clean site with soap and water daily and dry thoroughly. - Discharge patient to home. - Resume previous diet. - Continue present medications. Procedure Code(s): --- Professional --- 02037, Esophagogastroduodenoscopy, flexible, transoral; with directed placement of percutaneous gastrostomy tube Diagnosis Code(s): --- Professional --- K22.89, Other specified disease of esophagus D37.05, Neoplasm of uncertain behavior of pharynx R63.39, Other feeding difficulties Z43.1, Encounter for attention to gastrostomy Z85.00, Personal history of malignant neoplasm of unspecified digestive organ CPT copyright 2021 [employer]. All rights reserved. The codes documented in this report are preliminary and upon metal plater review may be revised to meet current compliance requirements. MD Aimee Motta MD 10/29/2023 11:21:51 AM This report has been signed electronically. Number of Addenda: 0 Note Initiated On: 10/29/2023 10:42 AM
--- NOTE | 2023-10-29 11:22 | OP.CCLET_ITS ---
10/29/2023 Freedom Modi [address] [place] [address] Re : Upper GI endoscopy procedure for Claudette Omkar Dear Dr. Modi This procedure was performed on Sunday, October 29, 2023. My impressions and recommendations are as follows: Impressions : - Z-line variable. - Normal examined duodenum. - No gross lesions in the entire stomach. - An externally removable PEG placement was successfully completed. - No specimens collected. Recommendations : - Please follow the post-PEG recommendations including: flush PEG daily with 60 ml water and clean site with soap and water daily and dry thoroughly. - Discharge patient to home. - Resume previous diet. - Continue present medications. My findings are described in the full procedure note, which is enclosed. If I can be of further assistance, please feel free to contact me at Doctor phone number(s): , Work: . Sincerely, MD Aimee Motta MD 10/29/2023 11:21:51 AM This report has been signed electronically.
[2023-10-29] MEDS: traMADol 50 MG Tablet PO (12:17)
== END 2023-10-29 13:01 | disposition home or self-care (01) ==
LOC: EN 09:38 → AC 09:40
PROVIDERS: PCP Family Medicine; Referring Provider Family Medicine; Visit Provider Surgery
PROC: 0DJ08ZZ Inspection of Upper Intestinal Tract, Via Natural or Artificial Opening Endoscopic (ICD-10-PCS; CPT 43235; principal; 2023-10-29 10:55)
DX: Z43.1 Encounter for attention to gastrostomy (principal); N18.30 Chronic kidney disease, stage 3 unspecified; I12.9 Hypertensive chronic kidney disease with stage 1 through stage 4 chronic kidney disease, or unspecified chronic kidney disease; J44.89 Other specified chronic obstructive pulmonary disease; K22.89 Other specified disease of esophagus; R63.39 Other feeding difficulties; Z85.00 Personal history of malignant neoplasm of unspecified digestive organ; D37.05 Neoplasm of uncertain behavior of pharynx; Z87.891 Personal history of nicotine dependence
CPT/HCPCS: 43246; J7120; J2405

== ENCOUNTER 2023-11-02 08:49 | Outpatient (CLI) | payer MEDICARE, SELFPAY ==
[2023-11-02] VITALS (17 sets, daily range): BP systolic 118–147; BP diastolic 48–96; PULSE 63–73; RESP 14–17; TEMP 36.8; O2SAT 91–97; BMI 24.6
[2023-11-02] MEDS: 0.9% Normal Saline (250mL Bag) 250 ML 15 ML IV (10:13)
[2023-11-02] MEDS: Midazolam 2 MG/2 ML Syringe IV ×2 (10:13→10:29)
[2023-11-02] MEDS: fentaNYL 100 MCG/2 ML Ampul IV ×2 (10:14→10:30)
[2023-11-02] MEDS: Lidocaine 2% (20 ml mdv) 20 ML Vial INFILT (10:32)
--- NOTE | 2023-11-02 10:40 | LUNG_PTH ---
PATIENT: JOSE MIGUEL STEVEN LOC: CT U#:[id number] AGE/SX: 68/F ROOM: RE11/02/[address]: Dr. Chauncey Faulkner MD : 1955 BED: DIS: 11/02/2023 SPEC #: [id number] RECD: 11/02/23 11:03 STATUS: TYREE MONICA #: [id number] JAYLEN: 11/02/23 10:[address]: Chauncey Faulkner DEPT: SURGICAL PATHOLOGY RECD BY: Fabiana Lay ENTERED: 11/02/23 11:03 SP TYPE: LUNG BX OTHR DR: Dr. Freedom Modi DO Tissues: Lung, NOS Procedures: Special Stain Group II Surgery Specimen Level IV Imprint (control) HEADER OPERATION: CT guided right upper lung biopsy PRE-OP DIAGNOSIS: Lung nodule TISSUE SUBMITTED: Right upper lung 20-gauge core x3 MICROSCOPIC DIAGNOSIS Right upper lobe lung nodule, CT-guided core biopsy: Lung parenchymal tissue with focal interstitial fibrosis and chronic inflammation, negative for malignancy. See comment. JONAS:khalif 11/03/2023 COMMENT The specimen is evaluated at the time of biopsy by Dr. Kaiser. Immediate Evaluation = Negative for malignant cells. Correlation with clinical, radiologic findings and appropriate follow up are necessary. Case has been reviewed in consultation with Dr. Alcocer who concurs with the above diagnosis. IDC:AM MICROSCOPIC DESCRIPTION Slides are reviewed. GROSS DESCRIPTION Received in fixative is one container labeled with the patient's name and designated right upper lobe lung. The specimen consists of multiple irregular fragments of castillo soft tissue that in aggregate measure 0.4 x 0.1 x 0.1 cm. The specimen is totally submitted in one cassette. Two touch imprints are prepared at the time of core biopsy. / JONAS:khalif 11/02/2023 TC:3 CPT: 65225, 40539
--- NOTE | 2023-11-02 10:52 | RAD_ITS ---
STUDY: X-RAY CHEST REASON FOR EXAM: Female, 68 years old. Immediate post lung biopsy -- Immediately post lung biopsy TECHNIQUE: AP inspiration and expiration views. COMPARISON: Comparison is made with prior study dated July 23, 2022. FINDINGS: The patient is status post right upper lobe lung biopsy. No evidence of pneumothorax. There is evidence of airspace disease at the biopsy site suggestive of postbiopsy hematoma. RAD/Chest Insp/Exp 2 View IMPRESSION: No evidence of pneumothorax on the immediate post right upper lobe lung biopsy. Electronically Signed: Trey Chisholm MD at 11:15 EDT ,
--- NOTE | 2023-11-02 12:30 | RAD_ITS ---
STUDY: X-RAY CHEST REASON FOR EXAM: Female, 68 years old. 2 hour post lung biopsy -- 2 hours post lung biopsy TECHNIQUE: AP inspiration and expiration views. COMPARISON: Comparison is made with prior study done earlier in the day. FINDINGS: EKG electrodes are seen. No evidence of pneumothorax. Once again, the seventh interspace disease in the right upper lobe most likely secondary to right lung biopsy. RAD/Chest Insp/Exp 2 View IMPRESSION: No evidence of pneumothorax on the 2 hour post right lung biopsy radiographs. Electronically Signed: Trey Chisholm MD at 9:42 EDT ,
== END 2023-11-02 23:59 | disposition home or self-care (01) ==
PROVIDERS: PCP Family Medicine; Referring Provider Internal Medicine Critical Care Medicine; Visit Provider Internal Medicine Critical Care Medicine
DX: R91.1 Solitary pulmonary nodule (principal)
CPT/HCPCS: 32408; 71046; 77012; 88305; 88313; 99156; J7050; A4216; C2613

== ENCOUNTER → 2023-11-04 | Outpatient (CLI) | payer MEDICARE, SELFPAY ==
--- NOTE | 2023-11-02 11:27 | PCM.OP.PRO ---
Procedure Report Date of Procedure: 11/02/23 Assessment & Plan Assessment/Plan (1) Right upper lobe pulmonary nodule: PLAN: PROCEDURE: CT GUIDED CORE NEEDLE LUNG BIOPSY ORDERING PROVIDER: Dr. Chauncey Faulkner INDICATION: Female, 68 years old. Right upper lobe pulmonary nodule PROVIDER: PAM Morales CONSENT: Written informed consent was obtained having explained the risks, benefits and alternatives in detail with the patient who accepted the risks and agreed to proceed. Laboratory review and clinical assessment was performed. PRE-PROCEDURE SEDATION ASSESSMENT: Current history and physical dictated by referring physician and reviewed. No clinical changes since date of exam. Patient has an ASA Class of 2. PROCEDURAL SEDATION PROTOCOL: The Drugs used were: 2 mg Versed, IV, and 50 mcg Fentanyl, IV. The sedation time was: 28 minutes, starting at 1013 and terminated at 1041. The procedural sedation protocol was independently monitored by the department nurse. RADIATION DOSAGE (If Supplied By Facility): CTDIvol = 19.13 mGy, DLP = 516.80 mGycm Individualized dose optimization techniques were used for this CT. TECHNIQUE: The patient was placed in a supine position. A noncontrast CT was performed to localize the lesion in the right upper lobe. The skin surface was prepped and draped in a sterile fashion. 2% lidocaine was used for local anesthesia. Using CT guidance, a 20-gauge coaxial biopsy device was advanced to the periphery of the lesion. A total of 3 core specimens were obtained. Specimens were microscopically reviewed by pathology in the CT suite and placed in formalin solution. BioSentry tract sealant system was deployed at the biopsy site, and the biopsy needle was removed. A sterile occlusive dressing was applied to the biopsy site. The patient tolerated the procedure well. An immediate chest xray was ordered, per protocol. A negative biopsy does not exclude malignancy. Further imaging or clinical followup based on patient condition and degree of clinical suspicion for malignancy. Suggest rebiopsy, if biopsy results do not match with clinical scenario. IMPRESSION: 1. CT directed core needle biopsy of right upper lobe nodule using CT image guidance with image documentation as described. Pathology results are pending. 2. Procedural Sedation protocol utilized with independent monitoring by the department nurse. Procedures Radiology Radiology CT Procedures: 59393 Biopsy Lung
--- NOTE | 2023-11-04 13:52 | ST.MBS ---
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 Medical History: PMH: Alcohol abuse, Allergic rhinitis, Asthma, Cancer of oral cavity, Chronic cough, CKD stage 3, COPD, DDD (cervical and lumbar), Former smoker, Gastric ulcer, GERD, History of irregular heartbeat, HTN, Pulmonary nodule, SOB on exertion (See EMR for full PMH). 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 Of note, she had NG-tube for ~10 days after surgery, but it has since been removed. PEG tube placed (10/29/2023). She was been recommended for 6-6.5 weeks of radiation treatment. She was referred for ST consult due to concerns for dysphagia given FOM cancer s/p excision of FOM lesion, right selective neck dissection, and planned radiation treatment. The patient reports consuming soft solids / thin liquids at this time without concerns for swallowing difficulty. She participated in OP speech therapy assessment with treatment diagnosis of oral dysphagia and recommending soft and bite size textures / thin liquids. She was also trained in prophylactic oropharyngeal exercise program, which she reports completing daily at this time. She was recommended for MBSS to determine baseline swallow function prior to radiation treatment and to assess risk for aspiration. Current Diet Ordered: Soft and bite size textures / Thin liquids Dentition: Edentulous Mental Status: WNL Respiratory Status: Oxygenating on Room Air Penetration-Aspiration Scale Penetration-Aspiration Scale: OBJECTIVE ASSESSMENT OF SWALLOW FUNCTION (QUANTITATIVE ? PER TRIAL): PENETRATION / ASPIRATION SCALE (FINLEY): 1 = does not enter airway 2 = enters airway/above vocal folds/ejected 3 = enters airway/above vocal folds/not ejected 4 = enters airway/contacts vocal folds/ejected 5 = enters airway/contacts vocal folds/not ejected 6 = enters airway/below vocal folds/ejected 7 = enters airway/below vocal folds/not ejected despite effort 8 = enters airway/below vocal folds/no effort VIDEOFLOROSCOPIC SCALE SCORE (FINLEY): Grade I = aspiration of material that has penetrated into the laryngeal vestibule, intact cough reflex Grade II = aspiration < 10 % of the bolus, intact cough reflex Grade III = aspiration of < 10 % of the bolus, reduced cough reflex or aspiration of > 10 % of the bolus, intact cough reflex Grade IV = aspiration of > 10 % of the bolus, reduced cough reflex Penetration-Aspiration Scale Score Thin Liquid via teaspoon: Result: 1= does not enter airway Thin Liquid via teaspoon Trial 2: Result: 1= does not enter airway Thin Liquid via large single sip: cup: Result: 2= enter airway/above vocal folds/ejected [place] Thick Liquid via small single sip: cup: Result: 1= does not enter airway Pudding via teaspoon: Result: 1= does not enter airway (Esophageal screen) Thin Liquid via single sip: straw: Result: 1= does not enter airway (large sip - Esophageal screen) Oral Phase Labial Seal: Interlabial escape, no progression to anterior lip Tongue Control During Bolus Hold: Escape to lateral buccal cavity/floor of mouth (large sips) Bolus Transport/Lingual Motion: Brisk tongue motion Oral Residue: Residue collection on oral structures (piecemeal deglutition of pudding and large sips) Pharyngeal Phase Initiation of Pharyngeal Swallow: Bolus head in valleculae Soft Palate Elevation: Trace column of contrast/air between soft palate and pharyngeal wall Laryngeal Elevation: Comp. Superior move thyroid cart w/comp. apprx arytenoid cart-epig pet Anterior Hyoid Excursion: Partial anterior movement Laryngeal Vestibule Closure at Height of Swallow: Incomplete; narrow column of air/contrast in laryngeal vestibule Pharyngeal Stripping Wave: Present - complete Pharyngoesophageal Segment Opening: Complete distension and complete duration; no obstruction of flow Tongue Base Retraction: Trace column of contrast between tongue base & post. pharyngeal wall Pharyngeal Residue: Trace residue within or on pharyngeal structures Esophageal Phase Esophageal Clearance: Esophageal retention w/ retrograde flow below pharyngoesophageal seg. (min retrograde flow) Diagnosis/Impression Diagnosis: Mild oral dysphagia R13.11 Impression: The oral phase is primarily marked by... -Decreased mastication abilities secondary to edentulous status and presence of stitches s/p excision of FOM lesion. FERMENTATION ENGINEER held cookie trial as to not irritate oral cavity healing from recent surgery. -Mild-moderate oral residues for large sips, which fully cleared with use of multiple swallows as needed. Piecemeal deglutition of pudding and large sips. The esophageal phase is primarily marked by... -Esophageal retention of pudding with min retrograde flow, which somewhat improved with thin liquid wash. Recommendations Diet: Mechanical Soft Textures (Soft and bite size textures - IDDSI Level 6) and Thin Liquids Compensatory Strategies: Small Bites, Small Sips, Slow Rate, Alternate bites/solids and sips/liquids (1:1 ratio), Sitting upright and Remain sitting upright for 30 minutes after PO intake Recommend Repeat Modified Barium Swallow: Yes Comment: Repeat MBSS 3 months after completion of radiation to monitor swallow function as the patient is at risk for worsening dysphagia and aspiration risk s/p radiation treatment. Need for Skilled Speech Therapy Services: Yes Comment: Continue to follow with OP ST for further instruction re: prophylactic oropharyngeal exercise program, as well as for ongoing assessment of diet tolerance, swallow function, and aspiration risk during and following radiation treatment. Recommended Referrals: GI Consult (No immediate consult recommended; however, please consider GI consult if increased concerns for s/s of reflux or if patient begins experiencing regurgitation with oral intake.) Education Completed: 1. Described result of evaluation. Status Active ST Patient: Active Contact Information [facility] Speech Therapy:: Karla Saleh M.A. [facility]-FERMENTATION ENGINEER? Speech-Language Pathologist?? [facility] [address]?? [place] [address]?? [email or web address]?? [phone]??
== END | disposition home or self-care (01) ==
LOC: RAD 12:20
PROVIDERS: PCP Family Medicine; Referring Provider Student in an Organized Health Care Education/Training Program; Visit Provider Student in an Organized Health Care Education/Training Program
DX: C04.9 Malignant neoplasm of floor of mouth, unspecified (principal)
CPT/HCPCS: 32408; 74230; 77300; 77301; 77338; 92611

== ENCOUNTER → 2023-12-28 | Outpatient (CLI) | payer MEDICARE, SELFPAY ==
--- NOTE | 2023-12-28 14:11 | CT_ITS ---
STUDY: CT CHEST WITHOUT CONTRAST REASON FOR EXAM: Female, 68 years old. Lung mass. History of oral cancer and COPD. RADIATION DOSAGE (If Supplied By Facility): CTDIvol = ( 5.48 ) mGy, DLP = ( 216.51 ) mGycm TECHNIQUE: Transaxial imaging was performed without the administration of intravenous contrast material. Multiplanar coronal and sagittal images were reformatted. Individualized dose optimization techniques were used for this CT. COMPARISON: Comparison is made with prior study dated November 02, 2023. FINDINGS: CHEST Heterogeneous appearance of the inferior aspect of the left lobe of the thyroid with a focal calcification. Persistent 7.2 mm slightly irregular nodule in the anterior aspect of the right upper lobe as seen on axial image #42 and coronal image #84. This may represent a focal area of scarring. A repeat examination in 6 months is recommended. Hyperinflation. Emphysematous changes with centrilobular emphysema more prominent in the upper lobes. Scarring in the anterior medial aspect of the lingular segment of the left upper lobe. 2 mm calcified granuloma in the anterior lateral aspect of the right upper lobe as seen on axial image #73. There is a 6.7 mm irregular pleural-based nodule in the posterior medial aspect of the right upper lobe as seen on axial image #24. There is no demonstrated pleural abnormality. There are calcifications of the coronary arteries. Normal mediastinum. Normal hilar regions. Normal unenhanced pulmonary arteries. There is atherosclerotic calcification of the aortic arch and origins of the major vessels of the neck. Normal osseous structures. A PEG tube is seen within the body of the stomach. CT/Chest without Contrast IMPRESSION: Persistent 7.2 mm slightly irregular nodular density in the anterior aspect of the right upper lobe as seen on axial image #42 and coronal image #84. A 6 month follow-up CT scan is recommended for further evaluation. The patient had a biopsy on November 02, 2023. Electronically Signed: Trey Chisholm MD at 14:03 EDT ,
== END | disposition home or self-care (01) ==
LOC: CT 14:10
PROVIDERS: PCP Family Medicine; Referring Provider Nurse Practitioner Acute Care; Visit Provider Nurse Practitioner Acute Care
DX: R91.1 Solitary pulmonary nodule (principal)
CPT/HCPCS: 71250

== ENCOUNTER 2024-01-05 10:00 | Outpatient (RCR) | payer MEDICARE, SELFPAY | END 2024-01-21 23:59 | LOC: NS 10:00 | PROVIDERS: PCP Family Medicine; Visit Provider Student in an Organized Health Care Education/Training Program | DX: Z71.3 Dietary counseling and surveillance (principal); C04.9 Malignant neoplasm of floor of mouth, unspecified ==

== ENCOUNTER → 2024-01-21 | Outpatient (CLI) | payer MEDICARE, SELFPAY | END | disposition home or self-care (01) | PROVIDERS: PCP Family Medicine; Referring Provider Nurse Practitioner Acute Care; Visit Provider Nurse Practitioner Acute Care | DX: J44.9 Chronic obstructive pulmonary disease, unspecified (principal); R91.1 Solitary pulmonary nodule | CPT/HCPCS: 94060; 94726; 94729 ==

== ENCOUNTER → 2024-01-25 | Outpatient (CLI) | payer MEDICARE, SELFPAY ==
--- NOTE | 2024-01-25 14:23 | CDU_ITS ---
Reason For Study: Carotid stenosis Rt. Velocities/BP Lt. Velocities/BP Prox CCA 88.1/12.6 cm/sec. Prox CCA 72.9/13.5 cm/sec. Mid CCA 92.9/17.3 cm/sec. Mid CCA 120.7/22.5 cm/sec. Dist CCA 62.6/10.7 cm/sec. Dist CCA 106/20 cm/sec. Prox ICA 54.1/8.8 cm/sec. Prox ICA 74/11.4 cm/sec. Mid ICA 60.7/19.2 cm/sec. Mid ICA 74/20 cm/sec. Dist ICA 87.3/26.2 cm/sec. Dist ICA 82.6/22.5 cm/sec. Rt. ICA/CCA = 0.94. Lt. ICA/CCA = 0.68. Prox ECA 103.6/11.3 cm/sec. Prox ECA 125.6/11.4 cm/sec. Rt. Vert. 50.9/9.1 cm/sec. Lt. Vert. 70.2/16.3 cm/sec. Right Extracranial There is homogeneous, smooth atherosclerotic plaque noted in the right common carotid artery. There is heterogeneous, irregular atherosclerotic plaque noted in the right internal carotid artery. There is heterogeneous, irregular atherosclerotic plaque noted in the right external carotid artery. Antegrade flow is noted in the right vertebral artery. Left Extracranial There is heterogeneous, irregular atherosclerotic plaque noted in the left common carotid artery. There is heterogeneous, irregular atherosclerotic plaque noted in the left internal carotid artery. There is heterogeneous, irregular atherosclerotic plaque noted in the left external carotid artery. Antegrade flow is noted in the left vertebral artery. Procedure Carotid Duplex 31023. This is a Carotid Duplex examination using B-mode, color flow and specral Doppler. Exam performed in department. VL/Carotid Duplex Ultrasound Interpretation Summary Irregular heterogenous plaque bilateral common carotid and internal carotid and external carotid arteries Less than 50% stenosis bilateral internal carotid arteries Less than 50% stenosis bilateral external carotid arteries Patent and antegrade vertebral arteries bilaterally Ordering Physician: Freedom Modi Referring Physician: Freedom Modi Performed By: Linn Delarosa RVT
== END | disposition home or self-care (01) ==
LOC: CVS 14:22
PROVIDERS: PCP Family Medicine; Referring Provider Family Medicine; Visit Provider Family Medicine
DX: I65.23 Occlusion and stenosis of bilateral carotid arteries (principal); R09.89 Other specified symptoms and signs involving the circulatory and respiratory systems
CPT/HCPCS: 93880

== ENCOUNTER → 2024-01-26 | Outpatient (CLI) | payer MEDICARE, SELFPAY ==
--- NOTE | 2024-01-26 11:22 | US_ITS ---
INDICATION: NODULE FELT BY DOCTOR -- F/U CT EXAMINATION: Ultrasound US Thyroid (eg thyroid, parathyroid, parotid) TECHNIQUE: Whyte scale and color doppler imaging was performed of the thyroid gland. COMPARISON: FINDINGS: RIGHT THYROID LOBE: 3.3 x 1.3 x 1.4 cm. Heterogeneous echotexture with normal vascularity. [There are 3 cystic nodules some with debris measuring 4 to 6 mm in diameter. LEFT THYROID LOBE: 3.1 x 1.3 x 0.9 cm. Heterogeneous echotexture with normal vascularity. [There are 2 cysts between 3 to 9 mm. ISTHMUS: 3 mm. No thyroid nodules are present. Bilateral atherosclerotic calcifications of the carotid arteries, left more than right. US/Thyroid IMPRESSION: Bilateral complex and simple cystic lesions in the thyroid as noted.. Electronically Signed: Kain Don DO at 16:32 EDT Reading Location ID and State: [facility] / [place] Tel [phone], Service support ,
[2024-01-26 12:43] VITALS: PULSE 66; PULSE 70; PULSE 81; PULSE 87; PULSE 90; PULSE 91; PULSE 92; PULSE 98; O2SAT 97; O2SAT 98; O2SAT 99
--- NOTE | 2024-01-27 10:18 | WT_ITS ---
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 [employer]GE Assistive device used: None Pre-test Oxygen Delivery Method Room Air Pulse Ox (%) 98 Pulse Rate (60-100 beats/min) 66 Dyspnea Mary Beth Scale (0-10) 0 Exertion Mary Beth Scale (6-20) 6 1st minute Oxygen Delivery Method Room Air Pulse Ox (%) 99 Pulse Rate (60-100 beats/min) 81 2nd minute Oxygen Delivery Method Room Air Pulse Ox (%) 99 Pulse Rate (60-100 beats/min) 87 3rd minute Oxygen Delivery Method Room Air Pulse Ox (%) 99 Pulse Rate (60-100 beats/min) 90 4th minute Oxygen Delivery Method Room Air Pulse Ox (%) 97 Pulse Rate (60-100 beats/min) 91 5th minute Oxygen Delivery Method Room Air Pulse Ox (%) 97 Pulse Rate (60-100 beats/min) 92 6th minute Oxygen Delivery Method Room Air Pulse Ox (%) 97 Pulse Rate (60-100 beats/min) 98 Dyspnea Mary Beth Scale (0-10) 2 Exertion Mary Beth Scale (6-20) 13 Post-test Oxygen Delivery Method Room Air Pulse Ox (%) 98 Pulse Rate (60-100 beats/min) 70 Full Laps Walked 19 Partial Lap, Number of Tiles Walked 49 Total Distance Walked (ft) 1170 Interpretation Interpretation: The patient ambulated 1170 feet over the course of 6 minutes beginning on room air without assistive devices. Pretesting oxygen saturation was noted to be 98% on room air. With ambulation, the cem oxygen saturation was 97%. There was no significant exertional oxygen desaturation. Recommendations Recommendations: There is no indication for the use of supplemental oxygen at this time.
== END | disposition home or self-care (01) ==
LOC: PSN 11:19 → US 11:21 → PSN 11:23
PROVIDERS: PCP Family Medicine; Referring Provider Nurse Practitioner Acute Care; Visit Provider Nurse Practitioner Acute Care
DX: E04.1 Nontoxic single thyroid nodule (principal)
CPT/HCPCS: 76536; 94618

== ENCOUNTER → 2024-02-01 | Outpatient (CLI) | payer MEDICARE, SELFPAY ==
--- NOTE | 2024-02-01 07:38 | CT_ITS ---
STUDY: CT SOFT TISSUE NECK WITH CONTRAST REASON FOR EXAM: Female, 68 years old. Follow up treated head and neck SCC -- please compare to prior RADIATION DOSAGE (If Supplied By Facility): CTDIvol = ( 14.58 ) mGy, DLP = ( 418.79 ) mGycm TECHNIQUE: The patient was scanned in a multi-detector CT scanner. High resolution transaxial imaging was performed following intravenous administration of IV 100mL Isovue-300. Sagittal and coronal images were reconstructed. Individualized dose optimization techniques were used for this CT. COMPARISON: Comparison is made with prior study dated July 01, 2023. FINDINGS: Atherosclerotic plaque formation of the aortic arch as well as the great vessels arising from the aortic arch. Atherosclerotic plaque formation at the origin of the right internal carotid artery as well as the left internal carotid artery causing mild degree of the stenosis. The patient is status post right cervical dissection with removal of the right submandibular gland. No mass lesion is seen. Normal bilateral parotid glands. Normal bilateral [employer] spaces. Normal bilateral parapharyngeal spaces. Normal bilateral carotid spaces. Normal bilateral sublingual and submandibular glands and spaces. Normal visualized nasopharynx. Normal retropharyngeal space. Normal perivertebral space. Normal visualized bilateral faucial tonsils. The visualized tongue, tongue base and oropharynx are normal. The visualized cervical lymph nodes (levels I-) are within normal size limits, and maintain normal morphology. There is no demonstrated solid or cystic mass lesion. There is no abnormal contrast enhancement. Normal epiglottis, bilateral vallecula and hypopharynx. The pre-epiglottic and paraglottic adipose spaces are normal. Normal visualized bilateral piriform sinuses, aryepiglottic folds, vocal cords, and arytenoid-cricoid articulations. Normal subglottic trachea. Normal bilateral lobes of the thyroid gland. Emphysematous changes seen in the lung apices. Normal visualized paranasal sinuses. There is multilevel degenerative changes of the cervical spine. CT/Soft Tissue Neck WITH Contrast IMPRESSION: Stable examination. No acute abnormality is seen. Electronically Signed: Trey Chisholm MD at 14:00 EDT ,
== END | disposition home or self-care (01) ==
LOC: CT 07:36
PROVIDERS: PCP Family Medicine; Referring Provider Student in an Organized Health Care Education/Training Program; Visit Provider Student in an Organized Health Care Education/Training Program
DX: C06.9 Malignant neoplasm of mouth, unspecified (principal)
CPT/HCPCS: 70491; Q9967

== ENCOUNTER 2024-02-10 11:00 | Outpatient (RCR) | payer MEDICARE, SELFPAY ==
--- NOTE | 2023-10-26 11:57 | HP.SP.EVAL ---
Visit History Visit Info Date of Eval: 10/26/23 Visit: 1 Drag Sawyer: VALERIO History Attending Doctor: Referring Doctor: Reason for Referral: MALIGNANT NEOPLASM OF FLOOR OF MOUTH/RX SCANNED IN Medical Diagnosis: Floor of mouth squamous cell carcinoma C04.9 Date of Onset of Diagnosis: 06/24/2023 Previous speech therapy: No Other Relevant Medical History/Diagnoses/Surgery: PMH: Alcohol abuse, Allergic rhinitis, Asthma, Cancer of oral cavity, Chronic cough, CKD stage 3, COPD, DDD (cervical and lumbar), Former smoker, Gastric ulcer, GERD, History of irregular heartbeat, HTN, Pulmonary nodule, SOB on exertion (See EMR for full PMH). 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 She has been recommended for 6-6.5 weeks of radiation treatment. She was referred for ST consult due to concerns for dysphagia given FOM cancer s/p excision of FOM lesion, right selective neck dissection, and planned radiation treatment. She was recommended for PEG tube, which is planned to be placed 10/29/2023. The patient reports consuming soft solids / thin liquids at this time without concerns for swallowing difficulty. Of note, she had NG-tube for ~10 days after surgery, but it has since been removed. She reports she is almost out of her mouthwash prescribed by her surgeon. She has a follow-up appointment with her surgeon next Wednesday. 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 She lives at home with her . Smoking Status: Former smoker Pain Is pain an issue with your current prescribed condition?: No Personal Preferred language: Portuguese Patient Allergies Allergies Allergies: Allergies nicotine [From Nicoderm C[facility]] Allergy (Unknown, Verified 10/26/23 09:35) Rash Penicillins Allergy (Verified 10/26/23 09:35) Angioedema Subjective Dysphagia Symptoms Reported Symptoms/Problems with: Xerostomia Current Diet Solids Current Diet: Soft Current Diet Liquids Current Liquids: Thin Comments Other: -: PEG tube planned 10/29/2023. Objective Dysphagia Administered by Administered by: Self Thin Liquids Administred via: Cup and Straw Oral Transit: WNL Bolus clearance: fully cleared Cough: none observed/unable to assess Pharyngeal phase: laryngeal elevation mildly restricted slow initiation Comments: No overt s/s of aspiration and timely swallow with single and sequential sips via straw. Pureed Administered via: Spoon Oral Transit: WNL Bolus clearance: fully cleared Cough: none observed/unable to assess Pharyngeal phase: laryngeal elevation mildly restricted slow initiation Comments: No overt s/s of aspiration. Pt politely declined trials of regular textures due to recent oral surgery. Stitches still present in FOM. Swallowing Impairment Contributing Factors to Swallowing Impairment: Reduced Laryngeal Excursion Other: Xerostomia, Oral motor weakness, Planned radiation treatment for FOM cancer Impact Impact on Safety & Functioning: Risk for Aspiration and Risk for Inadequate Nutrition/Hydration Recommendations Modified Barium Swallow/Cookie Swallow Recommended: Yes Swallowing Treatment: Yes Diet Texture Recommendations Solids: Soft & Bite sized (Level 6, Chopped) Liquids: Thin (Level 0) Safety Other: Small bites/sips, Slow rate, Sitting upright during and 30 min after meals Results Swallowing Within Normal Limits: No Swallowing Diagnosis: Oral Phase Dysphagia (R13.11) Severity: Mild Objective Oral Motor Jaw Opening Measurement: 35mm measured lip to lip 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 Decreased contraction of L FOM musculature. VII Facial Nerve VII Facial Nerve Result: Impaired Comment: Decreased labial strength of R side most noticeable with pucker. Escape of air with lip seal. X Vagus Nerve X Vagus Nerve Result: Intact XII Hypoglossal Nerve XII Hypoglossal Nerve Result: Impaired Comment:: Deviation to L side with lingual protrusion; however, good strength bilaterally with lingual resistance. Reference: Neuro-QoL instrument Radiation Oncology Patient FOIS Functional Oral Intake Scale Total oral diet with multiple consistencies without special preparation, but with specific food limitations: Level 6 Other Other EAT-10: -: Eating Assessment Tool (EAT-10) ? Score = 1 Score of 3 or more indicates there may be a swallowing problem or dysphagia. For patients with head and neck cancer, researchers found a cut-off value of 19 to be helpful in detecting presence of post-swallow pharyngeal residue. Plan Plan Plan: Will recommend the patient for skilled outpatient dysphagia therapy to address oral dysphagia due to SCC of FOM s/p excision of FOM lesion and right selective neck dissection. She is also planned for 6-6.5 weeks of radiation, which will increase risk for worsening dysphagia and aspiration risk. Speech therapy POC to include further education re: prophylactic oropharyngeal exercise program, diet texture recommendations, aspiration precautions, and compensatory strategies to decrease risk for aspiration. Additionally, will provide ongoing assessment of diet tolerance during and post radiation treatment. Without skilled ST services, the patient is at increased risk for aspiration, weight loss, and malnutrition. Recommendations MBS: Yes Treatment Warranted: Yes Treatment Warranted: Dysphagia Progress Prognosis: Good Frequency Frequency: Every Other Week Additional (Frequency): Frequency to change during POC based on needs and severity of swallowing impairment during and following radiation. Duration: 12 Months Goals that are Established Determination:: Goals will be added/modified as deemed necessary and appropriate. Therapy will be discontinued when results of re-evaluation indicate therapy is no longer needed or lack of progress has been documented. Goal #1-5 Goal #1: (LTG) The patient will consume least restrictive diet textures without overt s/s of aspiration with minimal verbal cues for use of compensatory strategies to decrease risk for aspiration. Goal #2: (STG) The patient will complete an oropharyngeal exercise program during and post radiation treatment independently to improve and maintain strength, ROM, and coordination of swallowing mechanism (X10 repetitions, 3-5X daily). Goal #3: (STG) The patient will participate in ongoing education re: short-term and long-term effects of chemoradiation treatment on swallow function and management of symptoms that contribute to dysphagia. Goal #4: (STG) The patient will participate in MBS study to objectively assess swallow function and provide recommendations for safest, least restrictive diet and compensatory strategies to reduce risk for aspiration. Education Patient has Indicated that the Following The Patient has indicated that they have no educational or learning abilities that may effect their care.: Yes Patient Instruction Patient Education: Treatment Plan, Goals, Diet Level and Home Exercise Program Other Education: Education provided regarding the potential impacts of radiation treatment on swallow function during and post treatment, including effects such as mucositis, dysgeusia, radiation fibrosis, and disuse atrophy which may result in restricted range of motion and weakness of swallowing mechanism. Discussed impaired swallowing and increased risk for aspiration, aspiration related illnesses, weight loss, and malnutrition. Discussed importance for speech therapy to monitor and address dysphagia during and post radiation treatment to maintain optimal swallow function through continued education and prophylactic exercise program. Provided the patient a handout and demonstration of prophylactic oropharyngeal exercise program, as well as jaw ROM exercise (Diane, Effortful, Giselle, Jaw Stretch). The patient provided return demonstration with all exercises with minimal verbal cues and demonstration. The patient would benefit from continued training to monitor proper execution of exercises and encourage strict adherence to exercise program. Person Taught: Patient Teaching Method: Discussion, Demonstration, Handout and Teach back Response to teaching: Return demonstration, Verbalize understanding and Reinforcement needed
--- NOTE | 2024-04-10 13:53 | HP.SP.DC ---
ST Discharge Summary Discharged: Discharge: PMH: Alcohol abuse, Allergic rhinitis, Asthma, Cancer of oral cavity, Chronic cough, CKD stage 3, COPD, DDD (cervical and lumbar), Former smoker, Gastric ulcer, GERD, History of irregular heartbeat, HTN, Pulmonary nodule, SOB on exertion (See EMR for full PMH). 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 From 11/08/2023 ? 12/17/2023: received adjuvant radiation therapy. She was referred for ST consult during treatment to address dysphagia d/t FOM cancer s/p excision of FOM lesion, right selective neck dissection, and radiation treatment. She had MBSS completed 11/04/23, which revealed mild oral dysphagia and recommended soft and bite size textures / thin liquids with the following compensatory strategies: small bites, small sips, slow rate, alternate bites/solids and sips/liquids (1:1 ratio), sitting upright and remain sitting upright for 30 minutes after PO intake. Of note, no immediate GI consult was recommended; however, GI consult to be considered if the patient experiences increased reflux, sensation of retention of food/drink, or reflux. Currently, the patient reports tolerating a soft solid diet / thin liquids with little difficulty swallowing other than needing softer foods since she had teeth pulled and her current dentures don't fit. CONSTRUCTION ECONOMIST recommended trying denture adhesive for her upper dentition. Her PEG tube was removed 03/17/24. She is completing her home oropharyngeal exercise program and neck ROM exercise program at home 3-5X daily. She has moderate xerostomia, moderate hypogeusia, and moderate dysgeusia. MBSS completed 03/20/24 revealing mild-moderate oropharyngeal dysphagia and recommending Easy to Chew textures (IDDSI Level 7) and Thin Liquids; Comment: Intermittent cough and re-swallow (after every 2-3 sips); Compensatory Strategies: Small Bites, Small Sips, Slow Rate, Alternate bites/solids and sips/liquids (1:1 ratio), Sitting upright and Remain sitting upright for 30 minutes after PO intake; Recommend Repeat Modified Barium Swallow: Yes (3-6 months to monitor risk for worsening dysphagia s/p radiation treatment for oral cavity cancer); Need for Skilled Speech Therapy Services: No; Comment: The patient was educated by this CONSTRUCTION ECONOMIST in additional swallowing recommendation to decrease risk for aspiration: intermittent cough and re-swallow. CONSTRUCTION ECONOMIST recommended continued participation in recommended oropharyngeal exercise program (Diane, Giselle, Effortful) and neck ROM exercises 3-5X/day. CONSTRUCTION ECONOMIST instructed pt in CTAR with return demonstration and recommended adding it to the patient's exercise program to improve airway closure. Pt verbalized good understanding and does not feel she needs to return to ST at this time for re-instruction in strategies to decrease risk for aspiration or exercise program. CONSTRUCTION ECONOMIST requested calling to re-schedule sooner if concerns for worsening swallow function or any need for re-instruction of strategies and exercises.
== END 2024-02-10 19:00 | disposition home or self-care (01) ==
LOC: SP 11:00
PROVIDERS: PCP Family Medicine; Referring Provider Student in an Organized Health Care Education/Training Program; Visit Provider Student in an Organized Health Care Education/Training Program
DX: C04.9 Malignant neoplasm of floor of mouth, unspecified (principal); I12.9 Hypertensive chronic kidney disease with stage 1 through stage 4 chronic kidney disease, or unspecified chronic kidney disease; N18.30 Chronic kidney disease, stage 3 unspecified; R13.11 Dysphagia, oral phase
CPT/HCPCS: 92526; 92610; 97803

== ENCOUNTER 2024-03-13 16:15 | Outpatient (RCR) | payer MEDICARE, SELFPAY | END 2024-03-22 23:59 | LOC: NS 16:15 | PROVIDERS: PCP Family Medicine; Visit Provider Student in an Organized Health Care Education/Training Program | DX: Z71.3 Dietary counseling and surveillance (principal) ==

== ENCOUNTER → 2024-03-15 | Outpatient (CLI) | payer MEDICARE, SELFPAY ==
--- NOTE | 2024-03-15 13:47 | CT_ITS ---
INDICATION: Follow up lung nodule -- please compare to prior EXAMINATION: CT CHEST WITH CONTRAST - CT Chest W/ Contrast Injection TECHNIQUE: Helically acquired images were obtained of the chest following IV contrast. The protocol utilizes one or more of the following dose reduction techniques: automated exposure control, adjustment of mA and/or kV according to patient size,and/or use of iterative reconstruction technique. IV Contrast dosage and agent: 100 mL of Isovue 300 RADIATION DOSAGE (If Supplied By Facility): CTDIvol = ( 8.50 ) mGy, DLP = ( 279.27 ) mGycm COMPARISON: Prior study dated: 12/28/2023 FINDINGS: LUNGS, PLEURA AND LARGE AIRWAYS: The central airways are patent. Moderate centrilobular and paraseptal emphysema. Decreased prominence of the previously described irregular nodule in the anterior right upper lobe, currently measuring 0.5 cm on series 2 image 42. There is an adjacent 0.3 cm nodule on image 44 which is unchanged. No new pulmonary nodule No pleural effusion or thickening. No pneumothorax. THYROID: No thyroid lesions. HEART AND PERICARDIUM: Heart size is normal. No pericardial effusion. VESSELS: Thoracic aorta is not dilated. No aortic dissection. No obvious central pulmonary embolism although this study was not performed with the pulmonary embolism protocol. MEDIASTINUM AND LAURA: No mediastinal or hilar adenopathy. Esophagus is unremarkable. No hiatal hernia. UPPER ABDOMEN: No acute pathology. BONES: No suspicious lytic or blastic abnormality. Degenerative changes of the spine. The L1 vertebral body chronic compression deformity. CT/Chest WITH Contrast IMPRESSION: Moderate emphysema. Decreased prominence of the irregular right upper lobe nodule seen on prior imaging. There is an unchanged adjacent 0.3 cm nodule. Continue annual lung cancer screening. Electronically Signed: Marko Zepeda MD at 15:42 EDT ,
[2024-03-15 14:17] LABS: CREATININE FINGERSTICK < 1.0 mg/dL (0.55-1.02); EGFR FINGERSTICK > 60.0000 mL/min (>60)
== END | disposition home or self-care (01) ==
PROVIDERS: PCP Family Medicine; Referring Provider Student in an Organized Health Care Education/Training Program; Visit Provider Student in an Organized Health Care Education/Training Program
DX: R91.1 Solitary pulmonary nodule (principal); C06.9 Malignant neoplasm of mouth, unspecified
CPT/HCPCS: 71260; Q9967

== ENCOUNTER → 2024-03-20 | Outpatient (CLI) | payer MEDICARE, SELFPAY ==
--- NOTE | 2024-03-20 10:58 | ST.MBS ---
Modified Barium Swallow Patient Information Study Date: 03/20/24 Study Time: 10:00 Direct Billable Minutes: 105 Total Minutes procedure & reportin Diagnosis: Malignant neoplasm of the mouth C06.9 Referring Physician: Og Pederson Reason for Referral: Objectively assess swallow function, assess risk for aspiration, and determine recommendations for least restrictive diet textures and compensatory strategies to improve safety of swallow. Medical History: PMH: Alcohol abuse, Allergic rhinitis, Asthma, Cancer of oral cavity, Chronic cough, CKD stage 3, COPD, DDD (cervical and lumbar), Former smoker, Gastric ulcer, GERD, History of irregular heartbeat, HTN, Pulmonary nodule, SOB on exertion (See EMR for full PMH). 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 From 11/08/2023 ? 12/17/2023: received adjuvant radiation therapy. She was referred for ST consult during treatment to address dysphagia d/t FOM cancer s/p excision of FOM lesion, right selective neck dissection, and radiation treatment. She had MBSS completed 11/04/23, which revealed mild oral dysphagia and recommended soft and bite size textures / thin liquids with the following compensatory strategies: small bites, small sips, slow rate, alternate bites/solids and sips/liquids (1:1 ratio), sitting upright and remain sitting upright for 30 minutes after PO intake. Of note, no immediate GI consult was recommended; however, GI consult to be considered if the patient experiences?increased reflux, sensation of retention of food/drink, or reflux. Currently, the patient reports tolerating a soft solid diet / thin liquids with little difficulty swallowing other than needing softer foods since she had teeth pulled and her current dentures don't fit. SENIOR PREMIUM AUDITOR recommended trying denture adhesive for her upper dentition. Her PEG tube was removed 03/17/24. She is completing her home oropharyngeal exercise program and neck ROM exercise program at home 3-5X daily. She has moderate xerostomia, moderate hypogeusia, and moderate dysgeusia. Current Diet Ordered: Easy to Chew textures / Thin liquids Dentition: Edentulous Mental Status: WNL Respiratory Status: Oxygenating on Room Air Penetration-Aspiration Scale Penetration-Aspiration Scale: OBJECTIVE ASSESSMENT OF SWALLOW FUNCTION (QUANTITATIVE ? PER TRIAL): PENETRATION / ASPIRATION SCALE (FINLEY): 1 = does not enter airway 2 = enters airway/above vocal folds/ejected 3 = enters airway/above vocal folds/not ejected 4 = enters airway/contacts vocal folds/ejected 5 = enters airway/contacts vocal folds/not ejected 6 = enters airway/below vocal folds/ejected 7 = enters airway/below vocal folds/not ejected despite effort 8 = enters airway/below vocal folds/no effort VIDEOFLOROSCOPIC SCALE SCORE (FINLEY): Grade I = aspiration of material that has penetrated into the laryngeal vestibule, intact cough reflex Grade II = aspiration < 10 % of the bolus, intact cough reflex Grade III = aspiration of < 10 % of the bolus, reduced cough reflex or aspiration of > 10 % of the bolus, intact cough reflex Grade IV = aspiration of > 10 % of the bolus, reduced cough reflex Penetration-Aspiration Scale Score Thin Liquid via teaspoon: Result: 1= does not enter airway Thin Liquid via teaspoon Trial 2: Result: 7= enters airways/below vocal folds/not ejected despite effort Comment: Delayed cough Thin Liquid via large single sip: cup: Result: 1= does not enter airway [place] Thick Liquid via large single sip: cup: Result: 1= does not enter airway Pudding via teaspoon: Result: 1= does not enter airway Thin Liquid via single sip: straw: Result: 7= enters airways/below vocal folds/not ejected despite effort 1/4 Cookie: Result: 1= does not enter airway Thin Liquid via small single sip: cup: Result: 5= enters airways/contacts vocal folds/not ejected Comment: Cued cough and re-swallow = somewhat effective Thin Liquid via small single sip: cup Trial 2: Result: 1= does not enter airway Thin Liquid via large single sip: cup Effortful swallow: Result: 2= enter airway/above vocal folds/ejected Comment: Post prandial penetration of previous trial observed at the start of this trial. Oral Phase Labial Seal: Interlabial escape, no progression to anterior lip Tongue Control During Bolus Hold: Posterior escape of less than half of bolus Bolus Preparation/Mastication: Slow prolonged chewing/mashing with complete recollection Bolus Transport/Lingual Motion: Repetitive/disorganized tongue motion Oral Residue: Residue collection on oral structures Pharyngeal Phase Initiation of Pharyngeal Swallow: Bolus head at posterior laryngeal surgace of epiglottis Soft Palate Elevation: Trace column of contrast/air between soft palate and pharyngeal wall Laryngeal Elevation: Partial superior movement thyroid cart/partial apprx aryt-epig petiole Anterior Hyoid Excursion: Partial anterior movement Epiglottic Movement: Complete inversion Laryngeal Vestibule Closure at Height of Swallow: Incomplete; narrow column of air/contrast in laryngeal vestibule Pharyngeal Stripping Wave: Present - diminished Pharyngoesophageal Segment Opening: Parital distension and partial duration; parital obstruction of flow Tongue Base Retraction: Narrow column of contrast between tongue base & post. pharyngeal wall Pharyngeal Residue: Collection of residue within or on pharyngeal structures Esophageal Phase Esophageal Clearance: Esophageal retention w/ retrograde flow through pharyngoesophageal seg (trace) Diagnosis/Impression Diagnosis: Mild-moderate oropharyngeal dysphagia R13.12 Impression: The oral phase is primarily marked by... -Prolonged, but complete mastication. -Lingual pumping for A-P transport. -Decreased bolus control with loss of <1/2 of thin liquids to the posterior surface of the epiglottis. The pharyngeal phase is primarily marked by... -Decreased airway closure due to decreased anterior hyoid excursion and laryngeal elevation. -Trace-mild pharyngeal residues due to mildly decreased tongue base retraction. -Aspiration of thin liquids via tsp and straw. Deep laryngeal penetration of thin liquids via cup. Cough and re-swallow was most effective in decreasing risk for aspiration. The esophageal phase is primarily marked by.. -Trace retention of barium in the UES with retrograde flow to the pyriforms. -Retention of pudding, which mostly cleared with thin liquid wash. Recommendations Diet: Regular Textures (Easy to Chew textures - IDDSI Level 7) and Thin Liquids Comment: Intermittent cough and re-swallow (after every 2-3 sips) Compensatory Strategies: Small Bites, Small Sips, Slow Rate, Alternate bites/solids and sips/liquids (1:1 ratio), Sitting upright and Remain sitting upright for 30 minutes after PO intake Recommend Repeat Modified Barium Swallow: Yes (3-6 months to monitor risk for worsening dysphagia s/p radiation treatment for oral cavity cancer) Need for Skilled Speech Therapy Services: No Comment: The patient was educated by this SENIOR PREMIUM AUDITOR in additional swallowing recommendation to decrease risk for aspiration: intermittent cough and re-swallow. SENIOR PREMIUM AUDITOR recommended continued participation in recommended oropharyngeal exercise program (Diane, Giselle, Effortful) and neck ROM exercises 3-5X/day. SENIOR PREMIUM AUDITOR instructed pt in CTAR with return demonstration and recommended adding it to the patient's exercise program to improve airway closure. Pt verbalized good understanding and does not feel she needs to return to at this time for re-instruction in strategies to decrease risk for aspiration or exercise program. SENIOR PREMIUM AUDITOR requested calling to re-schedule sooner if concerns for worsening swallow function or any need for re-instruction of strategies and exercises. Education Completed: 1. Described result of evaluation. Status Active ST Patient: Active Contact Information [facility]:: Karla Saleh M.A. [facility]-SENIOR PREMIUM AUDITOR Speech-Language Pathologist? [facility] [address] [place] [address] [phone]
== END | disposition home or self-care (01) ==
PROVIDERS: PCP Family Medicine; Referring Provider Student in an Organized Health Care Education/Training Program; Visit Provider Student in an Organized Health Care Education/Training Program
DX: C04.9 Malignant neoplasm of floor of mouth, unspecified (principal)
CPT/HCPCS: 74230; 92611

== ENCOUNTER 2024-05-01 15:36 | Outpatient (RCR) | payer MEDICARE, SELFPAY | END 2024-05-22 23:59 | LOC: NS 15:36 | PROVIDERS: PCP Family Medicine; Visit Provider Student in an Organized Health Care Education/Training Program | DX: Z71.3 Dietary counseling and surveillance (principal) ==

== ENCOUNTER → 2024-07-07 | Outpatient (CLI) | payer MEDICARE, SELFPAY ==
[2024-07-07 15:24] LABS: Absolute Lymphocyte Count 0.86 X10^3/uL (0.83-4.51); Absolute Neutrophil Count 3.5 X10^3/uL (2.0-7.7); Basophil# 0.06 X10^3/uL; Basophil% 1.2 % (0-1); Eosinophil# 0.09 X10^3/uL; Eosinophils% 1.8 % (0-5); Hematocrit 41.2 % (37-47); Hemoglobin 12.6 g/dL (12.0-15.0); Lymphocyte # 0.86 X10^3/ul (0.83-4.51); Lymphocyte % 17.2 % (19-41); Mean Corp Hgb Conc 30.6 g/dL (32-36); Mean Corpuscular Hgb 26.3 pg (27.0-32.0); Mean Platelet Vol. 9.4 fl (6.2-12.0); Monocyte# 0.45 X10^3/uL; NRBC Flagged by Analyzer 0 % (0-5); Neutrophil # 3.53 X10^3/uL (2.7-7.7); Neutrophil % 70.6 % (47-70); Platelet Count 173 K/mm3 (150-450); RBC Distribution Width CV 14.1 % (11.6-14.6); RBC Distribution Width SD 44.6 fl (35.1-43.9); Red Blood Count 4.79 M/mm3 (4.2-5.4)
[2024-07-07 15:49] LABS: Ferritin 516 ng/mL (8-252); Follicle Stimulating Hormone 113.9 mIU/mL; Iron 123 ug/dL (50-170); Iron Binding Capacity,Total 316 ug/dL (250-450); Luteinizing Hormone 33.8 mIU/mL; PERCENT IRON SATURATION 38.9 % (15.0-55.0); T4 Free Direct 0.37 ng/dL (0.76-1.46)
[2024-07-13 04:08] LABS: PROLACTIN 9.2 ng/mL (3.6-25.2)
== END | disposition home or self-care (01) ==
LOC: MFPLAB 11:14 → BFHLAB 13:53
PROVIDERS: Internal Medicine Medical Oncology; PCP Family Medicine; Referring Provider Family Medicine; Visit Provider Family Medicine
DX: R53.83 Other fatigue (principal); R79.89 Other specified abnormal findings of blood chemistry
CPT/HCPCS: 36415; 82533; 82728; 83001; 83002; 83540; 83550; 84146; 84439; 84443; 85025

== ENCOUNTER → 2024-09-18 | Outpatient (CLI) | payer MEDICARE, SELFPAY ==
--- NOTE | 2024-09-18 12:41 | CT_ITS ---
INDICATION: follow up treated Oral cavity SCC -- compare to prior EXAMINATION: CT CHEST WITH CONTRAST - CT Chest W/ Contrast Injection TECHNIQUE: Helically acquired images were obtained of the chest following IV contrast. The protocol utilizes one or more of the following dose reduction techniques: automated exposure control, adjustment of mA and/or kV according to patient size,and/or use of iterative reconstruction technique. IV Contrast dosage and agent: 100 cc of Isovue-300 RADIATION DOSAGE (If Supplied By Facility): CTDIvol = ( 9.6 ) mGy, DLP = ( 489.28 ) mGycm COMPARISON: Prior studies dated: 03/15/2024 and 12/28/2023 FINDINGS: LUNGS, PLEURA AND LARGE AIRWAYS: Persistent 5 mm upper lobe nodule slightly more well-defined than the previous exam. Another adjacent 4 mm right upper lobe nodule. Moderate centrilobular emphysema. No focal consolidation. No pleural effusion or thickening. No pneumothorax. THYROID: No thyroid lesions. HEART AND PERICARDIUM: Heart size is normal. No pericardial effusion. Minimal coronary calcifications. VESSELS: Atherosclerotic calcifications of the aortic arch without evidence of aneurysm. No aortic dissection. No obvious central pulmonary embolism although this study was not performed with the pulmonary embolism protocol. MEDIASTINUM AND LAURA: No mediastinal or hilar adenopathy. Esophagus is unremarkable. No hiatal hernia. UPPER ABDOMEN: No acute pathology. BONES: Severe compression fracture of L1 vertebra with mild retropulsion unchanged. CT/Chest WITH Contrast IMPRESSION: 1. Persistent small right upper lobe nodules questionably more prominent than the previous exam. Further follow-up exam in 6 months is recommended. 2. Moderate centrilobular emphysema which is associated with increased incidence of cancer. 3. No acute pulmonary infiltrate or pleural effusions. [employer] RECOMMENDATIONS FOR FOLLOW-UP OF SMALL SOLID LUNG NODULES DETECTED INCIDENTALLY ON CT (for PATIENTS ? 35 YEARS OF AGE with no known extra-pulmonary cancer and no clinical evidence of infection). Electronically Signed: Julio Fernando MD at 10:36 EST ,
--- NOTE | 2024-09-18 12:41 | CT_ITS ---
INDICATION: follow up treated Oral cavity SCC -- compare to prior EXAMINATION: CT NECK WITH CONTRAST - CT Soft Tissue Neck W/ Contrast Injection TECHNIQUE: Helically acquired images were obtained of the neck following IV contrast. The protocol utilizes one or more of the following dose reduction techniques: automated exposure control, adjustment of mA and/or kV according to patient size,and/or use of iterative reconstruction technique. IV Contrast dosage and agent: 100 cc of Isovue-300 RADIATION DOSAGE (If Supplied By Facility): CTDIvol = ( 9.60 ) mGy, DLP = ( 489.28 ) mGycm COMPARISON: Prior study dated: 02/01/2024 FINDINGS: NASOPHARYNX: Unremarkable. SUPRAHYOID NECK: Unremarkable oropharynx, oral cavity, parapharyngeal space, and retropharyngeal space. INFRAHYOID NECK: Unremarkable larynx, hypopharynx, and supraglottis. THYROID: No focal lesions. SALIVARY GLANDS: Status post resection of the right submandibular gland unchanged. Unremarkable left submandibular and bilateral parotid glands. LYMPH NODES: No cervical or supraclavicular lymphadenopathy. VASCULAR STRUCTURES: Atherosclerotic calcifications of the aortic arch, origin of the great vessels and origin of the internal carotid arteries unchanged. VISUALIZED PORTIONS OF THE ORBITS, PARANASAL SINUSES, MASTOID AIR CELLS AND SKULL BASE: Unremarkable. BONES: Degenerative changes of the spine. THORACIC INLET: Clear lung apices. CT/Soft Tissue Neck WITH Contrast IMPRESSION: No significant change since the previous exam. Electronically Signed: Julio Fernando MD at 10:41 EST ,
[2024-09-18 13:27] LABS: CREATININE FINGERSTICK < 1.0 mg/dL (0.55-1.02); EGFR FINGERSTICK > 60.0000 mL/min (>60)
== END | disposition home or self-care (01) ==
LOC: CT 12:40
PROVIDERS: PCP Family Medicine; Referring Provider Student in an Organized Health Care Education/Training Program; Visit Provider Student in an Organized Health Care Education/Training Program
DX: Z01.812 Encounter for preprocedural laboratory examination (principal); C06.9 Malignant neoplasm of mouth, unspecified; R91.1 Solitary pulmonary nodule
CPT/HCPCS: 70491; 71260; Q9967

== ENCOUNTER → 2024-12-18 | Outpatient (CLI) | payer MEDICARE, SELFPAY ==
--- NOTE | 2024-12-18 13:12 | CT_ITS ---
PROCEDURE: CHEST WITHOUT CONTRAST 12/18/2024 REASON FOR EXAM: FOLLOW UP LUNG NODULES TECHNIQUE: Chest CT without contrast. Coronal and Sagittal reconstruction series were provided. One or more dose reduction techniques were used (e.g., Automated exposure control, adjustment of the mA and/or kV according to patient size, use of iterative reconstruction technique COMPARISON: 03/15/2024 FINDINGS: Hardware: None Lymph nodes: Unremarkable. Heart and Vasculature: No cardiomegaly. Atherosclerotic calcifications of the thoracic aorta. Thoracic aorta and pulmonary arteries have normal contours; noncontrast technique limits evaluation. Coronary Artery Calcifications: Present Lungs and Airways: Mild bilateral apical scarring. Mild emphysema. Interval development of 3 noncalcified nodules in close proximity to each other in the left upper lobe measuring 8 mm, 6 mm, and 6 mm on images 35 36 and 37. This is worrisome for bronchogenic carcinoma. No other noncalcified nodule or mass. Pleura: No pleural effusion. Upper Abdomen: Unremarkable. Bones: Unremarkable. CT/Chest without Contrast IMPRESSION: Coronary artery calcification (CAC) is is present Enlarging right upper lobe nodules worrisome for bronchogenic carcinoma. Correlation with PET-CT scan would be useful. Reading Location: [id number]
== END | disposition home or self-care (01) ==
LOC: CT 13:11
PROVIDERS: PCP Family Medicine; Referring Provider Student in an Organized Health Care Education/Training Program; Visit Provider Student in an Organized Health Care Education/Training Program
DX: R91.1 Solitary pulmonary nodule (principal)
CPT/HCPCS: 71250

== ENCOUNTER 2025-01-09 08:54 | Outpatient (CLI) | payer MEDICARE, SELFPAY ==
[2025-01-09] VITALS (14 sets, daily range): BP systolic 147–208; BP diastolic 55–88; PULSE 54–63; RESP 12–20; TEMP 36.2; O2SAT 93–100; BMI 21.8
--- NOTE | 2025-01-09 09:11 | CT_ITS ---
PROCEDURE: BIOPSY/INJ OR NEEDLE PLACEMENT N/A REASON FOR EXAM: CONSIDER BIOPSY OF WORSENING RUL NODULES TECHNIQUE: The procedure as well as the benefits and possible complications including infection and bleeding as well as pneumothorax were explained to the patient. Informed consent was obtained. The patient was in the supine position. Conscious sedation was performed. The patient received 2 mg of Versed and 50 mcg of fentanyl intravenously. Conscious sedation was started at 10:20 a.m. and terminated at 10:41 a.m.. The patient was independently monitored by the department nurse. The overlying skin was prepped and draped in usual sterile fashion. The nodular densities in the right upper lobe anteriorly were localized. Due to their position beneath anterior ribs, biopsy was unsuccessful despite multiple attempts. RADIATION DOSE SUMMARY: CTDlvol: 25.73 mGy DLP: 563.09 mGycm COMPARISON: Prior CT scan dated December 18, 2024. FINDINGS: Small nodules are seen along the anterior aspect of the right upper lobe deep to the overlying anterior ribs. Despite multiple attempts, biopsy was not successful. CT/Biopsy/Inj or Needle Placement IMPRESSION: Attempted CT-guided biopsy of the pulmonary nodules in the anterior aspect of t he right upper lobe as described. The patient tolerated the procedure well. Reading [facility]
[2025-01-09 09:24] LABS: Absolute Lymphocyte Count 0.94 X10^3/uL (0.83-4.51); Absolute Neutrophil Count 4.7 X10^3/uL (2.0-7.7); Basophil# 0.06 X10^3/uL; Basophil% 0.9 % (0-1); Eosinophil# 0.12 X10^3/uL; Eosinophils% 1.8 % (0-5); Hematocrit 37.9 % (37-47); Lymphocyte # 0.94 X10^3/ul (0.83-4.51); Lymphocyte % 14.2 % (19-41); Mean Corp Hgb Conc 31.7 g/dL (32-36); Mean Corpuscular Hgb 26.7 pg (27.0-32.0); Mean Corpuscular Volume 84.2 fL (81-99); Mean Platelet Vol. 8.9 fl (6.2-12.0); Monocyte% 12.1 % (0-10); NRBC Flagged by Analyzer 0 % (0-5); Neutrophil # 4.66 X10^3/uL (2.7-7.7); Neutrophil % 70.5 % (47-70); Platelet Count 242 K/mm3 (150-450); RBC Distribution Width CV 13.2 % (11.6-14.6); RBC Distribution Width SD 40.6 fl (35.1-43.9); White Blood Count 6.6 K/mm3 (4.4-11.0)
--- NOTE | 2025-01-09 10:15 | RAD_ITS ---
EXAM: Inspiration expiration views following right lung biopsy. CLINICAL HISTORY: Status post right lung biopsy. COMPARISON: Prior study dated November 02, 2023. TECHNIQUE: AP inspiration expiration views. FINDINGS: No evidence of pneumothorax RAD/Chest Insp/Exp 2 View IMPRESSION: No evidence of pneumothorax. Reading Location: [place] [id number]
[2025-01-09] MEDS: 0.9% Normal Saline (250mL Bag) 250 ML 15 ML IV (10:20)
[2025-01-09] MEDS: Midazolam 2 MG/2 ML Syringe IV ×2 (10:20→10:31)
[2025-01-09] MEDS: fentaNYL 100 MCG/2 ML Ampul IV ×2 (10:23→10:33)
[2025-01-09] MEDS: Lidocaine 2% (20 ml mdv) 20 ML Vial INFILT (10:32)
--- NOTE | 2025-01-09 13:47 | NURSING ---
Upon d/c pt utilizing hospital van to get home and then is home to be with pt, per pt.
[2025-01-09 14:08] LABS: Prothrombin Time (Protime)PT. 12.9 SECONDS (11.7-14.9)
== END 2025-01-09 23:59 | disposition home or self-care (01) ==
PROVIDERS: Radiology Diagnostic Radiology; PCP Family Medicine; Referring Provider Student in an Organized Health Care Education/Training Program; Visit Provider Student in an Organized Health Care Education/Training Program
DX: Z01.818 Encounter for other preprocedural examination (principal); E03.9 Hypothyroidism, unspecified; R91.1 Solitary pulmonary nodule
CPT/HCPCS: 32408; 36415; 71046; 77012; 84439; 84443; 85025; 85610; 85730; 99156; A4216

== ENCOUNTER → 2025-03-19 | Outpatient (CLI) | payer MEDICARE, SELFPAY ==
--- NOTE | 2025-03-19 14:15 | CT_ITS ---
PROCEDURE: SOFT TISSUE NECK WITH CONTRAST 03/19/2025 REASON FOR EXAM: TREATED H N CANCER TECHNIQUE: SOFT TISSUE NECK WITH CONTRAST CONTRAST: Isovue 370 VOLUME: 100 mL One or more dose reduction techniques were used (e.g., Automated exposure control, adjustment of the mA and/or kV according to patient size, use of iterative reconstruction technique). RADIATION DOSE SUMMARY: CTDlvol: 15.2 mGy DLP: 317.34 mGycm COMPARISON: Prior study dated February 01, 2024. FINDINGS: Airway: Midline and patent. Salivary glands: Status post right cervical neck dissection with removal of the right submandibular gland. Post operative scarring is seen. Lymph nodes: No significant lymphadenopathy is present. Thyroid: Unremarkable. Vasculature: Atherosclerotic plaque formation of the carotid arteries. Orbits: Unremarkable Paranasal sinuses and mastoids: Grossly clear at visualized levels. Lung apices: Scarring at the lung apices. Upper mediastinum: Unremarkable Bones: Multilevel degenerative changes of the spine. Other: CT/Soft Tissue Neck WITH Contrast IMPRESSION: Stable examination. Reading Location: [id number]
--- NOTE | 2025-03-19 14:15 | CT_ITS ---
PROCEDURE: CHEST WITH CONTRAST 03/19/2025 REASON FOR EXAM: LUNG NODULES, TREATED H N CANCER TECHNIQUE: CHEST WITH CONTRAST Coronal and Sagittal reconstruction series were provided. CONTRAST: Isovue 3 7 VOLUME: 74 mL One or more dose reduction techniques were used (e.g., Automated exposure control, adjustment of the mA and/or kV according to patient size, use of iterative reconstruction technique). RADIATION DOSE SUMMARY: CTDlvol: 10.8 mGy DLP: 488.8 mGycm COMPARISON: Prior study dated December 18, 2024. FINDINGS: Hardware: None Lymph nodes: No significant lymphadenopathy is seen. Heart and Vasculature: Normal heart size. No pericardial effusion. Coronary artery calcification. Atherosclerotic calcification of the aortic arch. Lungs and Airways: Mild emphysematous changes are present. No septal thickening nodules or abnormal pulmonary opacities. Once again, there are 3 noncalcified nodules in close proximity to each other in the right upper lobe. The largest which measured 8 mm on prior examination has decreased in size at this time. It presently measures 4.8 mm. Stable size of the anterior pulmonary nodule. Pleura: No evidence of pleural effusion. Upper Abdomen: Unremarkable. Bones: Degenerative changes of the thoracic spine. CT/Chest WITH Contrast IMPRESSION: Coronary artery calcification (CAC) is is present Persistent 3 adjacent nodules in the right upper lobe in close proximity to eac h other with interval decrease in size of the inferior lateral pulmonary nodule. No new pulmonary nodule is seen. Reading Location: [id number]
[2025-03-21 16:43] LABS: CREATININE FINGERSTICK < 1.0 mg/dL (0.55-1.02); EGFR FINGERSTICK > 60.0000 mL/min (>60)
== END | disposition home or self-care (01) ==
LOC: CT 14:09
PROVIDERS: PCP Family Medicine; Referring Provider Student in an Organized Health Care Education/Training Program; Visit Provider Student in an Organized Health Care Education/Training Program
DX: R91.1 Solitary pulmonary nodule (principal); C06.9 Malignant neoplasm of mouth, unspecified
CPT/HCPCS: 70491; 71260; Q9967

== ENCOUNTER → 2025-04-30 | Outpatient (CLI) | payer MEDICARE, SELFPAY ==
--- NOTE | 2025-04-30 14:19 | SP.MBSS_ITS ---
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 S/p biopsy (06/24/23), PET (07/27/23), triple endoscopy with excision of FOM lesion + right selective neck dissection + PEG placement (09/20/23). Completed adjuvant radiation (11/07?12/17/23). MBSS (11/04/23) showed mild oral dysphagia with recommended soft/bite-size diet, thin liquids, and compensatory strategies. PEG removed 03/17/24. Most recent MBSS on 03/20/25 ? Mild?moderate oropharyngeal dysphagia (R13.12): * Oral phase: Prolonged but complete mastication, lingual pumping, decreased bolus control with posterior spillage (<? thin liquids). * Pharyngeal phase: Reduced airway closure from decreased hyoid excursion/laryngeal elevation; trace?mild residues; aspiration of thin liquids (tsp/straw), deep penetration with cup; cough/re-swallow most effective. * Esophageal phase: Trace UES retention with retrograde flow; pudding retention improved with liquid wash. Recommendations: * Diet: Regular (Easy to Chew ? IDDSI 7) and Thin liquids. * Compensatory strategies: Small bites/sips, slow rate, alternate solids/liquids (1:1), upright during/30 min post-PO, cough + re-swallow. * Exercises: Continue Diane, Giselle, Effortful, neck ROM, add CTAR 3?5x /day. * Follow-up: Repeat MBSS in 3?6 months to monitor post-radiation swallow function. Skilled ST not indicated at present; patient educated and demonstrates good understanding. Advised to contact [facility]OUSING SPECIALIST sooner if swallow worsens or if re-instruction needed. Current Diet Ordered: Regular (Easy to Chew - IDDSI 7) and Thin liquids Dentition: Edentulous Mental Status: WNL Respiratory Status: Oxygenating on Room Air Penetration-Aspiration Scale Penetration-Aspiration Scale: OBJECTIVE ASSESSMENT OF SWALLOW FUNCTION (QUANTITATIVE ? PER TRIAL): PENETRATION / ASPIRATION SCALE (FINLEY): 1 = does not enter airway 2 = enters airway/above vocal folds/ejected 3 = enters airway/above vocal folds/not ejected 4 = enters airway/contacts vocal folds/ejected 5 = enters airway/contacts vocal folds/not ejected 6 = enters airway/below vocal folds/ejected 7 = enters airway/below vocal folds/not ejected despite effort 8 = enters airway/below vocal folds/no effort VIDEOFLOROSCOPIC SCALE SCORE (FINLEY): Grade I = aspiration of material that has penetrated into the laryngeal vestibule, intact cough reflex Grade II = aspiration < 10 % of the bolus, intact cough reflex Grade III = aspiration of < 10 % of the bolus, reduced cough reflex or aspiration of > 10 % of the bolus, intact cough reflex Grade IV = aspiration of > 10 % of the bolus, reduced cough reflex Penetration-Aspiration Scale Score Thin Liquid via teaspoon: Result: 1= does not enter airway Thin Liquid via teaspoon Trial 2: Result: 1= does not enter airway Thin Liquid via small single sip: cup: Result: 1= does not enter airway Thin Liquid via sequential sips: cup: Result: 1= does not enter airway [place] Thick Liquid via small single sip: cup: Result: 1= does not enter airway Honey Thick Liquid via small single sip: cup: Result: 1= does not enter airway Pudding: Result: 1= does not enter airway Cookie: Result: 1= does not enter airway Oral Phase Labial Seal: Interlabial escape, no progression to anterior lip Tongue Control During Bolus Hold: Cohesive bolus between tongue to palatal seal Bolus Preparation/Mastication: Slow prolonged chewing/mashing with complete recollection Bolus Transport/Lingual Motion: Delayed initiation of tongue motion Oral Residue: Residue collection on oral structures Pharyngeal Phase Initiation of Pharyngeal Swallow: Bolus head in pyriforms Soft Palate Elevation: No bolus between soft palate and pharyngeal wall Laryngeal Elevation: Comp. Superior move thyroid cart w/comp. apprx arytenoid cart-epig pet Anterior Hyoid Excursion: Complete anterior movement Epiglottic Movement: Complete inversion Laryngeal Vestibule Closure at Height of Swallow: Incomplete; narrow column of air/contrast in laryngeal vestibule Pharyngeal Stripping Wave: Present - diminished Pharyngoesophageal Segment Opening: Parital distension and partial duration; parital obstruction of flow Tongue Base Retraction: Narrow column of contrast between tongue base & post. pharyngeal wall Pharyngeal Residue: Collection of residue within or on pharyngeal structures Esophageal Phase Esophageal Clearance: Esophageal retention w/ retrograde flow below pharyngoesophageal seg. Diagnosis/Impression Diagnosis: mild oropharyngeal dysphagia R13.12 .: Patient denies recent swallowing difficulties but prefers softer foods due to edentulous status. MBSS revealed no laryngeal penetration or aspiration. Findings included spillage to pyriforms prior to swallow onset, delayed pharyngeal swallow initiation, but adequate airway closure. Slowed mastication with barium-coated crackers noted, with oral residue that cleared following HOUSING SPECIALIST cue to double swallow. Limited UES opening observed with retention in the upper to mid esophagus. Liquid wash improved esophageal clearence. Patient would benefit from GI referral. Recommendations Diet: Easy to Chew Textures and Thin Liquids Compensatory Strategies: Small Bites, Small Sips, Slow Rate, Multiple Swallows, Alternate bites/solids and sips/liquids, Sitting upright and Remain sitting upright for 30 minutes after PO intake Recommend Repeat Modified Barium Swallow: TBD Need for Skilled Speech Therapy Services: No Recommended Referrals: GI Consult Education Completed: 1. Described result of evaluation. and 2. Pt understands evaluation & agrees with goals and treatment plan. Status Active ST Patient: Active Contact Information [facility]:: Yamini Garcia M.A., [facility] Speech-Language Pathologist [facility] [phone] FAX [phone] [email or web address] [address] [place] [address] ?[place] [address]
== END | disposition home or self-care (01) ==
LOC: RAD 12:45
PROVIDERS: PCP Family Medicine; Referring Provider Student in an Organized Health Care Education/Training Program; Visit Provider Student in an Organized Health Care Education/Training Program
DX: C06.9 Malignant neoplasm of mouth, unspecified (principal)
CPT/HCPCS: 74230; 92611

== ENCOUNTER → 2025-06-25 | Outpatient (CLI) | payer MEDICARE, SELFPAY ==
--- NOTE | 2025-06-25 13:12 | CT_ITS ---
PROCEDURE: SOFT TISSUE NECK WITH CONTRAST 06/25/2025 REASON FOR EXAM: FOLLOW UP TREATED H N CANCER TECHNIQUE: Procedure Code: CTNEW Modality: CT Procedure: SOFT TISSUE NECK WITH CONTRAST CONTRAST: VOLUME: mL One or more dose reduction techniques were used (e.g., Automated exposure control, adjustment of the mA and/or kV according to patient size, use of iterative reconstruction technique). COMPARISON: 03/19/2025. FINDINGS: Dental amalgam causes streak artifact, limiting evaluation of the oral cavity. The parapharyngeal soft tissues appear symmetric and unremarkable. The visualized airway is patent. The right submandibular gland is not visualized and presumably surgically absent. Surgical clips are noted in the right submandibular soft tissue. The left submandibular gland and bilateral parotid glands appear unremarkable. Appear symmetric and unremarkable. No cervical lymphadenopathy. The hyoid bone, thyroid cartilage, and cricoid cartilage appear intact. The epiglottis and aryepiglottic folds appear unremarkable. The vocal cords are symmetric. Moderate atherosclerotic calcifications and soft plaque, most pronounced in the left common carotid artery and right carotid bulb. The thyroid gland appears atrophied but unchanged from the previous study. Centrilobular emphysematous changes are noted within the visualized lung apices. The visualized paranasal sinuses and mastoid air cells are clear. No acute osseous abnormality. No acute fracture. Moderate cervical spondylosis, unchanged. CT/Soft Tissue Neck WITH Contrast IMPRESSION: Stable postsurgical changes in the right submandibular soft tissues including r esection of the right submandibular gland. No CT evidence of residual or recurrent malignancy. Additional nonacute findings, as described above. Reading Location[id number]
--- NOTE | 2025-06-25 13:12 | CT_ITS ---
PROCEDURE: CHEST WITH CONTRAST 06/25/2025 REASON FOR EXAM: FOLLOW UP PULM NODULES TECHNIQUE: Procedure Code: CTCHW Modality: CT Procedure: CHEST WITH CONTRAST Coronal and Sagittal reconstruction series were provided. CONTRAST: Isovue 370 VOLUME: 100 mL One or more dose reduction techniques were used (e.g., Automated exposure control, adjustment of the mA and/or kV according to patient size, use of iterative reconstruction technique). RADIATION DOSE SUMMARY: CTDlvol: 36.42 mGy DLP: 654.35 mGycm COMPARISON: 03/19/2025 FINDINGS: Lung windows show underlying emphysema with nonspecific pleural thickening in both apices. Stable noncalcified right upper lobe nodules again measuring approximately 0.6, 0.4 and 0.5 cm on axial image 38. No organized infiltrate or effusion. No new suspicious noncalcified mass or nodule. There is evidence of chronic bronchitis and nonspecific pleural thickening in both hemithoraces. Soft tissue windows show a normal-appearing thyroid. No suspicious axillary, mediastinal or perihilar adenopathy. The thoracic aorta tapers normally. Calcified coronary vessels are noted. Limited cuts through the upper abdomen do not show a suspicious abnormality. Bony structures show degenerative change with stable chronic compression fracture at L1 CT/Chest WITH Contrast IMPRESSION: Coronary artery calcification (CAC) is is present Underlying emphysema with chronic interstitial changes and nonspecific pleural thickening in both hemithoraces. Stable noncalcified nodules in the right upper lobe. Another six-month follow-up beulah mmended to assess stability No new suspicious noncalcified mass or nodule No organized infiltrate or effusion No suspicious adenopathy Degenerative bony changes Reading Location: [id number]
== END | disposition home or self-care (01) ==
LOC: CT 13:10
PROVIDERS: PCP Family Medicine; Referring Provider Student in an Organized Health Care Education/Training Program; Visit Provider Student in an Organized Health Care Education/Training Program
DX: C06.9 Malignant neoplasm of mouth, unspecified (principal); R91.1 Solitary pulmonary nodule
CPT/HCPCS: 70491; 71260; Q9967; A4216